=== PATIENT | female | born 1990 | race Caucasian/White ===

== ENCOUNTER 2016-10-10 09:21 | Inpatient (IN) | payer OTHER ==
[2016-10-10 09:22] VITALS: BMI 29.1
[2016-10-10] MEDS ORDERED: Sodium Chloride 0.9% 1,000 ML IV ONE ×2 (10:03→11:16)
[2016-10-10] MEDS ORDERED: Sodium Chloride 0.9% 1,000 ML ONE ×3 (10:19→15:01)
[2016-10-10 10:23] LABS: BASO # 0.1 K/uL (0.0-0.2); BASO % 0.9 % (0.0-2.0); EOS % 0.2 % (0.0-4.0); HEMATOCRIT 39.5 % (34.0-47.0); LYMPH # 1.4 K/uL (1.0-4.3); LYMPH % 11.1 % (20.0-40.0); MEAN CELL VOLUME 90.6 fL (81.0-99.0); MEAN CORPUSCULAR HEMOGLOBIN 29.1 pg (27.0-31.0); MEAN CORPUSCULAR HGB CONC 32.1 g/dL (33.0-37.0); MEAN PLATELET VOLUME 9.5 fL (7.2-11.7); MONO # 0.2 K/uL (0.0-0.8); WHITE BLOOD COUNT 12.3 K/uL (4.8-10.8)
[2016-10-10 10:36] LABS: CHLORIDE 99 mmol/L (98-107); POTASSIUM 4.8 mmol/L (3.6-5.2); SODIUM 137 mmol/L (132-148)
[2016-10-10 10:37] LABS: DRAW SITE VENOUS; VENOUS BLOOD GAS BASE EXCESS -16.6 mmol/L (0.0-2.0); VENOUS BLOOD GAS PCO2 32 mmHg (40-60); VENOUS BLOOD PH 7.15 (7.32-7.43)
[2016-10-10 10:38] LABS: AST/SGOT 26 U/L (14-36); BILIRUBIN,TOTAL 0.6 mg/dL (0.2-1.3); GFR AFRICAN-AMERICAN > 60
[2016-10-10 10:39] LABS: ALB/GLOB RATIO 1.4 (1.0-2.1); ALKALINE PHOSPHATASE 115 U/L (38-126); ALT/SGPT 39 U/L (9-52); BLOOD UREA NITROGEN 17 mg/dL (7-17); CALCIUM 9.3 mg/dl (8.6-10.4); TOTAL PROTEIN 8.1 g/dL (6.3-8.3)
[2016-10-10 10:57] LABS: GLUCOSE,RANDOM 534 mg/dL (65-105)
[2016-10-10 10:58] LABS: CARBON DIOXIDE 11 mmol/L (22-30)
[2016-10-10 11:01] LABS: RBC URINE 9 /hpf (0-3); URINE BILIRUBIN NEGATIVE (NEGATIVE); URINE BLOOD 2+ (NEGATIVE); URINE COLOR Straw (YELLOW); URINE GLUCOSE (UA) 3+ mg/dL (Normal); URINE KETONE 2+ mg/dL (NEGATIVE); URINE LEUKOCYTE ESTERASE NEG Leu/uL (Negative); URINE PROTEIN 2+ mg/dL (NEGATIVE); URINE UROBILINOGEN NORMAL mg/dL (0.2-1.0); WBC URINE 1 /hpf (0-5)
[2016-10-10] MEDS ORDERED: Iodixanol 320 MG/ML 100 ML BOTTLE IV ONE (11:17)
--- NOTE | 2016-10-10 11:17 | C.PDOC ---
History Of Present Illness 26 year old female with a history of DM, HTN, and anemia, presents to the ED with complaints of sharp and burning epigastric abdominal pain with multiple episodes of vomiting since 04:00. Patient states she has had similar episodes in the past and thinks it might be related to what she ate last night. Denies fever, diarrhea, or any other complaints at this time. Time Seen by Provider: 10/10/16 09:58 Chief Complaint (Nursing): Abdominal Pain History Per: Patient History/Exam Limitations: no limitations Onset/Duration Of Symptoms: Hrs Current Symptoms Are (Timing): Still Present Severity: Mild Location Of Pain/Discomfort: Epigastric Radiation Of Pain To:: None Quality Of Discomfort: Sharp, Burning Associated Symptoms: Vomiting. denies: Fever, Diarrhea Exacerbating Factors: None Abnormal Vaginal Bleeding: No Past Medical History Reviewed: Historical Data, Nursing Documentation, Vital Signs Vital Signs: Last Vital Signs Temp 98.3 F 10/10/16 11:35 Pulse 105 H 10/10/16 11:35 Resp 22 10/10/16 11:35 BP 135/68 10/10/16 11:35 Pulse Ox 100 10/10/16 12:51 - Medical History PMH: Anemia (low iron level), Anxiety, Depression, Diabetes, Gall Bladder Disease, HTN, Hypercholesterolemia Surgical History: Cholecystectomy - [facility] Procedures CLOSURE SKIN & SUBCUTANEOUS NEC (09/26/13) Family History: States: Unknown Family Hx - Social History Hx Tobacco Use: No Hx Alcohol Use: Yes Hx Substance Use: No - Immunization History Hx Tetanus Toxoid Vaccination: No Hx Influenza Vaccination: No Hx Pneumococcal Vaccination: No Review Of Systems Constitutional: Negative for: Fever, Chills Cardiovascular: Negative for: Chest Pain Respiratory: Negative for: Shortness of Breath Gastrointestinal: Positive for: Vomiting, Abdominal Pain. Negative for: Diarrhea Genitourinary: Negative for: Dysuria, Frequency Musculoskeletal: Negative for: Back Pain Neurological: Negative for: Weakness, Numbness Physical Exam - Physical Exam Appears: Non-toxic, Other (+Uncomfortable +Actively vomiting) Skin: Normal Color, Warm, Diaphoretic Head: Atraumatic, Normacephalic Eye(s): bilateral: Normal Inspection Oral Mucosa: Moist Neck: Supple Chest: Symmetrical, No Deformity Cardiovascular: Rhythm Regular (+Tachycardic) Respiratory: Normal Breath Sounds, No Accessory Muscle Use, No Rales, No Rhonchi , No Wheezing Gastrointestinal/Abdominal: Soft, Tenderness (+Tenderness to the upper abdomen) , No Distention, No Guarding, No Rebound Extremity: Normal ROM Neurological/Psych: Oriented x3, Normal Speech, Normal Cognition ED Course And Treatment - Laboratory Results Result Diagrams: 10/10/16 10:15 10/10/16 10:15 ECG: Interpreted By Me, Viewed By Me ECG Rhythm: Sinus Tachycardia ECG Interpretation: Normal Rate From EC O2 Sat by Pulse Oximetry: 100 (Room air) Pulse Ox Interpretation: Normal Medical Decision Making Medical Decision Making: Plan: * CT ABD & Pelvis w/ contrast * EKG * Blood work * Urinalysis * Novolin * Pepcid * Zofran * IV fluids * Reassess Prior records reviewed showing patient was seen in ED 06/28/15 and admitted for DKA Progress: Rn informs me patient does not want CT scan. I spoke with patient at bedside and she reports her abdominal pain is from vomiting and does not want CT scan. I discussed case and management with Dr Hough he recommends adding labs and continue with plan for admission and ICU consult [address] Jamil for admission [address] Campuzano for ICU consult, he recommends additional IV bolus and will come to evaluate patient [address] Jamil again for admission [address] Jamil and discussed case and accepts admission. Disposition - Disposition Disposition: HOSPITALIZED Disposition Time: 12:49 Condition: FAIR - POA Present On Arrival: Poor Glycemic Control - Clinical Impression Clinical Impression: DKA (diabetic ketoacidoses), Vomiting - PA / GAS TORCH BRAZIER / Resident Statement MD/DO has reviewed & agrees with the documentation as recorded. - Scribe Statement The provider has reviewed the documentation as recorded by the Scribe Wing Randhawa. All medical record entries made by the Scribe were at my direction and personally dictated by me. I have reviewed the chart and agree that the record accurately reflects my personal performance of the history, physical exam, medical decision making, and the department course for this patient. I have also personally directed, reviewed, and agree with the discharge instructions and disposition. Decision To Admit - Pt Status Changed To: Hospital Disposition Of: Inpatient - Admit Certification Admit to Inpatient:: After my assessment, the patient will require hospitalization for at least two midnights. This is because of the severity of symptoms shown, intensity of services needed, and/or the medical risk in this patient being treated as an outpatient. - InPatient: Physician Admission Certification:: Patient with acute DKA needs IV insulin drip , fluids and monitoring - . Bed Request Type: ICU Admitting Physician: Kolby Jamil Patient Diagnosis: DKA (diabetic ketoacidoses), Vomiting
[2016-10-10] MEDS ORDERED: (Novolin R) Insulin Human Regular 100 units/ml vial IV ONE (11:27)
[2016-10-10] MEDS ORDERED: Insulin Human Regular 100 UNIT in Sodium Chloride 0.9% 99 ML IV SCH ×5 (11:30→19:30)
[2016-10-10] MEDS ORDERED: (Novolin R) Insulin Human Regular 100 units/ml vial ONE (11:34)
--- NOTE | 2016-10-10 14:34 | CP.PCM.CON ---
<Julissa Sevilla - Last Filed: 10/10/16 14:38> History of Present Illness - History of Present Illness History of Present Illness: Critical Care Consult Note HPI: 26F with PMHx of DM presents to the ED complaining of nausea, vomiting, and abdominal pain x 1 day. Patient reports her diabetic medications have been adjusted a few months ago by Dr. Fowler her Motor Vehicle Compliance Analyst. She is currently on Lantus 25 units SC HS and Apidra Sliding Scale ACHS. She is currently filling out paperwork to have the patient approved for an insulin pump. Patient reports her sugars have been uncontrolled, ranging from 50-350. She admits to adjusting her diet and exercising but her sugars are still not well controlled. She started to have abdominal pain last night accompanied with nausea and vomiting and frequent loose stools. She has been unable to tolerate anything by mouth. She reports vomiting a total of 10 times. Denied fever, chills, headache , chest pain, diarrhea, constipation, or urinary symptoms. PMHx: DM , HLD (as per previous medical records) PSHx: Cholecystectomy 2011 Meds: Lantus 25 units SC HS, Apidra Sliding Scale ACHS All: NKDA SHx: Denied tobacco, alcohol, or illicit drug use FHx: Mother with lupus Motor Vehicle Compliance Analyst: Dr. Fowler Past Patient History - Infectious Disease Hx of Infectious Diseases: None - Past Medical History & Family History Past Medical History?: Yes - Past Social History Smoking Status: Former Smoker - CARDIAC Hx Hypercholesterolemia: Yes Hx Hypertension: Yes - PULMONARY Hx Asthma: No Hx Bronchitis: No Hx Chronic Obstructive Pulmonary Disease (COPD): No Hx Emphysema: No Hx Pneumonia: No Hx Pulmonary Embolism: No Hx Sleep Apnea: No - NEUROLOGICAL Hx Alzheimer's Disease: No Hx Dementia: No Hx Migraine: No Hx Multiple Sclerosis: No Hx Parkinson's Disease: No Hx Seizures: No Hx Transient Ischemic Attacks (TIA): No - HEENT Hx HEENT Problems: No Hx Blind: No Hx Cataracts: No Hx Deafness: No Hx Difficulty Chewing: No Hx Epistaxis: No Hx Glaucoma: No Hx Macular Degeneration: No - RENAL Hx Chronic Kidney Disease: No Hx Kidney Stones: No - ENDOCRINE/METABOLIC Hx Hyperthyroidism: No Hx Hypothyroidism: No - HEMATOLOGICAL/ONCOLOGICAL Hx Anemia: Yes (low iron level) - INTEGUMENTARY Hx Dermatological Problems: No Hx Basil Cell: No Hx Bronson: No Hx Cellulitis: No Hx Eczema: No Hx Melanoma: No Hx Psoriasis: No Hx Squamous Cell: No - MUSCULOSKELETAL/RHEUMATOLOGICAL Hx Arthritis: No Hx Fractures: No Hx Osteoporosis: No Hx Rheumatoid Arthritis: No - GASTROINTESTINAL Hx Gall Bladder Disease: Yes - GENITOURINARY/GYNECOLOGICAL Hx Sexually Transmitted Disorders: No - PSYCHIATRIC Hx Anxiety: Yes Hx Depression: Yes Hx Substance Use: No - SURGICAL HISTORY Hx Cholecystectomy: Yes - ANESTHESIA Hx Anesthesia: Yes Hx Anesthesia Reactions: No Hx Malignant Hyperthermia: No Meds Allergies/Adverse Reactions: Allergies Allergy/AdvReac Type Severity Reaction Status Date / Time No Known Allergies Allergy Verified 10/10/16 09:28 - Medications Medications: Current Medications Heparin Sodium (Porcine) (Heparin) 5,000 units SC Q12 [facility] Insulin Human Regular 100 unit (/ Sodium Chloride) 100 mls @ 7 mls/hr IV .[id number] R[place] Sodium Chloride (Sodium Chloride 0.9%) 1,000 mls @ 150 mls/hr IV .Q6H40M [facility] Ondansetron HCl (Zofran Inj) 4 mg IVP Q6H PRN PRN Reason: Nausea/Vomiting Pantoprazole Sodium (Protonix Ec Tab) 40 mg PO DAILY ROMEO Physical Exam - Constitutional Appears: Toxic - Head Exam Head Exam: NORMAL INSPECTION, NORMOCEPHALIC - Eye Exam Eye Exam: Normal appearance - ENT Exam ENT Exam: Mucous Membranes Dry - Neck Exam Neck exam: Positive for: Normal Inspection - Respiratory Exam Respiratory Exam: Clear to Auscultation Bilateral, NORMAL BREATHING PATTERN. absent: Decreased Breath Sounds, Wheezes - Cardiovascular Exam Cardiovascular Exam: REGULAR RHYTHM, RRR, +S1, +S2 - GI/Abdominal Exam GI & Abdominal Exam: Normal Bowel Sounds, Soft, Tenderness. absent: Distended - Extremities Exam Extremities exam: Positive for: normal inspection, pedal pulses present. Negative for: pedal edema, tenderness - Neurological Exam Neurological exam: Alert, Oriented x3 - Skin Skin Exam: Dry, Intact, Normal Color, Warm Results - Vital Signs Recent Vital Signs: Last Vital Signs Temp 98.3 F 10/10/16 11:35 Pulse 105 H 10/10/16 11:35 Resp 22 10/10/16 11:35 BP 135/68 10/10/16 11:35 Pulse Ox 100 10/10/16 14:07 - Labs Result Diagrams: 10/10/16 10:15 10/10/16 10:15 Labs: Laboratory Results - last 24 hr 10/10/16 10/10/16 10/10/16 10:15 10:31 10:34 WBC 12.3 H D RBC 4.36 Hgb 12.7 Hct 39.5 MCV 90.6 D MCH 29.1 MCHC 32.1 L RDW 13.0 Plt Count 348 D MPV 9.5 Neut % (Auto) 85.8 H Lymph % (Auto) 11.1 L [place] % (Auto) 2.0 Eos % (Auto) 0.2 Baso % (Auto) 0.9 Neut # 10.6 H Lymph # 1.4 Ferry # 0.2 Eos # 0.0 Baso # 0.1 Puncture Site Venous pO2 23 L [place] Test N/a VBG pH 7.15 L* VBG pCO2 32 L VBG HCO3 10.0 VBG O2 Sat (Calc) 38.8 L VBG Base Excess -16.6 L Crit Value Called To Kassi brown Crit Value Called By Geovani mccall lead former Crit Value Read Back Y Blood Gas Notified Time 1036 Sodium 137 Potassium 4.8 Chloride 99 Carbon Dioxide 11 L* D Anion Gap 32 H BUN 17 Creatinine 0.8 Est GFR ( Amer) > 60 Est GFR (Non-Af Amer) > 60 POC Glucose (mg/dL) 392 H Random Glucose 534 H* D Calcium 9.3 Total Bilirubin 0.6 AST 26 ALT 39 Alkaline Phosphatase 115 Troponin I < 0.0120 Total Protein 8.1 Albumin 4.8 Globulin 3.3 Albumin/Globulin Ratio 1.4 Lipase 65 Urine Color Urine Clarity Urine pH Ur Specific [place] Urine Protein Urine Glucose (UA) Urine Ketones Urine Blood Urine Nitrate Urine Bilirubin Urine Urobilinogen Ur Leukocyte Esterase Urine WBC (Auto) Urine RBC (Auto) Ur Squamous Epith Cells Urine HCG, Qual Serum Ketones Small 10/10/16 10/10/16 10:46 12:53 WBC RBC Hgb Hct MCV MCH MCHC RDW Plt Count MPV Neut % (Auto) Lymph % (Auto) [place] % (Auto) Eos % (Auto) Baso % (Auto) Neut # Lymph # [place] # Eos # Baso # Puncture Site pO2 [place] Test VBG pH VBG pCO2 VBG HCO3 VBG O2 Sat (Calc) VBG Base Excess Crit Value Called To Crit Value Called By Crit Value Read Back Blood Gas Notified Time Sodium Potassium Chloride Carbon Dioxide Anion Gap BUN Creatinine Est GFR ( Amer) Est GFR (Non-Af Amer) POC Glucose (mg/dL) 329 H Random Glucose Calcium Total Bilirubin AST ALT Alkaline Phosphatase Troponin I Total Protein Albumin Globulin Albumin/Globulin Ratio Lipase Urine Color Straw Urine Clarity Clear Urine pH 5.0 Ur Specific [place] 1.022 Urine Protein 2+ H Urine Glucose (UA) 3+ H Urine Ketones 2+ H Urine Blood 2+ H Urine Nitrate Negative Urine Bilirubin Negative Urine Urobilinogen Normal Ur Leukocyte Esterase Neg Urine WBC (Auto) 1 Urine RBC (Auto) 9 H Ur Squamous Epith Cells 3 Urine HCG, Qual Negative Serum Ketones Assessment & Plan - Assessment and Plan (Free Text) Assessment: 26 F with PMHx of DM presents to the ED with abdominal pain, nausea, and vomiting x 1 day, with sugars of 534 found to have DKA. Plan: Abdominal pain 2/2 DKA * Glucose of 534 on admission * ABG: Metabolic acidosis with anion gap of 26 * NPO * NS @ 150cc/hr * Insulin drip @ 7 units/ hr * Accuchecks Q1H, BMP Q4H * F/U HGA1C last HGA1C was 12.5 on 06/29/15 * Zofran PRN Hx of HLD * F/U lipid panel Prophylaxis * GI PPX: Protonix 40mg PO daily * DVT PPX: Heparin 5000U SC Q12H DW Roel Ramires DO, PGY-1 <Tavon Campuzano - Last Filed: 10/11/16 14:31> Meds - Medications Medications: Current Medications Acetaminophen (Tylenol 325mg Tab) 650 mg PO Q6 PRN PRN Reason: Pain, Mild (1-3) Heparin Sodium (Porcine) (Heparin) 5,000 units SC Q12 [facility] Last Admin: 10/11/16 11:02 Dose: 5,000 units Dextrose/Sodium Chloride (Dextrose 5%/0.45% Ns 1000 Ml) 1,000 mls @ 175 mls/hr IV .Q5H43M [facility] Insulin Human Regular 100 unit (/ Sodium Chloride) 100 mls @ 6 mls/hr IV .[id number] PRN; 6 UNIT/HR PRN Reason: DKA Metoclopramide HCl (Reglan) 10 mg IVP Q6H PRN PRN Reason: Nausea/Vomiting Morphine Sulfate (Morphine) 2 mg IVP Q4H PRN PRN Reason: Pain, moderate (4-7) Last Admin: 10/11/16 12:18 Dose: 2 mg Morphine Sulfate (Morphine) 3 mg IVP Q4 PRN PRN Reason: Pain, severe (8-10) Ondansetron HCl (Zofran Inj) 4 mg IVP Q6H PRN PRN Reason: Nausea/Vomiting Last Admin: 10/11/16 08:42 Dose: 4 mg Pantoprazole Sodium (Protonix Ec Tab) 40 mg PO DAILY ROMEO Results - Vital Signs Recent Vital Signs: Last Vital Signs Temp 98.7 F 10/11/16 04:00 Pulse 112 H 10/11/16 12:54 Resp 14 10/11/16 12:54 BP 151/85 H 10/11/16 12:54 Pulse Ox 99 10/11/16 12:54 - Labs Result Diagrams: 10/11/16 06:12 10/11/16 11:09 Labs: Laboratory Results - last 24 hr 10/10/16 10/10/16 10/10/16 14:34 15:19 15:42 WBC RBC Hgb Hct MCV MCH MCHC RDW Plt Count MPV Neut % (Auto) Lymph % (Auto) [place] % (Auto) Eos % (Auto) Baso % (Auto) Neut # Lymph # [place] # Eos # Baso # Puncture Site pO2 [place] Test VBG pH VBG pCO2 VBG HCO3 VBG O2 Sat (Calc) VBG Base Excess Sodium Potassium Chloride Carbon Dioxide Anion Gap BUN Creatinine Est GFR ( Amer) Est GFR (Non-Af Amer) POC Glucose (mg/dL) 269 H 184 H Random Glucose Hemoglobin A1c 10.9 H Calcium Phosphorus Magnesium Total Bilirubin AST ALT Alkaline Phosphatase Total Protein Albumin Globulin Albumin/Globulin Ratio Triglycerides Cholesterol LDL Cholesterol Direct HDL Cholesterol Free T4 TSH 3rd Generation 10/10/16 10/10/16 10/10/16 15:55 16:50 17:54 WBC RBC Hgb Hct MCV MCH MCHC RDW Plt Count MPV Neut % (Auto) Lymph % (Auto) [place] % (Auto) Eos % (Auto) Baso % (Auto) Neut # Lymph # [place] # Eos # Baso # Puncture Site pO2 [place] Test VBG pH VBG pCO2 VBG HCO3 VBG O2 Sat (Calc) VBG Base Excess Sodium 143 Potassium 4.5 Chloride 110 H Carbon Dioxide 10 L* Anion Gap 28 H BUN 15 Creatinine 0.7 Est GFR ( Amer) > 60 Est GFR (Non-Af Amer) > 60 POC Glucose (mg/dL) 125 H 100 Random Glucose 207 H Hemoglobin A1c Calcium 8.7 Phosphorus Magnesium Total Bilirubin AST ALT Alkaline Phosphatase Total Protein Albumin Globulin Albumin/Globulin Ratio Triglycerides 116 D Cholesterol 181 LDL Cholesterol Direct 74 HDL Cholesterol 75 H Free T4 TSH 3rd Generation 10/10/16 10/10/16 10/10/16 19:09 20:24 21:08 WBC RBC Hgb Hct MCV MCH MCHC RDW Plt Count MPV Neut % (Auto) Lymph % (Auto) [place] % (Auto) Eos % (Auto) Baso % (Auto) Neut # Lymph # [place] # Eos # Baso # Puncture Site pO2 [place] Test VBG pH VBG pCO2 VBG HCO3 VBG O2 Sat (Calc) VBG Base Excess Sodium Potassium Chloride Carbon Dioxide Anion Gap BUN Creatinine Est GFR ( Amer) Est GFR (Non-Af Amer) POC Glucose (mg/dL) 160 H 193 H 168 H Random Glucose Hemoglobin A1c Calcium Phosphorus Magnesium Total Bilirubin AST ALT Alkaline Phosphatase Total Protein Albumin Globulin Albumin/Globulin Ratio Triglycerides Cholesterol LDL Cholesterol Direct HDL Cholesterol Free T4 TSH 3rd Generation 10/10/16 10/10/16 10/10/16 22:50 23:30 23:56 WBC RBC Hgb Hct MCV MCH MCHC RDW Plt Count MPV Neut % (Auto) Lymph % (Auto) [place] % (Auto) Eos % (Auto) Baso % (Auto) Neut # Lymph # [place] # Eos # Baso # Puncture Site pO2 [place] Test VBG pH VBG pCO2 VBG HCO3 VBG O2 Sat (Calc) VBG Base Excess Sodium 141 Potassium 4.1 Chloride 112 H Carbon Dioxide 12 L Anion Gap 21 H BUN 13 Creatinine 0.6 L Est GFR ( Amer) > 60 Est GFR (Non-Af Amer) > 60 POC Glucose (mg/dL) 157 H 152 H Random Glucose 134 H Hemoglobin A1c Calcium 8.0 L Phosphorus Magnesium Total Bilirubin AST ALT Alkaline Phosphatase Total Protein Albumin Globulin Albumin/Globulin Ratio Triglycerides Cholesterol LDL Cholesterol Direct HDL Cholesterol Free T4 TSH 3rd Generation 10/11/16 10/11/1617 00:51 02:00 03:17 WBC RBC Hgb Hct MCV MCH MCHC RDW Plt Count MPV Neut % (Auto) Lymph % (Auto) [place] % (Auto) Eos % (Auto) Baso % (Auto) Neut # Lymph # [place] # Eos # Baso # Puncture Site pO2 [place] Test VBG pH VBG pCO2 VBG HCO3 VBG O2 Sat (Calc) VBG Base Excess Sodium Potassium Chloride Carbon Dioxide Anion Gap BUN Creatinine Est GFR ( Amer) Est GFR (Non-Af Amer) POC Glucose (mg/dL) 112 H 147 H 272 H Random Glucose Hemoglobin A1c Calcium Phosphorus Magnesium Total Bilirubin AST ALT Alkaline Phosphatase Total Protein Albumin Globulin Albumin/Globulin Ratio Triglycerides Cholesterol LDL Cholesterol Direct HDL Cholesterol Free T4 TSH 3rd Generation 10/11/16 10/11/16 10/11/16 04:02 05:04 06:09 WBC RBC Hgb Hct MCV MCH MCHC RDW Plt Count MPV Neut % (Auto) Lymph % (Auto) [place] % (Auto) Eos % (Auto) Baso % (Auto) Neut # Lymph # [place] # Eos # Baso # Puncture Site pO2 [place] Test VBG pH VBG pCO2 VBG HCO3 VBG O2 Sat (Calc) VBG Base Excess Sodium Potassium Chloride Carbon Dioxide Anion Gap BUN Creatinine Est GFR ( Amer) Est GFR (Non-Af Amer) POC Glucose (mg/dL) 261 H 214 H 134 H Random Glucose Hemoglobin A1c Calcium Phosphorus Magnesium Total Bilirubin AST ALT Alkaline Phosphatase Total Protein Albumin Globulin Albumin/Globulin Ratio Triglycerides Cholesterol LDL Cholesterol Direct HDL Cholesterol Free T4 TSH 3rd Generation 10/11/16 10/11/16 10/11/16 06:12 06:54 08:10 WBC 17.7 H RBC 3.42 L Hgb 9.9 L D Hct 30.7 L MCV 89.6 MCH 29.0 MCHC 32.4 L RDW 13.1 Plt Count 250 MPV 8.1 Neut % (Auto) 83.4 H Lymph % (Auto) 11.0 L [place] % (Auto) 5.3 Eos % (Auto) 0.0 Baso % (Auto) 0.3 Neut # 14.8 H Lymph # 2.0 Ferry # 0.9 H Eos # 0.0 Baso # 0.0 Puncture Site pO2 [place] Test VBG pH VBG pCO2 VBG HCO3 VBG O2 Sat (Calc) VBG Base Excess Sodium 143 Potassium 3.4 L Chloride 115 H Carbon Dioxide 10 L* Anion Gap 21 H BUN 10 Creatinine 0.6 L Est GFR ( Amer) > 60 Est GFR (Non-Af Amer) > 60 POC Glucose (mg/dL) 114 H 221 H Random Glucose 115 H Hemoglobin A1c Calcium 7.4 L Phosphorus 2.3 L Magnesium 2.1 Total Bilirubin 0.2 AST 16 ALT 28 Alkaline Phosphatase 48 Total Protein 6.1 L Albumin 3.4 L D Globulin 2.7 Albumin/Globulin Ratio 1.3 Triglycerides Cholesterol LDL Cholesterol Direct HDL Cholesterol Free T4 TSH 3rd Generation 0.29 L 10/11/16 10/11/16 10/11/16 09:37 10:25 11:07 WBC RBC Hgb Hct MCV MCH MCHC RDW Plt Count MPV Neut % (Auto) Lymph % (Auto) [place] % (Auto) Eos % (Auto) Baso % (Auto) Neut # Lymph # [place] # Eos # Baso # Puncture Site Vbg pO2 50 [place] Test Na VBG pH 7.25 L VBG pCO2 21 L VBG HCO3 12.0 VBG O2 Sat (Calc) 88.7 H VBG Base Excess -15.9 L Sodium Potassium Chloride Carbon Dioxide Anion Gap BUN Creatinine Est GFR ( Amer) Est GFR (Non-Af Amer) POC Glucose (mg/dL) 301 H 274 H Random Glucose Hemoglobin A1c Calcium Phosphorus Magnesium Total Bilirubin AST ALT Alkaline Phosphatase Total Protein Albumin Globulin Albumin/Globulin Ratio Triglycerides Cholesterol LDL Cholesterol Direct HDL Cholesterol Free T4 TSH 3rd Generation 10/11/16 10/11/16 10/11/16 11:09 11:22 12:20 WBC RBC Hgb Hct MCV MCH MCHC RDW Plt Count MPV Neut % (Auto) Lymph % (Auto) [place] % (Auto) Eos % (Auto) Baso % (Auto) Neut # Lymph # [place] # Eos # Baso # Puncture Site pO2 [place] Test VBG pH VBG pCO2 VBG HCO3 VBG O2 Sat (Calc) VBG Base Excess Sodium 141 Potassium 5.3 H Chloride 112 H Carbon Dioxide 5 L* D Anion Gap 29 H BUN 10 Creatinine 0.6 L Est GFR ( Amer) > 60 Est GFR (Non-Af Amer) > 60 POC Glucose (mg/dL) 243 H 247 H Random Glucose 236 H Hemoglobin A1c Calcium 8.4 L Phosphorus Magnesium Total Bilirubin AST ALT Alkaline Phosphatase Total Protein Albumin Globulin Albumin/Globulin Ratio Triglycerides Cholesterol LDL Cholesterol Direct HDL Cholesterol Free T4 1.02 TSH 3rd Generation 10/11/16 10/11/16 12:48 14:12 WBC RBC Hgb Hct MCV MCH MCHC RDW Plt Count MPV Neut % (Auto) Lymph % (Auto) [place] % (Auto) Eos % (Auto) Baso % (Auto) Neut # Lymph # [place] # Eos # Baso # Puncture Site pO2 [place] Test VBG pH VBG pCO2 VBG HCO3 VBG O2 Sat (Calc) VBG Base Excess Sodium Potassium Chloride Carbon Dioxide Anion Gap BUN Creatinine Est GFR ( Amer) Est GFR (Non-Af Amer) POC Glucose (mg/dL) 243 H 192 H Random Glucose Hemoglobin A1c Calcium Phosphorus Magnesium Total Bilirubin AST ALT Alkaline Phosphatase Total Protein Albumin Globulin Albumin/Globulin Ratio Triglycerides Cholesterol LDL Cholesterol Direct HDL Cholesterol Free T4 TSH 3rd Generation Attending/Attestation - Attestation I have personally seen and examined this patient.: Yes I have fully participated in the care of the patient.: Yes I have reviewed all pertinent clinical information: Yes Notes (Text): Today: , October 10, 2016 The Patient was seen and examined at the bedside, Medical records reviewed, all clinical/lab/hemodynamic/radiographic data were reviewed and management issues were discussed and formulated, Events reviewed Pain issues, skin care, head of the bed elevation, glycemic control were addressed. Agree with above treatment plans as transcribed in Dr. Sevilla note
[2016-10-10] MEDS: Sodium Chloride 0.9% 1,000 ML IV SCH ×2 (15:15→22:00)
[2016-10-10 16:01] LABS: CHLORIDE 110 mmol/L (98-107); POTASSIUM 4.5 mmol/L (3.6-5.2); SODIUM 143 mmol/L (132-148)
[2016-10-10 16:03] LABS: CHOLESTEROL 181 mg/dL (0-199)
[2016-10-10 16:04] LABS: BLOOD UREA NITROGEN 15 mg/dL (7-17); GFR AFRICAN-AMERICAN > 60; GLUCOSE,RANDOM 207 mg/dL (65-105)
[2016-10-10 16:05] LABS: CALCIUM 8.7 mg/dl (8.6-10.4)
[2016-10-10 16:11] LABS: CARBON DIOXIDE 10 mmol/L (22-30)
[2016-10-10] MEDS: Insulin Human Regular 100 UNIT in Sodium Chloride 0.9% 99 ML IV SCH ×2 (16:30→17:00)
--- NOTE | 2016-10-10 20:20 | CP.PCM.HP ---
History of Present Illness - History of Present Illness History of Present Illness: 26 with DM admitted with DKA to icu on hydration, presented with N/V after adjusting insulin, AG 30 co2 11 Present on Admission - Present on Admission Any Indicators Present on Admission: No Review of Systems - Review of Systems Systems not reviewed;Unavailable: Unstable Vital Signs - Constitutional Constitutional: Anorexia, Weakness - EENT Eyes: absent: Discharge Ears: Dizziness. absent: Ear Discharge Nose/Mouth/Throat: absent: Epistaxis - Cardiovascular Cardiovascular: absent: Acrocyanosis, Chest Pain, Diaphoresis, Leg Edema, Palpitations, Syncope - Respiratory Respiratory: absent: Cough, Dyspnea, Hemoptysis, Stridor - Gastrointestinal Gastrointestinal: Abdominal Pain, Cramping, Diarrhea, Nausea, Vomiting - Genitourinary Genitourinary: absent: Change in Urinary Stream Past Patient History - Infectious Disease Hx of Infectious Diseases: None - Past Medical History & Family History Past Medical History?: Yes - Past Social History Smoking Status: Never Smoked - CARDIAC Hx Hypercholesterolemia: Yes Hx Hypertension: Yes - PULMONARY Hx Asthma: No Hx Bronchitis: No Hx Chronic Obstructive Pulmonary Disease (COPD): No Hx Emphysema: No Hx Pneumonia: No Hx Pulmonary Embolism: No Hx Sleep Apnea: No - NEUROLOGICAL Hx Alzheimer's Disease: No Hx Dementia: No Hx Migraine: No Hx Multiple Sclerosis: No Hx Parkinson's Disease: No Hx Seizures: No Hx Transient Ischemic Attacks (TIA): No - HEENT Hx HEENT Problems: No Hx Blind: No Hx Cataracts: No Hx Deafness: No Hx Difficulty Chewing: No Hx Epistaxis: No Hx Glaucoma: No Hx Macular Degeneration: No - RENAL Hx Chronic Kidney Disease: No Hx Kidney Stones: No - ENDOCRINE/METABOLIC Hx Hyperthyroidism: No Hx Hypothyroidism: No - HEMATOLOGICAL/ONCOLOGICAL Hx Anemia: Yes (low iron level) - INTEGUMENTARY Hx Dermatological Problems: No Hx Basil Cell: No Hx Bronson: No Hx Cellulitis: No Hx Eczema: No Hx Melanoma: No Hx Psoriasis: No Hx Squamous Cell: No - MUSCULOSKELETAL/RHEUMATOLOGICAL Hx Falls: No - GASTROINTESTINAL Hx Gall Bladder Disease: Yes - GENITOURINARY/GYNECOLOGICAL Hx Sexually Transmitted Disorders: No - PSYCHIATRIC Hx Anxiety: Yes Hx Depression: Yes Hx Substance Use: No - SURGICAL HISTORY Hx Cholecystectomy: Yes - ANESTHESIA Hx Anesthesia: Yes Hx Anesthesia Reactions: No Hx Malignant Hyperthermia: No Meds Allergies/Adverse Reactions: Allergies Allergy/AdvReac Type Severity Reaction Status Date / Time No Known Allergies Allergy Verified 10/10/16 09:28 Physical Exam - Constitutional Appears: Toxic - Head Exam Head Exam: ATRAUMATIC - Eye Exam Eye Exam: EOMI - ENT Exam ENT Exam: Mucous Membranes Moist - Neck Exam Neck exam: Negative for: Lymphadenopathy, Thyromegaly - Respiratory Exam Respiratory Exam: Clear to Auscultation Bilateral. absent: Rales - Cardiovascular Exam Cardiovascular Exam: REGULAR RHYTHM. absent: Systolic Murmur - GI/Abdominal Exam GI & Abdominal Exam: Normal Bowel Sounds. absent: Organomegaly - Rectal Exam Rectal Exam: Deferred - Extremities Exam Extremities exam: Positive for: normal capillary refill. Negative for: calf tenderness - Neurological Exam Neurological exam: Alert, Oriented x3 - Psychiatric Exam Psychiatric exam: Normal Mood - Skin Skin Exam: Dry Results - Vital Signs Recent Vital Signs: Last Vital Signs Temp 98 F 10/10/16 15:51 Pulse 110 H 10/10/16 19:00 Resp 23 10/10/16 19:00 BP 140/80 10/10/16 18:54 Pulse Ox 100 10/10/16 19:00 - Labs Result Diagrams: 10/10/16 10:15 10/10/16 15:55 Labs: Laboratory Results - last 24 hr 10/10/16 10/10/16 10/10/16 12:53 14:34 15:19 Sodium Potassium Chloride Carbon Dioxide Anion Gap BUN Creatinine Est GFR ( Amer) Est GFR (Non-Af Amer) POC Glucose (mg/dL) 329 H 269 H Random Glucose Hemoglobin A1c 10.9 H Calcium Triglycerides Cholesterol LDL Cholesterol Direct HDL Cholesterol 10/10/16 10/10/16 10/10/16 15:42 15:55 16:50 Sodium 143 Potassium 4.5 Chloride 110 H Carbon Dioxide 10 L* Anion Gap 28 H BUN 15 Creatinine 0.7 Est GFR ( Amer) > 60 Est GFR (Non-Af Amer) > 60 POC Glucose (mg/dL) 184 H 125 H Random Glucose 207 H Hemoglobin A1c Calcium 8.7 Triglycerides 116 D Cholesterol 181 LDL Cholesterol Direct 74 HDL Cholesterol 75 H 10/10/16 10/10/16 17:54 19:09 Sodium Potassium Chloride Carbon Dioxide Anion Gap BUN Creatinine Est GFR ( Amer) Est GFR (Non-Af Amer) POC Glucose (mg/dL) 100 160 H Random Glucose Hemoglobin A1c Calcium Triglycerides Cholesterol LDL Cholesterol Direct HDL Cholesterol Assessment & Plan (1) DKA (diabetic ketoacidoses) Status: Acute Priority: Low Comment: icu treatment (2) Hypokalemia Status: Acute Priority: Medium (3) Diabetes 1.5, managed as type 1 Status: Chronic Decision To Admit - Pt Status Changed To: Hospital Disposition Of: Inpatient - Admit Certification Admit to Inpatient:: After my assessment, the patient will require hospitalization for at least two midnights. This is because of the severity of symptoms shown, intensity of services needed, and/or the medical risk in this patient being treated as an outpatient. - InPatient: Physician Admission Certification:: yes - . Bed Request Type: ICU
[2016-10-10] MEDS ORDERED: Insulin Human Regular 100 UNIT in Sodium Chloride 0.9% 99 ML IV PRN (20:37)
[2016-10-10] MEDS: Insulin Human Regular 100 UNIT in Sodium Chloride 0.9% 99 ML IV PRN (21:11)
[2016-10-10 23:46] LABS: BLOOD UREA NITROGEN 13 mg/dL (7-17); CARBON DIOXIDE 12 mmol/L (22-30); CHLORIDE 112 mmol/L (98-107); GFR AFRICAN-AMERICAN > 60; GLUCOSE,RANDOM 134 mg/dL (65-105); POTASSIUM 4.1 mmol/L (3.6-5.2); SODIUM 141 mmol/L (132-148)
[2016-10-11] MEDS: Insulin Human Regular 100 UNIT in Sodium Chloride 0.9% 99 ML IV PRN (03:21)
[2016-10-11] MEDS: Sodium Chloride 0.9% 1,000 ML IV SCH (04:45)
[2016-10-11 06:16] LABS: BASO % 0.3 % (0.0-2.0); HEMATOCRIT 30.7 % (34.0-47.0); MEAN CELL VOLUME 89.6 fL (81.0-99.0); MEAN CORPUSCULAR HGB CONC 32.4 g/dL (33.0-37.0); MEAN PLATELET VOLUME 8.1 fL (7.2-11.7); MONO # 0.9 K/uL (0.0-0.8); MONO % 5.3 % (0.0-10.0); RED CELL DISTRIBUTION WIDTH 13.1 % (11.5-14.5); WHITE BLOOD COUNT 17.7 K/uL (4.8-10.8)
[2016-10-11 06:25] LABS: CHLORIDE 115 mmol/L (98-107); POTASSIUM 3.4 mmol/L (3.6-5.2); SODIUM 143 mmol/L (132-148)
[2016-10-11 06:27] LABS: ALB/GLOB RATIO 1.3 (1.0-2.1); ALKALINE PHOSPHATASE 48 U/L (38-126); AST/SGOT 16 U/L (14-36); BILIRUBIN,TOTAL 0.2 mg/dL (0.2-1.3); BLOOD UREA NITROGEN 10 mg/dL (7-17); GFR AFRICAN-AMERICAN > 60; TOTAL PROTEIN 6.1 g/dL (6.3-8.3)
[2016-10-11 06:28] LABS: ALT/SGPT 28 U/L (9-52); CALCIUM 7.4 mg/dl (8.6-10.4); GLUCOSE,RANDOM 115 mg/dL (65-105); MAGNESIUM 2.1 mg/dL (1.6-2.3); PHOSPHOROUS 2.3 mg/dL (2.5-4.5)
[2016-10-11 06:30] LABS: CARBON DIOXIDE 10 mmol/L (22-30)
[2016-10-11] MEDS ORDERED: Insulin Human Regular 100 UNIT in Sodium Chloride 0.9% 99 ML IV PRN ×4 (08:21→15:48)
[2016-10-11] MEDS ORDERED: Dextrose 5%/0.45% NS 1,000 ML IV SCH ×2 (08:30→13:15)
[2016-10-11] MEDS: Insulin Human Regular 100 UNIT in Sodium Chloride 0.9% 99 ML IV SCH (08:44)
[2016-10-11] MEDS ORDERED: (Lantus) Insulin Glargine, Recombinant SC ONE (09:00)
[2016-10-11 09:48] LABS: THYROID STIMULATING HORMONE 0.29 mIU/L (0.46-4.68)
[2016-10-11] MEDS ORDERED: Pantoprazole 40 mg EC Tab PO SCH (10:00)
[2016-10-11] MEDS: Potassium Chloride 20 mEq ER Tab PO ONE ×2 (11:03→18:07)
[2016-10-11 11:11] LABS: DRAW SITE VBG; VENOUS BLOOD GAS BASE EXCESS -15.9 mmol/L (0.0-2.0); VENOUS BLOOD GAS PCO2 21 mmHg (40-60); VENOUS BLOOD PH 7.25 (7.32-7.43)
[2016-10-11 11:23] LABS: CHLORIDE 112 mmol/L (98-107); POTASSIUM 5.3 mmol/L (3.6-5.2); SODIUM 141 mmol/L (132-148)
[2016-10-11 11:26] LABS: GFR AFRICAN-AMERICAN > 60
[2016-10-11 11:27] LABS: BLOOD UREA NITROGEN 10 mg/dL (7-17); CALCIUM 8.4 mg/dl (8.6-10.4); GLUCOSE,RANDOM 236 mg/dL (65-105)
--- NOTE | 2016-10-11 11:39 | CP.PCM.PN ---
Subjective - Date & Time of Evaluation Date of Evaluation: 10/11/16 Time of Evaluation: 12:00 - Subjective Subjective: Still with low CO2 on hydration and insulin still in the intensive care unit Objective - Vital Signs/Intake and Output Vital Signs (last 24 hours): Temp Pulse Resp BP Pulse Ox 98.7 F 104 H 14 153/75 H 99 10/11/16 04:00 10/11/16 06:00 10/11/16 06:00 10/11/16 02:54 10/11/16 06:00 Intake and Output: 10/11/16 10/11/16 06:59 18:59 Intake Total 1667 Output Total 2350 Balance -683 - Medications Medications: Current Medications Heparin Sodium (Porcine) (Heparin) 5,000 units SC Q12 ON LICENSE OF [facility] Last Admin: 10/11/16 11:02 Dose: 5,000 units Insulin Human Regular 100 unit (/ Sodium Chloride) 100 mls @ 2 mls/hr IV .Q24H PRN; 2 UNIT/HR PRN Reason: DKA Last Admin: 10/11/16 08:46 Dose: 2 mls/hr Dextrose/Sodium Chloride (Dextrose 5%/0.45% Ns 1000 Ml) 1,000 mls @ 150 mls/hr IV .Q6H40M ON LICENSE OF [facility] Last Admin: 10/11/16 08:53 Dose: 150 mls/hr Metoclopramide HCl (Reglan) 10 mg IVP Q6H PRN PRN Reason: Nausea/Vomiting Morphine Sulfate (Morphine) 2 mg IVP Q4H PRN PRN Reason: Pain, moderate (4-7) Last Admin: 10/11/16 03:46 Dose: 2 mg Ondansetron HCl (Zofran Inj) 4 mg IVP Q6H PRN PRN Reason: Nausea/Vomiting Last Admin: 10/11/16 08:42 Dose: 4 mg Pantoprazole Sodium (Protonix Ec Tab) 40 mg PO DAILY ROMEO - Labs Labs: 10/11/16 06:12 10/11/16 06:12 - Constitutional Appears: Non-toxic - Head Exam Head Exam: ATRAUMATIC - Eye Exam Eye Exam: EOMI - ENT Exam ENT Exam: Mucous Membranes Moist - Neck Exam Neck Exam: absent: Lymphadenopathy, Thyromegaly - Respiratory Exam Respiratory Exam: Clear to Ausculation Bilateral. absent: Rales - Cardiovascular Exam Cardiovascular Exam: REGULAR RHYTHM, Murmur - GI/Abdominal Exam GI & Abdominal Exam: Normal Bowel Sounds. absent: Organomegaly - Rectal Exam Rectal Exam: Deferred - Extremities Exam Extremities Exam: Normal Capillary Refill. absent: Calf Tenderness - Neurological Exam Neurological Exam: Alert, Oriented x3 - Psychiatric Exam Psychiatric exam: Anxious - Skin Skin Exam: Dry Assessment and Plan (1) DKA (diabetic ketoacidoses) Status: Acute (2) Hypokalemia Status: Acute (3) Diabetes 1.5, managed as type 1 Status: Chronic
--- NOTE | 2016-10-11 12:04 | CARD ---
APPROVED REPORT EKG Measurement Heart [id number] <Conclusion> Sinus tachycardia Otherwise normal ECG
[2016-10-11 12:05] LABS: CARBON DIOXIDE 5 mmol/L (22-30)
--- NOTE | 2016-10-11 14:34 | CP.CCUPN ---
<Julissa Sevilla - Last Filed: 10/11/16 14:27> CCU Objective - Vital Signs / Intake & Output Vital Signs (Last 4 hours): Vital Signs Pulse Resp BP Pulse Ox 10/11/16 12:54 112 H 14 151/85 H 99 10/11/16 12:17 108 H 22 145/79 100 10/11/16 12:00 104 H 21 100 10/11/16 11:00 118 H 14 100 Intake and Output (Last 8hrs): Intake & Output 10/10/16 10/11/16 10/11/16 22:59 06:59 14:59 Intake Total 913 1211 150 Output Total 400 2350 Balance 513 -1139 150 Weight 152 lb 2 oz Intake: Intake, IV Amount 913 1211 150 Right Antecubital 7 Left Antecubital 450 Left Hand 6 11 Left Hand Y Port 450 1200 150 Output: Urine 400 1350 Urine, Voided 400 1350 Emesis 1000 Other: # Voids Urine, Voided 3 - Medications Active Medications: Active Medications Generic Name Dose Route Start Last Admin Trade Name Freq PRN Reason Stop Dose Admin Acetaminophen 650 mg 10/11/16 13:02 Tylenol 325mg Tab PO Q6 PRN Pain, Mild (1-3) Heparin Sodium (Porcine) 5,000 units 10/10/16 22:00 10/11/16 11:02 Heparin SC 5,000 units Q12 [facility] Administration Dextrose/Sodium Chloride 1,000 mls @ 175 mls/hr 10/11/16 13:15 Dextrose 5%/0.45% Ns 1000 Ml IV .[id number] [facility] Insulin Human Regular 100 unit 100 mls @ 6 mls/hr 10/11/16 13:04 / Sodium Chloride IV .[id number] PRN DKA 6 UNIT/HR Metoclopramide HCl 10 mg 10/11/16 08:45 Reglan IVP Q6H PRN Nausea/Vomiting Morphine Sulfate 2 mg 10/11/16 03:36 10/11/16 12:18 Morphine IVP 2 mg Q4H PRN Administration Pain, moderate (4-7) Morphine Sulfate 3 mg 10/11/16 13:03 Morphine IVP Q4 PRN Pain, severe (8-10) Ondansetron HCl 4 mg 10/10/16 14:19 10/11/16 08:42 Zofran Inj IVP 4 mg Q6H PRN Administration Nausea/Vomiting Pantoprazole Sodium 40 mg 10/11/16 10:00 Protonix Ec Tab PO DAILY ROMEO - Patient Studies Lab Studies: Lab Studies 10/11/16 10/11/16 10/11/16 Range/Units 14:12 12:48 12:20 WBC (4.8-10.8) K/uL RBC (3.80-5.20) Mil/uL Hgb (11.0-16.0) g/dL Hct (34.0-47.0) % MCV (81.0-99.0) fL MCH (27.0-31.0) pg MCHC (33.0-37.0) g/dL RDW (11.5-14.5) % Plt Count (130-400) K/uL MPV (7.2-11.7) fL Neut % (Auto) (50.0-75.0) % Lymph % (Auto) (20.0-40.0) % Kent % (Auto) (0.0-10.0) % Eos % (Auto) (0.0-4.0) % Baso % (Auto) (0.0-2.0) % Neut # (1.8-7.0) K/uL Lymph # (1.0-4.3) K/uL Kent # (0.0-0.8) K/uL Eos # (0.0-0.7) K/uL Baso # (0.0-0.2) K/uL Puncture Site pO2 (30-55) mm/Hg [facility] Test VBG pH (7.32-7.43) VBG pCO2 (40-60) mmHg VBG HCO3 mmol/L VBG O2 Sat (Calc) (40-65) % VBG Base Excess (0.0-2.0) mmol/L Sodium (132-148) mmol/L Potassium (3.6-5.2) mmol/L Chloride (98-107) mmol/L Carbon Dioxide (22-30) mmol/L Anion Gap (10-20) BUN (7-17) mg/dL Creatinine (0.7-1.2) MG/DL Est GFR ( Amer) Est GFR (Non-Af Amer) POC Glucose (mg/dL) 192 H 243 H 247 H (65-110) mg/dL Random Glucose (65-105) mg/dL Hemoglobin A1c (4.2-6.5) % Calcium (8.6-10.4) mg/dl Phosphorus (2.5-4.5) mg/dL Magnesium (1.6-2.3) mg/dL Total Bilirubin (0.2-1.3) mg/dL AST (14-36) U/L ALT (9-52) U/L Alkaline Phosphatase (38-126) U/L Total Protein (6.3-8.3) g/dL Albumin (3.5-5.0) g/dL Globulin (2.2-3.9) gm/dL Albumin/Globulin Ratio (1.0-2.1) Triglycerides (0-149) mg/dL Cholesterol (0-199) mg/dL LDL Cholesterol Direct (0-129) mg/dL HDL Cholesterol (30-70) mg/dL Free T4 (0.78-2.19) ng/dL TSH 3rd Generation (0.46-4.68) mIU/L 10/11/16 10/11/16 10/11/16 Range/Units 11:22 11:09 11:07 WBC (4.8-10.8) K/uL RBC (3.80-5.20) Mil/uL Hgb (11.0-16.0) g/dL Hct (34.0-47.0) % MCV (81.0-99.0) fL MCH (27.0-31.0) pg MCHC (33.0-37.0) g/dL RDW (11.5-14.5) % Plt Count (130-400) K/uL MPV (7.2-11.7) fL Neut % (Auto) (50.0-75.0) % Lymph % (Auto) (20.0-40.0) % Kent % (Auto) (0.0-10.0) % Eos % (Auto) (0.0-4.0) % Baso % (Auto) (0.0-2.0) % Neut # (1.8-7.0) K/uL Lymph # (1.0-4.3) K/uL Kent # (0.0-0.8) K/uL Eos # (0.0-0.7) K/uL Baso # (0.0-0.2) K/uL Puncture Site Vbg pO2 50 (30-55) mm/Hg [facility]olome Test Na VBG pH 7.25 L (7.32-7.43) VBG pCO2 21 L (40-60) mmHg VBG HCO3 12.0 mmol/L VBG O2 Sat (Calc) 88.7 H (40-65) % VBG Base Excess -15.9 L (0.0-2.0) mmol/L Sodium 141 (132-148) mmol/L Potassium 5.3 H (3.6-5.2) mmol/L Chloride 112 H (98-107) mmol/L Carbon Dioxide 5 L* D (22-30) mmol/L Anion Gap 29 H (10-20) BUN 10 (7-17) mg/dL Creatinine 0.6 L (0.7-1.2) MG/DL Est GFR ( Amer) > 60 Est GFR (Non-Af Amer) > 60 POC Glucose (mg/dL) 243 H (65-110) mg/dL Random Glucose 236 H (65-105) mg/dL Hemoglobin A1c (4.2-6.5) % Calcium 8.4 L (8.6-10.4) mg/dl Phosphorus (2.5-4.5) mg/dL Magnesium (1.6-2.3) mg/dL Total Bilirubin (0.2-1.3) mg/dL AST (14-36) U/L ALT (9-52) U/L Alkaline Phosphatase (38-126) U/L Total Protein (6.3-8.3) g/dL Albumin (3.5-5.0) g/dL Globulin (2.2-3.9) gm/dL Albumin/Globulin Ratio (1.0-2.1) Triglycerides (0-149) mg/dL Cholesterol (0-199) mg/dL LDL Cholesterol Direct (0-129) mg/dL HDL Cholesterol (30-70) mg/dL Free T4 1.02 (0.78-2.19) ng/dL TSH 3rd Generation (0.46-4.68) mIU/L 10/11/16 10/11/16 10/11/16 Range/Units 10:25 09:37 08:10 WBC (4.8-10.8) K/uL RBC (3.80-5.20) Mil/uL Hgb (11.0-16.0) g/dL Hct (34.0-47.0) % MCV (81.0-99.0) fL MCH (27.0-31.0) pg MCHC (33.0-37.0) g/dL RDW (11.5-14.5) % Plt Count (130-400) K/uL MPV (7.2-11.7) fL Neut % (Auto) (50.0-75.0) % Lymph % (Auto) (20.0-40.0) % Kent % (Auto) (0.0-10.0) % Eos % (Auto) (0.0-4.0) % Baso % (Auto) (0.0-2.0) % Neut # (1.8-7.0) K/uL Lymph # (1.0-4.3) K/uL Kent # (0.0-0.8) K/uL Eos # (0.0-0.7) K/uL Baso # (0.0-0.2) K/uL Puncture Site pO2 (30-55) mm/Hg [facility] Test VBG pH (7.32-7.43) VBG pCO2 (40-60) mmHg VBG HCO3 mmol/L VBG O2 Sat (Calc) (40-65) % VBG Base Excess (0.0-2.0) mmol/L Sodium (132-148) mmol/L Potassium (3.6-5.2) mmol/L Chloride (98-107) mmol/L Carbon Dioxide (22-30) mmol/L Anion Gap (10-20) BUN (7-17) mg/dL Creatinine (0.7-1.2) MG/DL Est GFR ( Amer) Est GFR (Non-Af Amer) POC Glucose (mg/dL) 274 H 301 H 221 H (65-110) mg/dL Random Glucose (65-105) mg/dL Hemoglobin A1c (4.2-6.5) % Calcium (8.6-10.4) mg/dl Phosphorus (2.5-4.5) mg/dL Magnesium (1.6-2.3) mg/dL Total Bilirubin (0.2-1.3) mg/dL AST (14-36) U/L ALT (9-52) U/L Alkaline Phosphatase (38-126) U/L Total Protein (6.3-8.3) g/dL Albumin (3.5-5.0) g/dL Globulin (2.2-3.9) gm/dL Albumin/Globulin Ratio (1.0-2.1) Triglycerides (0-149) mg/dL Cholesterol (0-199) mg/dL LDL Cholesterol Direct (0-129) mg/dL HDL Cholesterol (30-70) mg/dL Free T4 (0.78-2.19) ng/dL TSH 3rd Generation (0.46-4.68) mIU/L 10/11/16 10/11/16 10/11/16 Range/Units 06:54 06:12 06:09 WBC 17.7 H (4.8-10.8) K/uL RBC 3.42 L (3.80-5.20) Mil/uL Hgb 9.9 L D (11.0-16.0) g/dL Hct 30.7 L (34.0-47.0) % MCV 89.6 (81.0-99.0) fL MCH 29.0 (27.0-31.0) pg MCHC 32.4 L (33.0-37.0) g/dL RDW 13.1 (11.5-14.5) % Plt Count 250 (130-400) K/uL MPV 8.1 (7.2-11.7) fL Neut % (Auto) 83.4 H (50.0-75.0) % Lymph % (Auto) 11.0 L (20.0-40.0) % Kent % (Auto) 5.3 (0.0-10.0) % Eos % (Auto) 0.0 (0.0-4.0) % Baso % (Auto) 0.3 (0.0-2.0) % Neut # 14.8 H (1.8-7.0) K/uL Lymph # 2.0 (1.0-4.3) K/uL Kent # 0.9 H (0.0-0.8) K/uL Eos # 0.0 (0.0-0.7) K/uL Baso # 0.0 (0.0-0.2) K/uL Puncture Site pO2 (30-55) mm/Hg [facility] Test VBG pH (7.32-7.43) VBG pCO2 (40-60) mmHg VBG HCO3 mmol/L VBG O2 Sat (Calc) (40-65) % VBG Base Excess (0.0-2.0) mmol/L Sodium 143 (132-148) mmol/L Potassium 3.4 L (3.6-5.2) mmol/L Chloride 115 H (98-107) mmol/L Carbon Dioxide 10 L* (22-30) mmol/L Anion Gap 21 H (10-20) BUN 10 (7-17) mg/dL Creatinine 0.6 L (0.7-1.2) MG/DL Est GFR ( Amer) > 60 Est GFR (Non-Af Amer) > 60 POC Glucose (mg/dL) 114 H 134 H (65-110) mg/dL Random Glucose 115 H (65-105) mg/dL Hemoglobin A1c (4.2-6.5) % Calcium 7.4 L (8.6-10.4) mg/dl Phosphorus 2.3 L (2.5-4.5) mg/dL Magnesium 2.1 (1.6-2.3) mg/dL Total Bilirubin 0.2 (0.2-1.3) mg/dL AST 16 (14-36) U/L ALT 28 (9-52) U/L Alkaline Phosphatase 48 (38-126) U/L Total Protein 6.1 L (6.3-8.3) g/dL Albumin 3.4 L D (3.5-5.0) g/dL Globulin 2.7 (2.2-3.9) gm/dL Albumin/Globulin Ratio 1.3 (1.0-2.1) Triglycerides (0-149) mg/dL Cholesterol (0-199) mg/dL LDL Cholesterol Direct (0-129) mg/dL HDL Cholesterol (30-70) mg/dL Free T4 (0.78-2.19) ng/dL TSH 3rd Generation 0.29 L (0.46-4.68) mIU/L 04/21/17 04/21/17 04/21/17 Range/Units 05:04 04:02 03:17 WBC (4.8-10.8) K/uL RBC (3.80-5.20) Mil/uL Hgb (11.0-16.0) g/dL Hct (34.0-47.0) % MCV (81.0-99.0) fL MCH (27.0-31.0) pg MCHC (33.0-37.0) g/dL RDW (11.5-14.5) % Plt Count (130-400) K/uL MPV (7.2-11.7) fL Neut % (Auto) (50.0-75.0) % Lymph % (Auto) (20.0-40.0) % Kent % (Auto) (0.0-10.0) % Eos % (Auto) (0.0-4.0) % Baso % (Auto) (0.0-2.0) % Neut # (1.8-7.0) K/uL Lymph # (1.0-4.3) K/uL Kent # (0.0-0.8) K/uL Eos # (0.0-0.7) K/uL Baso # (0.0-0.2) K/uL Puncture Site pO2 (30-55) mm/Hg [facility] Test VBG pH (7.32-7.43) VBG pCO2 (40-60) mmHg VBG HCO3 mmol/L VBG O2 Sat (Calc) (40-65) % VBG Base Excess (0.0-2.0) mmol/L Sodium (132-148) mmol/L Potassium (3.6-5.2) mmol/L Chloride (98-107) mmol/L Carbon Dioxide (22-30) mmol/L Anion Gap (10-20) BUN (7-17) mg/dL Creatinine (0.7-1.2) MG/DL Est GFR ( Amer) Est GFR (Non-Af Amer) POC Glucose (mg/dL) 214 H 261 H 272 H (65-110) mg/dL Random Glucose (65-105) mg/dL Hemoglobin A1c (4.2-6.5) % Calcium (8.6-10.4) mg/dl Phosphorus (2.5-4.5) mg/dL Magnesium (1.6-2.3) mg/dL Total Bilirubin (0.2-1.3) mg/dL AST (14-36) U/L ALT (9-52) U/L Alkaline Phosphatase (38-126) U/L Total Protein (6.3-8.3) g/dL Albumin (3.5-5.0) g/dL Globulin (2.2-3.9) gm/dL Albumin/Globulin Ratio (1.0-2.1) Triglycerides (0-149) mg/dL Cholesterol (0-199) mg/dL LDL Cholesterol Direct (0-129) mg/dL HDL Cholesterol (30-70) mg/dL Free T4 (0.78-2.19) ng/dL TSH 3rd Generation (0.46-4.68) mIU/L 10/11/16 10/11/16 10/10/16 Range/Units 02:00 00:51 23:56 WBC (4.8-10.8) K/uL RBC (3.80-5.20) Mil/uL Hgb (11.0-16.0) g/dL Hct (34.0-47.0) % MCV (81.0-99.0) fL MCH (27.0-31.0) pg MCHC (33.0-37.0) g/dL RDW (11.5-14.5) % Plt Count (130-400) K/uL MPV (7.2-11.7) fL Neut % (Auto) (50.0-75.0) % Lymph % (Auto) (20.0-40.0) % Kent % (Auto) (0.0-10.0) % Eos % (Auto) (0.0-4.0) % Baso % (Auto) (0.0-2.0) % Neut # (1.8-7.0) K/uL Lymph # (1.0-4.3) K/uL Kent # (0.0-0.8) K/uL Eos # (0.0-0.7) K/uL Baso # (0.0-0.2) K/uL Puncture Site pO2 (30-55) mm/Hg [facility] Test VBG pH (7.32-7.43) VBG pCO2 (40-60) mmHg VBG HCO3 mmol/L VBG O2 Sat (Calc) (40-65) % VBG Base Excess (0.0-2.0) mmol/L Sodium (132-148) mmol/L Potassium (3.6-5.2) mmol/L Chloride (98-107) mmol/L Carbon Dioxide (22-30) mmol/L Anion Gap (10-20) BUN (7-17) mg/dL Creatinine (0.7-1.2) MG/DL Est GFR ( Amer) Est GFR (Non-Af Amer) POC Glucose (mg/dL) 147 H 112 H 152 H (65-110) mg/dL Random Glucose (65-105) mg/dL Hemoglobin A1c (4.2-6.5) % Calcium (8.6-10.4) mg/dl Phosphorus (2.5-4.5) mg/dL Magnesium (1.6-2.3) mg/dL Total Bilirubin (0.2-1.3) mg/dL AST (14-36) U/L ALT (9-52) U/L Alkaline Phosphatase (38-126) U/L Total Protein (6.3-8.3) g/dL Albumin (3.5-5.0) g/dL Globulin (2.2-3.9) gm/dL Albumin/Globulin Ratio (1.0-2.1) Triglycerides (0-149) mg/dL Cholesterol (0-199) mg/dL LDL Cholesterol Direct (0-129) mg/dL HDL Cholesterol (30-70) mg/dL Free T4 (0.78-2.19) ng/dL TSH 3rd Generation (0.46-4.68) mIU/L 10/10/16 10/10/16 10/10/16 Range/Units 23:30 22:50 21:08 WBC (4.8-10.8) K/uL RBC (3.80-5.20) Mil/uL Hgb (11.0-16.0) g/dL Hct (34.0-47.0) % MCV (81.0-99.0) fL MCH (27.0-31.0) pg MCHC (33.0-37.0) g/dL RDW (11.5-14.5) % Plt Count (130-400) K/uL MPV (7.2-11.7) fL Neut % (Auto) (50.0-75.0) % Lymph % (Auto) (20.0-40.0) % Kent % (Auto) (0.0-10.0) % Eos % (Auto) (0.0-4.0) % Baso % (Auto) (0.0-2.0) % Neut # (1.8-7.0) K/uL Lymph # (1.0-4.3) K/uL Kent # (0.0-0.8) K/uL Eos # (0.0-0.7) K/uL Baso # (0.0-0.2) K/uL Puncture Site pO2 (30-55) mm/Hg [facility] Test VBG pH (7.32-7.43) VBG pCO2 (40-60) mmHg VBG HCO3 mmol/L VBG O2 Sat (Calc) (40-65) % VBG Base Excess (0.0-2.0) mmol/L Sodium 141 (132-148) mmol/L Potassium 4.1 (3.6-5.2) mmol/L Chloride 112 H (98-107) mmol/L Carbon Dioxide 12 L (22-30) mmol/L Anion Gap 21 H (10-20) BUN 13 (7-17) mg/dL Creatinine 0.6 L (0.7-1.2) MG/DL Est GFR ( Amer) > 60 Est GFR (Non-Af Amer) > 60 POC Glucose (mg/dL) 157 H 168 H (65-110) mg/dL Random Glucose 134 H (65-105) mg/dL Hemoglobin A1c (4.2-6.5) % Calcium 8.0 L (8.6-10.4) mg/dl Phosphorus (2.5-4.5) mg/dL Magnesium (1.6-2.3) mg/dL Total Bilirubin (0.2-1.3) mg/dL AST (14-36) U/L ALT (9-52) U/L Alkaline Phosphatase (38-126) U/L Total Protein (6.3-8.3) g/dL Albumin (3.5-5.0) g/dL Globulin (2.2-3.9) gm/dL Albumin/Globulin Ratio (1.0-2.1) Triglycerides (0-149) mg/dL Cholesterol (0-199) mg/dL LDL Cholesterol Direct (0-129) mg/dL HDL Cholesterol (30-70) mg/dL Free T4 (0.78-2.19) ng/dL TSH 3rd Generation (0.46-4.68) mIU/L 10/10/16 10/10/16 10/10/16 Range/Units 20:24 19:09 17:54 WBC (4.8-10.8) K/uL RBC (3.80-5.20) Mil/uL Hgb (11.0-16.0) g/dL Hct (34.0-47.0) % MCV (81.0-99.0) fL MCH (27.0-31.0) pg MCHC (33.0-37.0) g/dL RDW (11.5-14.5) % Plt Count (130-400) K/uL MPV (7.2-11.7) fL Neut % (Auto) (50.0-75.0) % Lymph % (Auto) (20.0-40.0) % Kent % (Auto) (0.0-10.0) % Eos % (Auto) (0.0-4.0) % Baso % (Auto) (0.0-2.0) % Neut # (1.8-7.0) K/uL Lymph # (1.0-4.3) K/uL Kent # (0.0-0.8) K/uL Eos # (0.0-0.7) K/uL Baso # (0.0-0.2) K/uL Puncture Site pO2 (30-55) mm/Hg [facility] Test VBG pH (7.32-7.43) VBG pCO2 (40-60) mmHg VBG HCO3 mmol/L VBG O2 Sat (Calc) (40-65) % VBG Base Excess (0.0-2.0) mmol/L Sodium (132-148) mmol/L Potassium (3.6-5.2) mmol/L Chloride (98-107) mmol/L Carbon Dioxide (22-30) mmol/L Anion Gap (10-20) BUN (7-17) mg/dL Creatinine (0.7-1.2) MG/DL Est GFR ( Amer) Est GFR (Non-Af Amer) POC Glucose (mg/dL) 193 H 160 H 100 (65-110) mg/dL Random Glucose (65-105) mg/dL Hemoglobin A1c (4.2-6.5) % Calcium (8.6-10.4) mg/dl Phosphorus (2.5-4.5) mg/dL Magnesium (1.6-2.3) mg/dL Total Bilirubin (0.2-1.3) mg/dL AST (14-36) U/L ALT (9-52) U/L Alkaline Phosphatase (38-126) U/L Total Protein (6.3-8.3) g/dL Albumin (3.5-5.0) g/dL Globulin (2.2-3.9) gm/dL Albumin/Globulin Ratio (1.0-2.1) Triglycerides (0-149) mg/dL Cholesterol (0-199) mg/dL LDL Cholesterol Direct (0-129) mg/dL HDL Cholesterol (30-70) mg/dL Free T4 (0.78-2.19) ng/dL TSH 3rd Generation (0.46-4.68) mIU/L 10/10/16 10/10/16 10/10/16 Range/Units 16:50 15:55 15:42 WBC (4.8-10.8) K/uL RBC (3.80-5.20) Mil/uL Hgb (11.0-16.0) g/dL Hct (34.0-47.0) % MCV (81.0-99.0) fL MCH (27.0-31.0) pg MCHC (33.0-37.0) g/dL RDW (11.5-14.5) % Plt Count (130-400) K/uL MPV (7.2-11.7) fL Neut % (Auto) (50.0-75.0) % Lymph % (Auto) (20.0-40.0) % Kent % (Auto) (0.0-10.0) % Eos % (Auto) (0.0-4.0) % Baso % (Auto) (0.0-2.0) % Neut # (1.8-7.0) K/uL Lymph # (1.0-4.3) K/uL Kent # (0.0-0.8) K/uL Eos # (0.0-0.7) K/uL Baso # (0.0-0.2) K/uL Puncture Site pO2 (30-55) mm/Hg [facility] Test VBG pH (7.32-7.43) VBG pCO2 (40-60) mmHg VBG HCO3 mmol/L VBG O2 Sat (Calc) (40-65) % VBG Base Excess (0.0-2.0) mmol/L Sodium 143 (132-148) mmol/L Potassium 4.5 (3.6-5.2) mmol/L Chloride 110 H (98-107) mmol/L Carbon Dioxide 10 L* (22-30) mmol/L Anion Gap 28 H (10-20) BUN 15 (7-17) mg/dL Creatinine 0.7 (0.7-1.2) MG/DL Est GFR ( Amer) > 60 Est GFR (Non-Af Amer) > 60 POC Glucose (mg/dL) 125 H 184 H (65-110) mg/dL Random Glucose 207 H (65-105) mg/dL Hemoglobin A1c (4.2-6.5) % Calcium 8.7 (8.6-10.4) mg/dl Phosphorus (2.5-4.5) mg/dL Magnesium (1.6-2.3) mg/dL Total Bilirubin (0.2-1.3) mg/dL AST (14-36) U/L ALT (9-52) U/L Alkaline Phosphatase (38-126) U/L Total Protein (6.3-8.3) g/dL Albumin (3.5-5.0) g/dL Globulin (2.2-3.9) gm/dL Albumin/Globulin Ratio (1.0-2.1) Triglycerides 116 D (0-149) mg/dL Cholesterol 181 (0-199) mg/dL LDL Cholesterol Direct 74 (0-129) mg/dL HDL Cholesterol 75 H (30-70) mg/dL Free T4 (0.78-2.19) ng/dL TSH 3rd Generation (0.46-4.68) mIU/L 10/10/16 10/10/16 Range/Units 15:19 14:34 WBC (4.8-10.8) K/uL RBC (3.80-5.20) Mil/uL Hgb (11.0-16.0) g/dL Hct (34.0-47.0) % MCV (81.0-99.0) fL MCH (27.0-31.0) pg MCHC (33.0-37.0) g/dL RDW (11.5-14.5) % Plt Count (130-400) K/uL MPV (7.2-11.7) fL Neut % (Auto) (50.0-75.0) % Lymph % (Auto) (20.0-40.0) % Kent % (Auto) (0.0-10.0) % Eos % (Auto) (0.0-4.0) % Baso % (Auto) (0.0-2.0) % Neut # (1.8-7.0) K/uL Lymph # (1.0-4.3) K/uL [place] # (0.0-0.8) K/uL Eos # (0.0-0.7) K/uL Baso # (0.0-0.2) K/uL Puncture Site pO2 (30-55) mm/Hg [place] Test VBG pH (7.32-7.43) VBG pCO2 (40-60) mmHg VBG HCO3 mmol/L VBG O2 Sat (Calc) (40-65) % VBG Base Excess (0.0-2.0) mmol/L Sodium (132-148) mmol/L Potassium (3.6-5.2) mmol/L Chloride (98-107) mmol/L Carbon Dioxide (22-30) mmol/L Anion Gap (10-20) BUN (7-17) mg/dL Creatinine (0.7-1.2) MG/DL Est GFR ( Amer) Est GFR (Non-Af Amer) POC Glucose (mg/dL) 269 H (65-110) mg/dL Random Glucose (65-105) mg/dL Hemoglobin A1c 10.9 H (4.2-6.5) % Calcium (8.6-10.4) mg/dl Phosphorus (2.5-4.5) mg/dL Magnesium (1.6-2.3) mg/dL Total Bilirubin (0.2-1.3) mg/dL AST (14-36) U/L ALT (9-52) U/L Alkaline Phosphatase (38-126) U/L Total Protein (6.3-8.3) g/dL Albumin (3.5-5.0) g/dL Globulin (2.2-3.9) gm/dL Albumin/Globulin Ratio (1.0-2.1) Triglycerides (0-149) mg/dL Cholesterol (0-199) mg/dL LDL Cholesterol Direct (0-129) mg/dL HDL Cholesterol (30-70) mg/dL Free T4 (0.78-2.19) ng/dL TSH 3rd Generation (0.46-4.68) mIU/L Laboratory Results - last 24 hr 10/10/16 10/10/16 10/10/16 14:34 15:19 15:42 WBC RBC Hgb Hct MCV MCH MCHC RDW Plt Count MPV Neut % (Auto) Lymph % (Auto) [place] % (Auto) Eos % (Auto) Baso % (Auto) Neut # Lymph # [place] # Eos # Baso # Puncture Site pO2 [place] Test VBG pH VBG pCO2 VBG HCO3 VBG O2 Sat (Calc) VBG Base Excess Sodium Potassium Chloride Carbon Dioxide Anion Gap BUN Creatinine Est GFR ( Amer) Est GFR (Non-Af Amer) POC Glucose (mg/dL) 269 H 184 H Random Glucose Hemoglobin A1c 10.9 H Calcium Phosphorus Magnesium Total Bilirubin AST ALT Alkaline Phosphatase Total Protein Albumin Globulin Albumin/Globulin Ratio Triglycerides Cholesterol LDL Cholesterol Direct HDL Cholesterol Free T4 TSH 3rd Generation 10/10/16 10/10/16 10/10/16 15:55 16:50 17:54 WBC RBC Hgb Hct MCV MCH MCHC RDW Plt Count MPV Neut % (Auto) Lymph % (Auto) [place] % (Auto) Eos % (Auto) Baso % (Auto) Neut # Lymph # [place] # Eos # Baso # Puncture Site pO2 [place] Test VBG pH VBG pCO2 VBG HCO3 VBG O2 Sat (Calc) VBG Base Excess Sodium 143 Potassium 4.5 Chloride 110 H Carbon Dioxide 10 L* Anion Gap 28 H BUN 15 Creatinine 0.7 Est GFR ( Amer) > 60 Est GFR (Non-Af Amer) > 60 POC Glucose (mg/dL) 125 H 100 Random Glucose 207 H Hemoglobin A1c Calcium 8.7 Phosphorus Magnesium Total Bilirubin AST ALT Alkaline Phosphatase Total Protein Albumin Globulin Albumin/Globulin Ratio Triglycerides 116 D Cholesterol 181 LDL Cholesterol Direct 74 HDL Cholesterol 75 H Free T4 TSH 3rd Generation 10/10/16 10/10/16 10/10/16 19:09 20:24 21:08 WBC RBC Hgb Hct MCV MCH MCHC RDW Plt Count MPV Neut % (Auto) Lymph % (Auto) [place] % (Auto) Eos % (Auto) Baso % (Auto) Neut # Lymph # [place] # Eos # Baso # Puncture Site pO2 [place] Test VBG pH VBG pCO2 VBG HCO3 VBG O2 Sat (Calc) VBG Base Excess Sodium Potassium Chloride Carbon Dioxide Anion Gap BUN Creatinine Est GFR ( Amer) Est GFR (Non-Af Amer) POC Glucose (mg/dL) 160 H 193 H 168 H Random Glucose Hemoglobin A1c Calcium Phosphorus Magnesium Total Bilirubin AST ALT Alkaline Phosphatase Total Protein Albumin Globulin Albumin/Globulin Ratio Triglycerides Cholesterol LDL Cholesterol Direct HDL Cholesterol Free T4 TSH 3rd Generation 10/10/16 10/10/16 10/10/16 22:50 23:30 23:56 WBC RBC Hgb Hct MCV MCH MCHC RDW Plt Count MPV Neut % (Auto) Lymph % (Auto) [place] % (Auto) Eos % (Auto) Baso % (Auto) Neut # Lymph # [place] # Eos # Baso # Puncture Site pO2 [place] Test VBG pH VBG pCO2 VBG HCO3 VBG O2 Sat (Calc) VBG Base Excess Sodium 141 Potassium 4.1 Chloride 112 H Carbon Dioxide 12 L Anion Gap 21 H BUN 13 Creatinine 0.6 L Est GFR ( Amer) > 60 Est GFR (Non-Af Amer) > 60 POC Glucose (mg/dL) 157 H 152 H Random Glucose 134 H Hemoglobin A1c Calcium 8.0 L Phosphorus Magnesium Total Bilirubin AST ALT Alkaline Phosphatase Total Protein Albumin Globulin Albumin/Globulin Ratio Triglycerides Cholesterol LDL Cholesterol Direct HDL Cholesterol Free T4 TSH 3rd Generation 10/11/16 10/11/16 10/11/16 00:51 02:00 03:17 WBC RBC Hgb Hct MCV MCH MCHC RDW Plt Count MPV Neut % (Auto) Lymph % (Auto) [place] % (Auto) Eos % (Auto) Baso % (Auto) Neut # Lymph # [place] # Eos # Baso # Puncture Site pO2 [place] Test VBG pH VBG pCO2 VBG HCO3 VBG O2 Sat (Calc) VBG Base Excess Sodium Potassium Chloride Carbon Dioxide Anion Gap BUN Creatinine Est GFR ( Amer) Est GFR (Non-Af Amer) POC Glucose (mg/dL) 112 H 147 H 272 H Random Glucose Hemoglobin A1c Calcium Phosphorus Magnesium Total Bilirubin AST ALT Alkaline Phosphatase Total Protein Albumin Globulin Albumin/Globulin Ratio Triglycerides Cholesterol LDL Cholesterol Direct HDL Cholesterol Free T4 TSH 3rd Generation 10/11/16 10/11/16 10/11/16 04:02 05:04 06:09 WBC RBC Hgb Hct MCV MCH MCHC RDW Plt Count MPV Neut % (Auto) Lymph % (Auto) [place] % (Auto) Eos % (Auto) Baso % (Auto) Neut # Lymph # [place] # Eos # Baso # Puncture Site pO2 [place] Test VBG pH VBG pCO2 VBG HCO3 VBG O2 Sat (Calc) VBG Base Excess Sodium Potassium Chloride Carbon Dioxide Anion Gap BUN Creatinine Est GFR ( Amer) Est GFR (Non-Af Amer) POC Glucose (mg/dL) 261 H 214 H 134 H Random Glucose Hemoglobin A1c Calcium Phosphorus Magnesium Total Bilirubin AST ALT Alkaline Phosphatase Total Protein Albumin Globulin Albumin/Globulin Ratio Triglycerides Cholesterol LDL Cholesterol Direct HDL Cholesterol Free T4 TSH 3rd Generation 10/11/16 10/11/16 10/11/16 06:12 06:54 08:10 WBC 17.7 H RBC 3.42 L Hgb 9.9 L D Hct 30.7 L MCV 89.6 MCH 29.0 MCHC 32.4 L RDW 13.1 Plt Count 250 MPV 8.1 Neut % (Auto) 83.4 H Lymph % (Auto) 11.0 L [place] % (Auto) 5.3 Eos % (Auto) 0.0 Baso % (Auto) 0.3 Neut # 14.8 H Lymph # 2.0 [place] # 0.9 H Eos # 0.0 Baso # 0.0 Puncture Site pO2 [place] Test VBG pH VBG pCO2 VBG HCO3 VBG O2 Sat (Calc) VBG Base Excess Sodium 143 Potassium 3.4 L Chloride 115 H Carbon Dioxide 10 L* Anion Gap 21 H BUN 10 Creatinine 0.6 L Est GFR ( Amer) > 60 Est GFR (Non-Af Amer) > 60 POC Glucose (mg/dL) 114 H 221 H Random Glucose 115 H Hemoglobin A1c Calcium 7.4 L Phosphorus 2.3 L Magnesium 2.1 Total Bilirubin 0.2 AST 16 ALT 28 Alkaline Phosphatase 48 Total Protein 6.1 L Albumin 3.4 L D Globulin 2.7 Albumin/Globulin Ratio 1.3 Triglycerides Cholesterol LDL Cholesterol Direct HDL Cholesterol Free T4 TSH 3rd Generation 0.29 L 10/11/16 10/11/16 10/11/16 09:37 10:25 11:07 WBC RBC Hgb Hct MCV MCH MCHC RDW Plt Count MPV Neut % (Auto) Lymph % (Auto) [place] % (Auto) Eos % (Auto) Baso % (Auto) Neut # Lymph # [place] # Eos # Baso # Puncture Site Vbg pO2 50 [place] Test Na VBG pH 7.25 L VBG pCO2 21 L VBG HCO3 12.0 VBG O2 Sat (Calc) 88.7 H VBG Base Excess -15.9 L Sodium Potassium Chloride Carbon Dioxide Anion Gap BUN Creatinine Est GFR ( Amer) Est GFR (Non-Af Amer) POC Glucose (mg/dL) 301 H 274 H Random Glucose Hemoglobin A1c Calcium Phosphorus Magnesium Total Bilirubin AST ALT Alkaline Phosphatase Total Protein Albumin Globulin Albumin/Globulin Ratio Triglycerides Cholesterol LDL Cholesterol Direct HDL Cholesterol Free T4 TSH 3rd Generation 10/11/16 10/11/16 10/11/16 11:09 11:22 12:20 WBC RBC Hgb Hct MCV MCH MCHC RDW Plt Count MPV Neut % (Auto) Lymph % (Auto) [place] % (Auto) Eos % (Auto) Baso % (Auto) Neut # Lymph # [place] # Eos # Baso # Puncture Site pO2 [place] Test VBG pH VBG pCO2 VBG HCO3 VBG O2 Sat (Calc) VBG Base Excess Sodium 141 Potassium 5.3 H Chloride 112 H Carbon Dioxide 5 L* D Anion Gap 29 H BUN 10 Creatinine 0.6 L Est GFR ( Amer) > 60 Est GFR (Non-Af Amer) > 60 POC Glucose (mg/dL) 243 H 247 H Random Glucose 236 H Hemoglobin A1c Calcium 8.4 L Phosphorus Magnesium Total Bilirubin AST ALT Alkaline Phosphatase Total Protein Albumin Globulin Albumin/Globulin Ratio Triglycerides Cholesterol LDL Cholesterol Direct HDL Cholesterol Free T4 1.02 TSH 3rd Generation 10/11/16 10/11/16 12:48 14:12 WBC RBC Hgb Hct MCV MCH MCHC RDW Plt Count MPV Neut % (Auto) Lymph % (Auto) [place] % (Auto) Eos % (Auto) Baso % (Auto) Neut # Lymph # [place] # Eos # Baso # Puncture Site pO2 [place] Test VBG pH VBG pCO2 VBG HCO3 VBG O2 Sat (Calc) VBG Base Excess Sodium Potassium Chloride Carbon Dioxide Anion Gap BUN Creatinine Est GFR ( Amer) Est GFR (Non-Af Amer) POC Glucose (mg/dL) 243 H 192 H Random Glucose Hemoglobin A1c Calcium Phosphorus Magnesium Total Bilirubin AST ALT Alkaline Phosphatase Total Protein Albumin Globulin Albumin/Globulin Ratio Triglycerides Cholesterol LDL Cholesterol Direct HDL Cholesterol Free T4 TSH [employer] Blood Sugar Results: 272 Critical Care Progress Note - Nutrition Nutrition: Nutrition Category Date Time Status Diabetic [Consistent Carbohydrate] [DIET] Diets 10/11/16 Breakfast Active Assessment/Plan - Assessment and Plan (Free Text) Assessment: 26 F with PMHx of DM presents to the ED with abdominal pain, nausea, and vomiting x 1 day, with sugars of 534 found to have DKA. Plan: Abdominal pain 2/2 DKA * Glucose of 534 on admission, sugars currently 200s * ABG: Metabolic acidosis with anion gap of 24 * Currently on full liquid diet * D5 1/2 NS @ 175cc/hr * Insulin drip @ 6 units/ hr * Accuchecks Q1H, BMP Q4H * HGA1C: 10.9 * Zofran PRN, Reglan PRN * Tylenol for mild pain, Morphine 2mg Q4 PRN for moderate pain, morphine 3mg Q4 PRN for severe pain * Endocrinology consulted- Dr. Mitchell - help appreciated * F/U amylase, lipase Prophylaxis * GI PPX: Protonix 40mg PO daily * DVT PPX: Heparin 5000U SC Q12H DW Roel aRmires DO, PGY-1 <Tavon Campuzano - Last Filed: 10/12/16 23:23> CCU Objective - Vital Signs / Intake & Output Intake and Output (Last 8hrs): Intake & Output 10/12/16 10/12/16 10/13/16 14:59 22:59 06:59 Intake Total 1806 780 Output Total 540 310 Balance 1266 470 Intake: Intake, IV Amount 1636 750 Left Hand 1311 750 Left Hand Y Port 162 Right Antecubital 10 Left Forearm 153 Oral 170 30 Output: Urine 500 300 Urine, Voided 500 300 Stool 0 Emesis 40 10 Other: # Voids Urine, Voided 2 1 # Bowel Movements 0 - Medications Active Medications: Active Medications Generic Name Dose Route Start Last Admin Trade Name Freq PRN Reason Stop Dose Admin Acetaminophen 650 mg 10/11/16 13:02 10/12/16 14:22 Tylenol 325mg Tab PO 650 mg Q6 PRN Administration Pain, Mild (1-3) Al Hydrox/Mg Hydrox/Simethicone 30 ml 10/12/16 16:30 10/12/16 22:43 Maalox 30 Ml PO 30 ml ACHS ROMEO Administration Heparin Sodium (Porcine) 5,000 units 10/10/16 22:00 10/12/16 22:41 Heparin SC 5,000 units Q12 ROMEO Administration Potassium Chloride/Dextrose/Sod Cl 1,000 mls @ 150 mls/hr 10/11/16 18:00 22:23 Potassium Chl 40 Meq In D5-1/2ns IV 150 mls/hr .Q6H40M ROMEO Administration Insulin Glargine 10 unit 10/12/16 22:00 10/12/16 22:42 Lantus SC 10 units Q12 ROMEO Administration Insulin Human Regular 0 unit 10/12/16 22:00 10/12/16 22:45 Novolin R SC Not Given ACHS [facility] Protocol Metoclopramide HCl 10 mg 10/11/16 08:45 10/12/16 22:21 Reglan IVP 10 mg Q6H PRN Administration Nausea/Vomiting Morphine Sulfate 2 mg 10/11/16 03:36 10/12/16 18:10 Morphine IVP 2 mg Q4H PRN Administration Pain, moderate (4-7) Morphine Sulfate 3 mg 10/11/16 13:03 10/11/16 18:15 Morphine IVP 3 mg Q4 PRN Administration Pain, severe (8-10) Ondansetron HCl 4 mg 10/10/16 14:19 10/12/16 14:22 Zofran Inj IVP 4 mg Q6H PRN Administration Nausea/Vomiting Pantoprazole Sodium 40 mg 10/11/16 10:00 Protonix Ec Tab PO DAILY ROMEO - Patient Studies Lab Studies: Lab Studies 10/12/16 10/12/16 10/12/16 Range/Units 21:15 15:52 11:04 WBC (4.8-10.8) K/uL RBC (3.80-5.20) Mil/uL Hgb (11.0-16.0) g/dL Hct (34.0-47.0) % MCV (81.0-99.0) fL MCH (27.0-31.0) pg MCHC (33.0-37.0) g/dL RDW (11.5-14.5) % Plt Count (130-400) K/uL MPV (7.2-11.7) fL Neut % (Auto) (50.0-75.0) % Lymph % (Auto) (20.0-40.0) % [place] % (Auto) (0.0-10.0) % Eos % (Auto) (0.0-4.0) % Baso % (Auto) (0.0-2.0) % Neut # (1.8-7.0) K/uL Lymph # (1.0-4.3) K/uL Kent # (0.0-0.8) K/uL Eos # (0.0-0.7) K/uL Baso # (0.0-0.2) K/uL Puncture Site pCO2 (35-45) mm/Hg pO2 (80-100) mm/Hg HCO3 (21-28) mmol/L ABG pH (7.35-7.45) ABG Total CO2 (22-28) mmol/L ABG O2 Saturation (95-98) % ABG Base Excess (-2.0-3.0) mmol/L ABG Hemoglobin (11.7-17.4) g/dL ABG Carboxyhemoglobin (0.5-1.5) % POC ABG HHb (Measured) (0.0-5.0) % ABG Methemoglobin (0.0-3.0) % Bartolome Test A-a O2 Difference mm/Hg Respiratory Index Hgb O2 Saturation (95.0-98.0) % FiO2 % Sodium (132-148) mmol/L Potassium (3.6-5.2) mmol/L Chloride (98-107) mmol/L Carbon Dioxide (22-30) mmol/L Anion Gap (10-20) BUN (7-17) mg/dL Creatinine (0.7-1.2) MG/DL Est GFR ( Amer) Est GFR (Non-Af Amer) POC Glucose (mg/dL) 216 H 312 H 182 H (65-110) mg/dL Random Glucose (65-105) mg/dL Calcium (8.6-10.4) mg/dl Phosphorus (2.5-4.5) mg/dL Magnesium (1.6-2.3) mg/dL Total Bilirubin (0.2-1.3) mg/dL AST (14-36) U/L ALT (9-52) U/L Alkaline Phosphatase (38-126) U/L Total Protein (6.3-8.3) g/dL Albumin (3.5-5.0) g/dL Globulin (2.2-3.9) gm/dL Albumin/Globulin Ratio (1.0-2.1) 10/12/16 10/12/16 10/12/16 Range/Units 10:10 08:59 08:20 WBC (4.8-10.8) K/uL RBC (3.80-5.20) Mil/uL Hgb (11.0-16.0) g/dL Hct (34.0-47.0) % MCV (81.0-99.0) fL MCH (27.0-31.0) pg MCHC (33.0-37.0) g/dL RDW (11.5-14.5) % Plt Count (130-400) K/uL MPV (7.2-11.7) fL Neut % (Auto) (50.0-75.0) % Lymph % (Auto) (20.0-40.0) % Kent % (Auto) (0.0-10.0) % Eos % (Auto) (0.0-4.0) % Baso % (Auto) (0.0-2.0) % Neut # (1.8-7.0) K/uL Lymph # (1.0-4.3) K/uL Kent # (0.0-0.8) K/uL Eos # (0.0-0.7) K/uL Baso # (0.0-0.2) K/uL Puncture Site pCO2 (35-45) mm/Hg pO2 (80-100) mm/Hg HCO3 (21-28) mmol/L ABG pH (7.35-7.45) ABG Total CO2 (22-28) mmol/L ABG O2 Saturation (95-98) % ABG Base Excess (-2.0-3.0) mmol/L ABG Hemoglobin (11.7-17.4) g/dL ABG Carboxyhemoglobin (0.5-1.5) % POC ABG HHb (Measured) (0.0-5.0) % ABG Methemoglobin (0.0-3.0) % Bartolome Test A-a O2 Difference mm/Hg Respiratory Index Hgb O2 Saturation (95.0-98.0) % FiO2 % Sodium 136 (132-148) mmol/L Potassium 3.9 (3.6-5.2) mmol/L Chloride 108 H (98-107) mmol/L Carbon Dioxide 17 L (22-30) mmol/L Anion Gap 15 (10-20) BUN 5 L (7-17) mg/dL Creatinine 0.4 L (0.7-1.2) MG/DL Est GFR ( Amer) > 60 Est GFR (Non-Af Amer) > 60 POC Glucose (mg/dL) 205 H 219 H (65-110) mg/dL Random Glucose 196 H (65-105) mg/dL Calcium 7.8 L (8.6-10.4) mg/dl Phosphorus (2.5-4.5) mg/dL Magnesium (1.6-2.3) mg/dL Total Bilirubin (0.2-1.3) mg/dL AST (14-36) U/L ALT (9-52) U/L Alkaline Phosphatase (38-126) U/L Total Protein (6.3-8.3) g/dL Albumin (3.5-5.0) g/dL Globulin (2.2-3.9) gm/dL Albumin/Globulin Ratio (1.0-2.1) 10/12/16 10/12/16 10/12/16 Range/Units 08:19 07:06 06:37 WBC (4.8-10.8) K/uL RBC (3.80-5.20) Mil/uL Hgb (11.0-16.0) g/dL Hct (34.0-47.0) % MCV (81.0-99.0) fL MCH (27.0-31.0) pg MCHC (33.0-37.0) g/dL RDW (11.5-14.5) % Plt Count (130-400) K/uL MPV (7.2-11.7) fL Neut % (Auto) (50.0-75.0) % Lymph % (Auto) (20.0-40.0) % [place] % (Auto) (0.0-10.0) % Eos % (Auto) (0.0-4.0) % Baso % (Auto) (0.0-2.0) % Neut # (1.8-7.0) K/uL Lymph # (1.0-4.3) K/uL Kent # (0.0-0.8) K/uL Eos # (0.0-0.7) K/uL Baso # (0.0-0.2) K/uL Puncture Site pCO2 (35-45) mm/Hg pO2 (80-100) mm/Hg HCO3 (21-28) mmol/L ABG pH (7.35-7.45) ABG Total CO2 (22-28) mmol/L ABG O2 Saturation (95-98) % ABG Base Excess (-2.0-3.0) mmol/L ABG Hemoglobin (11.7-17.4) g/dL ABG Carboxyhemoglobin (0.5-1.5) % POC ABG HHb (Measured) (0.0-5.0) % ABG Methemoglobin (0.0-3.0) % Bartolome Test A-a O2 Difference mm/Hg Respiratory Index Hgb O2 Saturation (95.0-98.0) % FiO2 % Sodium (132-148) mmol/L Potassium (3.6-5.2) mmol/L Chloride (98-107) mmol/L Carbon Dioxide (22-30) mmol/L Anion Gap (10-20) BUN (7-17) mg/dL Creatinine (0.7-1.2) MG/DL Est GFR ( Amer) Est GFR (Non-Af Amer) POC Glucose (mg/dL) 209 H 209 H 203 H (65-110) mg/dL Random Glucose (65-105) mg/dL Calcium (8.6-10.4) mg/dl Phosphorus (2.5-4.5) mg/dL Magnesium (1.6-2.3) mg/dL Total Bilirubin (0.2-1.3) mg/dL AST (14-36) U/L ALT (9-52) U/L Alkaline Phosphatase (38-126) U/L Total Protein (6.3-8.3) g/dL Albumin (3.5-5.0) g/dL Globulin (2.2-3.9) gm/dL Albumin/Globulin Ratio (1.0-2.1) 10/12/16 10/12/16 10/12/16 Range/Units 05:49 05:27 05:12 WBC 11.8 H (4.8-10.8) K/uL RBC 3.83 (3.80-5.20) Mil/uL Hgb 10.8 L (11.0-16.0) g/dL Hct 34.3 (34.0-47.0) % MCV 89.5 (81.0-99.0) fL MCH 28.3 (27.0-31.0) pg MCHC 31.6 L (33.0-37.0) g/dL RDW 13.2 (11.5-14.5) % Plt Count 214 (130-400) K/uL MPV 8.6 (7.2-11.7) fL Neut % (Auto) 85.4 H (50.0-75.0) % Lymph % (Auto) 10.6 L (20.0-40.0) % Kent % (Auto) 3.6 (0.0-10.0) % Eos % (Auto) 0.1 (0.0-4.0) % Baso % (Auto) 0.3 (0.0-2.0) % Neut # 10.1 H (1.8-7.0) K/uL Lymph # 1.2 (1.0-4.3) K/uL Kent # 0.4 (0.0-0.8) K/uL Eos # 0.0 (0.0-0.7) K/uL Baso # 0.0 (0.0-0.2) K/uL Puncture Site Rr pCO2 31 L (35-45) mm/Hg pO2 102 H (80-100) mm/Hg HCO3 17.8 L (21-28) mmol/L ABG pH 7.32 L (7.35-7.45) ABG Total CO2 17.0 L (22-28) mmol/L ABG O2 Saturation 98.9 H (95-98) % ABG Base Excess -9.1 L (-2.0-3.0) mmol/L ABG Hemoglobin 10.6 L (11.7-17.4) g/dL ABG Carboxyhemoglobin 1.6 H (0.5-1.5) % POC ABG HHb (Measured) 1.1 (0.0-5.0) % ABG Methemoglobin 0.7 (0.0-3.0) % Bartolome Test Pos A-a O2 Difference 9.0 mm/Hg Respiratory Index 0.1 Hgb O2 Saturation 96.6 (95.0-98.0) % FiO2 21.0 % Sodium 136 (132-148) mmol/L Potassium 4.0 (3.6-5.2) mmol/L Chloride 109 H (98-107) mmol/L Carbon Dioxide 14 L (22-30) mmol/L Anion Gap 17 (10-20) BUN 7 (7-17) mg/dL Creatinine 0.5 L (0.7-1.2) MG/DL Est GFR ( Amer) > 60 Est GFR (Non-Af Amer) > 60 POC Glucose (mg/dL) 190 H (65-110) mg/dL Random Glucose 173 H (65-105) mg/dL Calcium 7.9 L (8.6-10.4) mg/dl Phosphorus 1.4 L (2.5-4.5) mg/dL Magnesium 1.9 (1.6-2.3) mg/dL Total Bilirubin 0.2 (0.2-1.3) mg/dL AST 17 (14-36) U/L ALT 19 (9-52) U/L Alkaline Phosphatase 59 (38-126) U/L Total Protein 6.1 L (6.3-8.3) g/dL Albumin 3.4 L (3.5-5.0) g/dL Globulin 2.8 (2.2-3.9) gm/dL Albumin/Globulin Ratio 1.2 (1.0-2.1) 10/12/16 10/12/16 10/12/16 Range/Units 04:54 02:53 02:08 WBC (4.8-10.8) K/uL RBC (3.80-5.20) Mil/uL Hgb (11.0-16.0) g/dL Hct (34.0-47.0) % MCV (81.0-99.0) fL MCH (27.0-31.0) pg MCHC (33.0-37.0) g/dL RDW (11.5-14.5) % Plt Count (130-400) K/uL MPV (7.2-11.7) fL Neut % (Auto) (50.0-75.0) % Lymph % (Auto) (20.0-40.0) % Kent % (Auto) (0.0-10.0) % Eos % (Auto) (0.0-4.0) % Baso % (Auto) (0.0-2.0) % Neut # (1.8-7.0) K/uL Lymph # (1.0-4.3) K/uL Kent # (0.0-0.8) K/uL Eos # (0.0-0.7) K/uL Baso # (0.0-0.2) K/uL Puncture Site pCO2 (35-45) mm/Hg pO2 (80-100) mm/Hg HCO3 (21-28) mmol/L ABG pH (7.35-7.45) ABG Total CO2 (22-28) mmol/L ABG O2 Saturation (95-98) % ABG Base Excess (-2.0-3.0) mmol/L ABG Hemoglobin (11.7-17.4) g/dL ABG Carboxyhemoglobin (0.5-1.5) % POC ABG HHb (Measured) (0.0-5.0) % ABG Methemoglobin (0.0-3.0) % Bartolome Test A-a O2 Difference mm/Hg Respiratory Index Hgb O2 Saturation (95.0-98.0) % FiO2 % Sodium (132-148) mmol/L Potassium (3.6-5.2) mmol/L Chloride (98-107) mmol/L Carbon Dioxide (22-30) mmol/L Anion Gap (10-20) BUN (7-17) mg/dL Creatinine (0.7-1.2) MG/DL Est GFR ( Amer) Est GFR (Non-Af Amer) POC Glucose (mg/dL) 183 H 154 H 137 H (65-110) mg/dL Random Glucose (65-105) mg/dL Calcium (8.6-10.4) mg/dl Phosphorus (2.5-4.5) mg/dL Magnesium (1.6-2.3) mg/dL Total Bilirubin (0.2-1.3) mg/dL AST (14-36) U/L ALT (9-52) U/L Alkaline Phosphatase (38-126) U/L Total Protein (6.3-8.3) g/dL Albumin (3.5-5.0) g/dL Globulin (2.2-3.9) gm/dL Albumin/Globulin Ratio (1.0-2.1) 10/12/16 10/12/16 10/12/16 Range/Units 01:25 00:56 00:40 WBC (4.8-10.8) K/uL RBC (3.80-5.20) Mil/uL Hgb (11.0-16.0) g/dL Hct (34.0-47.0) % MCV (81.0-99.0) fL MCH (27.0-31.0) pg MCHC (33.0-37.0) g/dL RDW (11.5-14.5) % Plt Count (130-400) K/uL MPV (7.2-11.7) fL Neut % (Auto) (50.0-75.0) % Lymph % (Auto) (20.0-40.0) % Kent % (Auto) (0.0-10.0) % Eos % (Auto) (0.0-4.0) % Baso % (Auto) (0.0-2.0) % Neut # (1.8-7.0) K/uL Lymph # (1.0-4.3) K/uL Kent # (0.0-0.8) K/uL Eos # (0.0-0.7) K/uL Baso # (0.0-0.2) K/uL Puncture Site pCO2 (35-45) mm/Hg pO2 (80-100) mm/Hg HCO3 (21-28) mmol/L ABG pH (7.35-7.45) ABG Total CO2 (22-28) mmol/L ABG O2 Saturation (95-98) % ABG Base Excess (-2.0-3.0) mmol/L ABG Hemoglobin (11.7-17.4) g/dL ABG Carboxyhemoglobin (0.5-1.5) % POC ABG HHb (Measured) (0.0-5.0) % ABG Methemoglobin (0.0-3.0) % Bartolome Test A-a O2 Difference mm/Hg Respiratory Index Hgb O2 Saturation (95.0-98.0) % FiO2 % Sodium 136 (132-148) mmol/L Potassium 3.7 (3.6-5.2) mmol/L Chloride 111 H (98-107) mmol/L Carbon Dioxide 14 L (22-30) mmol/L Anion Gap 15 (10-20) BUN 8 (7-17) mg/dL Creatinine 0.5 L (0.7-1.2) MG/DL Est GFR ( Amer) > 60 Est GFR (Non-Af Amer) > 60 POC Glucose (mg/dL) 120 H 132 H (65-110) mg/dL Random Glucose 109 H (65-105) mg/dL Calcium 7.8 L (8.6-10.4) mg/dl Phosphorus (2.5-4.5) mg/dL Magnesium (1.6-2.3) mg/dL Total Bilirubin (0.2-1.3) mg/dL AST (14-36) U/L ALT (9-52) U/L Alkaline Phosphatase (38-126) U/L Total Protein (6.3-8.3) g/dL Albumin (3.5-5.0) g/dL Globulin (2.2-3.9) gm/dL Albumin/Globulin Ratio (1.0-2.1) Laboratory Results - last 24 hr 10/12/16 10/12/16 10/12/16 00:40 00:56 01:25 WBC RBC Hgb Hct MCV MCH MCHC RDW Plt Count MPV Neut % (Auto) Lymph % (Auto) Kent % (Auto) Eos % (Auto) Baso % (Auto) Neut # Lymph # Kent # Eos # Baso # Puncture Site pCO2 pO2 HCO3 ABG pH ABG Total CO2 ABG O2 Saturation ABG Base Excess ABG Hemoglobin ABG Carboxyhemoglobin POC ABG HHb (Measured) ABG Methemoglobin Bartolome Test A-a O2 Difference Respiratory Index Hgb O2 Saturation FiO2 Sodium 136 Potassium 3.7 Chloride 111 H Carbon Dioxide 14 L Anion Gap 15 BUN 8 Creatinine 0.5 L Est GFR ( Amer) > 60 Est GFR (Non-Af Amer) > 60 POC Glucose (mg/dL) 132 H 120 H Random Glucose 109 H Calcium 7.8 L Phosphorus Magnesium Total Bilirubin AST ALT Alkaline Phosphatase Total Protein Albumin Globulin Albumin/Globulin Ratio 10/12/16 10/12/16 10/12/16 02:08 02:53 04:54 WBC RBC Hgb Hct MCV MCH MCHC RDW Plt Count MPV Neut % (Auto) Lymph % (Auto) Kent % (Auto) Eos % (Auto) Baso % (Auto) Neut # Lymph # Kent # Eos # Baso # Puncture Site pCO2 pO2 HCO3 ABG pH ABG Total CO2 ABG O2 Saturation ABG Base Excess ABG Hemoglobin ABG Carboxyhemoglobin POC ABG HHb (Measured) ABG Methemoglobin Bartolome Test A-a O2 Difference Respiratory Index Hgb O2 Saturation FiO2 Sodium Potassium Chloride Carbon Dioxide Anion Gap BUN Creatinine Est GFR ( Amer) Est GFR (Non-Af Amer) POC Glucose (mg/dL) 137 H 154 H 183 H Random Glucose Calcium Phosphorus Magnesium Total Bilirubin AST ALT Alkaline Phosphatase Total Protein Albumin Globulin Albumin/Globulin Ratio 10/12/16 10/12/16 10/12/16 05:12 05:27 05:49 WBC 11.8 H RBC 3.83 Hgb 10.8 L Hct 34.3 MCV 89.5 MCH 28.3 MCHC 31.6 L RDW 13.2 Plt Count 214 MPV 8.6 Neut % (Auto) 85.4 H Lymph % (Auto) 10.6 L Kent % (Auto) 3.6 Eos % (Auto) 0.1 Baso % (Auto) 0.3 Neut # 10.1 H Lymph # 1.2 Kent # 0.4 Eos # 0.0 Baso # 0.0 Puncture Site Rr pCO2 31 L pO2 102 H HCO3 17.8 L ABG pH 7.32 L ABG Total CO2 17.0 L ABG O2 Saturation 98.9 H ABG Base Excess -9.1 L ABG Hemoglobin 10.6 L ABG Carboxyhemoglobin 1.6 H POC ABG HHb (Measured) 1.1 ABG Methemoglobin 0.7 Bartolome Test Pos A-a O2 Difference 9.0 Respiratory Index 0.1 Hgb O2 Saturation 96.6 FiO2 21.0 Sodium 136 Potassium 4.0 Chloride 109 H Carbon Dioxide 14 L Anion Gap 17 BUN 7 Creatinine 0.5 L Est GFR ( Amer) > 60 Est GFR (Non-Af Amer) > 60 POC Glucose (mg/dL) 190 H Random Glucose 173 H Calcium 7.9 L Phosphorus 1.4 L Magnesium 1.9 Total Bilirubin 0.2 AST 17 ALT 19 Alkaline Phosphatase 59 Total Protein 6.1 L Albumin 3.4 L Globulin 2.8 Albumin/Globulin Ratio 1.2 10/12/16 10/12/16 10/12/16 06:37 07:06 08:19 WBC RBC Hgb Hct MCV MCH MCHC RDW Plt Count MPV Neut % (Auto) Lymph % (Auto) Kent % (Auto) Eos % (Auto) Baso % (Auto) Neut # Lymph # Kent # Eos # Baso # Puncture Site pCO2 pO2 HCO3 ABG pH ABG Total CO2 ABG O2 Saturation ABG Base Excess ABG Hemoglobin ABG Carboxyhemoglobin POC ABG HHb (Measured) ABG Methemoglobin Bartolome Test A-a O2 Difference Respiratory Index Hgb O2 Saturation FiO2 Sodium Potassium Chloride Carbon Dioxide Anion Gap BUN Creatinine Est GFR ( Amer) Est GFR (Non-Af Amer) POC Glucose (mg/dL) 203 H 209 H 209 H Random Glucose Calcium Phosphorus Magnesium Total Bilirubin AST ALT Alkaline Phosphatase Total Protein Albumin Globulin Albumin/Globulin Ratio 10/12/16 10/12/16 10/12/16 08:20 08:59 10:10 WBC RBC Hgb Hct MCV MCH MCHC RDW Plt Count MPV Neut % (Auto) Lymph % (Auto) Kent % (Auto) Eos % (Auto) Baso % (Auto) Neut # Lymph # Kent # Eos # Baso # Puncture Site pCO2 pO2 HCO3 ABG pH ABG Total CO2 ABG O2 Saturation ABG Base Excess ABG Hemoglobin ABG Carboxyhemoglobin POC ABG HHb (Measured) ABG Methemoglobin Bartolome Test A-a O2 Difference Respiratory Index Hgb O2 Saturation FiO2 Sodium 136 Potassium 3.9 Chloride 108 H Carbon Dioxide 17 L Anion Gap 15 BUN 5 L Creatinine 0.4 L Est GFR ( Amer) > 60 Est GFR (Non-Af Amer) > 60 POC Glucose (mg/dL) 219 H 205 H Random Glucose 196 H Calcium 7.8 L Phosphorus Magnesium Total Bilirubin AST ALT Alkaline Phosphatase Total Protein Albumin Globulin Albumin/Globulin Ratio 10/12/16 10/12/16 10/12/16 11:04 15:52 21:15 WBC RBC Hgb Hct MCV MCH MCHC RDW Plt Count MPV Neut % (Auto) Lymph % (Auto) [place] % (Auto) Eos % (Auto) Baso % (Auto) Neut # Lymph # Kent # Eos # Baso # Puncture Site pCO2 pO2 HCO3 ABG pH ABG Total CO2 ABG O2 Saturation ABG Base Excess ABG Hemoglobin ABG Carboxyhemoglobin POC ABG HHb (Measured) ABG Methemoglobin Bartolome Test A-a O2 Difference Respiratory Index Hgb O2 Saturation FiO2 Sodium Potassium Chloride Carbon Dioxide Anion Gap BUN Creatinine Est GFR ( Amer) Est GFR (Non-Af Amer) POC Glucose (mg/dL) 182 H 312 H 216 H Random Glucose Calcium Phosphorus Magnesium Total Bilirubin AST ALT Alkaline Phosphatase Total Protein Albumin Globulin Albumin/Globulin Ratio Critical Care Progress Note - Nutrition Nutrition: Nutrition Category Date Time Status Liquid Diet [DIET] Diets 10/11/16 Dinner Active Attending/Attestation - Attestation I have fully participated in the care of the patient.: Yes I have reviewed all pertinent clinical information: Yes Notes (Text): 10/12/16 23:16 Today: Tuesday, October 11, 2016 The Patient was seen and examined at the bedside, Medical records reviewed, all clinical/lab/hemodynamic/radiographic data were reviewed and management issues were discussed and formulated, Events reviewed Pain issues, skin care, head of the bed elevation, glycemic control were addressed. Agree with above treatment plans as transcribed in Dr. Sevilla note Patient still complaining of abdominal pain, still requiring insulin drip for high anion gap metabolic acidosis, DKA, aggressive hydrations, RISS Q 1H
[2016-10-11] MEDS ORDERED: Potassium Chloride 20 mEq 100 ML IVPB ONE (16:00)
[2016-10-11 16:08] LABS: CHLORIDE 111 mmol/L (98-107); SODIUM 142 mmol/L (132-148)
[2016-10-11 16:09] LABS: POTASSIUM 3.7 mmol/L (3.6-5.2)
[2016-10-11 16:11] LABS: GFR AFRICAN-AMERICAN > 60
[2016-10-11 16:12] LABS: AMYLASE 67 U/L (30-110); BLOOD UREA NITROGEN 10 mg/dL (7-17); CALCIUM 8.2 mg/dl (8.6-10.4); CARBON DIOXIDE 17 mmol/L (22-30); GLUCOSE,RANDOM 128 mg/dL (65-105)
[2016-10-11] MEDS: Potassium Chl 40 mEq in D5-1/2 1,000 ML IV SCH (17:55)
[2016-10-11] MEDS: Morphine 4 MG/ML VIAL IVP PRN (18:15)
[2016-10-11 20:54] LABS: CHLORIDE 111 mmol/L (98-107); SODIUM 139 mmol/L (132-148)
[2016-10-11 20:57] LABS: BLOOD UREA NITROGEN 9 mg/dL (7-17); CARBON DIOXIDE 14 mmol/L (22-30); GFR AFRICAN-AMERICAN > 60; GLUCOSE,RANDOM 105 mg/dL (65-105)
[2016-10-11 20:58] LABS: CALCIUM 8.2 mg/dl (8.6-10.4)
[2016-10-12 01:18] LABS: CHLORIDE 111 mmol/L (98-107); SODIUM 136 mmol/L (132-148)
[2016-10-12 01:19] LABS: POTASSIUM 3.7 mmol/L (3.6-5.2)
[2016-10-12 01:21] LABS: GFR AFRICAN-AMERICAN > 60
[2016-10-12 01:22] LABS: BLOOD UREA NITROGEN 8 mg/dL (7-17); CALCIUM 7.8 mg/dl (8.6-10.4); CARBON DIOXIDE 14 mmol/L (22-30); GLUCOSE,RANDOM 109 mg/dL (65-105)
[2016-10-12] MEDS: Potassium Chl 40 mEq in D5-1/2 1,000 ML IV SCH ×4 (01:50→22:23)
[2016-10-12 05:22] LABS: BASO % 0.3 % (0.0-2.0); EOS % 0.1 % (0.0-4.0); HEMATOCRIT 34.3 % (34.0-47.0); LYMPH # 1.2 K/uL (1.0-4.3); LYMPH % 10.6 % (20.0-40.0); MEAN CELL VOLUME 89.5 fL (81.0-99.0); MEAN CORPUSCULAR HEMOGLOBIN 28.3 pg (27.0-31.0); MEAN CORPUSCULAR HGB CONC 31.6 g/dL (33.0-37.0); MEAN PLATELET VOLUME 8.6 fL (7.2-11.7); MONO # 0.4 K/uL (0.0-0.8); MONO % 3.6 % (0.0-10.0); RED CELL DISTRIBUTION WIDTH 13.2 % (11.5-14.5); WHITE BLOOD COUNT 11.8 K/uL (4.8-10.8)
[2016-10-12 05:27] LABS: CHLORIDE 109 mmol/L (98-107); SODIUM 136 mmol/L (132-148)
[2016-10-12 05:29] LABS: GFR AFRICAN-AMERICAN > 60
[2016-10-12 05:30] LABS: ALB/GLOB RATIO 1.2 (1.0-2.1); ALKALINE PHOSPHATASE 59 U/L (38-126); ALT/SGPT 19 U/L (9-52); AST/SGOT 17 U/L (14-36); BILIRUBIN,TOTAL 0.2 mg/dL (0.2-1.3); BLOOD UREA NITROGEN 7 mg/dL (7-17); CARBON DIOXIDE 14 mmol/L (22-30); GLUCOSE,RANDOM 173 mg/dL (65-105); PHOSPHOROUS 1.4 mg/dL (2.5-4.5); TOTAL PROTEIN 6.1 g/dL (6.3-8.3)
[2016-10-12 05:31] LABS: CALCIUM 7.9 mg/dl (8.6-10.4); MAGNESIUM 1.9 mg/dL (1.6-2.3)
[2016-10-12 05:42] LABS: ABG ALLEN TEST POS; ARTERIAL BLOOD HGB O2 SAT 96.6 % (95.0-98.0); CARBOXYHEMOGLOBIN 1.6 % (0.5-1.5); DRAW SITE RR; HHB 1.1 % (0.0-5.0); METHEMOGLOBIN 0.7 % (0.0-3.0)
[2016-10-12] MEDS ORDERED: Insulin Human Regular 100 UNIT in Sodium Chloride 0.9% 99 ML IV PRN (05:43)
[2016-10-12] MEDS ORDERED: Potassium Phosphate 15 MMOLE in Dextrose 5% In Water 250 ML IVPB ONE (08:21)
[2016-10-12 08:33] LABS: CHLORIDE 108 mmol/L (98-107); POTASSIUM 3.9 mmol/L (3.6-5.2); SODIUM 136 mmol/L (132-148)
[2016-10-12 08:35] LABS: GFR AFRICAN-AMERICAN > 60
[2016-10-12 08:36] LABS: BLOOD UREA NITROGEN 5 mg/dL (7-17); CALCIUM 7.8 mg/dl (8.6-10.4); CARBON DIOXIDE 17 mmol/L (22-30); GLUCOSE,RANDOM 196 mg/dL (65-105)
[2016-10-12] MEDS ORDERED: (Lantus) Insulin Glargine, Recombinant SC ONE (11:15)
[2016-10-12] MEDS ORDERED: Aluminum Hydroxide/Magnesium Hydroxide Susp (30 mL) PO ONE (14:32)
--- NOTE | 2016-10-12 14:37 | CP.PCM.PN ---
Subjective - Date & Time of Evaluation Date of Evaluation: 10/12/16 Time of Evaluation: 15:00 - Subjective Subjective: improved anion gap and CO2, yet still vomiting with epigastric pain on hydration Objective - Vital Signs/Intake and Output Vital Signs (last 24 hours): Temp Pulse Resp BP Pulse Ox 97.9 F 109 H 16 117/70 99 10/12/16 12:00 10/12/16 14:00 10/12/16 14:00 10/12/16 12:39 10/12/16 14:00 Intake and Output: 10/12/16 10/12/16 06:59 18:59 Intake Total 1814 1413 Output Total 950 20 Balance 864 1393 - Medications Medications: Current Medications Acetaminophen (Tylenol 325mg Tab) 650 mg PO Q6 PRN PRN Reason: Pain, Mild (1-3) Last Admin: 10/12/16 14:22 Dose: 650 mg Al Hydrox/Mg Hydrox/Simethicone (Maalox 30 Ml) 30 ml PO ACHS [facility] Heparin Sodium (Porcine) (Heparin) 5,000 units SC Q12 [facility] Last Admin: 10/12/16 10:08 Dose: 5,000 units Potassium Chloride/Dextrose/Sod Cl (Potassium Chl 40 Meq In D5-1/2ns) 1,000 mls @ 150 mls/hr IV .Q6H40M [facility] Last Admin: 10/12/16 08:35 Dose: 150 mls/hr Insulin Glargine (Lantus) 10 unit SC Q12 [facility] Insulin Human Regular (Novolin R) 0 unit SC ACHS [facility] PRN Reason: Protocol Metoclopramide HCl (Reglan) 10 mg IVP Q6H PRN PRN Reason: Nausea/Vomiting Last Admin: 10/12/16 11:08 Dose: 10 mg Morphine Sulfate (Morphine) 2 mg IVP Q4H PRN PRN Reason: Pain, moderate (4-7) Last Admin: 10/12/16 07:30 Dose: 2 mg Morphine Sulfate (Morphine) 3 mg IVP Q4 PRN PRN Reason: Pain, severe (8-10) Last Admin: 10/11/16 18:15 Dose: 3 mg Ondansetron HCl (Zofran Inj) 4 mg IVP Q6H PRN PRN Reason: Nausea/Vomiting Last Admin: 10/12/16 14:22 Dose: 4 mg Pantoprazole Sodium (Protonix Ec Tab) 40 mg PO DAILY [facility] - Labs Labs: 10/12/16 05:12 10/12/16 08:20 - Constitutional Appears: Non-toxic - Head Exam Head Exam: ATRAUMATIC - Eye Exam Eye Exam: EOMI - ENT Exam ENT Exam: Mucous Membranes Moist - Neck Exam Neck Exam: absent: Lymphadenopathy, Thyromegaly - Respiratory Exam Respiratory Exam: Clear to Ausculation Bilateral. absent: Rales - Cardiovascular Exam Cardiovascular Exam: REGULAR RHYTHM - GI/Abdominal Exam GI & Abdominal Exam: Normal Bowel Sounds. absent: Organomegaly - Rectal Exam Rectal Exam: Deferred - Extremities Exam Extremities Exam: Normal Capillary Refill. absent: Calf Tenderness - Neurological Exam Neurological Exam: Alert, Oriented x3 - Psychiatric Exam Psychiatric exam: Depressed - Skin Skin Exam: Dry Assessment and Plan (1) DKA (diabetic ketoacidoses) Status: Acute (2) Hypokalemia Status: Acute (3) Diabetes 1.5, managed as type 1 Status: Chronic
[2016-10-12] MEDS: Aluminum Hydroxide/Magnesium Hydroxide Susp (30 mL) PO SCH ×2 (16:09→22:43)
[2016-10-12] MEDS ORDERED: (Novolin R) Insulin Human Regular 100 units/ml vial SC SCH (16:30)
--- NOTE | 2016-10-12 16:43 | US ---
HISTORY: abdominal pain, vomiting COMPARISON: Comparison made with CT scan abdomen pelvis 06/28/2015 TECHNIQUE: Sonographic evaluation of the abdomen. FINDINGS: LIVER: Liver is enlarged measuring 29 cm in CC dimension. Hepatic parenchyma is somewhat echogenic suggesting mild fatty infiltration. . No obvious hepatic mass or collection. Liver GALLBLADDER: Removed. COMMON BILE DUCT: Measures 3 mm. No stones. No dilatation. PANCREAS: Unremarkable as visualized. The pancreatic tail is not seen on this study No mass. No ductal dilatation. RIGHT KIDNEY: Measures 12.1 x 5.0 x 5.4 cm. Normal echogenicity. No calculus, mass, or hydronephrosis. LEFT KIDNEY: Measures 11.3 x 5.8 x 5.3 cm. Normal echogenicity. No calculus, mass, or hydronephrosis. SPLEEN: Borderline enlarged measuring approximately 13 cm. No mass. AORTA: No aneurysmal dilatation. IVC: Unremarkable. OTHER FINDINGS: None. IMPRESSION: Hepatomegaly with suspected mild fatty infiltration. Status post cholecystectomy
--- NOTE | 2016-10-12 18:22 | CP.CCUPN ---
CCU Subjective - Physician Review Events Since Last Encounter (Free Text): 10/12/16 18:20 Patient is a 26-year-old female with a history of diabetes, diabetes ketoacidosis admitted with the ketoacidosis. Currently on insulin drip, improving Patient is currently off insulin. Currently doing well. Complaining of epigastric pain. CCU Objective - Vital Signs / Intake & Output Vital Signs (Last 4 hours): Vital Signs Temp Pulse Resp BP Pulse Ox 10/12/16 18:00 96 H 10 L 98 10/12/16 17:00 117 H 19 97 10/12/16 16:39 86 17 148/80 100 10/12/16 16:27 84 15 100 10/12/16 16:20 80 19 100 10/12/16 16:16 86 14 162/84 H 100 10/12/16 16:00 98.8 F 89 10 L 100 10/12/16 15:00 88 18 100 chest good air entry bilaterally regular heart shea Intake and Output (Last 8hrs): Intake & Output 10/12/16 10/12/16 10/12/16 06:59 14:59 22:59 Intake Total 1208 1806 630 Output Total 500 540 10 Balance 708 1266 620 Weight 154 lb Intake: Intake, IV Amount 1208 1636 600 Left Hand 8 1311 600 Left Hand Y Port 1200 162 Right Antecubital 10 Left Forearm 153 Oral 170 30 Output: Urine 500 500 Urine, Voided 500 500 Stool 0 Emesis 40 10 Other: # Voids Urine, Voided 2 0 # Bowel Movements 0 - Medications Active Medications: Active Medications Generic Name Dose Route Start Last Admin Trade Name Freq PRN Reason Stop Dose Admin Acetaminophen 650 mg 10/11/16 13:02 10/12/16 14:22 Tylenol 325mg Tab PO 650 mg Q6 PRN Administration Pain, Mild (1-3) Al Hydrox/Mg Hydrox/Simethicone 30 ml 10/12/16 16:30 10/12/16 16:09 Maalox 30 Ml PO 30 ml ACHS ROMEO Administration Heparin Sodium (Porcine) 5,000 units 10/10/16 22:00 10/12/16 10:08 Heparin SC 5,000 units Q12 ROMEO Administration Potassium Chloride/Dextrose/Sod Cl 1,000 mls @ 150 mls/hr 10/11/16 18:00 14:43 Potassium Chl 40 Meq In D5-1/2ns IV 150 mls/hr .[id number] ROMEO Administration Insulin Glargine 10 unit 10/12/16 22:00 Lantus SC Q12 [facility] Insulin Human Regular 0 unit 10/12/16 16:30 10/12/16 16:09 Novolin R SC 6 unit ACHS ROMEO Administration Protocol Metoclopramide HCl 10 mg 10/11/16 08:45 10/12/16 11:08 Reglan IVP 10 mg Q6H PRN Administration Nausea/Vomiting Morphine Sulfate 2 mg 10/11/16 03:36 10/12/16 18:10 Morphine IVP 2 mg Q4H PRN Administration Pain, moderate (4-7) Morphine Sulfate 3 mg 10/11/16 13:03 10/11/16 18:15 Morphine IVP 3 mg Q4 PRN Administration Pain, severe (8-10) Ondansetron HCl 4 mg 10/10/16 14:19 10/12/16 14:22 Zofran Inj IVP 4 mg Q6H PRN Administration Nausea/Vomiting Pantoprazole Sodium 40 mg 10/11/16 10:00 Protonix Ec Tab PO DAILY [facility] - Patient Studies Lab Studies: Microbiology Studies 10/10/16 17:02 MRSA Culture (Admit) - Final Nose MRSA NOT DETECTED Lab Studies 10/12/16 10/12/16 10/12/16 Range/Units 15:52 11:04 10:10 WBC (4.8-10.8) K/uL RBC (3.80-5.20) Mil/uL Hgb (11.0-16.0) g/dL Hct (34.0-47.0) % MCV (81.0-99.0) fL MCH (27.0-31.0) pg MCHC (33.0-37.0) g/dL RDW (11.5-14.5) % Plt Count (130-400) K/uL MPV (7.2-11.7) fL Neut % (Auto) (50.0-75.0) % Lymph % (Auto) (20.0-40.0) % [place] % (Auto) (0.0-10.0) % Eos % (Auto) (0.0-4.0) % Baso % (Auto) (0.0-2.0) % Neut # (1.8-7.0) K/uL Lymph # (1.0-4.3) K/uL [place] # (0.0-0.8) K/uL Eos # (0.0-0.7) K/uL Baso # (0.0-0.2) K/uL Puncture Site pCO2 (35-45) mm/Hg pO2 (80-100) mm/Hg HCO3 (21-28) mmol/L ABG pH (7.35-7.45) ABG Total CO2 (22-28) mmol/L ABG O2 Saturation (95-98) % ABG Base Excess (-2.0-3.0) mmol/L ABG Hemoglobin (11.7-17.4) g/dL ABG Carboxyhemoglobin (0.5-1.5) % POC ABG HHb (Measured) (0.0-5.0) % ABG Methemoglobin (0.0-3.0) % [place] Test A-a O2 Difference mm/Hg Respiratory Index Hgb O2 Saturation (95.0-98.0) % FiO2 % Sodium (132-148) mmol/L Potassium (3.6-5.2) mmol/L Chloride (98-107) mmol/L Carbon Dioxide (22-30) mmol/L Anion Gap (10-20) BUN (7-17) mg/dL Creatinine (0.7-1.2) MG/DL Est GFR ( Amer) Est GFR (Non-Af Amer) POC Glucose (mg/dL) 312 H 182 H 205 H (65-110) mg/dL Random Glucose (65-105) mg/dL Calcium (8.6-10.4) mg/dl Phosphorus (2.5-4.5) mg/dL Magnesium (1.6-2.3) mg/dL Total Bilirubin (0.2-1.3) mg/dL AST (14-36) U/L ALT (9-52) U/L Alkaline Phosphatase (38-126) U/L Total Protein (6.3-8.3) g/dL Albumin (3.5-5.0) g/dL Globulin (2.2-3.9) gm/dL Albumin/Globulin Ratio (1.0-2.1) 04/22/17 04/22/17 04/22/17 Range/Units 08:59 08:20 08:19 WBC (4.8-10.8) K/uL RBC (3.80-5.20) Mil/uL Hgb (11.0-16.0) g/dL Hct (34.0-47.0) % MCV (81.0-99.0) fL MCH (27.0-31.0) pg MCHC (33.0-37.0) g/dL RDW (11.5-14.5) % Plt Count (130-400) K/uL MPV (7.2-11.7) fL Neut % (Auto) (50.0-75.0) % Lymph % (Auto) (20.0-40.0) % [place] % (Auto) (0.0-10.0) % Eos % (Auto) (0.0-4.0) % Baso % (Auto) (0.0-2.0) % Neut # (1.8-7.0) K/uL Lymph # (1.0-4.3) K/uL [place] # (0.0-0.8) K/uL Eos # (0.0-0.7) K/uL Baso # (0.0-0.2) K/uL Puncture Site pCO2 (35-45) mm/Hg pO2 (80-100) mm/Hg HCO3 (21-28) mmol/L ABG pH (7.35-7.45) ABG Total CO2 (22-28) mmol/L ABG O2 Saturation (95-98) % ABG Base Excess (-2.0-3.0) mmol/L ABG Hemoglobin (11.7-17.4) g/dL ABG Carboxyhemoglobin (0.5-1.5) % POC ABG HHb (Measured) (0.0-5.0) % ABG Methemoglobin (0.0-3.0) % [place] Test A-a O2 Difference mm/Hg Respiratory Index Hgb O2 Saturation (95.0-98.0) % FiO2 % Sodium 136 (132-148) mmol/L Potassium 3.9 (3.6-5.2) mmol/L Chloride 108 H (98-107) mmol/L Carbon Dioxide 17 L (22-30) mmol/L Anion Gap 15 (10-20) BUN 5 L (7-17) mg/dL Creatinine 0.4 L (0.7-1.2) MG/DL Est GFR ( Amer) > 60 Est GFR (Non-Af Amer) > 60 POC Glucose (mg/dL) 219 H 209 H (65-110) mg/dL Random Glucose 196 H (65-105) mg/dL Calcium 7.8 L (8.6-10.4) mg/dl Phosphorus (2.5-4.5) mg/dL Magnesium (1.6-2.3) mg/dL Total Bilirubin (0.2-1.3) mg/dL AST (14-36) U/L ALT (9-52) U/L Alkaline Phosphatase (38-126) U/L Total Protein (6.3-8.3) g/dL Albumin (3.5-5.0) g/dL Globulin (2.2-3.9) gm/dL Albumin/Globulin Ratio (1.0-2.1) 10/12/16 10/12/16 10/12/16 Range/Units 07:06 06:37 05:49 WBC (4.8-10.8) K/uL RBC (3.80-5.20) Mil/uL Hgb (11.0-16.0) g/dL Hct (34.0-47.0) % MCV (81.0-99.0) fL MCH (27.0-31.0) pg MCHC (33.0-37.0) g/dL RDW (11.5-14.5) % Plt Count (130-400) K/uL MPV (7.2-11.7) fL Neut % (Auto) (50.0-75.0) % Lymph % (Auto) (20.0-40.0) % [place] % (Auto) (0.0-10.0) % Eos % (Auto) (0.0-4.0) % Baso % (Auto) (0.0-2.0) % Neut # (1.8-7.0) K/uL Lymph # (1.0-4.3) K/uL [place] # (0.0-0.8) K/uL Eos # (0.0-0.7) K/uL Baso # (0.0-0.2) K/uL Puncture Site pCO2 (35-45) mm/Hg pO2 (80-100) mm/Hg HCO3 (21-28) mmol/L ABG pH (7.35-7.45) ABG Total CO2 (22-28) mmol/L ABG O2 Saturation (95-98) % ABG Base Excess (-2.0-3.0) mmol/L ABG Hemoglobin (11.7-17.4) g/dL ABG Carboxyhemoglobin (0.5-1.5) % POC ABG HHb (Measured) (0.0-5.0) % ABG Methemoglobin (0.0-3.0) % [place] Test A-a O2 Difference mm/Hg Respiratory Index Hgb O2 Saturation (95.0-98.0) % FiO2 % Sodium (132-148) mmol/L Potassium (3.6-5.2) mmol/L Chloride (98-107) mmol/L Carbon Dioxide (22-30) mmol/L Anion Gap (10-20) BUN (7-17) mg/dL Creatinine (0.7-1.2) MG/DL Est GFR ( Amer) Est GFR (Non-Af Amer) POC Glucose (mg/dL) 209 H 203 H 190 H (65-110) mg/dL Random Glucose (65-105) mg/dL Calcium (8.6-10.4) mg/dl Phosphorus (2.5-4.5) mg/dL Magnesium (1.6-2.3) mg/dL Total Bilirubin (0.2-1.3) mg/dL AST (14-36) U/L ALT (9-52) U/L Alkaline Phosphatase (38-126) U/L Total Protein (6.3-8.3) g/dL Albumin (3.5-5.0) g/dL Globulin (2.2-3.9) gm/dL Albumin/Globulin Ratio (1.0-2.1) 10/12/16 10/12/16 10/12/16 Range/Units 05:27 05:12 04:54 WBC 11.8 H (4.8-10.8) K/uL RBC 3.83 (3.80-5.20) Mil/uL Hgb 10.8 L (11.0-16.0) g/dL Hct 34.3 (34.0-47.0) % MCV 89.5 (81.0-99.0) fL MCH 28.3 (27.0-31.0) pg MCHC 31.6 L (33.0-37.0) g/dL RDW 13.2 (11.5-14.5) % Plt Count 214 (130-400) K/uL MPV 8.6 (7.2-11.7) fL Neut % (Auto) 85.4 H (50.0-75.0) % Lymph % (Auto) 10.6 L (20.0-40.0) % [place] % (Auto) 3.6 (0.0-10.0) % Eos % (Auto) 0.1 (0.0-4.0) % Baso % (Auto) 0.3 (0.0-2.0) % Neut # 10.1 H (1.8-7.0) K/uL Lymph # 1.2 (1.0-4.3) K/uL [place] # 0.4 (0.0-0.8) K/uL Eos # 0.0 (0.0-0.7) K/uL Baso # 0.0 (0.0-0.2) K/uL Puncture Site Rr pCO2 31 L (35-45) mm/Hg pO2 102 H (80-100) mm/Hg HCO3 17.8 L (21-28) mmol/L ABG pH 7.32 L (7.35-7.45) ABG Total CO2 17.0 L (22-28) mmol/L ABG O2 Saturation 98.9 H (95-98) % ABG Base Excess -9.1 L (-2.0-3.0) mmol/L ABG Hemoglobin 10.6 L (11.7-17.4) g/dL ABG Carboxyhemoglobin 1.6 H (0.5-1.5) % POC ABG HHb (Measured) 1.1 (0.0-5.0) % ABG Methemoglobin 0.7 (0.0-3.0) % [place] Test Pos A-a O2 Difference 9.0 mm/Hg Respiratory Index 0.1 Hgb O2 Saturation 96.6 (95.0-98.0) % FiO2 21.0 % Sodium 136 (132-148) mmol/L Potassium 4.0 (3.6-5.2) mmol/L Chloride 109 H (98-107) mmol/L Carbon Dioxide 14 L (22-30) mmol/L Anion Gap 17 (10-20) BUN 7 (7-17) mg/dL Creatinine 0.5 L (0.7-1.2) MG/DL Est GFR ( Amer) > 60 Est GFR (Non-Af Amer) > 60 POC Glucose (mg/dL) 183 H (65-110) mg/dL Random Glucose 173 H (65-105) mg/dL Calcium 7.9 L (8.6-10.4) mg/dl Phosphorus 1.4 L (2.5-4.5) mg/dL Magnesium 1.9 (1.6-2.3) mg/dL Total Bilirubin 0.2 (0.2-1.3) mg/dL AST 17 (14-36) U/L ALT 19 (9-52) U/L Alkaline Phosphatase 59 (38-126) U/L Total Protein 6.1 L (6.3-8.3) g/dL Albumin 3.4 L (3.5-5.0) g/dL Globulin 2.8 (2.2-3.9) gm/dL Albumin/Globulin Ratio 1.2 (1.0-2.1) 10/12/16 10/12/16 10/12/16 Range/Units 02:53 02:08 01:25 WBC (4.8-10.8) K/uL RBC (3.80-5.20) Mil/uL Hgb (11.0-16.0) g/dL Hct (34.0-47.0) % MCV (81.0-99.0) fL MCH (27.0-31.0) pg MCHC (33.0-37.0) g/dL RDW (11.5-14.5) % Plt Count (130-400) K/uL MPV (7.2-11.7) fL Neut % (Auto) (50.0-75.0) % Lymph % (Auto) (20.0-40.0) % [place] % (Auto) (0.0-10.0) % Eos % (Auto) (0.0-4.0) % Baso % (Auto) (0.0-2.0) % Neut # (1.8-7.0) K/uL Lymph # (1.0-4.3) K/uL [place] # (0.0-0.8) K/uL Eos # (0.0-0.7) K/uL Baso # (0.0-0.2) K/uL Puncture Site pCO2 (35-45) mm/Hg pO2 (80-100) mm/Hg HCO3 (21-28) mmol/L ABG pH (7.35-7.45) ABG Total CO2 (22-28) mmol/L ABG O2 Saturation (95-98) % ABG Base Excess (-2.0-3.0) mmol/L ABG Hemoglobin (11.7-17.4) g/dL ABG Carboxyhemoglobin (0.5-1.5) % POC ABG HHb (Measured) (0.0-5.0) % ABG Methemoglobin (0.0-3.0) % [place] Test A-a O2 Difference mm/Hg Respiratory Index Hgb O2 Saturation (95.0-98.0) % FiO2 % Sodium (132-148) mmol/L Potassium (3.6-5.2) mmol/L Chloride (98-107) mmol/L Carbon Dioxide (22-30) mmol/L Anion Gap (10-20) BUN (7-17) mg/dL Creatinine (0.7-1.2) MG/DL Est GFR ( Amer) Est GFR (Non-Af Amer) POC Glucose (mg/dL) 154 H 137 H 120 H (65-110) mg/dL Random Glucose (65-105) mg/dL Calcium (8.6-10.4) mg/dl Phosphorus (2.5-4.5) mg/dL Magnesium (1.6-2.3) mg/dL Total Bilirubin (0.2-1.3) mg/dL AST (14-36) U/L ALT (9-52) U/L Alkaline Phosphatase (38-126) U/L Total Protein (6.3-8.3) g/dL Albumin (3.5-5.0) g/dL Globulin (2.2-3.9) gm/dL Albumin/Globulin Ratio (1.0-2.1) 10/12/16 10/12/16 10/11/16 Range/Units 00:56 00:40 23:07 WBC (4.8-10.8) K/uL RBC (3.80-5.20) Mil/uL Hgb (11.0-16.0) g/dL Hct (34.0-47.0) % MCV (81.0-99.0) fL MCH (27.0-31.0) pg MCHC (33.0-37.0) g/dL RDW (11.5-14.5) % Plt Count (130-400) K/uL MPV (7.2-11.7) fL Neut % (Auto) (50.0-75.0) % Lymph % (Auto) (20.0-40.0) % [place] % (Auto) (0.0-10.0) % Eos % (Auto) (0.0-4.0) % Baso % (Auto) (0.0-2.0) % Neut # (1.8-7.0) K/uL Lymph # (1.0-4.3) K/uL [place] # (0.0-0.8) K/uL Eos # (0.0-0.7) K/uL Baso # (0.0-0.2) K/uL Puncture Site pCO2 (35-45) mm/Hg pO2 (80-100) mm/Hg HCO3 (21-28) mmol/L ABG pH (7.35-7.45) ABG Total CO2 (22-28) mmol/L ABG O2 Saturation (95-98) % ABG Base Excess (-2.0-3.0) mmol/L ABG Hemoglobin (11.7-17.4) g/dL ABG Carboxyhemoglobin (0.5-1.5) % POC ABG HHb (Measured) (0.0-5.0) % ABG Methemoglobin (0.0-3.0) % [place] Test A-a O2 Difference mm/Hg Respiratory Index Hgb O2 Saturation (95.0-98.0) % FiO2 % Sodium 136 (132-148) mmol/L Potassium 3.7 (3.6-5.2) mmol/L Chloride 111 H (98-107) mmol/L Carbon Dioxide 14 L (22-30) mmol/L Anion Gap 15 (10-20) BUN 8 (7-17) mg/dL Creatinine 0.5 L (0.7-1.2) MG/DL Est GFR ( Amer) > 60 Est GFR (Non-Af Amer) > 60 POC Glucose (mg/dL) 132 H 136 H (65-110) mg/dL Random Glucose 109 H (65-105) mg/dL Calcium 7.8 L (8.6-10.4) mg/dl Phosphorus (2.5-4.5) mg/dL Magnesium (1.6-2.3) mg/dL Total Bilirubin (0.2-1.3) mg/dL AST (14-36) U/L ALT (9-52) U/L Alkaline Phosphatase (38-126) U/L Total Protein (6.3-8.3) g/dL Albumin (3.5-5.0) g/dL Globulin (2.2-3.9) gm/dL Albumin/Globulin Ratio (1.0-2.1) 10/11/16 10/11/16 10/11/16 Range/Units 22:20 21:35 20:35 WBC (4.8-10.8) K/uL RBC (3.80-5.20) Mil/uL Hgb (11.0-16.0) g/dL Hct (34.0-47.0) % MCV (81.0-99.0) fL MCH (27.0-31.0) pg MCHC (33.0-37.0) g/dL RDW (11.5-14.5) % Plt Count (130-400) K/uL MPV (7.2-11.7) fL Neut % (Auto) (50.0-75.0) % Lymph % (Auto) (20.0-40.0) % [place] % (Auto) (0.0-10.0) % Eos % (Auto) (0.0-4.0) % Baso % (Auto) (0.0-2.0) % Neut # (1.8-7.0) K/uL Lymph # (1.0-4.3) K/uL [place] # (0.0-0.8) K/uL Eos # (0.0-0.7) K/uL Baso # (0.0-0.2) K/uL Puncture Site pCO2 (35-45) mm/Hg pO2 (80-100) mm/Hg HCO3 (21-28) mmol/L ABG pH (7.35-7.45) ABG Total CO2 (22-28) mmol/L ABG O2 Saturation (95-98) % ABG Base Excess (-2.0-3.0) mmol/L ABG Hemoglobin (11.7-17.4) g/dL ABG Carboxyhemoglobin (0.5-1.5) % POC ABG HHb (Measured) (0.0-5.0) % ABG Methemoglobin (0.0-3.0) % [place] Test A-a O2 Difference mm/Hg Respiratory Index Hgb O2 Saturation (95.0-98.0) % FiO2 % Sodium 139 (132-148) mmol/L Potassium 4.0 (3.6-5.2) mmol/L Chloride 111 H (98-107) mmol/L Carbon Dioxide 14 L (22-30) mmol/L Anion Gap 18 (10-20) BUN 9 (7-17) mg/dL Creatinine 0.6 L (0.7-1.2) MG/DL Est GFR ( Amer) > 60 Est GFR (Non-Af Amer) > 60 POC Glucose (mg/dL) 145 H 127 H (65-110) mg/dL Random Glucose 105 (65-105) mg/dL Calcium 8.2 L (8.6-10.4) mg/dl Phosphorus (2.5-4.5) mg/dL Magnesium (1.6-2.3) mg/dL Total Bilirubin (0.2-1.3) mg/dL AST (14-36) U/L ALT (9-52) U/L Alkaline Phosphatase (38-126) U/L Total Protein (6.3-8.3) g/dL Albumin (3.5-5.0) g/dL Globulin (2.2-3.9) gm/dL Albumin/Globulin Ratio (1.0-2.1) 10/11/16 10/11/16 10/11/16 Range/Units 20:26 19:16 18:27 WBC (4.8-10.8) K/uL RBC (3.80-5.20) Mil/uL Hgb (11.0-16.0) g/dL Hct (34.0-47.0) % MCV (81.0-99.0) fL MCH (27.0-31.0) pg MCHC (33.0-37.0) g/dL RDW (11.5-14.5) % Plt Count (130-400) K/uL MPV (7.2-11.7) fL Neut % (Auto) (50.0-75.0) % Lymph % (Auto) (20.0-40.0) % [place] % (Auto) (0.0-10.0) % Eos % (Auto) (0.0-4.0) % Baso % (Auto) (0.0-2.0) % Neut # (1.8-7.0) K/uL Lymph # (1.0-4.3) K/uL [place] # (0.0-0.8) K/uL Eos # (0.0-0.7) K/uL Baso # (0.0-0.2) K/uL Puncture Site pCO2 (35-45) mm/Hg pO2 (80-100) mm/Hg HCO3 (21-28) mmol/L ABG pH (7.35-7.45) ABG Total CO2 (22-28) mmol/L ABG O2 Saturation (95-98) % ABG Base Excess (-2.0-3.0) mmol/L ABG Hemoglobin (11.7-17.4) g/dL ABG Carboxyhemoglobin (0.5-1.5) % POC ABG HHb (Measured) (0.0-5.0) % ABG Methemoglobin (0.0-3.0) % [place] Test A-a O2 Difference mm/Hg Respiratory Index Hgb O2 Saturation (95.0-98.0) % FiO2 % Sodium (132-148) mmol/L Potassium (3.6-5.2) mmol/L Chloride (98-107) mmol/L Carbon Dioxide (22-30) mmol/L Anion Gap (10-20) BUN (7-17) mg/dL Creatinine (0.7-1.2) MG/DL Est GFR ( Amer) Est GFR (Non-Af Amer) POC Glucose (mg/dL) 113 H 80 115 H (65-110) mg/dL Random Glucose (65-105) mg/dL Calcium (8.6-10.4) mg/dl Phosphorus (2.5-4.5) mg/dL Magnesium (1.6-2.3) mg/dL Total Bilirubin (0.2-1.3) mg/dL AST (14-36) U/L ALT (9-52) U/L Alkaline Phosphatase (38-126) U/L Total Protein (6.3-8.3) g/dL Albumin (3.5-5.0) g/dL Globulin (2.2-3.9) gm/dL Albumin/Globulin Ratio (1.0-2.1) Laboratory Results - last 24 hr 10/11/16 10/11/16 10/11/16 18:27 19:16 20:26 WBC RBC Hgb Hct MCV MCH MCHC RDW Plt Count MPV Neut % (Auto) Lymph % (Auto) [place] % (Auto) Eos % (Auto) Baso % (Auto) Neut # Lymph # [place] # Eos # Baso # Puncture Site pCO2 pO2 HCO3 ABG pH ABG Total CO2 ABG O2 Saturation ABG Base Excess ABG Hemoglobin ABG Carboxyhemoglobin POC ABG HHb (Measured) ABG Methemoglobin [place] Test A-a O2 Difference Respiratory Index Hgb O2 Saturation FiO2 Sodium Potassium Chloride Carbon Dioxide Anion Gap BUN Creatinine Est GFR ( Amer) Est GFR (Non-Af Amer) POC Glucose (mg/dL) 115 H 80 113 H Random Glucose Calcium Phosphorus Magnesium Total Bilirubin AST ALT Alkaline Phosphatase Total Protein Albumin Globulin Albumin/Globulin Ratio 10/11/16 10/11/16 10/11/16 20:35 21:35 22:20 WBC RBC Hgb Hct MCV MCH MCHC RDW Plt Count MPV Neut % (Auto) Lymph % (Auto) [place] % (Auto) Eos % (Auto) Baso % (Auto) Neut # Lymph # [place] # Eos # Baso # Puncture Site pCO2 pO2 HCO3 ABG pH ABG Total CO2 ABG O2 Saturation ABG Base Excess ABG Hemoglobin ABG Carboxyhemoglobin POC ABG HHb (Measured) ABG Methemoglobin [place] Test A-a O2 Difference Respiratory Index Hgb O2 Saturation FiO2 Sodium 139 Potassium 4.0 Chloride 111 H Carbon Dioxide 14 L Anion Gap 18 BUN 9 Creatinine 0.6 L Est GFR ( Amer) > 60 Est GFR (Non-Af Amer) > 60 POC Glucose (mg/dL) 127 H 145 H Random Glucose 105 Calcium 8.2 L Phosphorus Magnesium Total Bilirubin AST ALT Alkaline Phosphatase Total Protein Albumin Globulin Albumin/Globulin Ratio 10/11/16 10/12/16 10/12/16 23:07 00:40 00:56 WBC RBC Hgb Hct MCV MCH MCHC RDW Plt Count MPV Neut % (Auto) Lymph % (Auto) [place] % (Auto) Eos % (Auto) Baso % (Auto) Neut # Lymph # [place] # Eos # Baso # Puncture Site pCO2 pO2 HCO3 ABG pH ABG Total CO2 ABG O2 Saturation ABG Base Excess ABG Hemoglobin ABG Carboxyhemoglobin POC ABG HHb (Measured) ABG Methemoglobin [place] Test A-a O2 Difference Respiratory Index Hgb O2 Saturation FiO2 Sodium 136 Potassium 3.7 Chloride 111 H Carbon Dioxide 14 L Anion Gap 15 BUN 8 Creatinine 0.5 L Est GFR ( Amer) > 60 Est GFR (Non-Af Amer) > 60 POC Glucose (mg/dL) 136 H 132 H Random Glucose 109 H Calcium 7.8 L Phosphorus Magnesium Total Bilirubin AST ALT Alkaline Phosphatase Total Protein Albumin Globulin Albumin/Globulin Ratio 10/12/16 10/12/16 10/12/16 01:25 02:08 02:53 WBC RBC Hgb Hct MCV MCH MCHC RDW Plt Count MPV Neut % (Auto) Lymph % (Auto) [place] % (Auto) Eos % (Auto) Baso % (Auto) Neut # Lymph # [place] # Eos # Baso # Puncture Site pCO2 pO2 HCO3 ABG pH ABG Total CO2 ABG O2 Saturation ABG Base Excess ABG Hemoglobin ABG Carboxyhemoglobin POC ABG HHb (Measured) ABG Methemoglobin [place] Test A-a O2 Difference Respiratory Index Hgb O2 Saturation FiO2 Sodium Potassium Chloride Carbon Dioxide Anion Gap BUN Creatinine Est GFR ( Amer) Est GFR (Non-Af Amer) POC Glucose (mg/dL) 120 H 137 H 154 H Random Glucose Calcium Phosphorus Magnesium Total Bilirubin AST ALT Alkaline Phosphatase Total Protein Albumin Globulin Albumin/Globulin Ratio 10/12/16 10/12/16 10/12/16 04:54 05:12 05:27 WBC 11.8 H RBC 3.83 Hgb 10.8 L Hct 34.3 MCV 89.5 MCH 28.3 MCHC 31.6 L RDW 13.2 Plt Count 214 MPV 8.6 Neut % (Auto) 85.4 H Lymph % (Auto) 10.6 L [place] % (Auto) 3.6 Eos % (Auto) 0.1 Baso % (Auto) 0.3 Neut # 10.1 H Lymph # 1.2 [place] # 0.4 Eos # 0.0 Baso # 0.0 Puncture Site Rr pCO2 31 L pO2 102 H HCO3 17.8 L ABG pH 7.32 L ABG Total CO2 17.0 L ABG O2 Saturation 98.9 H ABG Base Excess -9.1 L ABG Hemoglobin 10.6 L ABG Carboxyhemoglobin 1.6 H POC ABG HHb (Measured) 1.1 ABG Methemoglobin 0.7 [place] Test Pos A-a O2 Difference 9.0 Respiratory Index 0.1 Hgb O2 Saturation 96.6 FiO2 21.0 Sodium 136 Potassium 4.0 Chloride 109 H Carbon Dioxide 14 L Anion Gap 17 BUN 7 Creatinine 0.5 L Est GFR ( Amer) > 60 Est GFR (Non-Af Amer) > 60 POC Glucose (mg/dL) 183 H Random Glucose 173 H Calcium 7.9 L Phosphorus 1.4 L Magnesium 1.9 Total Bilirubin 0.2 AST 17 ALT 19 Alkaline Phosphatase 59 Total Protein 6.1 L Albumin 3.4 L Globulin 2.8 Albumin/Globulin Ratio 1.2 10/12/16 10/12/16 10/12/16 05:49 06:37 07:06 WBC RBC Hgb Hct MCV MCH MCHC RDW Plt Count MPV Neut % (Auto) Lymph % (Auto) [place] % (Auto) Eos % (Auto) Baso % (Auto) Neut # Lymph # [place] # Eos # Baso # Puncture Site pCO2 pO2 HCO3 ABG pH ABG Total CO2 ABG O2 Saturation ABG Base Excess ABG Hemoglobin ABG Carboxyhemoglobin POC ABG HHb (Measured) ABG Methemoglobin [place] Test A-a O2 Difference Respiratory Index Hgb O2 Saturation FiO2 Sodium Potassium Chloride Carbon Dioxide Anion Gap BUN Creatinine Est GFR ( Amer) Est GFR (Non-Af Amer) POC Glucose (mg/dL) 190 H 203 H 209 H Random Glucose Calcium Phosphorus Magnesium Total Bilirubin AST ALT Alkaline Phosphatase Total Protein Albumin Globulin Albumin/Globulin Ratio 10/12/16 10/12/16 10/12/16 08:19 08:20 08:59 WBC RBC Hgb Hct MCV MCH MCHC RDW Plt Count MPV Neut % (Auto) Lymph % (Auto) [place] % (Auto) Eos % (Auto) Baso % (Auto) Neut # Lymph # [place] # Eos # Baso # Puncture Site pCO2 pO2 HCO3 ABG pH ABG Total CO2 ABG O2 Saturation ABG Base Excess ABG Hemoglobin ABG Carboxyhemoglobin POC ABG HHb (Measured) ABG Methemoglobin [place] Test A-a O2 Difference Respiratory Index Hgb O2 Saturation FiO2 Sodium 136 Potassium 3.9 Chloride 108 H Carbon Dioxide 17 L Anion Gap 15 BUN 5 L Creatinine 0.4 L Est GFR ( Amer) > 60 Est GFR (Non-Af Amer) > 60 POC Glucose (mg/dL) 209 H 219 H Random Glucose 196 H Calcium 7.8 L Phosphorus Magnesium Total Bilirubin AST ALT Alkaline Phosphatase Total Protein Albumin Globulin Albumin/Globulin Ratio 10/12/16 10/12/16 10/12/16 10:10 11:04 15:52 WBC RBC Hgb Hct MCV MCH MCHC RDW Plt Count MPV Neut % (Auto) Lymph % (Auto) [place] % (Auto) Eos % (Auto) Baso % (Auto) Neut # Lymph # [place] # Eos # Baso # Puncture Site pCO2 pO2 HCO3 ABG pH ABG Total CO2 ABG O2 Saturation ABG Base Excess ABG Hemoglobin ABG Carboxyhemoglobin POC ABG HHb (Measured) ABG Methemoglobin [place] Test A-a O2 Difference Respiratory Index Hgb O2 Saturation FiO2 Sodium Potassium Chloride Carbon Dioxide Anion Gap BUN Creatinine Est GFR ( Amer) Est GFR (Non-Af Amer) POC Glucose (mg/dL) 205 H 182 H 312 H Random Glucose Calcium Phosphorus Magnesium Total Bilirubin AST ALT Alkaline Phosphatase Total Protein Albumin Globulin Albumin/Globulin Ratio Fingerstick Blood Sugar Results: 312 Review of Systems - Review of Systems All systems: reviewed and no additional remarkable complaints except Critical Care Progress Note - Nutrition Nutrition: Nutrition Category Date Time Status Liquid Diet [DIET] Diets 10/11/16 Dinner Active Assessment/Plan - Assessment and Plan (Free Text) Assessment: DKA improving. Epigastric pain, gastritis most likely. Patient is currently stable, transferred to the floor.
--- NOTE | 2016-10-12 21:41 | CP.PCM.CON ---
History of Present Illness - History of Present Illness History of Present Illness: DKA Past Patient History - Infectious Disease Hx of Infectious Diseases: None - Past Medical History & Family History Past Medical History?: Yes - Past Social History Smoking Status: Never Smoked - CARDIAC Hx Hypercholesterolemia: Yes Hx Hypertension: Yes - PULMONARY Hx Asthma: No Hx Bronchitis: No Hx Chronic Obstructive Pulmonary Disease (COPD): No Hx Emphysema: No Hx Pneumonia: No Hx Pulmonary Embolism: No Hx Sleep Apnea: No - NEUROLOGICAL Hx Alzheimer's Disease: No Hx Dementia: No Hx Migraine: No Hx Multiple Sclerosis: No Hx Parkinson's Disease: No Hx Seizures: No Hx Transient Ischemic Attacks (TIA): No - HEENT Hx HEENT Problems: No Hx Blind: No Hx Cataracts: No Hx Deafness: No Hx Difficulty Chewing: No Hx Epistaxis: No Hx Glaucoma: No Hx Macular Degeneration: No - RENAL Hx Chronic Kidney Disease: No Hx Kidney Stones: No - ENDOCRINE/METABOLIC Hx Hyperthyroidism: No Hx Hypothyroidism: No - HEMATOLOGICAL/ONCOLOGICAL Hx Anemia: Yes (low iron level) - INTEGUMENTARY Hx Dermatological Problems: No Hx Basil Cell: No Hx Bronson: No Hx Cellulitis: No Hx Eczema: No Hx Melanoma: No Hx Psoriasis: No Hx Squamous Cell: No - MUSCULOSKELETAL/RHEUMATOLOGICAL Hx Falls: No - GASTROINTESTINAL Hx Gall Bladder Disease: Yes - GENITOURINARY/GYNECOLOGICAL Hx Sexually Transmitted Disorders: No - PSYCHIATRIC Hx Anxiety: Yes Hx Depression: Yes Hx Substance Use: No - SURGICAL HISTORY Hx Cholecystectomy: Yes - ANESTHESIA Hx Anesthesia: Yes Hx Anesthesia Reactions: No Hx Malignant Hyperthermia: No Meds Allergies/Adverse Reactions: Allergies Allergy/AdvReac Type Severity Reaction Status Date / Time No Known Allergies Allergy Verified 10/10/16 09:28 - Medications Medications: Current Medications Acetaminophen (Tylenol 325mg Tab) 650 mg PO Q6 PRN PRN Reason: Pain, Mild (1-3) Last Admin: 10/12/16 14:22 Dose: 650 mg Al Hydrox/Mg Hydrox/Simethicone (Maalox 30 Ml) 30 ml PO ACHS [facility] Last Admin: 10/12/16 16:09 Dose: 30 ml Heparin Sodium (Porcine) (Heparin) 5,000 units SC Q12 [facility] Last Admin: 10/12/16 10:08 Dose: 5,000 units Potassium Chloride/Dextrose/Sod Cl (Potassium Chl 40 Meq In D5-1/2ns) 1,000 mls @ 150 mls/hr IV .Q6H40M [facility] Last Admin: 10/12/16 14:43 Dose: 150 mls/hr Insulin Glargine (Lantus) 10 unit SC Q12 [facility] Insulin Human Regular (Novolin R) 0 unit SC ACHS [facility] PRN Reason: Protocol Metoclopramide HCl (Reglan) 10 mg IVP Q6H PRN PRN Reason: Nausea/Vomiting Last Admin: 10/12/16 11:08 Dose: 10 mg Morphine Sulfate (Morphine) 2 mg IVP Q4H PRN PRN Reason: Pain, moderate (4-7) Last Admin: 10/12/16 18:10 Dose: 2 mg Morphine Sulfate (Morphine) 3 mg IVP Q4 PRN PRN Reason: Pain, severe (8-10) Last Admin: 10/11/16 18:15 Dose: 3 mg Ondansetron HCl (Zofran Inj) 4 mg IVP Q6H PRN PRN Reason: Nausea/Vomiting Last Admin: 10/12/16 14:22 Dose: 4 mg Pantoprazole Sodium (Protonix Ec Tab) 40 mg PO DAILY [facility] Results - Vital Signs Recent Vital Signs: Last Vital Signs Temp 98.8 F 10/12/16 16:00 Pulse 83 10/12/16 19:00 Resp 16 10/12/16 19:00 BP 148/80 10/12/16 16:39 Pulse Ox 100 10/12/16 19:00 - Labs Result Diagrams: 10/12/16 05:12 10/12/16 08:20 Labs: Laboratory Results - last 24 hr 10/11/16 10/11/16 10/11/16 21:35 22:20 23:07 WBC RBC Hgb Hct MCV MCH MCHC RDW Plt Count MPV Neut % (Auto) Lymph % (Auto) [place] % (Auto) Eos % (Auto) Baso % (Auto) Neut # Lymph # [place] # Eos # Baso # Puncture Site pCO2 pO2 HCO3 ABG pH ABG Total CO2 ABG O2 Saturation ABG Base Excess ABG Hemoglobin ABG Carboxyhemoglobin POC ABG HHb (Measured) ABG Methemoglobin [place] Test A-a O2 Difference Respiratory Index Hgb O2 Saturation FiO2 Sodium Potassium Chloride Carbon Dioxide Anion Gap BUN Creatinine Est GFR ( Amer) Est GFR (Non-Af Amer) POC Glucose (mg/dL) 127 H 145 H 136 H Random Glucose Calcium Phosphorus Magnesium Total Bilirubin AST ALT Alkaline Phosphatase Total Protein Albumin Globulin Albumin/Globulin Ratio 10/12/16 10/12/16 10/12/16 00:40 00:56 01:25 WBC RBC Hgb Hct MCV MCH MCHC RDW Plt Count MPV Neut % (Auto) Lymph % (Auto) [place] % (Auto) Eos % (Auto) Baso % (Auto) Neut # Lymph # [place] # Eos # Baso # Puncture Site pCO2 pO2 HCO3 ABG pH ABG Total CO2 ABG O2 Saturation ABG Base Excess ABG Hemoglobin ABG Carboxyhemoglobin POC ABG HHb (Measured) ABG Methemoglobin [place] Test A-a O2 Difference Respiratory Index Hgb O2 Saturation FiO2 Sodium 136 Potassium 3.7 Chloride 111 H Carbon Dioxide 14 L Anion Gap 15 BUN 8 Creatinine 0.5 L Est GFR ( Amer) > 60 Est GFR (Non-Af Amer) > 60 POC Glucose (mg/dL) 132 H 120 H Random Glucose 109 H Calcium 7.8 L Phosphorus Magnesium Total Bilirubin AST ALT Alkaline Phosphatase Total Protein Albumin Globulin Albumin/Globulin Ratio 10/12/16 10/12/16 10/12/16 02:08 02:53 04:54 WBC RBC Hgb Hct MCV MCH MCHC RDW Plt Count MPV Neut % (Auto) Lymph % (Auto) [place] % (Auto) Eos % (Auto) Baso % (Auto) Neut # Lymph # [place] # Eos # Baso # Puncture Site pCO2 pO2 HCO3 ABG pH ABG Total CO2 ABG O2 Saturation ABG Base Excess ABG Hemoglobin ABG Carboxyhemoglobin POC ABG HHb (Measured) ABG Methemoglobin [place] Test A-a O2 Difference Respiratory Index Hgb O2 Saturation FiO2 Sodium Potassium Chloride Carbon Dioxide Anion Gap BUN Creatinine Est GFR ( Amer) Est GFR (Non-Af Amer) POC Glucose (mg/dL) 137 H 154 H 183 H Random Glucose Calcium Phosphorus Magnesium Total Bilirubin AST ALT Alkaline Phosphatase Total Protein Albumin Globulin Albumin/Globulin Ratio 10/12/16 10/12/16 10/12/16 05:12 05:27 05:49 WBC 11.8 H RBC 3.83 Hgb 10.8 L Hct 34.3 MCV 89.5 MCH 28.3 MCHC 31.6 L RDW 13.2 Plt Count 214 MPV 8.6 Neut % (Auto) 85.4 H Lymph % (Auto) 10.6 L [place] % (Auto) 3.6 Eos % (Auto) 0.1 Baso % (Auto) 0.3 Neut # 10.1 H Lymph # 1.2 [place] # 0.4 Eos # 0.0 Baso # 0.0 Puncture Site Rr pCO2 31 L pO2 102 H HCO3 17.8 L ABG pH 7.32 L ABG Total CO2 17.0 L ABG O2 Saturation 98.9 H ABG Base Excess -9.1 L ABG Hemoglobin 10.6 L ABG Carboxyhemoglobin 1.6 H POC ABG HHb (Measured) 1.1 ABG Methemoglobin 0.7 [place] Test Pos A-a O2 Difference 9.0 Respiratory Index 0.1 Hgb O2 Saturation 96.6 FiO2 21.0 Sodium 136 Potassium 4.0 Chloride 109 H Carbon Dioxide 14 L Anion Gap 17 BUN 7 Creatinine 0.5 L Est GFR ( Amer) > 60 Est GFR (Non-Af Amer) > 60 POC Glucose (mg/dL) 190 H Random Glucose 173 H Calcium 7.9 L Phosphorus 1.4 L Magnesium 1.9 Total Bilirubin 0.2 AST 17 ALT 19 Alkaline Phosphatase 59 Total Protein 6.1 L Albumin 3.4 L Globulin 2.8 Albumin/Globulin Ratio 1.2 10/12/16 10/12/16 10/12/16 06:37 07:06 08:19 WBC RBC Hgb Hct MCV MCH MCHC RDW Plt Count MPV Neut % (Auto) Lymph % (Auto) [place] % (Auto) Eos % (Auto) Baso % (Auto) Neut # Lymph # [place] # Eos # Baso # Puncture Site pCO2 pO2 HCO3 ABG pH ABG Total CO2 ABG O2 Saturation ABG Base Excess ABG Hemoglobin ABG Carboxyhemoglobin POC ABG HHb (Measured) ABG Methemoglobin [place] Test A-a O2 Difference Respiratory Index Hgb O2 Saturation FiO2 Sodium Potassium Chloride Carbon Dioxide Anion Gap BUN Creatinine Est GFR ( Amer) Est GFR (Non-Af Amer) POC Glucose (mg/dL) 203 H 209 H 209 H Random Glucose Calcium Phosphorus Magnesium Total Bilirubin AST ALT Alkaline Phosphatase Total Protein Albumin Globulin Albumin/Globulin Ratio 10/12/16 10/12/16 10/12/16 08:20 08:59 10:10 WBC RBC Hgb Hct MCV MCH MCHC RDW Plt Count MPV Neut % (Auto) Lymph % (Auto) [place] % (Auto) Eos % (Auto) Baso % (Auto) Neut # Lymph # [place] # Eos # Baso # Puncture Site pCO2 pO2 HCO3 ABG pH ABG Total CO2 ABG O2 Saturation ABG Base Excess ABG Hemoglobin ABG Carboxyhemoglobin POC ABG HHb (Measured) ABG Methemoglobin [place] Test A-a O2 Difference Respiratory Index Hgb O2 Saturation FiO2 Sodium 136 Potassium 3.9 Chloride 108 H Carbon Dioxide 17 L Anion Gap 15 BUN 5 L Creatinine 0.4 L Est GFR ( Amer) > 60 Est GFR (Non-Af Amer) > 60 POC Glucose (mg/dL) 219 H 205 H Random Glucose 196 H Calcium 7.8 L Phosphorus Magnesium Total Bilirubin AST ALT Alkaline Phosphatase Total Protein Albumin Globulin Albumin/Globulin Ratio 10/12/16 10/12/16 10/12/16 11:04 15:52 21:15 WBC RBC Hgb Hct MCV MCH MCHC RDW Plt Count MPV Neut % (Auto) Lymph % (Auto) [place] % (Auto) Eos % (Auto) Baso % (Auto) Neut # Lymph # [place] # Eos # Baso # Puncture Site pCO2 pO2 HCO3 ABG pH ABG Total CO2 ABG O2 Saturation ABG Base Excess ABG Hemoglobin ABG Carboxyhemoglobin POC ABG HHb (Measured) ABG Methemoglobin [place] Test A-a O2 Difference Respiratory Index Hgb O2 Saturation FiO2 Sodium Potassium Chloride Carbon Dioxide Anion Gap BUN Creatinine Est GFR ( Amer) Est GFR (Non-Af Amer) POC Glucose (mg/dL) 182 H 312 H 216 H Random Glucose Calcium Phosphorus Magnesium Total Bilirubin AST ALT Alkaline Phosphatase Total Protein Albumin Globulin Albumin/Globulin Ratio Assessment & Plan (1) DKA (diabetic ketoacidoses) Assessment and Plan: Endocrine consult reason for consult: DKA Ms. Martin is 26 y/o admitted for DKA , glucose > 500 as per pt. has seen in ICU , has DM type 1 since age of 14 (-) neuropathy , (-) retinopathy , (-) nephropathy , on lantus 25 units qhs & Apidra sacle with meals not sure about !, admitted for DKA , as per has compliant with insulin , just felt sick after dinner the night before admission , wake up with nausea & vomiting , denies chest pain , weakness , numbness , sob , LMP 10/02/2016 started on insulin drip until around 11am , was given 10 units of lantus perior stop the drip , needed almost 70 units /24 hours pt seen still with nausea & vomiting , felt hungery earlier today was start to eat however did tolerate food & start to vomit . after physical exam , epigastric tenderness , start to vomit again . on d5 1/2 NS blood glucose log :180-300 NO hypoglycemia Allergy NKDA Past medical history : as above Past surgical history : cholecystectomy Psychiatry history : denies Social history : denies smoking , ETOH use , illicit drug use Family history : irrelevant ROS: Constitutional: denies fever ,tiredness/weakness .HEENT: denies earache, change in voice .Respiratory: denies cough, sob . CVS :no chest pain, no palpitations . Abdomen : (+) abdominal pain, (+) nausea /vomiting , no change bowel movement . 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 Extremities : no edema , no tremors . Skin: no itching, no rash Physical exam Well developed AAO x3 , ,NAD VSS HEENT: norm cephalic, atraumatic , no lid lag , no exophthalmos NECK: supple, no palpable lymphadenopathy THYROID: no palpable thyromegaly , not tender CHEST: fair air entry, bilateral, CVS: S1,S2 ABDOMEN: bowel sound present, benign, obese, no wide purple striae , no bruises EXTREMITIES: no edema, clubbing or cyanosis, no palpable hand tremors Skin : acanthosis nigricans lab: tsh 0.29 , a1c 10.9 Assessment DKA uncontrolled type 1 low TSH abdominal /epigastric pain with nausea & vomiting plan lantus 10 units bid q12 h change Novolin R low dose coverage obtain thyroid functions & antibodies on malaox & antiemetic & Reglan will monitor Status: Acute Priority: Low (2) Abdominal pain Status: Acute (3) Low TSH level Status: Acute
[2016-10-12] MEDS: (Lantus) Insulin Glargine, Recombinant SC SCH (22:42)
[2016-10-12] MEDS: (Novolin R) Insulin Human Regular 100 units/ml vial SC SCH (22:45)
[2016-10-13] MEDS: Potassium Chl 40 mEq in D5-1/2 1,000 ML IV SCH ×5 (04:45→22:30)
[2016-10-13 06:29] VITALS: RESP 20
[2016-10-13 07:11] LABS: T4 11.1 ug/dL (5.5-11.0)
[2016-10-13 07:24] LABS: THYROID STIMULATING HORMONE 1.35 mIU/L (0.46-4.68)
--- NOTE | 2016-10-13 07:58 | CP.PCM.PN ---
Subjective - Date & Time of Evaluation Date of Evaluation: 10/13/16 Time of Evaluation: 11:00 - Subjective Subjective: seen by endo, appreciate the help, improved mildly Objective - Vital Signs/Intake and Output Vital Signs (last 24 hours): Temp Pulse Resp BP Pulse Ox 97.4 F L 80 20 142/86 99 10/13/16 04:00 10/13/16 04:00 10/13/16 04:00 10/13/16 00:00 10/13/16 04:00 Intake and Output: 10/13/16 10/13/16 06:59 18:59 Intake Total 2750 Output Total 2150 Balance 600 - Medications Medications: Current Medications Acetaminophen (Tylenol 325mg Tab) 650 mg PO Q6 PRN PRN Reason: Pain, Mild (1-3) Last Admin: 10/12/16 14:22 Dose: 650 mg Al Hydrox/Mg Hydrox/Simethicone (Maalox 30 Ml) 30 ml PO [facility] Last Admin: 10/12/16 22:43 Dose: 30 ml Heparin Sodium (Porcine) (Heparin) 5,000 units SC Q12 [facility] Last Admin: 10/12/16 22:41 Dose: 5,000 units Potassium Chloride/Dextrose/Sod Cl (Potassium Chl 40 Meq In D5-1/2ns) 1,000 mls @ 150 mls/hr IV .Q6H40M [facility] Last Admin: 10/13/16 04:45 Dose: 150 mls/hr Insulin Glargine (Lantus) 10 unit SC Q12 [facility] Last Admin: 10/12/16 22:42 Dose: 10 units Insulin Human Regular (Novolin R) 0 unit SC [facility] PRN Reason: Protocol Last Admin: 10/12/16 22:45 Dose: Not Given Metoclopramide HCl (Reglan) 10 mg IVP Q6H PRN PRN Reason: Nausea/Vomiting Last Admin: 10/12/16 22:21 Dose: 10 mg Morphine Sulfate (Morphine) 2 mg IVP Q4H PRN PRN Reason: Pain, moderate (4-7) Last Admin: 10/12/16 18:10 Dose: 2 mg Morphine Sulfate (Morphine) 3 mg IVP Q4 PRN PRN Reason: Pain, severe (8-10) Last Admin: 10/11/16 18:15 Dose: 3 mg Ondansetron HCl (Zofran Inj) 4 mg IVP Q6H PRN PRN Reason: Nausea/Vomiting Last Admin: 10/13/16 03:08 Dose: 4 mg Pantoprazole Sodium (Protonix Ec Tab) 40 mg PO DAILY [facility] - Labs Labs: 10/12/16 05:12 10/12/16 08:20 - Constitutional Appears: Non-toxic - Head Exam Head Exam: ATRAUMATIC - Eye Exam Eye Exam: EOMI - ENT Exam ENT Exam: Mucous Membranes Moist - Neck Exam Neck Exam: absent: Lymphadenopathy, Thyromegaly - Respiratory Exam Respiratory Exam: Clear to Ausculation Bilateral. absent: Rales - Cardiovascular Exam Cardiovascular Exam: REGULAR RHYTHM - GI/Abdominal Exam GI & Abdominal Exam: Normal Bowel Sounds. absent: Organomegaly - Rectal Exam Rectal Exam: Deferred - Extremities Exam Extremities Exam: Normal Capillary Refill. absent: Calf Tenderness - Neurological Exam Neurological Exam: Alert, Oriented x3 - Psychiatric Exam Psychiatric exam: Normal Mood - Skin Skin Exam: Dry Assessment and Plan (1) DKA (diabetic ketoacidoses) Status: Acute (2) Hypokalemia Status: Acute (3) Diabetes 1.5, managed as type 1 Status: Chronic
[2016-10-13] MEDS: (Novolin R) Insulin Human Regular 100 units/ml vial SC SCH ×4 (08:04→21:37)
[2016-10-13] MEDS: Aluminum Hydroxide/Magnesium Hydroxide Susp (30 mL) PO SCH ×5 (08:05→21:43)
[2016-10-13] MEDS: (Lantus) Insulin Glargine, Recombinant SC SCH ×2 (10:00→21:44)
[2016-10-13] MEDS: Morphine 4 MG/ML VIAL IVP PRN (14:37)
--- NOTE | 2016-10-13 18:51 | CP.PCM.PN ---
Subjective - Date & Time of Evaluation Date of Evaluation: 10/13/16 Time of Evaluation: 18:48 - Subjective Subjective: uncontrolled type 1 DM /DKA Objective - Vital Signs/Intake and Output Vital Signs (last 24 hours): Temp Pulse Resp BP Pulse Ox 98.3 F 81 20 145/80 98 10/13/16 16:00 10/13/16 17:36 10/13/16 16:00 10/13/16 16:00 10/13/16 16:00 Intake and Output: 10/13/16 10/13/16 06:59 18:59 Intake Total 2750 1050 Output Total 2150 Balance 600 1050 - Medications Medications: Current Medications Acetaminophen (Tylenol 325mg Tab) 650 mg PO Q6 PRN PRN Reason: Pain, Mild (1-3) Last Admin: 10/12/16 14:22 Dose: 650 mg Al Hydrox/Mg Hydrox/Simethicone (Maalox 30 Ml) 30 ml PO [facility] Last Admin: 10/13/16 16:47 Dose: 30 ml Heparin Sodium (Porcine) (Heparin) 5,000 units SC Q12 [facility] Last Admin: 10/13/16 12:00 Dose: Not Given Potassium Chloride/Dextrose/Sod Cl (Potassium Chl 40 Meq In D5-1/2ns) 1,000 mls @ 150 mls/hr IV .Q6H40M [facility] Last Admin: 10/13/16 16:50 Dose: Not Given Insulin Glargine (Lantus) 12 unit SC Q12 [facility] Insulin Human Regular (Novolin R) 0 unit SC ACHS [facility] PRN Reason: Protocol Last Admin: 10/13/16 16:48 Dose: 3 unit Insulin Human Regular (Novolin R) 3 unit SC TIDCC [facility] Metoclopramide HCl (Reglan) 10 mg IVP Q6H PRN PRN Reason: Nausea/Vomiting Last Admin: 10/13/16 14:37 Dose: 10 mg Morphine Sulfate (Morphine) 2 mg IVP Q4H PRN PRN Reason: Pain, moderate (4-7) Last Admin: 10/12/16 18:10 Dose: 2 mg Morphine Sulfate (Morphine) 3 mg IVP Q4 PRN PRN Reason: Pain, severe (8-10) Last Admin: 10/13/16 14:37 Dose: 3 mg Ondansetron HCl (Zofran Inj) 4 mg IVP Q6H PRN PRN Reason: Nausea/Vomiting Last Admin: 10/13/16 14:37 Dose: 4 mg Pantoprazole Sodium (Protonix Ec Tab) 40 mg PO DAILY [facility] - Labs Labs: 10/12/16 05:12 10/12/16 08:20 Assessment and Plan (1) DKA (diabetic ketoacidoses) Assessment & Plan: Endocrine f/u uncontrolled DM type 1 /DKA Ms. Martin is 26 y/o admitted for DKA , glucose > 500 as per pt. has seen in ICU , has DM type 1 since age of 14 (-) neuropathy , (-) retinopathy , (-) nephropathy , on lantus 25 units qhs & Apidra sacle with meals not sure about !, admitted for DKA , as per has compliant with insulin , just felt sick after dinner the night before admission , wake up with nausea & vomiting , denies chest pain , weakness , numbness , sob , LMP 10/02/2016 s/p DKA trsfered to floor blood glucose log :200-300 , NO hypoglycemia , trying to eat Allergy NKDA Past medical history : as above Past surgical history : cholecystectomy Psychiatry history : denies Social history : denies smoking , ETOH use , illicit drug use Family history : irrelevant ROS: Constitutional: denies fever ,tiredness/weakness .HEENT: denies earache, change in voice .Respiratory: denies cough, sob . CVS :no chest pain, no palpitations . Abdomen : (+) abdominal pain, (+) nausea /vomiting , no change bowel movement . 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 Extremities : no edema , no tremors . Skin: no itching, no rash Physical exam Well developed AAO x3 , ,NAD VSS HEENT: norm cephalic, atraumatic , no lid lag , no exophthalmos NECK: supple, no palpable lymphadenopathy THYROID: no palpable thyromegaly , not tender CHEST: fair air entry, bilateral, CVS: S1,S2 ABDOMEN: bowel sound present, benign, obese, no wide purple striae , no bruises EXTREMITIES: no edema, clubbing or cyanosis, no palpable hand tremors Skin : acanthosis nigricans lab: TSH 1.35, T3 2.02 , T4 11.1 , ft4 1.54 tsh 0.29 , a1c 10.9 Assessment s/p DKA uncontrolled type 1 abnormal thyroid functions abdominal /epigastric pain with nausea & vomiting plan increase Lantus 12 units bid q12 h continue Novolin R low dose coverage start Novolin R 3 units tid with meals if eat > 60% of the meal f/u thyroid antibodies on malaox & antiemetic & Reglan will monitor Status: Acute (2) Abdominal pain Status: Acute (3) Low TSH level Status: Acute
[2016-10-14] MEDS: Potassium Chl 40 mEq in D5-1/2 1,000 ML IV SCH ×3 (04:31→12:32)
[2016-10-14] MEDS: Morphine 4 MG/ML VIAL IVP PRN (05:22)
[2016-10-14] MEDS: (Novolin R) Insulin Human Regular 100 units/ml vial SC SCH ×6 (08:40→17:36)
[2016-10-14] MEDS: Aluminum Hydroxide/Magnesium Hydroxide Susp (30 mL) PO SCH ×3 (08:40→17:38)
[2016-10-14] MEDS: (Lantus) Insulin Glargine, Recombinant SC SCH (10:04)
--- NOTE | 2016-10-14 12:57 | CP.PCM.PN ---
Subjective - Date & Time of Evaluation Date of Evaluation: 10/14/16 Time of Evaluation: 13:00 - Subjective Subjective: Minimal improvement, CO2 17, follow-up with thyroid workup with endocrinology Objective - Vital Signs/Intake and Output Vital Signs (last 24 hours): Temp Pulse Resp BP Pulse Ox 98.3 F 91 H 20 154/87 H 96 10/14/16 07:36 10/14/16 07:36 10/14/16 07:36 10/14/16 07:36 10/14/16 07:36 Intake and Output: 10/14/16 10/14/16 06:59 18:59 Intake Total 1320 1380 Balance 1320 1380 - Medications Medications: Current Medications Acetaminophen (Tylenol 325mg Tab) 650 mg PO Q6 PRN PRN Reason: Pain, Mild (1-3) Last Admin: 10/12/16 14:22 Dose: 650 mg Al Hydrox/Mg Hydrox/Simethicone (Maalox 30 Ml) 30 ml PO ACHS [facility] Last Admin: 10/14/16 11:22 Dose: 30 ml Potassium Chloride/Dextrose/Sod Cl (Potassium Chl 40 Meq In D5-1/2ns) 1,000 mls @ 150 mls/hr IV .Q6H40M [facility] Last Admin: 10/14/16 12:32 Dose: 150 mls/hr Insulin Glargine (Lantus) 12 unit SC Q12 [facility] Last Admin: 10/14/16 10:04 Dose: 12 units Insulin Human Regular (Novolin R) 0 unit SC ACHS [facility] PRN Reason: Protocol Last Admin: 10/14/16 11:22 Dose: 5 unit Insulin Human Regular (Novolin R) 3 unit SC TIDCC [facility] Last Admin: 10/14/16 11:37 Dose: Not Given Metoclopramide HCl (Reglan) 10 mg IVP Q6H PRN PRN Reason: Nausea/Vomiting Last Admin: 10/14/16 05:21 Dose: 10 mg Morphine Sulfate (Morphine) 2 mg IVP Q4H PRN PRN Reason: Pain, moderate (4-7) Last Admin: 10/12/16 18:10 Dose: 2 mg Morphine Sulfate (Morphine) 3 mg IVP Q4 PRN PRN Reason: Pain, severe (8-10) Last Admin: 10/14/16 05:22 Dose: 3 mg Ondansetron HCl (Zofran Inj) 4 mg IVP Q6H PRN PRN Reason: Nausea/Vomiting Last Admin: 10/13/16 14:37 Dose: 4 mg Pantoprazole Sodium (Protonix Ec Tab) 40 mg PO DAILY [facility] - Labs Labs: 10/12/16 05:12 10/12/16 08:20 - Constitutional Appears: Non-toxic - Head Exam Head Exam: ATRAUMATIC - Eye Exam Eye Exam: EOMI - ENT Exam ENT Exam: Mucous Membranes Moist - Neck Exam Neck Exam: absent: Lymphadenopathy, Thyromegaly - Respiratory Exam Respiratory Exam: Clear to Ausculation Bilateral. absent: Rales - Cardiovascular Exam Cardiovascular Exam: REGULAR RHYTHM - GI/Abdominal Exam GI & Abdominal Exam: Normal Bowel Sounds. absent: Organomegaly - Rectal Exam Rectal Exam: Deferred - Extremities Exam Extremities Exam: Normal Capillary Refill. absent: Calf Tenderness - Neurological Exam Neurological Exam: Alert, Oriented x3 - Psychiatric Exam Psychiatric exam: Normal Mood - Skin Skin Exam: Dry Assessment and Plan (1) DKA (diabetic ketoacidoses) Status: Acute (2) Hypokalemia Status: Acute (3) Diabetes 1.5, managed as type 1 Status: Chronic
[2016-10-14 14:21] LABS: CHLORIDE 96 mmol/L (98-107); POTASSIUM 4.4 mmol/L (3.6-5.2); SODIUM 132 mmol/L (132-148)
[2016-10-14 14:24] LABS: BLOOD UREA NITROGEN 4 mg/dL (7-17); CALCIUM 8.3 mg/dl (8.6-10.4); CARBON DIOXIDE 27 mmol/L (22-30); GFR AFRICAN-AMERICAN > 60; GLUCOSE,RANDOM 274 mg/dL (65-105)
[2016-10-14 16:56] VITALS: BP 159/92; PULSE 87; TEMP 98.4; O2SAT 99
--- NOTE | 2016-10-14 19:29 | CP.PCM.PN ---
Subjective - Date & Time of Evaluation Date of Evaluation: 10/14/16 Time of Evaluation: 19:26 - Subjective Subjective: Patient has decided to leave the hospital against medical advice. The patient is competent and understands the risks of leaving, including permanent disability and/or due to worsening of her Diabetes, with possible DKA and coma. She has had an opportunity to ask questions about this condition. Patient accepts all risk and liability. Paper work filed. Attending notified by RN. The patient has been informed that he/she may return for care at any time, and patient will follow-up with PMD and endocrinology urgently. Objective - Vital Signs/Intake and Output Vital Signs (last 24 hours): Temp Pulse Resp BP Pulse Ox 98.4 F 87 20 159/92 H 99 10/14/16 15:00 10/14/16 15:00 10/14/16 15:00 10/14/16 15:00 10/14/16 15:00 Intake and Output: 10/14/16 10/15/16 18:59 06:59 Intake Total 3180 Balance 3180 - Medications Medications: Current Medications Acetaminophen (Tylenol 325mg Tab) 650 mg PO Q6 PRN PRN Reason: Pain, Mild (1-3) Last Admin: 10/14/16 17:36 Dose: 650 mg Al Hydrox/Mg Hydrox/Simethicone (Maalox 30 Ml) 30 ml PO [facility] Last Admin: 10/14/16 17:38 Dose: 30 ml Insulin Glargine (Lantus) 15 unit SC Q12H [facility] Insulin Human Regular (Novolin R) 0 unit SC ACHS [facility] PRN Reason: Protocol Last Admin: 10/14/16 17:35 Dose: 3 unit Insulin Human Regular (Novolin R) 5 unit SC TIDCC [facility] Metoclopramide HCl (Reglan) 10 mg IVP Q6H PRN PRN Reason: Nausea/Vomiting Last Admin: 10/14/16 05:21 Dose: 10 mg Morphine Sulfate (Morphine) 2 mg IVP Q4H PRN PRN Reason: Pain, moderate (4-7) Last Admin: 10/12/16 18:10 Dose: 2 mg Morphine Sulfate (Morphine) 3 mg IVP Q4 PRN PRN Reason: Pain, severe (8-10) Last Admin: 10/14/16 05:22 Dose: 3 mg Ondansetron HCl (Zofran Inj) 4 mg IVP Q6H PRN PRN Reason: Nausea/Vomiting Last Admin: 10/13/16 14:37 Dose: 4 mg Pantoprazole Sodium (Protonix Ec Tab) 40 mg PO DAILY [facility] - Labs Labs: 10/12/16 05:12 10/14/16 14:04 - Additional Findings Additional findings: - Constitutional Appears: Non-toxic - Head Exam Head Exam: ATRAUMATIC - Eye Exam Eye Exam: EOMI - ENT Exam ENT Exam: Mucous Membranes Moist - Neck Exam Neck Exam: absent: Lymphadenopathy, Thyromegaly - Respiratory Exam Respiratory Exam: Clear to Ausculation Bilateral. absent: Rales, Rhonchi - Cardiovascular Exam Cardiovascular Exam: REGULAR RHYTHM - GI/Abdominal Exam GI & Abdominal Exam: Normal Bowel Sounds. absent: Organomegaly - Rectal Exam Rectal Exam: Deferred - Extremities Exam Extremities Exam: Normal Capillary Refill. absent: Calf Tenderness - Neurological Exam Neurological Exam: Alert, Oriented x3 - Psychiatric Exam Psychiatric exam: Normal Mood, Normal Affect - Skin Skin Exam: Dry
[2016-10-14] MEDS ORDERED: (Lantus) Insulin Glargine, Recombinant SC SCH (21:30)
--- NOTE | 2016-10-14 22:54 | CP.PCM.DIS ---
Provider - Provider Date of Admission: 10/10/16 12:50 Attending physician: Kolby Jamil MD Time Spent in preparation of Discharge (in minutes): 20 Diagnosis - Discharge Diagnosis (1) DKA (diabetic ketoacidoses) Status: Acute Priority: Low (2) Hypokalemia Status: Acute Priority: Medium (3) Diabetes 1.5, managed as type 1 Status: Chronic Hospital Course - Lab Results Lab Results: Micro Results 10/10/16 17:02 Nose MRSA Culture (Admit) - Final MRSA NOT DETECTED Most Recent Lab Values WBC 11.8 K/uL (4.8-10.8) H 10/12/16 05:12 RBC 3.83 Mil/uL (3.80-5.20) 10/12/16 05:12 Hgb 10.8 g/dL (11.0-16.0) L 10/12/16 05:12 Hct 34.3 % (34.0-47.0) 10/12/16 05:12 MCV 89.5 fL (81.0-99.0) 10/12/16 05:12 MCH 28.3 pg (27.0-31.0) 10/12/16 05:12 MCHC 31.6 g/dL (33.0-37.0) L 10/12/16 05:12 RDW 13.2 % (11.5-14.5) 10/12/16 05:12 Plt Count 214 K/uL (130-400) 10/12/16 05:12 MPV 8.6 fL (7.2-11.7) 10/12/16 05:12 Neut % (Auto) 85.4 % (50.0-75.0) H 10/12/16 05:12 Lymph % (Auto) 10.6 % (20.0-40.0) L 10/12/16 05:12 Robertson % (Auto) 3.6 % (0.0-10.0) 10/12/16 05:12 Eos % (Auto) 0.1 % (0.0-4.0) 10/12/16 05:12 Baso % (Auto) 0.3 % (0.0-2.0) 10/12/16 05:12 Neut # 10.1 K/uL (1.8-7.0) H 10/12/16 05:12 Lymph # 1.2 K/uL (1.0-4.3) 10/12/16 05:12 Robertson # 0.4 K/uL (0.0-0.8) 10/12/16 05:12 Eos # 0.0 K/uL (0.0-0.7) 10/12/16 05:12 Baso # 0.0 K/uL (0.0-0.2) 10/12/16 05:12 Puncture Site Rr 10/12/16 05:27 pCO2 31 mm/Hg (35-45) L 10/12/16 05:27 pO2 102 mm/Hg (80-100) H 10/12/16 05:27 HCO3 17.8 mmol/L (21-28) L 10/12/16 05:27 ABG pH 7.32 (7.35-7.45) L 10/12/16 05:27 ABG Total CO2 17.0 mmol/L (22-28) L 10/12/16 05:27 ABG O2 Saturation 98.9 % (95-98) H 10/12/16 05:27 ABG Base Excess -9.1 mmol/L (-2.0-3.0) L 10/12/16 05:27 ABG Hemoglobin 10.6 g/dL (11.7-17.4) L 10/12/16 05:27 ABG Carboxyhemoglobin 1.6 % (0.5-1.5) H 10/12/16 05:27 POC ABG HHb (Measured) 1.1 % (0.0-5.0) 10/12/16 05:27 ABG Methemoglobin 0.7 % (0.0-3.0) 10/12/16 05:27 Bartolome Test Pos 10/12/16 05:27 VBG pH 7.25 (7.32-7.43) L 10/11/16 11:07 VBG pCO2 21 mmHg (40-60) L 10/11/16 11:07 VBG HCO3 12.0 mmol/L 10/11/16 11:07 VBG O2 Sat (Calc) 88.7 % (40-65) H 10/11/16 11:07 VBG Base Excess -15.9 mmol/L (0.0-2.0) L 10/11/16 11:07 A-a O2 Difference 9.0 mm/Hg 10/12/16 05:27 Respiratory Index 0.1 10/12/16 05:27 Hgb O2 Saturation 96.6 % (95.0-98.0) 10/12/16 05:27 FiO2 21.0 % 10/12/16 05:27 Crit Value Called To Kassi medina pa 10/10/16 10:31 Crit Value Called By Geovani mccall nuclear reactor technician 10/10/16 10:31 Crit Value Read Back Y 10/10/16 10:31 Blood Gas Notified Time 1036 10/10/16 10:31 Sodium 132 mmol/L (132-148) 10/14/16 14:04 Potassium 4.4 mmol/L (3.6-5.2) 10/14/16 14:04 Chloride 96 mmol/L (98-107) L 10/14/16 14:04 Carbon Dioxide 27 mmol/L (22-30) 10/14/16 14:04 Anion Gap 13 (10-20) 10/14/16 14:04 BUN 4 mg/dL (7-17) L 10/14/16 14:04 Creatinine 0.5 MG/DL (0.7-1.2) L 10/14/16 14:04 Est GFR ( Amer) > 60 10/14/16 14:04 Est GFR (Non-Af Amer) > 60 10/14/16 14:04 POC Glucose (mg/dL) 261 mg/dL (65-110) H 10/14/16 16:18 Random Glucose 274 mg/dL (65-105) H 10/14/16 14:04 Hemoglobin A1c 10.9 % (4.2-6.5) H 10/10/16 15:19 Calcium 8.3 mg/dl (8.6-10.4) L 10/14/16 14:04 Phosphorus 1.4 mg/dL (2.5-4.5) L 10/12/16 05:12 Magnesium 1.9 mg/dL (1.6-2.3) 10/12/16 05:12 Total Bilirubin 0.2 mg/dL (0.2-1.3) 10/12/16 05:12 AST 17 U/L (14-36) 10/12/16 05:12 ALT 19 U/L (9-52) 10/12/16 05:12 Alkaline Phosphatase 59 U/L (38-126) 10/12/16 05:12 Troponin I < 0.0120 ng/mL (0.00-0.120) 10/10/16 10:15 Total Protein 6.1 g/dL (6.3-8.3) L 10/12/16 05:12 Albumin 3.4 g/dL (3.5-5.0) L 10/12/16 05:12 Globulin 2.8 gm/dL (2.2-3.9) 10/12/16 05:12 Albumin/Globulin Ratio 1.2 (1.0-2.1) 10/12/16 05:12 Triglycerides 116 mg/dL (0-149) D 10/10/16 15:55 Cholesterol 181 mg/dL (0-199) 10/10/16 15:55 LDL Cholesterol Direct 74 mg/dL (0-129) 10/10/16 15:55 HDL Cholesterol 75 mg/dL (30-70) H 10/10/16 15:55 Amylase 67 U/L (30-110) 10/11/16 15:51 Lipase 53 U/L (23-300) 10/11/16 15:51 Free T4 1.54 ng/dL (0.78-2.19) 10/13/16 06:29 Thyroxine (T4) 11.1 ug/dL (5.5-11.0) H 10/13/16 06:29 Total T3 2.02 nmol/L (1.49-2.60) 10/13/16 06:29 TSH 3rd Generation 1.35 mIU/L (0.46-4.68) 10/13/16 06:29 Urine Color Straw (YELLOW) 10/10/16 10:46 Urine Clarity Clear (Clear) 10/10/16 10:46 Urine pH 5.0 (5.0-8.0) 10/10/16 10:46 Ur Specific Trade 1.022 (1.003-1.030) 10/10/16 10:46 Urine Protein 2+ mg/dL (NEGATIVE) H 10/10/16 10:46 Urine Glucose (UA) 3+ mg/dL (Normal) H 10/10/16 10:46 Urine Ketones 2+ mg/dL (NEGATIVE) H 10/10/16 10:46 Urine Blood 2+ (NEGATIVE) H 10/10/16 10:46 Urine Nitrate Negative (NEGATIVE) 10/10/16 10:46 Urine Bilirubin Negative (NEGATIVE) 10/10/16 10:46 Urine Urobilinogen Normal mg/dL (0.2-1.0) 10/10/16 10:46 Ur Leukocyte Esterase Neg Shandra/uL (Negative) 10/10/16 10:46 Urine WBC (Auto) 1 /hpf (0-5) 10/10/16 10:46 Urine RBC (Auto) 9 /hpf (0-3) H 10/10/16 10:46 Ur Squamous Epith Cells 3 /hpf (0-5) 10/10/16 10:46 Urine HCG, Qual Negative (NEGATIVE) 10/10/16 10:46 Serum Ketones Small (NEGATIVE) 10/11/16 15:51 Thyroperoxidase Ab 2 IU/mL (<9) 10/13/16 06:29 Thyroglobulin Antibody <1 IU/mL (< OR = 1) 10/13/16 06:29 - Hospital Course Hospital Course: 26 with type I dm, presented with DKA to ICU, hydrated was vomiting, still with w/u of hypothyroid signed AMA Discharge Exam - Head Exam Head Exam: ATRAUMATIC - Eye Exam Eye Exam: EOMI - ENT Exam ENT Exam: Mucous Membranes Moist - Neck Exam Neck exam: Full Rom - Respiratory Exam Respiratory Exam: Clear to PA & Lateral. absent: Rales - Cardiovascular Exam Cardiovascular Exam: REGULAR RHYTHM. absent: Systolic Murmur - GI/Abdominal Exam GI & Abdominal Exam: Normal Bowel Sounds. absent: Organomegaly - Rectal Exam Rectal Exam: Deferred - Extremities Exam Extremities exam: normal capillary refill - Neurological Exam Neurological exam: Alert, Oriented x3 - Psychiatric Exam Psychiatric exam: Normal Mood - Skin Skin Exam: Dry Discharge Plan - Follow Up Plan Condition: FAIR Disposition: AGAINST MEDICAL ADVICE Instructions: Diabetic Ketoacidosis (DC), Diabetic Foot Care (DC), Meal Planning with Diabetes Exchanges (DC), Diabetic Neuropathy (DC), Acute Wound Care (DC), Diabetic Foot Ulcers (DC) Referrals: Pancho Rajput DPM [[facility]] - Kolby Jamil MD [Staff Provider] -
[2016-10-15] MEDS ORDERED: (Novolin R) Insulin Human Regular 100 units/ml vial SC SCH (08:00)
== END 2016-10-14 19:40 | disposition left against medical advice (07) | DRG 295 ==
LOC: C.ER 09:21 → C.9E 12:50 → C.9I 15:52 → C.3T 10-13 08:26
PROVIDERS: ADMIT Internal Medicine Cardiovascular Disease; ATTEND Internal Medicine Cardiovascular Disease
DX: E10.10 Type 1 diabetes mellitus with ketoacidosis without coma (principal); I10 Essential (primary) hypertension; E87.6 Hypokalemia; E78.5 Hyperlipidemia, unspecified; F41.8 Other specified anxiety disorders; Z87.891 Personal history of nicotine dependence; Z79.4 Long term (current) use of insulin

== ENCOUNTER 2017-02-20 16:28 | Emergency (ER) | payer OTHER ==
[2017-02-20 16:28] VITALS: BMI 29.1
[2017-02-20] MEDS ORDERED: Sodium Chloride 0.9% 2,000 ML IV ONE (16:42)
--- NOTE | 2017-02-20 16:55 | C.PDOC ---
History Of Present Illness Patient is a 26 y/o F with hx of DM, presenting with hyperglycemia. Patient reports that she went out last night and drank some alcohol. She reports that she has had persistent vomiting today and has been unable to control her sugar. Reports some burning abdominal pain that developed after multiple episodes of vomiting. Denies chest pain, shortness of breath, diarrhea/constipation, dysuria, vaginal bleeding or discharge. Time Seen by Provider: 02/20/17 16:38 Chief Complaint (Nursing): High Blood Sugar Past Medical History Vital Signs: Last Vital Signs Temp 98.3 F 02/20/17 18:40 Pulse 84 02/20/17 18:40 Resp 20 02/20/17 18:40 BP 136/74 02/20/17 18:40 Pulse Ox 100 02/20/17 18:42 - Medical History PMH: Anemia (low iron level), Anxiety, Depression, Diabetes, Gall Bladder Disease, HTN, Hypercholesterolemia Denies: Alzheimer's Disease, Arthritis, Asthma, Atrial Fibrillation, Bipolar Disorder, Bronchitis, Cardia Arrhythmia, CHF, COPD, Crohn's Disease, Dementia, Diverticulitis, Emphysema, Fractures, Gastritis, HIV, Hyperthyroidism, Hypothyroidism, Kidney Stones, Migraine, Mitral Valve Prolapse, Multiple Sclerosis, Osteoporosis, Pancreatitis, Paranoia, Parkinson's Disease, Peripheral Edema, Pneumonia, Post Traumatic Stress Disorder, Pulmonary Embolism , Chronic Kidney Disease, Rheumatoid Arthritis, Schizophrenia, Seizures, Sickle Cell Disease, Sexually Transmitted Disease, Sleep Apnea, TIA Surgical History: Cholecystectomy Denies: Appendectomy, CABG, Carotid Endarterectomy, Coronary Stent, Pacemaker , Tonsillectomy - [facility] Procedures CLOSURE SKIN & SUBCUTANEOUS NEC (09/26/13) Family History: States: Unknown Family Hx - Social History Hx Tobacco Use: No Hx Alcohol Use: Yes Hx Substance Use: No - Immunization History Hx Tetanus Toxoid Vaccination: No Hx Influenza Vaccination: No Hx Pneumococcal Vaccination: No Review Of Systems Constitutional: Negative for: Fever Cardiovascular: Negative for: Chest Pain, Palpitations, Edema, Light Headedness Respiratory: Negative for: Cough, Shortness of Breath, SOB with Excertion, Wheezing Gastrointestinal: Positive for: Nausea, Vomiting, Abdominal Pain. Negative for : Diarrhea, Constipation Genitourinary: Negative for: Dysuria, Incontinence, Hematuria, Vaginal Discharge , Vaginal Bleeding, Pelvic Pain Neurological: Negative for: Weakness, Numbness, Altered Mental Status, Headache , Dizziness Physical Exam - Physical Exam Appears: Well, Non-toxic, No Acute Distress, Other (actively vomiting) Skin: Normal Color, Warm, Dry Head: Atraumatic, Normacephalic Eye(s): bilateral: Normal Inspection, PERRL, EOMI Neck: Supple Chest: Symmetrical Cardiovascular: Other (tachycardic) Respiratory: Normal Breath Sounds, No Rales, No Rhonchi, No Wheezing Gastrointestinal/Abdominal: Soft, No Tenderness, No Mass, No Distention Back: Normal Inspection, No CVA Tenderness ED Course And Treatment - Laboratory Results Result Diagrams: 02/20/17 17:05 02/20/17 17:05 O2 Sat by Pulse Oximetry: 100 Medical Decision Making Medical Decision Making: Patient is tachycardic and hyperglycemic. Concerning for dka. Will give IVF, reglan, zofran, and pepcid. Will get labs, ua, vbg, cxray and reeval EKG shows sinus tachycardia at 103bpm with normal intervals and no ST changes. 5:46PM PH:7.3, gap 24, bicarbonate 17, 2+ketones in urine and small serum ketones. FS: [id number]. Paged ICU for admission for DKA and Dr. Mueller, ICU, reports that patient already has insulin pump and can get IVF on floor and does not need ICU. 2L currently IVF infusing. Patient reports that she cannot stay in the hospital tonight and does not want to be admitted. 6:49PM Cxray negative. Trop x 1 negative. UA negative for infection. Patient continues to refuse admission but is still vomiting. She reports that she will sign out AMA. She is agreeing to stay in the ED for now and therefore will give additional 1L IVF and observe in ED. FS:[id number] 7:00PM Will sign out to Dr. Borja to reevaluate patient. Disposition - Disposition Disposition: HOSPITALIZED Disposition Time: 17:47 Condition: FAIR Forms: [facility] (Slovak) - Clinical Impression Clinical Impression: DKA (diabetic ketoacidoses)
[2017-02-20 17:07] LABS: BASO # 0.1 K/uL (0.0-0.2); BASO % 0.5 % (0.0-2.0); EOS % 0.2 % (0.0-4.0); HEMATOCRIT 35.9 % (34.0-47.0); LYMPH # 0.9 K/uL (1.0-4.3); LYMPH % 7.4 % (20.0-40.0); MEAN CELL VOLUME 88.5 fL (81.0-99.0); MEAN CORPUSCULAR HEMOGLOBIN 29.1 pg (27.0-31.0); MEAN CORPUSCULAR HGB CONC 32.9 g/dL (33.0-37.0); MONO # 0.2 K/uL (0.0-0.8); MONO % 1.6 % (0.0-10.0); PLATELET COUNT 214 K/uL (130-400); RED CELL DISTRIBUTION WIDTH 13.4 % (11.5-14.5); WHITE BLOOD COUNT 12.6 K/uL (4.8-10.8)
[2017-02-20 17:15] LABS: CHLORIDE 101 mmol/L (98-107)
[2017-02-20 17:16] LABS: POTASSIUM 4.4 mmol/L (3.6-5.2); SODIUM 139 mmol/L (132-148)
[2017-02-20 17:18] LABS: GFR AFRICAN-AMERICAN > 60
[2017-02-20 17:19] LABS: ALB/GLOB RATIO 1.3 (1.0-2.1); ALKALINE PHOSPHATASE 69 U/L (38-126); ALT/SGPT 29 U/L (9-52); AST/SGOT 22 U/L (14-36); BILIRUBIN,TOTAL 0.8 mg/dL (0.2-1.3); BLOOD UREA NITROGEN 17 mg/dL (7-17); CARBON DIOXIDE 18 mmol/L (22-30); GLUCOSE,RANDOM 342 mg/dL (65-105); PHOSPHOROUS 3.9 mg/dL (2.5-4.5); TOTAL PROTEIN 7.4 g/dL (6.3-8.3)
[2017-02-20 17:20] LABS: CALCIUM 10.2 mg/dl (8.6-10.4); MAGNESIUM 1.8 mg/dL (1.6-2.3)
[2017-02-20 17:25] LABS: RBC URINE 21 /hpf (0-3); URINE BACTERIA OCC (<OCC); URINE BILIRUBIN NEGATIVE (NEGATIVE); URINE BLOOD 2+ (NEGATIVE); URINE COLOR Yellow (YELLOW); URINE GLUCOSE (UA) 3+ mg/dL (Normal); URINE KETONE 2+ mg/dL (NEGATIVE); URINE LEUKOCYTE ESTERASE NEG Leu/uL (Negative); URINE PROTEIN 3+ mg/dL (NEGATIVE); URINE UROBILINOGEN NORMAL mg/dL (0.2-1.0); WBC URINE 5 /hpf (0-5)
[2017-02-20 17:32] LABS: EOSINOPHIL 1 % (0-4); NEUTROPHIL 89 % (50-75); TOTAL CELLS COUNTED 100
[2017-02-20 17:37] LABS: DRAW SITE VENOUS; VENOUS BLOOD GAS BASE EXCESS -7.1 mmol/L (0.0-2.0); VENOUS BLOOD GAS PCO2 38 mmHg (40-60)
--- NOTE | 2017-02-20 17:57 | RAD ---
HISTORY: hyperglycemic COMPARISON: Chest x-ray performed 06/28/15 TECHNIQUE: Chest, one view. FINDINGS: LUNGS: No focal consolidation. Please note that chest x-ray has limited sensitivity for the detection of pulmonary masses. PLEURA: No significant pleural effusion identified. No definite pneumothorax . CARDIOVASCULAR: The cardiomediastinal silhouette appears within normal limits of size. OSSEOUS STRUCTURES: No acute osseous abnormality identified. VISUALIZED UPPER ABDOMEN: Unremarkable. OTHER FINDINGS: None. IMPRESSION: No focal consolidation, significant pleural effusion, or definite pneumothorax identified.
[2017-02-20] MEDS ORDERED: Sodium Chloride 0.9% 1,000 ML IV ONE (18:37)
[2017-02-20 18:40] VITALS: O2SAT 100
[2017-02-20 18:41] VITALS: RESP 20
[2017-02-20 20:53] VITALS: BP 135/73; PULSE 85; TEMP 98
--- NOTE | 2017-02-22 08:05 | CARD ---
APPROVED REPORT EKG Measurement Heart [id number] <Conclusion> Sinus tachycardia Otherwise normal ECG
== END 2017-02-20 20:52 | disposition home or self-care (01) ==
LOC: C.ER 16:28
DX: E13.10 Other specified diabetes mellitus with ketoacidosis without coma (principal)
CPT/HCPCS: 71010; 80053; 81001; 82009; 82550; 82553; 82803; 82948; 83735; 84100; 84484; 84702; 85025; 93005; 96361; 96374; 96375; 99284; J1885; J2405; J2765; J7040

== ENCOUNTER 2017-03-07 12:14 | Inpatient (IN) | payer OTHER ==
[2017-03-07 12:18] VITALS: BMI 28.3
[2017-03-07] MEDS ORDERED: Sodium Chloride 0.9% 1,000 ML IV ONE ×2 (12:44→13:29)
[2017-03-07] MEDS ORDERED: Sodium Chloride 0.9% 1,000 ML ONE (13:06)
[2017-03-07 13:09] LABS: BASO # 0.1 K/uL (0.0-0.2); BASO % 0.3 % (0.0-2.0); HEMATOCRIT 35.7 % (34.0-47.0); LYMPH # 0.6 K/uL (1.0-4.3); LYMPH % 3.9 % (20.0-40.0); MEAN CELL VOLUME 89.3 fL (81.0-99.0); MEAN CORPUSCULAR HEMOGLOBIN 29.3 pg (27.0-31.0); MEAN CORPUSCULAR HGB CONC 32.8 g/dL (33.0-37.0); MEAN PLATELET VOLUME 9.4 fL (7.2-11.7); MONO # 0.6 K/uL (0.0-0.8); MONO % 3.7 % (0.0-10.0); PLATELET COUNT 216 K/uL (130-400); RED CELL DISTRIBUTION WIDTH 13.3 % (11.5-14.5); WHITE BLOOD COUNT 15.8 K/uL (4.8-10.8)
[2017-03-07 13:09] LABS: VENOUS BLOOD GAS BASE EXCESS -10.8 mmol/L (0.0-2.0); VENOUS BLOOD GAS PCO2 34 mmHg (40-60); VENOUS BLOOD PH 7.26 (7.32-7.43)
[2017-03-07] MEDS ORDERED: (Novolin R) Insulin Human Regular 100 units/ml vial IV ONE (13:29)
[2017-03-07 13:34] LABS: RBC URINE 3 /hpf (0-3); URINE BACTERIA RARE (<OCC); URINE BILIRUBIN NEGATIVE (NEGATIVE); URINE BLOOD 1+ (NEGATIVE); URINE COLOR Straw (YELLOW); URINE GLUCOSE (UA) 3+ mg/dL (Normal); URINE KETONE 2+ mg/dL (NEGATIVE); URINE LEUKOCYTE ESTERASE NEG Leu/uL (Negative); URINE PROTEIN NEGATIVE (NEGATIVE); URINE UROBILINOGEN NORMAL mg/dL (0.2-1.0); WBC URINE 1 /hpf (0-5)
[2017-03-07 13:35] LABS: ALB/GLOB RATIO 1.7 (1.0-2.1); ALKALINE PHOSPHATASE 71 U/L (38-126); ALT/SGPT 36 U/L (9-52); AST/SGOT 19 U/L (14-36); BILIRUBIN,TOTAL 0.9 mg/dL (0.2-1.3); BLOOD UREA NITROGEN 11 mg/dL (7-17); CALCIUM 8.4 mg/dl (8.6-10.4); CARBON DIOXIDE 13 mmol/L (22-30); CHLORIDE 100 mmol/L (98-107); GFR AFRICAN-AMERICAN > 60; POTASSIUM 4.5 mmol/L (3.6-5.2); SODIUM 137 mmol/L (132-148); TOTAL PROTEIN 6.7 g/dL (6.3-8.3)
--- NOTE | 2017-03-07 13:35 | C.PDOC ---
History Of Present Illness 26 year old female who is an Insulin-Dependent Diabetic presents to the ED with complaints of irregular blood sugar levels since this morning and was slightly elevated yesterday. Patient states last night she ate left over chilli and had subsequent multiple episodes of nausea, vomiting, and diarrhea. She notes use of her insulin pump this morning, however blood sugar continued to fluctuate between 200-500. Patient states boyfriend who ate chilli also is having multiple episodes of diarrhea. She denies fever, chills, chest pain, or shortness of breath. Time Seen by Provider: 03/07/17 12:43 Chief Complaint (Nursing): High Blood Sugar History Per: Patient History/Exam Limitations: no limitations Onset/Duration Of Symptoms: Hrs Current Symptoms Are (Timing): Still Present Current Diabetic Medications: Insulin Associated Infectious Symptoms: Nausea, Vomiting, Diarrhea. denies: Cough, Sore Throat Treatment Prior To Provider Evaluation: Accucheck Response To Treatment: Other (fluctuating blood sugar levels) Recent travel outside of the [place] States: No Past Medical History Reviewed: Historical Data, Nursing Documentation, Vital Signs Vital Signs: Last Vital Signs Temp 99 F 03/07/17 15:08 Pulse 121 H 03/07/17 17:00 Resp 12 03/07/17 17:00 BP 119/68 03/07/17 15:08 Pulse Ox 99 03/07/17 17:00 - Medical History PMH: Anemia (low iron level), Anxiety, Depression, Diabetes, Gall Bladder Disease, HTN, Hypercholesterolemia Surgical History: Cholecystectomy Denies: Appendectomy, CABG, Carotid Endarterectomy, Coronary Stent, Pacemaker , Tonsillectomy - [facility] Procedures CLOSURE SKIN & SUBCUTANEOUS NEC (09/26/13) Family History: States: Unknown Family Hx - Social History Hx Tobacco Use: No Hx Alcohol Use: Yes Hx Substance Use: No - Immunization History Hx Tetanus Toxoid Vaccination: No Hx Influenza Vaccination: No Hx Pneumococcal Vaccination: No Review Of Systems Constitutional: Positive for: Other (fluctuanting blood sugar levels ). Negative for: Fever, Chills Cardiovascular: Negative for: Chest Pain, Palpitations Respiratory: Negative for: Cough, Shortness of Breath Gastrointestinal: Positive for: Nausea, Vomiting, Diarrhea. Negative for: Abdominal Pain Physical Exam - Physical Exam Additional Physical Exam Comments: Constitutional: No acute distress. Patient appears dehydrated. Head: Normocephalic. Atraumatic. Eyes: PERRL. EOMI ENT: Dry mucous membranes. Neck: Supple. Cardiovascular: Patient is tachycardic. No murmur. Chest: No tenderness. Respiratory: Clear to auscultation bilaterally. No wheezing, rhonchi, or rales. GI: Soft. Nontender. Nondistended. Normoactive bowel sounds. Back: No CVA tenderness. Musculoskeletal: No swelling of extremities. No calf tenderness. Skin: No rash. Neurologic: Alert, no gross focal deficit. ED Course And Treatment - Laboratory Results Result Diagrams: 03/07/17 13:05 03/07/17 13:05 O2 Sat by Pulse Oximetry: 100 (room air ) Progress Note: Labs, blood work, UA, and Upreg were ordered. Patient was given insulin, zofran, protonix inj, and IV fluids. Medical Decision Making Medical Decision Making: discussed with icu retail merchandiser. pt to go to icu, start on insulin drip. discussed with Dr Hatfield, admit ot his service after arrival in ED, pt disconnected her own inulin pump. Disposition Discussed With .: Bartolo Hatfield Doctor Will See Patient In The: Hospital - Disposition Disposition: HOSPITALIZED Disposition Time: 14:22 Condition: SERIOUS - Clinical Impression Clinical Impression: DKA (diabetic ketoacidoses) - PA / BOX CAR CHECKER / Resident Statement MD/DO has reviewed & agrees with the documentation as recorded. - Scribe Statement The provider has reviewed the documentation as recorded by the Scribe Shyann Lindsey All medical record entries made by the Scribe were at my direction and personally dictated by me. I have reviewed the chart and agree that the record accurately reflects my personal performance of the history, physical exam, medical decision making, and the department course for this patient. I have also personally directed, reviewed, and agree with the discharge instructions and disposition. Decision To Admit - Pt Status Changed To: Hospital Disposition Of: Inpatient - Admit Certification Admit to Inpatient:: After my assessment, the patient will require hospitalization for at least two midnights. This is because of the severity of symptoms shown, intensity of services needed, and/or the medical risk in this patient being treated as an outpatient. - InPatient: Physician Admission Certification: I certify that this patient requires 2 or more midnights of care for the following reason:: dka for sdtabilization - . Bed Request Type: ICU Admitting Physician: Bartolo Hatfield Patient Diagnosis: DKA (diabetic ketoacidoses)
[2017-03-07 13:39] LABS: GLUCOSE,RANDOM 435 mg/dL (65-105)
[2017-03-07] MEDS ORDERED: (Novolin R) Insulin Human Regular 100 units/ml vial ONE (13:46)
[2017-03-07 13:53] LABS: BASOPHIL 1 % (0-2); NEUTROPHIL 94 % (50-75); TOTAL CELLS COUNTED 100
[2017-03-07] MEDS ORDERED: Sodium Chloride 0.9% 1,000 ML IV SCH (14:15)
[2017-03-07] MEDS ORDERED: Insulin Human Regular 100 UNIT in Sodium Chloride 0.9% 99 ML IV SCH ×2 (14:15→16:00)
--- NOTE | 2017-03-07 17:50 | CP.PCM.CON ---
<Yordy Mendez - Last Filed: 03/07/17 17:51> History of Present Illness - History of Present Illness History of Present Illness: Patient is a 26 year old Female who presented to the ED with abdominal pain, nausea, vomiting and diarrhea. She is a type 1 diabetic with elevated glucose this morning in the 500s and given her symptoms and high glucose she decided to come to the ED. She states her glucose levels were fine yesterday and that she took her night itme dose of insulin but when she woke up this morning her glucose was elevated. She took insulin this morning which brought her insulin to the 200s but a few hours later the glucose was back in the 500s. She has been the ED multiple times for high glucose however she states this time it was different as she also had body aches and subjective fever. PMD: Dr. Alamo PMHx: uncontrolled DM and high cholesterol. PSHx: Cholecystectomy in 2011. Medications: Atorvastatin 40 PO daily, Lantus 30 units SC HS, Apidra 10 units ACHS, Protonix 40 mg PO daily, Ferrous Sulfate, Lisinopril. Social Hx: reviewed and denies alcohol use, drug use and tobacco use. Family Hx: mother with lupus. Allergies: NKDA Review of Systems - Constitutional Constitutional: Fever, Headache, Lethargy - Cardiovascular Cardiovascular: absent: Chest Pain, Palpitations - Respiratory Respiratory: absent: Cough, Dyspnea, Wheezing - Gastrointestinal Gastrointestinal: Abdominal Pain, Diarrhea. absent: Constipation - Genitourinary Genitourinary: absent: Change in Urinary Stream, Dysuria, Urinary Frequency - Musculoskeletal Musculoskeletal: Myalgias - Neurological Neurological: absent: Confusion, Headaches Past Patient History - Infectious Disease Hx of Infectious Diseases: None - Past Medical History & Family History Past Medical History?: Yes - Past Social History Smoking Status: Never Smoked - CARDIAC Hx Cardiac Disorders: Yes Hx Hypercholesterolemia: Yes Hx Hypertension: Yes Hx Pacemaker: No - PULMONARY Hx Respiratory Disorders: No Hx Asthma: No Hx Bronchitis: No Hx Chronic Obstructive Pulmonary Disease (COPD): No Hx Emphysema: No Hx Pneumonia: No Hx Pulmonary Embolism: No Hx Sleep Apnea: No - NEUROLOGICAL Hx Neurological Disorder: No Hx Alzheimer's Disease: No Hx Dementia: No Hx Migraine: No Hx Multiple Sclerosis: No Hx Parkinson's Disease: No Hx Seizures: No Hx Transient Ischemic Attacks (TIA): No - HEENT Hx HEENT Problems: No Hx Blind: No Hx Cataracts: No Hx Deafness: No Hx Difficulty Chewing: No Hx Epistaxis: No Hx Glaucoma: No Hx Macular Degeneration: No - RENAL Hx Chronic Kidney Disease: No Hx Kidney Stones: No - ENDOCRINE/METABOLIC Hx Endocrine Disorders: No Hx Hyperthyroidism: No Hx Hypothyroidism: No - HEMATOLOGICAL/ONCOLOGICAL Hx Blood Disorders: Yes Hx Anemia: Yes (low iron level) - INTEGUMENTARY Hx Dermatological Problems: No Hx Basil Cell: No Hx Bronson: No Hx Cellulitis: No Hx Eczema: No Hx Melanoma: No Hx Psoriasis: No Hx Squamous Cell: No - MUSCULOSKELETAL/RHEUMATOLOGICAL Hx Musculoskeletal Disorders: No Hx Arthritis: No Hx Falls: No Hx Fractures: No Hx Osteoporosis: No Hx Rheumatoid Arthritis: No - GASTROINTESTINAL Hx Gastrointestinal Disorders: Yes Hx Gall Bladder Disease: Yes - GENITOURINARY/GYNECOLOGICAL Hx Genitourinary Disorders: No Hx Sexually Transmitted Disorders: No - PSYCHIATRIC Hx Psychophysiologic Disorder: Yes Hx Anxiety: Yes Hx Depression: Yes Hx Substance Use: No - SURGICAL HISTORY Hx Surgeries: Yes Hx Appendectomy: No Hx Carotid Endarterectomy: No Hx Cholecystectomy: Yes Hx Coronary Artery Bypass Graft: No Hx Coronary Stent: No Hx Tonsillectomy: No - ANESTHESIA Hx Anesthesia: Yes Hx Anesthesia Reactions: No Hx Malignant Hyperthermia: No Meds Allergies/Adverse Reactions: Allergies Allergy/AdvReac Type Severity Reaction Status Date / Time No Known Allergies Allergy Verified 03/07/17 12:17 - Medications Medications: Current Medications Insulin Human Regular 100 unit (/ Sodium Chloride) 100 mls @ 2 mls/hr IV .Q24H [facility] PRN Reason: Protocol Potassium Chloride 20 meq/ (Sodium Chloride) 1,010 mls @ 125 mls/hr IV .Q8H5M [facility] Ketorolac Tromethamine (Toradol) 30 mg IVP Q6 PRN PRN Reason: Pain, severe (8-10) Ondansetron HCl (Zofran Inj) 4 mg IVP DAILY@ONCE PRN PRN Reason: Nausea/Vomiting Physical Exam - Head Exam Head Exam: ATRAUMATIC, NORMAL INSPECTION - Eye Exam Eye Exam: EOMI Pupil Exam: PERRL - ENT Exam ENT Exam: Mucous Membranes Moist - Neck Exam Neck exam: Positive for: Normal Inspection - Respiratory Exam Respiratory Exam: Clear to Auscultation Bilateral. absent: Rales, Rhonchi, Wheezes - Cardiovascular Exam Cardiovascular Exam: REGULAR RHYTHM, RRR. absent: Bradycardia, Tachycardia, Systolic Murmur - GI/Abdominal Exam GI & Abdominal Exam: Normal Bowel Sounds, Soft. absent: Distended, Firm - Rectal Exam Rectal Exam: absent: Deferred - Extremities Exam Extremities exam: Positive for: normal inspection - Neurological Exam Neurological exam: Alert, Oriented x3 Results - Vital Signs Recent Vital Signs: Last Vital Signs Temp 99 F 03/07/17 15:08 Pulse 121 H 03/07/17 17:00 Resp 12 03/07/17 17:00 BP 119/68 03/07/17 15:08 Pulse Ox 99 03/07/17 17:00 - Labs Result Diagrams: 03/07/17 13:05 03/07/17 13:05 Labs: Laboratory Results - last 24 hr 03/07/17 03/07/17 16:26 17:16 POC Glucose (mg/dL) 151 H 108 Assessment & Plan - Assessment and Plan (Free Text) Assessment: Assessment: 26 F with PMHx of DM presents to the ED with abdominal pain, nausea, vomiting, diarrhea, body aches, subjective fevers x 1 day, with sugars of 480 found to have DKA. Plan: Abdominal pain 2/2 DKA * Glucose of 480 on admission, sugars currently 200s * ABG: Metabolic acidosis with anion gap of 29 * Currently on full liquid diet * NS w/ potassium chloride @ 125cc/hr with 20meq * Insulin drip * Accuchecks Q1H, BMP Q4H * HGA1C: 10.9 from previous admission * Zofran PRN * toradol 30mg iv Q6 PRN for severe pain Prophylaxis * GI PPX: not indicated * DVT PPX: Heparin 5000U SC Q12H <Damian Schneider - Last Filed: 03/07/17 18:20> Meds - Medications Medications: Current Medications Heparin Sodium (Porcine) (Heparin) 5,000 units SC Q8 [facility] Insulin Human Regular 100 unit (/ Sodium Chloride) 100 mls @ 2 mls/hr IV .Q24H [facility] PRN Reason: Protocol Potassium Chloride 20 meq/ (Sodium Chloride) 1,010 mls @ 125 mls/hr IV .Q8H5M [facility] Ketorolac Tromethamine (Toradol) 30 mg IVP Q6 PRN PRN Reason: Pain, severe (8-10) Ondansetron HCl (Zofran Inj) 4 mg IVP DAILY@ONCE PRN PRN Reason: Nausea/Vomiting Results - Vital Signs Recent Vital Signs: Last Vital Signs Temp 99 F 03/07/17 15:08 Pulse 121 H 03/07/17 17:00 Resp 12 03/07/17 17:00 BP 119/68 03/07/17 15:08 Pulse Ox 99 03/07/17 17:00 - Labs Result Diagrams: 03/07/17 13:05 03/07/17 13:05 Labs: Laboratory Results - last 24 hr 03/07/17 03/07/17 16:26 17:16 POC Glucose (mg/dL) 151 H 108 Attending/Attestation - Attestation I have personally seen and examined this patient.: Yes I have fully participated in the care of the patient.: Yes I have reviewed all pertinent clinical information: Yes Notes (Text): 03/07/17 18:19 I have seen and examined the patient. Medical records, lab studies, and imaging were reviewed by me and a management plan was formulated on multidisciplinary rounds with resident Dr. Mendez. I agree with their above documented assessment and plan. Patient is in DKA again from non-compliance. Insulin gtt. Critical Care Time 35 minutes. Multi-disciplinary rounds were performed with house staff, nursing, speech therapy, respiratory therapy, pharmacy and nutrition with integrated input from the primary team/attending and other consulting services. The documented time is cumulative and includes review of patient data/exams/labs/chart review and examination of the patient on rounds and throughout the day; time is exclusive of any procedures or teaching time.
--- NOTE | 2017-03-07 18:40 | CP.PCM.PN ---
Subjective - Date & Time of Evaluation Date of Evaluation: 03/07/17 Time of Evaluation: 13:40 - Subjective Subjective: clinically same Objective - Vital Signs/Intake and Output Vital Signs (last 24 hours): Temp Pulse Resp BP Pulse Ox 99 F 121 H 12 119/68 99 03/07/17 15:08 03/07/17 17:00 03/07/17 17:00 03/07/17 15:08 03/07/17 17:00 Intake and Output: 03/07/17 03/07/17 06:59 18:59 Intake Total 127 Balance 127 - Medications Medications: Current Medications Heparin Sodium (Porcine) (Heparin) 5,000 units SC Q8 [facility] Insulin Human Regular 100 unit (/ Sodium Chloride) 100 mls @ 2 mls/hr IV .Q24H [facility] PRN Reason: Protocol Potassium Chloride 20 meq/ (Sodium Chloride) 1,010 mls @ 125 mls/hr IV .Q8H5M [facility] Last Admin: 03/07/17 16:00 Dose: 125 mls/hr Ketorolac Tromethamine (Toradol) 30 mg IVP Q6 PRN PRN Reason: Pain, severe (8-10) Ondansetron HCl (Zofran Inj) 4 mg IVP DAILY@ONCE PRN PRN Reason: Nausea/Vomiting Last Admin: 03/07/17 18:38 Dose: 4 mg - Constitutional Appears: Well - Head Exam Head Exam: ATRAUMATIC, NORMAL INSPECTION, NORMOCEPHALIC - Eye Exam Eye Exam: EOMI, Normal appearance, PERRL Pupil Exam: NORMAL ACCOMODATION, PERRL - ENT Exam ENT Exam: Mucous Membranes Moist, Normal Exam - Neck Exam Neck Exam: Full ROM, Normal Inspection. absent: Lymphadenopathy - Respiratory Exam Respiratory Exam: Decreased Breath Sounds - Cardiovascular Exam Cardiovascular Exam: REGULAR RHYTHM, +S1, +S2 - GI/Abdominal Exam GI & Abdominal Exam: Soft, Diminished Bowel Sounds - Rectal Exam Rectal Exam: Deferred
--- NOTE | 2017-03-07 18:41 | CP.PCM.HP ---
Past Patient History - Infectious Disease Hx of Infectious Diseases: None - Past Medical History & Family History Past Medical History?: Yes - Past Social History Smoking Status: Never Smoked - CARDIAC Hx Cardiac Disorders: Yes Hx Hypercholesterolemia: Yes Hx Hypertension: Yes Hx Pacemaker: No - PULMONARY Hx Respiratory Disorders: No Hx Asthma: No Hx Bronchitis: No Hx Chronic Obstructive Pulmonary Disease (COPD): No Hx Emphysema: No Hx Pneumonia: No Hx Pulmonary Embolism: No Hx Sleep Apnea: No - NEUROLOGICAL Hx Neurological Disorder: No Hx Alzheimer's Disease: No Hx Dementia: No Hx Migraine: No Hx Multiple Sclerosis: No Hx Parkinson's Disease: No Hx Seizures: No Hx Transient Ischemic Attacks (TIA): No - HEENT Hx HEENT Problems: No Hx Blind: No Hx Cataracts: No Hx Deafness: No Hx Difficulty Chewing: No Hx Epistaxis: No Hx Glaucoma: No Hx Macular Degeneration: No - RENAL Hx Chronic Kidney Disease: No Hx Kidney Stones: No - ENDOCRINE/METABOLIC Hx Endocrine Disorders: No Hx Hyperthyroidism: No Hx Hypothyroidism: No - HEMATOLOGICAL/ONCOLOGICAL Hx Blood Disorders: Yes Hx Anemia: Yes (low iron level) - INTEGUMENTARY Hx Dermatological Problems: No Hx Basil Cell: No Hx Bronson: No Hx Cellulitis: No Hx Eczema: No Hx Melanoma: No Hx Psoriasis: No Hx Squamous Cell: No - MUSCULOSKELETAL/RHEUMATOLOGICAL Hx Musculoskeletal Disorders: No Hx Arthritis: No Hx Falls: No Hx Fractures: No Hx Osteoporosis: No Hx Rheumatoid Arthritis: No - GASTROINTESTINAL Hx Gastrointestinal Disorders: Yes Hx Gall Bladder Disease: Yes - GENITOURINARY/GYNECOLOGICAL Hx Genitourinary Disorders: No Hx Sexually Transmitted Disorders: No - PSYCHIATRIC Hx Psychophysiologic Disorder: Yes Hx Anxiety: Yes Hx Depression: Yes Hx Substance Use: No - SURGICAL HISTORY Hx Surgeries: Yes Hx Appendectomy: No Hx Carotid Endarterectomy: No Hx Cholecystectomy: Yes Hx Coronary Artery Bypass Graft: No Hx Coronary Stent: No Hx Tonsillectomy: No - ANESTHESIA Hx Anesthesia: Yes Hx Anesthesia Reactions: No Hx Malignant Hyperthermia: No Meds Allergies/Adverse Reactions: Allergies Allergy/AdvReac Type Severity Reaction Status Date / Time No Known Allergies Allergy Verified 03/07/17 12:17 Physical Exam - Constitutional Appears: Well - Head Exam Head Exam: ATRAUMATIC, NORMAL INSPECTION, NORMOCEPHALIC - Eye Exam Eye Exam: EOMI, Normal appearance, PERRL Pupil Exam: NORMAL ACCOMODATION, PERRL - ENT Exam ENT Exam: Mucous Membranes Moist, Normal Exam - Neck Exam Neck exam: Positive for: Normal Inspection - Respiratory Exam Respiratory Exam: Decreased Breath Sounds - Cardiovascular Exam Cardiovascular Exam: REGULAR RHYTHM, +S1, +S2 - GI/Abdominal Exam GI & Abdominal Exam: Diminished Bowel Sounds, Soft - Rectal Exam Rectal Exam: Deferred Results - Vital Signs Recent Vital Signs: Last Vital Signs Temp 99 F 03/07/17 15:08 Pulse 121 H 03/07/17 17:00 Resp 12 03/07/17 17:00 BP 119/68 03/07/17 15:08 Pulse Ox 99 03/07/17 17:00 - Labs Result Diagrams: 03/07/17 13:05 03/07/17 13:05 Labs: Laboratory Results - last 24 hr 03/07/17 03/07/17 03/07/17 16:26 17:16 18:18 POC Glucose (mg/dL) 151 H 108 87
[2017-03-07] MEDS: Potassium Ch 20mEq in D5-1/2NS 1,000 ML IV SCH (20:00)
[2017-03-07 21:18] LABS: CHLORIDE 127 mmol/L (98-107); POTASSIUM 3.1 mmol/L (3.6-5.2); SODIUM 144 mmol/L (132-148)
[2017-03-07 21:21] LABS: GFR AFRICAN-AMERICAN > 60
[2017-03-07 21:22] LABS: BLOOD UREA NITROGEN 4 mg/dL (7-17); GLUCOSE,RANDOM 56 mg/dL (65-105)
[2017-03-07 21:23] LABS: CARBON DIOXIDE 10 mmol/L (22-30)
[2017-03-07 21:24] LABS: CALCIUM 4.1 mg/dl (8.6-10.4)
[2017-03-08 00:44] LABS: CHLORIDE 111 mmol/L (98-107); POTASSIUM 3.8 mmol/L (3.6-5.2); SODIUM 141 mmol/L (132-148)
[2017-03-08 00:47] LABS: BLOOD UREA NITROGEN 8 mg/dL (7-17); CARBON DIOXIDE 18 mmol/L (22-30); GFR AFRICAN-AMERICAN > 60
[2017-03-08 00:48] LABS: CALCIUM 8.1 mg/dl (8.6-10.4); GLUCOSE,RANDOM 100 mg/dL (65-105)
[2017-03-08] MEDS: Potassium Ch 20mEq in D5-1/2NS 1,000 ML IV SCH (05:00)
[2017-03-08 06:36] LABS: BASO # 0.1 K/uL (0.0-0.2); BASO % 0.5 % (0.0-2.0); EOS % 0.3 % (0.0-4.0); HEMATOCRIT 29.2 % (34.0-47.0); LYMPH # 2.2 K/uL (1.0-4.3); LYMPH % 17.4 % (20.0-40.0); MEAN CELL VOLUME 87.8 fL (81.0-99.0); MEAN CORPUSCULAR HEMOGLOBIN 29.2 pg (27.0-31.0); MEAN CORPUSCULAR HGB CONC 33.2 g/dL (33.0-37.0); MEAN PLATELET VOLUME 9.4 fL (7.2-11.7); MONO # 0.9 K/uL (0.0-0.8); MONO % 6.8 % (0.0-10.0); RED CELL DISTRIBUTION WIDTH 13.5 % (11.5-14.5); WHITE BLOOD COUNT 12.8 K/uL (4.8-10.8)
[2017-03-08 06:43] LABS: CHLORIDE 111 mmol/L (98-107); POTASSIUM 3.5 mmol/L (3.6-5.2); SODIUM 141 mmol/L (132-148)
[2017-03-08 06:45] LABS: ALB/GLOB RATIO 1.3 (1.0-2.1); ALKALINE PHOSPHATASE 48 U/L (38-126); AST/SGOT 15 U/L (14-36); BILIRUBIN,TOTAL 0.4 mg/dL (0.2-1.3); BLOOD UREA NITROGEN 8 mg/dL (7-17); CARBON DIOXIDE 18 mmol/L (22-30); GFR AFRICAN-AMERICAN > 60; TOTAL PROTEIN 5.9 g/dL (6.3-8.3)
[2017-03-08 06:46] LABS: ALT/SGPT 35 U/L (9-52); CALCIUM 8.1 mg/dl (8.6-10.4); GLUCOSE,RANDOM 91 mg/dL (65-105); MAGNESIUM 1.8 mg/dL (1.6-2.3); PHOSPHOROUS 3.3 mg/dL (2.5-4.5)
[2017-03-08 10:40] LABS: CHLORIDE 109 mmol/L (98-107); POTASSIUM 3.8 mmol/L (3.6-5.2); SODIUM 139 mmol/L (132-148)
[2017-03-08 10:43] LABS: BLOOD UREA NITROGEN 6 mg/dL (7-17); CARBON DIOXIDE 19 mmol/L (22-30); GFR AFRICAN-AMERICAN > 60; GLUCOSE,RANDOM 144 mg/dL (65-105)
[2017-03-08] MEDS: Insulin Detemir 100 units/ml Vial (Levemir) SC SCH ×2 (12:04→21:39)
[2017-03-08] MEDS: (Novolog) Insulin Aspart, Recombinant 100 u/ml 10 ml vial SC SCH ×3 (12:14→21:00)
[2017-03-08] MEDS ORDERED: Sodium Chloride 0.45% 1,000 ML IV SCH (14:15)
--- NOTE | 2017-03-08 15:40 | CP.PCM.PN ---
Subjective - Date & Time of Evaluation Date of Evaluation: 03/08/17 Time of Evaluation: 13:40 - Subjective Subjective: clinically same Objective - Vital Signs/Intake and Output Vital Signs (last 24 hours): Temp Pulse Resp BP Pulse Ox 97.7 F 104 H 18 138/81 99 03/08/17 12:00 03/08/17 14:17 03/08/17 14:17 03/08/17 14:17 03/08/17 14:17 Intake and Output: 03/08/17 03/08/17 06:59 18:59 Intake Total 1502 1148 Balance 1502 1148 - Medications Medications: Current Medications Heparin Sodium (Porcine) (Heparin) 5,000 units SC Q8 [facility] Last Admin: 03/08/17 14:51 Dose: Not Given Sodium Chloride (Sodium Chloride 0.45%) 1,000 mls @ 125 mls/hr IV .Q8H [facility] Last Admin: 03/08/17 15:00 Dose: 125 mls/hr Insulin Aspart (Novolog) 0 unit SC Q4 [facility] PRN Reason: Protocol Last Admin: 03/08/17 12:14 Dose: 2 unit Insulin Detemir (Levemir) 10 unit SC Q12 [facility] Last Admin: 03/08/17 12:04 Dose: 10 unit Ketorolac Tromethamine (Toradol) 30 mg IVP Q6 PRN PRN Reason: Pain, severe (8-10) Last Admin: 03/07/17 19:33 Dose: 30 mg Ondansetron HCl (Zofran Inj) 4 mg IVP DAILY@ONCE PRN PRN Reason: Nausea/Vomiting Last Admin: 03/07/17 18:38 Dose: 4 mg - Labs Labs: 03/08/17 06:31 03/08/17 10:22 - Constitutional Appears: Well - Head Exam Head Exam: ATRAUMATIC, NORMAL INSPECTION, NORMOCEPHALIC - Eye Exam Eye Exam: EOMI, Normal appearance, PERRL Pupil Exam: NORMAL ACCOMODATION, PERRL - ENT Exam ENT Exam: Mucous Membranes Moist, Normal Exam - Neck Exam Neck Exam: Full ROM, Normal Inspection. absent: Lymphadenopathy - Respiratory Exam Respiratory Exam: Decreased Breath Sounds - Cardiovascular Exam Cardiovascular Exam: REGULAR RHYTHM, +S1, +S2 - GI/Abdominal Exam GI & Abdominal Exam: Soft, Diminished Bowel Sounds - Rectal Exam Rectal Exam: Deferred
[2017-03-08] MEDS: Sodium Chloride 0.45% 1,000 ML IV SCH (16:56)
[2017-03-09] MEDS: (Novolog) Insulin Aspart, Recombinant 100 u/ml 10 ml vial SC SCH ×2 (00:57→04:38)
--- NOTE | 2017-03-09 01:36 | CON ---
DATE: ENDOCRINOLOGY CONSULTATION LOCATION: ICU, room #16 HISTORY OF PRESENT ILLNESS: This is a 26-year-old female with known history of type 1 insulin-dependent diabetes, currently on the Medtronic insulin pump, who presents here with intractable nausea, vomiting and diarrhea, most likely related to food poisoning after partaking leftover chili and presented here with diabetic ketoacidosis and dehydration. She is being referred now for endocrine evaluation and management. PAST MEDICAL HISTORY: As mentioned above, history of type 1 insulin-dependent diabetes diagnosed since age 10 and has been switched over to a Medtronic insulin pump since the early part of this year using Apidra, rapid-acting insulin for her pump. She was apparently doing fairly well as per the patient on her insulin pump with occasionally glycemic fluctuations till the present time. History of dyslipidemia, currently on Lipitor given as 40 mg once daily. She actually follows with Dr. Tiana Fowler at the [facility] for her endocrine outpatient followup. FAMILY HISTORY: Positive for diabetes and hypertension. SOCIAL HISTORY: The patient has supportive family. No known substance use. REVIEW OF SYSTEMS: As mentioned above, admits to generalized body weakness with easy fatigability and tiredness and suboptimal energy level, also admits to episodic bouts of dizziness and lightheadedness, worse on the day of admission. No chest pains, palpitations or PNDs. Her oral intake has been variable and suboptimal with sudden onset of nausea, dyspepsia and intractable vomiting episode followed by loose to watery diarrhea. Also admits to persistent polyuria and nocturia as noted. PHYSICAL EXAMINATION: GENERAL: This is an average built female, in no apparent distress. VITAL SIGNS: Blood pressure of 140/80, pulse of 70 beats per minute and regular, temperature 98 and respirations 20. Height is 5 feet 1 inch and weight is 142 pounds. HEENT: Head normocephalic. Eyes are anicteric with pink conjunctivae. Funduscopy not possible at this time. Ears, nose and throat otherwise normal. NECK: Supple. Thyroid gland is normal size. No carotid bruits or any cervical adenopathy. CARDIOPULMONARY: Exam reveal an adynamic precordium. S1 and S2 is rapid and regular. LUNGS: Clear to auscultation. ABDOMEN: Flat and soft with positive bowel sounds. EXTREMITIES: No peripheral edema. Pulses are +2 bilaterally. LABORATORY DATA: Her current chemistry showed a BUN of 8, sodium 141, potassium 3.5, chloride 111, CO2 of 18, glucose 91 and creatinine 0.5. Her glucose levels have raised from 181 to 255 and 272 mg/dL. Her initial CO2 was actually was 13, but came down to 10 when in the ICU. ASSESSMENT: This is a 26-year-old female with uncontrolled and decompensated type 1 insulin-dependent diabetes, presented here with diabetic ketoacidosis and dehydration and possible acute food poisoning as noted and mentioned. PLAN: Plan of management as discussed with the patient and the staff. The imperative need for tighter metabolic control that be over-emphasized especially that she is type 1 diabetic on the Medtronic insulin pump, which could really help her achieve near optimal metabolic control of her diabetic condition as noted. We will actually allow the patient to bring her insulin pump from home, so we can establish and will resume her usage of the insulin pump while in the hospital as discussed today at bedside. We will allow the patient to self-adjust her own basal and bolus insulin regimen as ordered. We will restart the vigorous IV hydration at this time as the patient still has mild ketosis and the most important at this point vigorous IV hydration and intensive insulin therapy as given. She has been started on a Levemir dosing of 10 units every 12 hours and Novolog given every 4 hours as ordered. However, if the patient has already started partaking of her meals, then we will need a more physiologic basal and bolus insulin regimen to achieve near optimal metabolic control. If she cannot bring her insulin pump into the hospital, then we will switch her over to a basal and bolus insulin drug combination as ordered. We will follow her and advise accordingly. Mallika Pisano MD
[2017-03-09 06:13] VITALS: TEMP 98.2; O2SAT 99
[2017-03-09] MEDS: Sodium Chloride 0.45% 1,000 ML IV SCH (06:53)
[2017-03-09 08:41] VITALS: BP 139/77; PULSE 86; RESP 20
[2017-03-09 09:22] LABS: CHLORIDE 105 mmol/L (98-107); SODIUM 138 mmol/L (132-148)
[2017-03-09 09:23] LABS: POTASSIUM 3.9 mmol/L (3.6-5.2)
[2017-03-09 09:25] LABS: ALB/GLOB RATIO 1.3 (1.0-2.1); ALKALINE PHOSPHATASE 51 U/L (38-126); AST/SGOT 18 U/L (14-36); BILIRUBIN,TOTAL 0.4 mg/dL (0.2-1.3); BLOOD UREA NITROGEN 5 mg/dL (7-17); CARBON DIOXIDE 24 mmol/L (22-30); GFR AFRICAN-AMERICAN > 60; GLUCOSE,RANDOM 103 mg/dL (65-105); TOTAL PROTEIN 6.1 g/dL (6.3-8.3)
[2017-03-09 09:26] LABS: ALT/SGPT 36 U/L (9-52); CALCIUM 8.3 mg/dl (8.6-10.4); PHOSPHOROUS 3.5 mg/dL (2.5-4.5)
[2017-03-09 09:31] LABS: CORTISOL AM 9.8 ug/dL (4.46-22.7); THYROID STIMULATING HORMONE 1.88 mIU/L (0.46-4.68)
[2017-03-09] MEDS ORDERED: (Novolog) Insulin Aspart, Recombinant 100 u/ml 10 ml vial SC SCH ×2 (11:30)
--- NOTE | 2017-03-09 12:08 | PN ---
ENDO FOLLOWUP NOTE DATE: LOCATION: Room 365. SUBJECTIVE: This is a 26-year-old female with recent uncontrolled type 1 insulin-dependent diabetes presenting here with intractable vomiting and diarrhea related to possible food poisoning and was in diabetic ketoacidosis with dehydration as noted. She received vigorous IV hydration and intensive insulin therapy with an insulin drip infusion and since then been switched over to q.4 hourly glucose testing with Novolog coverage as ordered and Levemir given as 10 units with 12 hours given. Her latest glucose levels are ranged from 121 to 152 and 219 mg/dL. Her latest chemistry showed BUN of 5, sodium 138, potassium of 3.9, chloride 105, CO2 is 24, glucose is 103, and creatinine is 0.5. So, at this time, we will modify the current insulin regimen and switch her over to more physiologic basal and bolus insulin drug combination as ordered. We will modify her coverage pill using a low dose of algorithm, using Novolog insulin to cover only for glucose levels about 300 since we will initiate a preprandial insulin regimen as ordered. So, we will add Novolog given as 4 units subcu t.i.d. before meals to start at lunch time today as ordered. We will titrate incrementally as indicated to optimize metabolic control. We modify her basal insulin and increase the Levemir to 12 units subcu h.s. to start tonight as ordered. We will titrate incrementally as indicated to optimize metabolic control. We will also continue the IV hydration to fully replace her lost fluid and electrolytes accordingly and also since she came in with diabetic ketoacidosis as noted. We will obtain serial chemistries and supplement accordingly as needed. We will also discuss with the patient regarding the need to restart her Medtronic insulin pump with this admission or upon eventual discharge to home. It would be ideal if we could start the patient's insulin pump using Apidra insulin while in the hospital. We will obtain serial chemistries and supplement accordingly as needed. We will follow. Mallika Pisano MD
[2017-03-09] MEDS ORDERED: Insulin Detemir 100 units/ml Vial (Levemir) SC SCH (22:00)
== END 2017-03-09 15:04 | disposition left against medical advice (07) | DRG 295 ==
LOC: C.ER 12:14 → C.9E 14:20 → C.9I 14:55 → C.3T 03-09 00:44
PROVIDERS: ADMIT Internal Medicine Nephrology; ATTEND Internal Medicine Nephrology
DX: E10.10 Type 1 diabetes mellitus with ketoacidosis without coma (principal); K52.1 Toxic gastroenteritis and colitis; I10 Essential (primary) hypertension; E86.0 Dehydration; Z96.41 Presence of insulin pump (external) (internal); D50.9 Iron deficiency anemia, unspecified; F41.9 Anxiety disorder, unspecified; F32.9 Major depressive disorder, single episode, unspecified; E78.00 Pure hypercholesterolemia, unspecified; Z90.49 Acquired absence of other specified parts of digestive tract; Z91.19 Patient's noncompliance with other medical treatment and regimen; T62.91XA Toxic effect of unspecified noxious substance eaten as food, accidental (unintentional), initial encounter

== ENCOUNTER 2017-05-18 12:53 | Inpatient (IN) | payer OTHER ==
[2017-05-18 12:53] VITALS: BMI 28.3
[2017-05-18] MEDS ORDERED: Sodium Chloride 0.9% 1,000 ML IV ONE ×2 (13:47→15:03)
[2017-05-18] MEDS ORDERED: Sodium Chloride 0.9% 1,000 ML ONE (13:56)
[2017-05-18 14:20] LABS: BASO # 0.1 K/uL (0.0-0.2); BASO % 0.6 % (0.0-2.0); EOS % 0.2 % (0.0-4.0); HEMATOCRIT 38.2 % (34.0-47.0); LYMPH # 1.3 K/uL (1.0-4.3); LYMPH % 12.2 % (20.0-40.0); MEAN CELL VOLUME 86.8 fL (81.0-99.0); MEAN CORPUSCULAR HEMOGLOBIN 28.5 pg (27.0-31.0); MEAN CORPUSCULAR HGB CONC 32.9 g/dL (33.0-37.0); MEAN PLATELET VOLUME 9.2 fL (7.2-11.7); MONO # 0.3 K/uL (0.0-0.8); RED CELL DISTRIBUTION WIDTH 14.1 % (11.5-14.5); WHITE BLOOD COUNT 10.3 K/uL (4.8-10.8)
[2017-05-18 14:52] LABS: ALB/GLOB RATIO 1.1 (1.0-2.1); ALKALINE PHOSPHATASE 131 U/L (38-126); ALT/SGPT 36 U/L (9-52); AST/SGOT 21 U/L (14-36); BILIRUBIN,TOTAL 0.7 mg/dL (0.2-1.3); BLOOD UREA NITROGEN 18 mg/dL (7-17); CALCIUM 9.2 mg/dl (8.6-10.4); CARBON DIOXIDE 18 mmol/L (22-30); CHLORIDE 98 mmol/L (98-107); GFR AFRICAN-AMERICAN > 60; SODIUM 134 mmol/L (132-148); TOTAL PROTEIN 8.2 g/dL (6.3-8.3)
[2017-05-18 14:57] LABS: GLUCOSE,RANDOM 416 mg/dL (65-105)
[2017-05-18] MEDS ORDERED: (Novolin R) Insulin Human Regular 100 units/ml vial IV STA (15:02)
[2017-05-18 15:03] LABS: RBC URINE 16 /hpf (0-3); URINE BACTERIA RARE (<OCC); URINE BILIRUBIN NEGATIVE (NEGATIVE); URINE BLOOD 2+ (NEGATIVE); URINE COLOR Yellow (YELLOW); URINE GLUCOSE (UA) 3+ mg/dL (Normal); URINE KETONE 2+ mg/dL (NEGATIVE); URINE LEUKOCYTE ESTERASE NEG Leu/uL (Negative); URINE PROTEIN 2+ mg/dL (NEGATIVE); URINE UROBILINOGEN NORMAL mg/dL (0.2-1.0); WBC URINE 2 /hpf (0-5)
[2017-05-18] MEDS ORDERED: (Novolin R) Insulin Human Regular 100 units/ml vial ONE (15:22)
[2017-05-18 15:34] LABS: VENOUS BLOOD GAS BASE EXCESS -8.2 mmol/L (0.0-2.0); VENOUS BLOOD GAS PCO2 38 mmHg (40-60); VENOUS BLOOD PH 7.28 (7.32-7.43)
--- NOTE | 2017-05-18 15:40 | C.PDOC ---
History Of Present Illness Patient presents to ED c/o nausea/vomiting/diarrhea since approx 2am. She has h /o DM I, thinks her insulin pump stopped working overnight. She denies chest pain, SOB, cough, fever, dysuria/hematuria. Time Seen by Provider: 05/18/17 13:46 Chief Complaint (Nursing): Abdominal Pain History Per: Patient History/Exam Limitations: no limitations Onset/Duration Of Symptoms: Hrs Current Symptoms Are (Timing): Still Present Severity: Moderate Associated Symptoms: Chills, Nausea, Vomiting, Diarrhea Past Medical History Reviewed: Historical Data, Nursing Documentation, Vital Signs Vital Signs: Last Vital Signs Temp 98.3 F 05/22/17 08:00 Pulse 91 H 05/22/17 08:00 Resp 20 05/22/17 08:00 BP 146/85 05/22/17 08:00 Pulse Ox 100 05/22/17 08:00 - Medical History PMH: Anemia (low iron level), Anxiety, Depression, Diabetes, Gall Bladder Disease, HTN, Hypercholesterolemia Surgical History: Cholecystectomy - [facility] Procedures CLOSURE SKIN & SUBCUTANEOUS NEC (09/26/13) Family History: States: No Known Family Hx - Social History Hx Tobacco Use: No Hx Alcohol Use: Yes Hx Substance Use: No - Immunization History Hx Tetanus Toxoid Vaccination: No Hx Influenza Vaccination: No Hx Pneumococcal Vaccination: No Review Of Systems Except As Marked, All Systems Reviewed And Found Negative. Constitutional: Positive for: Chills Cardiovascular: Negative for: Chest Pain, Palpitations Respiratory: Negative for: Cough, Shortness of Breath Gastrointestinal: Positive for: Nausea, Vomiting, Diarrhea. Negative for: Abdominal Pain Genitourinary: Negative for: Dysuria, Hematuria Physical Exam - Physical Exam Appears: Well, Non-toxic, In Acute Distress (in moderate disocomfort, actively vomiting ) Skin: Warm, Dry Oral Mucosa: Dry Cardiovascular: Rhythm Regular Respiratory: Normal Breath Sounds, No Rales, No Rhonchi Gastrointestinal/Abdominal: Normal Exam, Bowel Sounds, Soft, No Tenderness Neurological/Psych: Oriented x3 ED Course And Treatment - Laboratory Results Result Diagrams: 05/22/17 07:06 05/22/17 07:06 O2 Sat by Pulse Oximetry: 98 (RA) Pulse Ox Interpretation: Normal Progress Note: Prior visits reviewed - patient has multiple prior visits for diabetic ketoacidosis. Blood work, UA, Upreg ordered and reviewed. Patient given IV NS bolus, IV insulin, IV zofran, IV protonix. Repeat BMP CO2 and anion gap worse - IV insulin drip ordered. 5:00pm- Dr. Mueller dining car waiter/waitress spoken with, will come and see patient. Dr. Trey Hatfield aware of admission to his service. - Physician Consult Information Physician Contacted: Bartolo Hatfield Outcome Of Conversation: Discussed patient with Dr. Hatfield, agrees with admission to his service for DKA. Social Media Assistant accepts patient for ICU admission. Critical Care Time - Critical Care Note Total Time (in mins): 45 Documented critical care: time excludes all time spent performing seperately billable procedures. Disposition - Disposition Disposition: HOSPITALIZED Disposition Time: 16:56 Condition: GUARDED - Clinical Impression Clinical Impression: DKA (diabetic ketoacidoses), Nausea, Vomiting Decision To Admit - Pt Status Changed To: Hospital Disposition Of: Inpatient - Admit Certification Admit to Inpatient:: After my assessment, the patient will require hospitalization for at least two midnights. This is because of the severity of symptoms shown, intensity of services needed, and/or the medical risk in this patient being treated as an outpatient. - InPatient: Physician Admission Certification:: see notes - . Bed Request Type: ICU Admitting Physician: Bartolo Hatfield Patient Diagnosis: DKA (diabetic ketoacidoses)
[2017-05-18 16:44] LABS: BLOOD UREA NITROGEN 16 mg/dL (7-17); CALCIUM 8.2 mg/dl (8.6-10.4); CARBON DIOXIDE 15 mmol/L (22-30); CHLORIDE 101 mmol/L (98-107); GFR AFRICAN-AMERICAN > 60; GLUCOSE,RANDOM 351 mg/dL (65-105); POTASSIUM 3.9 mmol/L (3.6-5.2); SODIUM 135 mmol/L (132-148)
[2017-05-18] MEDS ORDERED: Morphine 4 MG/ML VIAL ONE (17:06)
[2017-05-18] MEDS: Insulin Human Regular 100 UNIT in Sodium Chloride 0.9% 99 ML IV STA ×2 (17:17→17:53)
[2017-05-18] MEDS ORDERED: Insulin Human Regular 100 UNIT in Sodium Chloride 0.9% 99 ML IV STA (17:44)
[2017-05-18] MEDS: Potassium Ch 20mEq in D5W 1,000 ML IV SCH (18:50)
--- NOTE | 2017-05-18 19:51 | CP.PCM.CON ---
History of Present Illness - History of Present Illness History of Present Illness: 26 F with h/o type1 dm on insulin pump for last 8 months mentions that her glucose at home remains in range of 125-250mg/dl, came to ER with c/o nausea vomiting and increased glucose readings as high started since last night. She feels her pump was not working and she didn't hear the beep of low battery until she woke up past midnight she replaced the battery and gave her self bolus of insulin, still felt bad with nausea and vomiting. In ER her symptoms persisted despite initial hydration and iv insulin and slight worsening in the labs noticed, blood work significant for AG, low bicarb, hemoconcentration, hence patient started on insulin drip. As per her uses less then a unit of insulin as basal, and about 5 units of insulin pre meal. PMH as above PSH cholecystectom Allergies NKDA Family history not contributory Social denies alcohol, drugs smoking Meds insulin by pump, lisinopril 10mg daily Review of Systems - Review of Systems All systems: reviewed and no additional remarkable complaints except (HPI) Past Patient History - Infectious Disease Hx of Infectious Diseases: None - Past Medical History & Family History Past Medical History?: Yes - Past Social History Smoking Status: Never Smoked Alcohol: None Drugs: Denies Home Situation {Lives}: With Family Domestic Violence: Negative - CARDIAC Hx Hypercholesterolemia: Yes Hx Hypertension: Yes - PULMONARY Hx Respiratory Disorders: No Hx Asthma: No Hx Bronchitis: No Hx Chronic Obstructive Pulmonary Disease (COPD): No Hx Emphysema: No Hx Pneumonia: No Hx Pulmonary Embolism: No Hx Sleep Apnea: No - NEUROLOGICAL Hx Neurological Disorder: No Hx Alzheimer's Disease: No Hx Dementia: No Hx Migraine: No Hx Multiple Sclerosis: No Hx Parkinson's Disease: No Hx Seizures: No Hx Transient Ischemic Attacks (TIA): No - HEENT Hx HEENT Problems: No Hx Blind: No Hx Cataracts: No Hx Deafness: No Hx Difficulty Chewing: No Hx Epistaxis: No Hx Glaucoma: No Hx Macular Degeneration: No - RENAL Hx Chronic Kidney Disease: No Hx Kidney Stones: No - ENDOCRINE/METABOLIC Hx Endocrine Disorders: No Hx Hyperthyroidism: No Hx Hypothyroidism: No - HEMATOLOGICAL/ONCOLOGICAL Hx Anemia: Yes (low iron level) - INTEGUMENTARY Hx Dermatological Problems: No Hx Basil Cell: No Hx Bronson: No Hx Cellulitis: No Hx Eczema: No Hx Melanoma: No Hx Psoriasis: No Hx Squamous Cell: No - MUSCULOSKELETAL/RHEUMATOLOGICAL Hx Musculoskeletal Disorders: No Hx Arthritis: No Hx Falls: No Hx Fractures: No Hx Osteoporosis: No Hx Rheumatoid Arthritis: No - GASTROINTESTINAL Hx Gall Bladder Disease: Yes - GENITOURINARY/GYNECOLOGICAL Hx Genitourinary Disorders: No Hx Sexually Transmitted Disorders: No - PSYCHIATRIC Hx Anxiety: Yes Hx Depression: Yes Hx Substance Use: No - SURGICAL HISTORY Hx Cholecystectomy: Yes - ANESTHESIA Hx Anesthesia: Yes Hx Anesthesia Reactions: No Hx Malignant Hyperthermia: No Meds Allergies/Adverse Reactions: Allergies Allergy/AdvReac Type Severity Reaction Status Date / Time No Known Allergies Allergy Verified 05/18/17 14:16 - Medications Medications: Current Medications Insulin Human Regular 100 unit (/ Sodium Chloride) 100 mls @ 2 mls/hr IV .Q24H STA PRN Reason: Protocol Stop: 05/19/17 16:47 Last Admin: 05/18/17 17:20 Dose: 2 units/hr, 2 mls/hr Potassium Chloride/Dextrose (Potassium Chl 20 Meq In D5w) 1,000 mls @ 150 mls/ hr IV .Q6H40M [facility] Last Admin: 05/18/17 18:50 Dose: 150 mls/hr Ondansetron HCl (Zofran Inj) 4 mg IVP Q6 PRN PRN Reason: Nausea/Vomiting Pantoprazole Sodium (Protonix Inj) 40 mg IVP DAILY [facility] Physical Exam - Additional Findings Additional findings: * HEENT KASANDRA * Neck Supple * Chest clear * CVS Regular, no gallop or rub * PA soft bs present, mild epigastric tenderness * Ext no edema * Skin normal turgor * HOLE DIGGER awake oriented x3 no fnd Results - Vital Signs Recent Vital Signs: Last Vital Signs Temp 97.7 F 05/18/17 14:13 Pulse 90 05/18/17 18:56 Resp 16 05/18/17 18:56 BP 157/77 H 05/18/17 18:56 Pulse Ox 100 05/18/17 18:56 - Labs Result Diagrams: 05/18/17 14:11 05/18/17 16:29 Labs: Laboratory Results - last 24 hr 05/18/17 05/18/17 05/18/17 13:28 14:11 14:11 WBC 10.3 RBC 4.40 Hgb 12.5 D Hct 38.2 MCV 86.8 MCH 28.5 MCHC 32.9 L RDW 14.1 Plt Count 283 MPV 9.2 Neut % (Auto) 84.0 H Lymph % (Auto) 12.2 L [place] % (Auto) 3.0 Eos % (Auto) 0.2 Baso % (Auto) 0.6 Neut # 8.7 H Lymph # 1.3 [place] # 0.3 Eos # 0.0 Baso # 0.1 pO2 VBG pH VBG pCO2 VBG HCO3 VBG Total CO2 VBG O2 Sat (Calc) VBG Base Excess VBG Potassium Glucose Lactate Crit Value Called To Crit Value Called By Crit Value Read Back Blood Gas Notified Time Sodium 134 Potassium 4.0 Chloride 98 Carbon Dioxide 18 L Anion Gap 21 H BUN 18 H Creatinine 0.6 L Est GFR ( Amer) > 60 Est GFR (Non-Af Amer) > 60 POC Glucose (mg/dL) 296 H Random Glucose 416 H* D Calcium 9.2 Total Bilirubin 0.7 AST 21 ALT 36 Alkaline Phosphatase 131 H D Total Protein 8.2 Albumin 4.3 Globulin 3.9 Albumin/Globulin Ratio 1.1 Lipase 61 Venous Blood Potassium Urine Color Urine Clarity Urine pH Ur Specific [place] Urine Protein Urine Glucose (UA) Urine Ketones Urine Blood Urine Nitrate Urine Bilirubin Urine Urobilinogen Ur Leukocyte Esterase Urine WBC (Auto) Urine RBC (Auto) Ur Squamous Epith Cells Urine Bacteria Urine HCG, Qual Serum Ketones Small 05/18/17 05/18/17 05/18/17 14:25 15:31 16:29 WBC RBC Hgb Hct MCV MCH MCHC RDW Plt Count MPV Neut % (Auto) Lymph % (Auto) [place] % (Auto) Eos % (Auto) Baso % (Auto) Neut # Lymph # [place] # Eos # Baso # pO2 53 VBG pH 7.28 L VBG pCO2 38 L VBG HCO3 18.1 VBG Total CO2 19.1 L VBG O2 Sat (Calc) 89.9 H VBG Base Excess -8.2 L VBG Potassium 4.0 Glucose 473 H* Lactate 2.8 H Crit Value Called To Maxim t Crit Value Called By Lendl Crit Value Read Back Y Blood Gas Notified Time 1534 Sodium 139.0 135 Potassium 3.9 Chloride 106.0 101 Carbon Dioxide 15 L Anion Gap 23 H BUN 16 Creatinine 0.5 L Est GFR ( Amer) > 60 Est GFR (Non-Af Amer) > 60 POC Glucose (mg/dL) Random Glucose 351 H Calcium 8.2 L Total Bilirubin AST ALT Alkaline Phosphatase Total Protein Albumin Globulin Albumin/Globulin Ratio Lipase Venous Blood Potassium 4.0 Urine Color Yellow Urine Clarity Hazy Urine pH 5.0 Ur Specific [place] 1.030 Urine Protein 2+ H Urine Glucose (UA) 3+ H Urine Ketones 2+ H Urine Blood 2+ H Urine Nitrate Negative Urine Bilirubin Negative Urine Urobilinogen Normal Ur Leukocyte Esterase Neg Urine WBC (Auto) 2 Urine RBC (Auto) 16 H Ur Squamous Epith Cells 8 H Urine Bacteria Rare Urine HCG, Qual Negative Serum Ketones 05/18/17 05/18/17 17:15 18:38 WBC RBC Hgb Hct MCV MCH MCHC RDW Plt Count MPV Neut % (Auto) Lymph % (Auto) [place] % (Auto) Eos % (Auto) Baso % (Auto) Neut # Lymph # [place] # Eos # Baso # pO2 VBG pH VBG pCO2 VBG HCO3 VBG Total CO2 VBG O2 Sat (Calc) VBG Base Excess VBG Potassium Glucose Lactate Crit Value Called To Crit Value Called By Crit Value Read Back Blood Gas Notified Time Sodium Potassium Chloride Carbon Dioxide Anion Gap BUN Creatinine Est GFR ( Amer) Est GFR (Non-Af Amer) POC Glucose (mg/dL) 326 H 288 H Random Glucose Calcium Total Bilirubin AST ALT Alkaline Phosphatase Total Protein Albumin Globulin Albumin/Globulin Ratio Lipase Venous Blood Potassium Urine Color Urine Clarity Urine pH Ur Specific [place] Urine Protein Urine Glucose (UA) Urine Ketones Urine Blood Urine Nitrate Urine Bilirubin Urine Urobilinogen Ur Leukocyte Esterase Urine WBC (Auto) Urine RBC (Auto) Ur Squamous Epith Cells Urine Bacteria Urine HCG, Qual Serum Ketones Assessment & Plan - Assessment and Plan (Free Text) Assessment: * Early DKA due to pump malfunction due to faulty battery * Clinical dehydration * Nausea vomiting likely due to above * Uncontrolled glucose despite using pump counselled about use and compliance Plan: * Insulin drip DKA protocol, hoping to correct ag by am and should be able to use her own pump * GI DVT prophylaxis * See orders for detail.
--- NOTE | 2017-05-18 23:39 | CP.PCM.HP ---
History of Present Illness - History of Present Illness History of Present Illness: A 26-year-old female with iron deficiency anemia, anxiety, depression, DM, HTN and hypercholesterolemia presents to the ER for C/Ovomiting. C/Ovomiting since 2 AM. Nonbilious, nonbloody, containing only for particles, 5-6 episodes. C/Onausea since 2 AM. C/Odiarrhea since 2 AM. Loose, watery, frequency of 6-7 since 2 AM in the morning. No C/Oabdominal pain, abdominal distention, bladder disturbance, yellowish discoloration of urine sclera, fever. Present on Admission - Present on Admission Any Indicators Present on Admission: No Past Patient History - Infectious Disease Hx of Infectious Diseases: None - Past Medical History & Family History Past Medical History?: Yes - Past Social History Smoking Status: Never Smoked - CARDIAC Hx Cardiac Disorders: Yes Hx Hypercholesterolemia: Yes Hx Hypertension: Yes - PULMONARY Hx Respiratory Disorders: No - NEUROLOGICAL Hx Neurological Disorder: No - HEENT Hx HEENT Problems: No - RENAL Hx Chronic Kidney Disease: No - ENDOCRINE/METABOLIC Hx Endocrine Disorders: Yes Hx Diabetes Mellitus Type 1: Yes - HEMATOLOGICAL/ONCOLOGICAL Hx Blood Disorders: Yes Hx Anemia: Yes (low iron level) - INTEGUMENTARY Hx Dermatological Problems: No - MUSCULOSKELETAL/RHEUMATOLOGICAL Hx Musculoskeletal Disorders: No Hx Falls: No - GASTROINTESTINAL Hx Gastrointestinal Disorders: Yes Hx Gall Bladder Disease: Yes - GENITOURINARY/GYNECOLOGICAL Hx Genitourinary Disorders: No - PSYCHIATRIC Hx Psychophysiologic Disorder: Yes Hx Anxiety: Yes Hx Depression: Yes Hx Substance Use: No - SURGICAL HISTORY Hx Surgeries: Yes Hx Cholecystectomy: Yes - ANESTHESIA Hx Anesthesia: Yes Hx Anesthesia Reactions: No Hx Malignant Hyperthermia: No Has any member of the family had a problem w/ anesthesia?: No Meds Allergies/Adverse Reactions: Allergies Allergy/AdvReac Type Severity Reaction Status Date / Time No Known Allergies Allergy Verified 05/18/17 14:16 Results - Vital Signs Recent Vital Signs: Last Vital Signs Temp 98.6 F 05/18/17 21:00 Pulse 94 H 05/18/17 22:39 Resp 18 05/18/17 22:39 BP 159/76 H 05/18/17 22:39 Pulse Ox 100 05/18/17 22:39 - Labs Result Diagrams: 05/21/17 07:58 05/21/17 07:58 Labs: Laboratory Results - last 24 hr 05/18/17 05/18/17 05/18/17 13:28 14:11 14:11 WBC 10.3 RBC 4.40 Hgb 12.5 D Hct 38.2 MCV 86.8 MCH 28.5 MCHC 32.9 L RDW 14.1 Plt Count 283 MPV 9.2 Neut % (Auto) 84.0 H Lymph % (Auto) 12.2 L [place] % (Auto) 3.0 Eos % (Auto) 0.2 Baso % (Auto) 0.6 Neut # 8.7 H Lymph # 1.3 [place] # 0.3 Eos # 0.0 Baso # 0.1 pO2 VBG pH VBG pCO2 VBG HCO3 VBG Total CO2 VBG O2 Sat (Calc) VBG Base Excess VBG Potassium Glucose Lactate Crit Value Called To Crit Value Called By Crit Value Read Back Blood Gas Notified Time Sodium 134 Potassium 4.0 Chloride 98 Carbon Dioxide 18 L Anion Gap 21 H BUN 18 H Creatinine 0.6 L Est GFR ( Amer) > 60 Est GFR (Non-Af Amer) > 60 POC Glucose (mg/dL) 296 H Random Glucose 416 H* D Calcium 9.2 Total Bilirubin 0.7 AST 21 ALT 36 Alkaline Phosphatase 131 H D Total Protein 8.2 Albumin 4.3 Globulin 3.9 Albumin/Globulin Ratio 1.1 Lipase 61 Venous Blood Potassium Urine Color Urine Clarity Urine pH Ur Specific [place] Urine Protein Urine Glucose (UA) Urine Ketones Urine Blood Urine Nitrate Urine Bilirubin Urine Urobilinogen Ur Leukocyte Esterase Urine WBC (Auto) Urine RBC (Auto) Ur Squamous Epith Cells Urine Bacteria Urine HCG, Qual Serum Ketones Small 05/18/17 05/18/17 05/18/17 14:25 15:31 16:29 WBC RBC Hgb Hct MCV MCH MCHC RDW Plt Count MPV Neut % (Auto) Lymph % (Auto) [place] % (Auto) Eos % (Auto) Baso % (Auto) Neut # Lymph # [place] # Eos # Baso # pO2 53 VBG pH 7.28 L VBG pCO2 38 L VBG HCO3 18.1 VBG Total CO2 19.1 L VBG O2 Sat (Calc) 89.9 H VBG Base Excess -8.2 L VBG Potassium 4.0 Glucose 473 H* Lactate 2.8 H Crit Value Called To jaja Pan Crit Value Called By [employer] Crit Value Read Back Y Blood Gas Notified Time 1534 Sodium 139.0 135 Potassium 3.9 Chloride 106.0 101 Carbon Dioxide 15 L Anion Gap 23 H BUN 16 Creatinine 0.5 L Est GFR ( Amer) > 60 Est GFR (Non-Af Amer) > 60 POC Glucose (mg/dL) Random Glucose 351 H Calcium 8.2 L Total Bilirubin AST ALT Alkaline Phosphatase Total Protein Albumin Globulin Albumin/Globulin Ratio Lipase Venous Blood Potassium 4.0 Urine Color Yellow Urine Clarity Hazy Urine pH 5.0 Ur Specific [place] 1.030 Urine Protein 2+ H Urine Glucose (UA) 3+ H Urine Ketones 2+ H Urine Blood 2+ H Urine Nitrate Negative Urine Bilirubin Negative Urine Urobilinogen Normal Ur Leukocyte Esterase Neg Urine WBC (Auto) 2 Urine RBC (Auto) 16 H Ur Squamous Epith Cells 8 H Urine Bacteria Rare Urine HCG, Qual Negative Serum Ketones 05/18/17 05/18/17 05/18/17 17:15 18:38 19:42 WBC RBC Hgb Hct MCV MCH MCHC RDW Plt Count MPV Neut % (Auto) Lymph % (Auto) [place] % (Auto) Eos % (Auto) Baso % (Auto) Neut # Lymph # [place] # Eos # Baso # pO2 VBG pH VBG pCO2 VBG HCO3 VBG Total CO2 VBG O2 Sat (Calc) VBG Base Excess VBG Potassium Glucose Lactate Crit Value Called To Crit Value Called By Crit Value Read Back Blood Gas Notified Time Sodium Potassium Chloride Carbon Dioxide Anion Gap BUN Creatinine Est GFR ( Amer) Est GFR (Non-Af Amer) POC Glucose (mg/dL) 326 H 288 H 295 H Random Glucose Calcium Total Bilirubin AST ALT Alkaline Phosphatase Total Protein Albumin Globulin Albumin/Globulin Ratio Lipase Venous Blood Potassium Urine Color Urine Clarity Urine pH Ur Specific [place] Urine Protein Urine Glucose (UA) Urine Ketones Urine Blood Urine Nitrate Urine Bilirubin Urine Urobilinogen Ur Leukocyte Esterase Urine WBC (Auto) Urine RBC (Auto) Ur Squamous Epith Cells Urine Bacteria Urine HCG, Qual Serum Ketones 05/18/17 05/18/17 05/18/17 20:50 21:58 23:07 WBC RBC Hgb Hct MCV MCH MCHC RDW Plt Count MPV Neut % (Auto) Lymph % (Auto) [place] % (Auto) Eos % (Auto) Baso % (Auto) Neut # Lymph # [place] # Eos # Baso # pO2 VBG pH VBG pCO2 VBG HCO3 VBG Total CO2 VBG O2 Sat (Calc) VBG Base Excess VBG Potassium Glucose Lactate Crit Value Called To Crit Value Called By Crit Value Read Back Blood Gas Notified Time Sodium Potassium Chloride Carbon Dioxide Anion Gap BUN Creatinine Est GFR ( Amer) Est GFR (Non-Af Amer) POC Glucose (mg/dL) 325 H 266 H 325 H Random Glucose Calcium Total Bilirubin AST ALT Alkaline Phosphatase Total Protein Albumin Globulin Albumin/Globulin Ratio Lipase Venous Blood Potassium Urine Color Urine Clarity Urine pH Ur Specific [place] Urine Protein Urine Glucose (UA) Urine Ketones Urine Blood Urine Nitrate Urine Bilirubin Urine Urobilinogen Ur Leukocyte Esterase Urine WBC (Auto) Urine RBC (Auto) Ur Squamous Epith Cells Urine Bacteria Urine HCG, Qual Serum Ketones
[2017-05-19 00:53] LABS: BLOOD UREA NITROGEN 14 mg/dL (7-17); CALCIUM 8.1 mg/dl (8.6-10.4); CARBON DIOXIDE 20 mmol/L (22-30); CHLORIDE 103 mmol/L (98-107); GFR AFRICAN-AMERICAN > 60; GLUCOSE,RANDOM 275 mg/dL (65-105); POTASSIUM 4.1 mmol/L (3.6-5.2); SODIUM 134 mmol/L (132-148)
[2017-05-19] MEDS: Potassium Ch 20mEq in D5W 1,000 ML IV SCH ×2 (02:04→07:32)
[2017-05-19 06:40] LABS: HEMATOCRIT 31.3 % (34.0-47.0); MEAN CELL VOLUME 86.4 fL (81.0-99.0); MEAN CORPUSCULAR HEMOGLOBIN 29.3 pg (27.0-31.0); MEAN CORPUSCULAR HGB CONC 33.9 g/dL (33.0-37.0); MEAN PLATELET VOLUME 9.5 fL (7.2-11.7); RED CELL DISTRIBUTION WIDTH 14.5 % (11.5-14.5); WHITE BLOOD COUNT 16.7 K/uL (4.8-10.8)
[2017-05-19 07:19] LABS: ALB/GLOB RATIO 1.4 (1.0-2.1); ALKALINE PHOSPHATASE 70 U/L (38-126); ALT/SGPT 30 U/L (9-52); AST/SGOT 17 U/L (14-36); BILIRUBIN,TOTAL 0.9 mg/dL (0.2-1.3); BLOOD UREA NITROGEN 13 mg/dL (7-17); CALCIUM 8.2 mg/dl (8.6-10.4); CARBON DIOXIDE 21 mmol/L (22-30); CHLORIDE 102 mmol/L (98-107); GFR AFRICAN-AMERICAN > 60; GLUCOSE,RANDOM 182 mg/dL (65-105); MAGNESIUM 1.8 mg/dL (1.6-2.3); PHOSPHOROUS 3.1 mg/dL (2.5-4.5); POTASSIUM 3.9 mmol/L (3.6-5.2); SODIUM 131 mmol/L (132-148); TOTAL PROTEIN 6.2 g/dL (6.3-8.3)
[2017-05-19] MEDS ORDERED: (Novolin R) Insulin Human Regular 100 units/ml vial SC SCH (11:30)
[2017-05-19] MEDS: Lactated Ringer's 1,000 ML IV SCH (11:39)
[2017-05-19] MEDS: (Novolin R) Insulin Human Regular 100 units/ml vial SC SCH ×5 (11:45→20:20)
--- NOTE | 2017-05-19 17:07 | CP.CCUPN ---
CCU Subjective - Physician Review Subjective (Free Text): PGY1 ICU Progress Note for Dr. Bernstein Patient seen and examined at bedside this morning. Patient states she is feeling well and is hungry. She is no longer feeling nauseous. Patient is hopeful that she will go home today, but understands when informed that she will be observed for at least one more night. Patient denies any complaints at this time. CCU Objective - Vital Signs / Intake & Output Vital Signs (Last 4 hours): Vital Signs Pulse Resp Pulse Ox 05/19/17 14:00 92 H 20 99 Intake and Output (Last 8hrs): Intake & Output 05/19/17 05/19/17 05/19/17 06:59 14:59 22:59 Intake Total 1254 1261 100 Output Total 500 0 Balance 754 1261 100 Weight 143 lb 6.4 oz Intake: IV 25 15 Intake, IV Amount 1229 1006 100 Left Antecubital 29 6 Left Hand 1200 1000 100 Oral 240 Output: Urine 500 0 Urine, Voided 500 0 Emesis 0 - Physical Exam Head: Positive for: Atraumatic, Normocephalic Pupils: Positive for: PERRL Extroacular Muscles: Positive for: EOMI Conjunctiva: Positive for: Normal Mouth: Positive for: Moist Mucous Membranes Respiratory/Chest: Positive for: Clear to Auscultation Cardiovascular: Positive for: Regular Rate and Rhythm Abdomen: Negative for: Tenderness, Distention Upper Extremity: Positive for: Normal Inspection Lower Extremity: Positive for: Normal Inspection Neurological: Positive for: GCS=15, CN II-XII Intact, Speech Normal Skin: Positive for: Warm, Dry Psychiatric: Positive for: Alert, Oriented x 3 - Medications Active Medications: Active Medications Generic Name Dose Route Start Last Admin Trade Name Freq PRN Reason Stop Dose Admin Lactated Ringer's 1,000 mls @ 100 mls/hr 05/19/17 11:00 05/19/17 11:39 Lactated Ringer's IV 100 mls/hr .Q10H [facility] Administration Insulin Human Regular 5 unit 05/19/17 11:30 05/19/17 16:48 Novolin R SC 5 unit ACTID [facility] Administration Insulin Human Regular 0 unit 05/19/17 12:45 05/19/17 16:46 Novolin R SC 3 unit Q4H [facility] Administration Protocol Ondansetron HCl 4 mg 05/18/17 17:40 05/18/17 22:28 Zofran Inj IVP 4 mg Q6 PRN Administration Nausea/Vomiting Pantoprazole Sodium 40 mg 05/19/17 10:00 05/19/17 10:05 Protonix Inj IVP 40 mg DAILY [facility] Administration - Patient Studies Lab Studies: Lab Studies 05/19/17 05/19/17 05/19/17 Range/Units 16:13 12:13 11:13 WBC (4.8-10.8) K/uL RBC (3.80-5.20) Mil/uL Hgb (11.0-16.0) g/dL Hct (34.0-47.0) % MCV (81.0-99.0) fL MCH (27.0-31.0) pg MCHC (33.0-37.0) g/dL RDW (11.5-14.5) % Plt Count (130-400) K/uL MPV (7.2-11.7) fL Sodium (132-148) mmol/L Potassium (3.6-5.2) mmol/L Chloride (98-107) mmol/L Carbon Dioxide (22-30) mmol/L Anion Gap (10-20) BUN (7-17) mg/dL Creatinine (0.7-1.2) mg/dL Est GFR ( Amer) Est GFR (Non-Af Amer) POC Glucose (mg/dL) 292 H 323 H 314 H (65-110) mg/dL Random Glucose (65-105) mg/dL Calcium (8.6-10.4) mg/dl Phosphorus (2.5-4.5) mg/dL Magnesium (1.6-2.3) mg/dL Total Bilirubin (0.2-1.3) mg/dL AST (14-36) U/L ALT (9-52) U/L Alkaline Phosphatase (38-126) U/L Total Protein (6.3-8.3) g/dL Albumin (3.5-5.0) g/dL Globulin (2.2-3.9) gm/dL Albumin/Globulin Ratio (1.0-2.1) 05/19/17 05/19/17 05/19/17 Range/Units 10:32 09:29 08:05 WBC (4.8-10.8) K/uL RBC (3.80-5.20) Mil/uL Hgb (11.0-16.0) g/dL Hct (34.0-47.0) % MCV (81.0-99.0) fL MCH (27.0-31.0) pg MCHC (33.0-37.0) g/dL RDW (11.5-14.5) % Plt Count (130-400) K/uL MPV (7.2-11.7) fL Sodium (132-148) mmol/L Potassium (3.6-5.2) mmol/L Chloride (98-107) mmol/L Carbon Dioxide (22-30) mmol/L Anion Gap (10-20) BUN (7-17) mg/dL Creatinine (0.7-1.2) mg/dL Est GFR ( Amer) Est GFR (Non-Af Amer) POC Glucose (mg/dL) 194 H 173 H 178 H (65-110) mg/dL Random Glucose (65-105) mg/dL Calcium (8.6-10.4) mg/dl Phosphorus (2.5-4.5) mg/dL Magnesium (1.6-2.3) mg/dL Total Bilirubin (0.2-1.3) mg/dL AST (14-36) U/L ALT (9-52) U/L Alkaline Phosphatase (38-126) U/L Total Protein (6.3-8.3) g/dL Albumin (3.5-5.0) g/dL Globulin (2.2-3.9) gm/dL Albumin/Globulin Ratio (1.0-2.1) 05/19/17 05/19/17 05/19/17 Range/Units 07:05 06:20 06:20 WBC 16.7 H D (4.8-10.8) K/uL RBC 3.62 L (3.80-5.20) Mil/uL Hgb 10.6 L (11.0-16.0) g/dL Hct 31.3 L (34.0-47.0) % MCV 86.4 (81.0-99.0) fL MCH 29.3 (27.0-31.0) pg MCHC 33.9 (33.0-37.0) g/dL RDW 14.5 (11.5-14.5) % Plt Count 262 (130-400) K/uL MPV 9.5 (7.2-11.7) fL Sodium 131 L (132-148) mmol/L Potassium 3.9 (3.6-5.2) mmol/L Chloride 102 (98-107) mmol/L Carbon Dioxide 21 L (22-30) mmol/L Anion Gap 13 (10-20) BUN 13 (7-17) mg/dL Creatinine 0.6 L (0.7-1.2) mg/dL Est GFR ( Amer) > 60 Est GFR (Non-Af Amer) > 60 POC Glucose (mg/dL) 179 H (65-110) mg/dL Random Glucose 182 H (65-105) mg/dL Calcium 8.2 L (8.6-10.4) mg/dl Phosphorus 3.1 (2.5-4.5) mg/dL Magnesium 1.8 (1.6-2.3) mg/dL Total Bilirubin 0.9 (0.2-1.3) mg/dL AST 17 (14-36) U/L ALT 30 (9-52) U/L Alkaline Phosphatase 70 (38-126) U/L Total Protein 6.2 L (6.3-8.3) g/dL Albumin 3.7 (3.5-5.0) g/dL Globulin 2.6 (2.2-3.9) gm/dL Albumin/Globulin Ratio 1.4 (1.0-2.1) 05/19/17 05/19/17 05/19/17 Range/Units 06:15 05:10 04:08 WBC (4.8-10.8) K/uL RBC (3.80-5.20) Mil/uL Hgb (11.0-16.0) g/dL Hct (34.0-47.0) % MCV (81.0-99.0) fL MCH (27.0-31.0) pg MCHC (33.0-37.0) g/dL RDW (11.5-14.5) % Plt Count (130-400) K/uL MPV (7.2-11.7) fL Sodium (132-148) mmol/L Potassium (3.6-5.2) mmol/L Chloride (98-107) mmol/L Carbon Dioxide (22-30) mmol/L Anion Gap (10-20) BUN (7-17) mg/dL Creatinine (0.7-1.2) mg/dL Est GFR ( Amer) Est GFR (Non-Af Amer) POC Glucose (mg/dL) 208 H 220 H 242 H (65-110) mg/dL Random Glucose (65-105) mg/dL Calcium (8.6-10.4) mg/dl Phosphorus (2.5-4.5) mg/dL Magnesium (1.6-2.3) mg/dL Total Bilirubin (0.2-1.3) mg/dL AST (14-36) U/L ALT (9-52) U/L Alkaline Phosphatase (38-126) U/L Total Protein (6.3-8.3) g/dL Albumin (3.5-5.0) g/dL Globulin (2.2-3.9) gm/dL Albumin/Globulin Ratio (1.0-2.1) 05/19/17 05/19/17 05/19/17 Range/Units 03:10 02:07 01:11 WBC (4.8-10.8) K/uL RBC (3.80-5.20) Mil/uL Hgb (11.0-16.0) g/dL Hct (34.0-47.0) % MCV (81.0-99.0) fL MCH (27.0-31.0) pg MCHC (33.0-37.0) g/dL RDW (11.5-14.5) % Plt Count (130-400) K/uL MPV (7.2-11.7) fL Sodium (132-148) mmol/L Potassium (3.6-5.2) mmol/L Chloride (98-107) mmol/L Carbon Dioxide (22-30) mmol/L Anion Gap (10-20) BUN (7-17) mg/dL Creatinine (0.7-1.2) mg/dL Est GFR ( Amer) Est GFR (Non-Af Amer) POC Glucose (mg/dL) 212 H 249 H 272 H (65-110) mg/dL Random Glucose (65-105) mg/dL Calcium (8.6-10.4) mg/dl Phosphorus (2.5-4.5) mg/dL Magnesium (1.6-2.3) mg/dL Total Bilirubin (0.2-1.3) mg/dL AST (14-36) U/L ALT (9-52) U/L Alkaline Phosphatase (38-126) U/L Total Protein (6.3-8.3) g/dL Albumin (3.5-5.0) g/dL Globulin (2.2-3.9) gm/dL Albumin/Globulin Ratio (1.0-2.1) 05/19/17 05/19/17 05/18/17 Range/Units 00:23 00:04 23:07 WBC (4.8-10.8) K/uL RBC (3.80-5.20) Mil/uL Hgb (11.0-16.0) g/dL Hct (34.0-47.0) % MCV (81.0-99.0) fL MCH (27.0-31.0) pg MCHC (33.0-37.0) g/dL RDW (11.5-14.5) % Plt Count (130-400) K/uL MPV (7.2-11.7) fL Sodium 134 (132-148) mmol/L Potassium 4.1 (3.6-5.2) mmol/L Chloride 103 (98-107) mmol/L Carbon Dioxide 20 L (22-30) mmol/L Anion Gap 15 (10-20) BUN 14 (7-17) mg/dL Creatinine 0.5 L (0.7-1.2) mg/dL Est GFR ( Amer) > 60 Est GFR (Non-Af Amer) > 60 POC Glucose (mg/dL) 316 H 325 H (65-110) mg/dL Random Glucose 275 H (65-105) mg/dL Calcium 8.1 L (8.6-10.4) mg/dl Phosphorus (2.5-4.5) mg/dL Magnesium (1.6-2.3) mg/dL Total Bilirubin (0.2-1.3) mg/dL AST (14-36) U/L ALT (9-52) U/L Alkaline Phosphatase (38-126) U/L Total Protein (6.3-8.3) g/dL Albumin (3.5-5.0) g/dL Globulin (2.2-3.9) gm/dL Albumin/Globulin Ratio (1.0-2.1) 05/18/17 05/18/17 05/18/17 Range/Units 21:58 20:50 19:42 WBC (4.8-10.8) K/uL RBC (3.80-5.20) Mil/uL Hgb (11.0-16.0) g/dL Hct (34.0-47.0) % MCV (81.0-99.0) fL MCH (27.0-31.0) pg MCHC (33.0-37.0) g/dL RDW (11.5-14.5) % Plt Count (130-400) K/uL MPV (7.2-11.7) fL Sodium (132-148) mmol/L Potassium (3.6-5.2) mmol/L Chloride (98-107) mmol/L Carbon Dioxide (22-30) mmol/L Anion Gap (10-20) BUN (7-17) mg/dL Creatinine (0.7-1.2) mg/dL Est GFR ( Amer) Est GFR (Non-Af Amer) POC Glucose (mg/dL) 266 H 325 H 295 H (65-110) mg/dL Random Glucose (65-105) mg/dL Calcium (8.6-10.4) mg/dl Phosphorus (2.5-4.5) mg/dL Magnesium (1.6-2.3) mg/dL Total Bilirubin (0.2-1.3) mg/dL AST (14-36) U/L ALT (9-52) U/L Alkaline Phosphatase (38-126) U/L Total Protein (6.3-8.3) g/dL Albumin (3.5-5.0) g/dL Globulin (2.2-3.9) gm/dL Albumin/Globulin Ratio (1.0-2.1) 05/18/17 05/18/17 Range/Units 18:38 17:15 WBC (4.8-10.8) K/uL RBC (3.80-5.20) Mil/uL Hgb (11.0-16.0) g/dL Hct (34.0-47.0) % MCV (81.0-99.0) fL MCH (27.0-31.0) pg MCHC (33.0-37.0) g/dL RDW (11.5-14.5) % Plt Count (130-400) K/uL MPV (7.2-11.7) fL Sodium (132-148) mmol/L Potassium (3.6-5.2) mmol/L Chloride (98-107) mmol/L Carbon Dioxide (22-30) mmol/L Anion Gap (10-20) BUN (7-17) mg/dL Creatinine (0.7-1.2) mg/dL Est GFR ( Amer) Est GFR (Non-Af Amer) POC Glucose (mg/dL) 288 H 326 H (65-110) mg/dL Random Glucose (65-105) mg/dL Calcium (8.6-10.4) mg/dl Phosphorus (2.5-4.5) mg/dL Magnesium (1.6-2.3) mg/dL Total Bilirubin (0.2-1.3) mg/dL AST (14-36) U/L ALT (9-52) U/L Alkaline Phosphatase (38-126) U/L Total Protein (6.3-8.3) g/dL Albumin (3.5-5.0) g/dL Globulin (2.2-3.9) gm/dL Albumin/Globulin Ratio (1.0-2.1) Laboratory Results - last 24 hr 05/18/17 05/18/17 05/18/17 17:15 18:38 19:42 WBC RBC Hgb Hct MCV MCH MCHC RDW Plt Count MPV Sodium Potassium Chloride Carbon Dioxide Anion Gap BUN Creatinine Est GFR ( Amer) Est GFR (Non-Af Amer) POC Glucose (mg/dL) 326 H 288 H 295 H Random Glucose Calcium Phosphorus Magnesium Total Bilirubin AST ALT Alkaline Phosphatase Total Protein Albumin Globulin Albumin/Globulin Ratio 05/18/17 05/18/17 05/18/17 20:50 21:58 23:07 WBC RBC Hgb Hct MCV MCH MCHC RDW Plt Count MPV Sodium Potassium Chloride Carbon Dioxide Anion Gap BUN Creatinine Est GFR ( Amer) Est GFR (Non-Af Amer) POC Glucose (mg/dL) 325 H 266 H 325 H Random Glucose Calcium Phosphorus Magnesium Total Bilirubin AST ALT Alkaline Phosphatase Total Protein Albumin Globulin Albumin/Globulin Ratio 05/19/17 05/19/17 05/19/17 00:04 00:23 01:11 WBC RBC Hgb Hct MCV MCH MCHC RDW Plt Count MPV Sodium 134 Potassium 4.1 Chloride 103 Carbon Dioxide 20 L Anion Gap 15 BUN 14 Creatinine 0.5 L Est GFR ( Amer) > 60 Est GFR (Non-Af Amer) > 60 POC Glucose (mg/dL) 316 H 272 H Random Glucose 275 H Calcium 8.1 L Phosphorus Magnesium Total Bilirubin AST ALT Alkaline Phosphatase Total Protein Albumin Globulin Albumin/Globulin Ratio 05/19/17 05/19/17 05/19/17 02:07 03:10 04:08 WBC RBC Hgb Hct MCV MCH MCHC RDW Plt Count MPV Sodium Potassium Chloride Carbon Dioxide Anion Gap BUN Creatinine Est GFR ( Amer) Est GFR (Non-Af Amer) POC Glucose (mg/dL) 249 H 212 H 242 H Random Glucose Calcium Phosphorus Magnesium Total Bilirubin AST ALT Alkaline Phosphatase Total Protein Albumin Globulin Albumin/Globulin Ratio 05/19/17 05/19/17 05/19/17 05:10 06:15 06:20 WBC 16.7 H D RBC 3.62 L Hgb 10.6 L Hct 31.3 L MCV 86.4 MCH 29.3 MCHC 33.9 RDW 14.5 Plt Count 262 MPV 9.5 Sodium Potassium Chloride Carbon Dioxide Anion Gap BUN Creatinine Est GFR ( Amer) Est GFR (Non-Af Amer) POC Glucose (mg/dL) 220 H 208 H Random Glucose Calcium Phosphorus Magnesium Total Bilirubin AST ALT Alkaline Phosphatase Total Protein Albumin Globulin Albumin/Globulin Ratio 05/19/17 05/19/17 05/19/17 06:20 07:05 08:05 WBC RBC Hgb Hct MCV MCH MCHC RDW Plt Count MPV Sodium 131 L Potassium 3.9 Chloride 102 Carbon Dioxide 21 L Anion Gap 13 BUN 13 Creatinine 0.6 L Est GFR ( Amer) > 60 Est GFR (Non-Af Amer) > 60 POC Glucose (mg/dL) 179 H 178 H Random Glucose 182 H Calcium 8.2 L Phosphorus 3.1 Magnesium 1.8 Total Bilirubin 0.9 AST 17 ALT 30 Alkaline Phosphatase 70 Total Protein 6.2 L Albumin 3.7 Globulin 2.6 Albumin/Globulin Ratio 1.4 05/19/17 05/19/17 05/19/17 09:29 10:32 11:13 WBC RBC Hgb Hct MCV MCH MCHC RDW Plt Count MPV Sodium Potassium Chloride Carbon Dioxide Anion Gap BUN Creatinine Est GFR ( Amer) Est GFR (Non-Af Amer) POC Glucose (mg/dL) 173 H 194 H 314 H Random Glucose Calcium Phosphorus Magnesium Total Bilirubin AST ALT Alkaline Phosphatase Total Protein Albumin Globulin Albumin/Globulin Ratio 05/19/17 05/19/17 12:13 16:13 WBC RBC Hgb Hct MCV MCH MCHC RDW Plt Count MPV Sodium Potassium Chloride Carbon Dioxide Anion Gap BUN Creatinine Est GFR ( Amer) Est GFR (Non-Af Amer) POC Glucose (mg/dL) 323 H 292 H Random Glucose Calcium Phosphorus Magnesium Total Bilirubin AST ALT Alkaline Phosphatase Total Protein Albumin Globulin Albumin/Globulin Ratio Fingerstick Blood Sugar Results: 292 Review of Systems - Review of Systems All systems: reviewed and no additional remarkable complaints except (as per HPI ) Critical Care Progress Note - Nutrition Nutrition: Nutrition Category Date Time Status Consistent Carbohydrate [DIET] Diets 05/19/17 Lunch Active Assessment/Plan - Assessment and Plan (Free Text) Assessment: Patient is a 26 year old female with early DKA. Plan: Endo: Early stages of DKA Insulin drip discontinued Started on Novolog 5u SC ACTID ISS SC q4 Lactated Ringers @100mL/hr Carb consistent diet Prophylactic: Patient is ambulatory GI: Protonix 40mg IVP daily Patient stable. Patient to be transferred to Med-Surg floor. Case discussed with Dr. Day Barahona Ondina PGY1
--- NOTE | 2017-05-19 20:13 | CP.PCM.PN ---
Subjective - Date & Time of Evaluation Date of Evaluation: 05/19/17 Time of Evaluation: 14:20 - Subjective Subjective: clinically same Objective - Vital Signs/Intake and Output Vital Signs (last 24 hours): Temp Pulse Resp BP Pulse Ox 98.5 F 100 H 21 134/76 100 05/19/17 16:00 05/19/17 18:00 05/19/17 18:00 05/19/17 17:54 05/19/17 18:00 Intake and Output: 05/19/17 05/20/17 18:59 06:59 Intake Total 1911 Output Total 800 Balance 1111 - Medications Medications: Current Medications Lactated Ringer's (Lactated Ringer's) 1,000 mls @ 100 mls/hr IV .Q10H [facility] Last Admin: 05/19/17 11:39 Dose: 100 mls/hr Insulin Human Regular (Novolin R) 5 unit SC ACTID [facility] Last Admin: 05/19/17 16:48 Dose: 5 unit Insulin Human Regular (Novolin R) 0 unit SC Q4H [facility] PRN Reason: Protocol Last Admin: 05/19/17 16:46 Dose: 3 unit Ondansetron HCl (Zofran Inj) 4 mg IVP Q6 PRN PRN Reason: Nausea/Vomiting Last Admin: 05/18/17 22:28 Dose: 4 mg Pantoprazole Sodium (Protonix Inj) 40 mg IVP DAILY [facility] Last Admin: 05/19/17 10:05 Dose: 40 mg - Labs Labs: 05/19/17 06:20 05/19/17 06:20 - Constitutional Appears: Well - Head Exam Head Exam: ATRAUMATIC, NORMAL INSPECTION, NORMOCEPHALIC - Eye Exam Eye Exam: EOMI, Normal appearance, PERRL Pupil Exam: NORMAL ACCOMODATION, PERRL - ENT Exam ENT Exam: Mucous Membranes Moist, Normal Exam - Neck Exam Neck Exam: Full ROM, Normal Inspection. absent: Lymphadenopathy - Respiratory Exam Respiratory Exam: Clear to Ausculation Bilateral, NORMAL BREATHING PATTERN - Cardiovascular Exam Cardiovascular Exam: REGULAR RHYTHM, +S1, +S2. absent: Murmur - GI/Abdominal Exam GI & Abdominal Exam: Soft, Normal Bowel Sounds. absent: Tenderness - Rectal Exam Rectal Exam: Deferred - Extremities Exam Extremities Exam: Full ROM, Normal Capillary Refill, Normal Inspection. absent : Joint Swelling, Pedal Edema - Back Exam Back Exam: NORMAL INSPECTION Assessment and Plan (1) Abdominal pain Status: Acute (2) Alcoholic ketoacidosis Status: Acute (3) DKA (diabetic ketoacidoses) Status: Acute (4) DKA, type 1 Status: Acute (5) Dental caries Status: Acute (6) Diabetes Status: Acute (7) Diarrhea Status: Acute (8) Esophagitis Status: Acute (9) Finger laceration Status: Acute (10) Gastritis Status: Acute (11) Hypercholesteremia Status: Acute (12) Hypokalemia Status: Acute (13) Iron deficiency Status: Acute (14) Low TSH level Status: Acute (15) Ovarian cyst Status: Acute (16) Pneumonia Status: Acute (17) Prophylactic measure Status: Acute (18) Pyelonephritis Status: Acute (19) Type 1 diabetes mellitus Status: Acute (20) Visit for wound check Status: Acute (21) Vomiting Status: Acute (22) Vomiting alone Status: Acute (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 Patient better. No complaint of nausea vomiting. Patient is able to eat for properly. Continue insulin. Continue supportive care.
[2017-05-20] MEDS: (Novolin R) Insulin Human Regular 100 units/ml vial SC SCH ×2 (01:14→04:15)
[2017-05-20] MEDS: Lactated Ringer's 1,000 ML IV SCH (07:00)
[2017-05-20] MEDS ORDERED: Dextrose 50% SYRINGE Inj (50 ml) IV PRN (07:13)
[2017-05-20] MEDS ORDERED: Glucagon Recombinant 1 mg Inj IM PRN (07:13)
[2017-05-20] MEDS ORDERED: (Novolog) Insulin Aspart, Recombinant 100 u/ml 10 ml vial SC PRN ×2 (07:13→16:30)
--- NOTE | 2017-05-20 07:29 | CP.PCM.PN ---
<Jace Harley - Last Filed: 05/20/17 10:04> Subjective - Date & Time of Evaluation Date of Evaluation: 05/20/17 Time of Evaluation: 07:29 - Subjective Subjective: PGY2 Note for Dr. Trey Hatfield; all management as per Dr. Trey Hatfield Patient is a ferry terminal agent type 1 diabetic; states that she needs a battery for her insulin pump and that it stopped working while she was sleeping which sent her into DKA; last time she was in DKA was 3 months ago when she got sick. Today she is complaining of mild nausea which is controlled with zofran. Patient is upset she did not get her long acting insulin before leaving the ICU and was not given appropriate coverage while on the floor either. She denies all other symptoms. Objective - Vital Signs/Intake and Output Vital Signs (last 24 hours): Temp Pulse Resp BP Pulse Ox 98.4 F 73 20 130/74 99 05/20/17 00:00 05/20/17 00:00 05/20/17 00:00 05/20/17 00:00 05/20/17 00:00 Intake and Output: 05/20/17 05/20/17 06:59 18:59 Intake Total 1300 Output Total 500 Balance 800 - Medications Medications: Current Medications Dextrose (Dextrose 50% Inj) 0 ml IV STAT PRN; Protocol PRN Reason: Hypoglycemia Protocol Dextrose (Glutose 15) 0 gm PO ONCE PRN; Protocol PRN Reason: Hypoglycemia Protocol Glucagon (Glucagen Diagnostic Kit) 0 mg IM STAT PRN; Protocol PRN Reason: Hypoglycemia Protocol Lactated Ringer's (Lactated Ringer's) 1,000 mls @ 100 mls/hr IV .Q10H [facility] Last Admin: 05/20/17 07:00 Dose: Not Given Dextrose (Dextrose 5% In Water 1000 Ml) 1,000 mls @ 0 mls/hr IV .Q0M PRN; Protocol; Per Protocol PRN Reason: Hypoglycemia Protocol Insulin Aspart (Novolog) 6 unit SC ACHS [facility] Insulin Aspart (Novolog) 0 unit SC ACHS PRN; Protocol PRN Reason: high blood sugar Insulin Detemir (Levemir) 20 unit SC HS [facility] Ondansetron HCl (Zofran Inj) 4 mg IVP Q6 PRN PRN Reason: Nausea/Vomiting Last Admin: 05/20/17 05:16 Dose: 4 mg Pantoprazole Sodium (Protonix Inj) 40 mg IVP DAILY [facility] Last Admin: 05/19/17 10:05 Dose: 40 mg Tramadol HCl (Ultram) 50 mg PO TID PRN PRN Reason: Pain, severe (8-10) - Labs Labs: 05/19/17 06:20 05/19/17 06:20 - Constitutional Appears: Non-toxic - Head Exam Head Exam: ATRAUMATIC - Eye Exam Eye Exam: EOMI - ENT Exam ENT Exam: Mucous Membranes Moist - Neck Exam Neck Exam: Full ROM - Respiratory Exam Respiratory Exam: Clear to Ausculation Bilateral, NORMAL BREATHING PATTERN - Cardiovascular Exam Cardiovascular Exam: REGULAR RHYTHM - GI/Abdominal Exam GI & Abdominal Exam: Soft - Extremities Exam Extremities Exam: Full ROM - Back Exam Back Exam: absent: CVA tenderness (L), CVA tenderness (R) - Neurological Exam Neurological Exam: Alert, Awake, Oriented x3 - Psychiatric Exam Psychiatric exam: Anxious - Skin Skin Exam: Warm Assessment and Plan - Assessment and Plan (Free Text) Assessment: 26yo F originally admitted for DKA DKA; patient has long standing type 1 diabetes with pump; pump lost battery power overnight -f/u HBA1C -f/u CMP -based on insulin drip the patients basal insulin need would be 20 long acting, and 6 short acting before meals -RISS Med Dose and hypoglycemia protocol -patient will need low dose RENO/ARB and Statin as per diabetic protocol management; ordered -patient needs battery for insulin pump that she uses at home Dispo -the patient will be stable for d/c when she is tolerating PO and has appropriate insulin regimen All management as per Dr. Trey Hatfield <Bartolo Hatfield S - Last Filed: 05/21/17 15:09> Objective - Vital Signs/Intake and Output Vital Signs (last 24 hours): Temp Pulse Resp BP Pulse Ox 98.2 F 103 H 20 135/76 96 05/21/17 08:13 05/21/17 08:13 05/21/17 08:13 05/21/17 08:13 05/21/17 08:13 Intake and Output: 05/21/17 05/21/17 06:59 18:59 Intake Total 1250 1300 Output Total 800 Balance 450 1300 - Medications Medications: Current Medications Dextrose (Dextrose 50% Inj) 0 ml IV STAT PRN; Protocol PRN Reason: Hypoglycemia Protocol Dextrose (Glutose 15) 0 gm PO ONCE PRN; Protocol PRN Reason: Hypoglycemia Protocol Glucagon (Glucagen Diagnostic Kit) 0 mg IM STAT PRN; Protocol PRN Reason: Hypoglycemia Protocol Dextrose (Dextrose 5% In Water 1000 Ml) 1,000 mls @ 0 mls/hr IV .Q0M PRN; Protocol; Per Protocol PRN Reason: Hypoglycemia Protocol Sodium Chloride (Sodium Chloride 0.9%) 1,000 mls @ 150 mls/hr IV .Q6H40M [facility] Last Admin: 05/21/17 12:53 Dose: Not Given Insulin Aspart (Novolog) 0 unit SC ACHS PRN; Protocol PRN Reason: high blood sugar Insulin Aspart (Novolog) 12 unit SC AC [facility] Last Admin: 05/21/17 12:24 Dose: 12 unit Insulin Detemir (Levemir) 30 unit SC HS [facility] Last Admin: 05/20/17 21:22 Dose: 30 unit Losartan Potassium (Cozaar) 12.5 mg PO DAILY [facility] Last Admin: 05/21/17 10:02 Dose: 12.5 mg Metoclopramide HCl (Reglan) 10 mg IVP Q6H PRN PRN Reason: Nausea/Vomiting Last Admin: 05/20/17 19:56 Dose: 10 mg Ondansetron HCl (Zofran Odt) 8 mg PO Q6H PRN PRN Reason: Nausea/Vomiting Last Admin: 05/20/17 10:28 Dose: 8 mg Ondansetron HCl (Zofran Inj) 4 mg IVP Q8H PRN PRN Reason: vomiting Last Admin: 05/21/17 01:20 Dose: 4 mg Pantoprazole Sodium (Protonix Inj) 40 mg IVP DAILY [facility] Last Admin: 05/21/17 10:03 Dose: 40 mg Rosuvastatin Calcium (Crestor) 2.5 mg PO HS [facility] Last Admin: 05/20/17 21:16 Dose: Not Given Tramadol HCl (Ultram) 50 mg PO TID PRN PRN Reason: Pain, severe (8-10) - Labs Labs: 05/21/17 07:58 05/21/17 07:58 Assessment and Plan (1) Abdominal pain Status: Acute (2) Alcoholic ketoacidosis Status: Acute (3) DKA (diabetic ketoacidoses) Status: Acute (4) DKA, type 1 Status: Acute (5) Dental caries Status: Acute (6) Diabetes Status: Acute (7) Diarrhea Status: Acute (8) Esophagitis Status: Acute (9) Finger laceration Status: Acute (10) Gastritis Status: Acute (11) Hypercholesteremia Status: Acute (12) Hypokalemia Status: Acute (13) Iron deficiency Status: Acute (14) Low TSH level Status: Acute (15) Ovarian cyst Status: Acute (16) Pneumonia Status: Acute (17) Prophylactic measure Status: Acute (18) Pyelonephritis Status: Acute (19) Type 1 diabetes mellitus Status: Acute (20) Visit for wound check Status: Acute (21) Vomiting Status: Acute (22) Vomiting alone Status: Acute (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 Patient better. Continue all treatment.
[2017-05-20] MEDS: (Novolog) Insulin Aspart, Recombinant 100 u/ml 10 ml vial SC SCH ×3 (08:23→17:38)
[2017-05-20] MEDS ORDERED: Insulin Detemir 100 units/ml Vial (Levemir) SC SCH ×2 (10:00→22:00)
[2017-05-20] MEDS ORDERED: Sodium Chloride 0.9% 1,000 ML IV ONE (10:19)
[2017-05-20] MEDS: Losartan 12.5 MG TAB PO SCH (11:55)
[2017-05-20 12:05] LABS: BASO % 0.1 % (0.0-2.0); HEMATOCRIT 35.7 % (34.0-47.0); LYMPH # 0.5 K/uL (1.0-4.3); LYMPH % 3.6 % (20.0-40.0); MEAN CELL VOLUME 86.9 fL (81.0-99.0); MEAN CORPUSCULAR HEMOGLOBIN 28.5 pg (27.0-31.0); MEAN CORPUSCULAR HGB CONC 32.8 g/dL (33.0-37.0); MEAN PLATELET VOLUME 9.1 fL (7.2-11.7); MONO # 0.2 K/uL (0.0-0.8); MONO % 1.6 % (0.0-10.0); PLATELET COUNT 240 K/uL (130-400); RED CELL DISTRIBUTION WIDTH 14.7 % (11.5-14.5); WHITE BLOOD COUNT 14.1 K/uL (4.8-10.8)
[2017-05-20 12:25] LABS: NEUTROPHIL 96 % (50-75); TOTAL CELLS COUNTED 100
[2017-05-20 12:33] LABS: ALB/GLOB RATIO 1.1 (1.0-2.1); ALKALINE PHOSPHATASE 81 U/L (38-126); ALT/SGPT 32 U/L (9-52); AST/SGOT 20 U/L (14-36); BILIRUBIN,TOTAL 0.7 mg/dL (0.2-1.3); BLOOD UREA NITROGEN 11 mg/dL (7-17); CALCIUM 8.6 mg/dl (8.6-10.4); CARBON DIOXIDE 16 mmol/L (22-30); CHLORIDE 99 mmol/L (98-107); GFR AFRICAN-AMERICAN > 60; GLUCOSE,RANDOM 271 mg/dL (65-105); POTASSIUM 4.1 mmol/L (3.6-5.2); SODIUM 132 mmol/L (132-148); TOTAL PROTEIN 7.6 g/dL (6.3-8.3)
[2017-05-20] MEDS: Sodium Chloride 0.9% 1,000 ML IV SCH ×2 (12:54→17:49)
--- NOTE | 2017-05-20 15:59 | CP.PCM.PN ---
Subjective - Date & Time of Evaluation Date of Evaluation: 05/20/17 Time of Evaluation: 08:00 - Subjective Subjective: clinically same Objective - Vital Signs/Intake and Output Vital Signs (last 24 hours): Temp Pulse Resp BP Pulse Ox 98.4 F 108 H 20 145/81 96 05/20/17 08:25 05/20/17 08:25 05/20/17 08:25 05/20/17 08:25 05/20/17 08:25 Intake and Output: 05/20/17 05/20/17 06:59 18:59 Intake Total 1300 50 Output Total 500 Balance 800 50 - Medications Medications: Current Medications Dextrose (Dextrose 50% Inj) 0 ml IV STAT PRN; Protocol PRN Reason: Hypoglycemia Protocol Dextrose (Glutose 15) 0 gm PO ONCE PRN; Protocol PRN Reason: Hypoglycemia Protocol Glucagon (Glucagen Diagnostic Kit) 0 mg IM STAT PRN; Protocol PRN Reason: Hypoglycemia Protocol Dextrose (Dextrose 5% In Water 1000 Ml) 1,000 mls @ 0 mls/hr IV .Q0M PRN; Protocol; Per Protocol PRN Reason: Hypoglycemia Protocol Sodium Chloride (Sodium Chloride 0.9%) 1,000 mls @ 150 mls/hr IV .Q6H40M [facility] Last Admin: 05/20/17 12:54 Dose: 150 mls/hr Insulin Aspart (Novolog) 0 unit SC ACHS PRN; Protocol PRN Reason: high blood sugar Insulin Aspart (Novolog) 12 unit SC AC [place] Insulin Detemir (Levemir) 30 unit SC HS [facility] Losartan Potassium (Cozaar) 12.5 mg PO DAILY [facility] Last Admin: 05/20/17 11:55 Dose: 12.5 mg Metoclopramide HCl (Reglan) 10 mg IVP Q6H PRN PRN Reason: Nausea/Vomiting Ondansetron HCl (Zofran Odt) 8 mg PO Q6H PRN PRN Reason: Nausea/Vomiting Last Admin: 05/20/17 10:28 Dose: 8 mg Pantoprazole Sodium (Protonix Inj) 40 mg IVP DAILY [facility] Last Admin: 05/20/17 10:23 Dose: 40 mg Rosuvastatin Calcium (Crestor) 2.5 mg PO HS [facility] Tramadol HCl (Ultram) 50 mg PO TID PRN PRN Reason: Pain, severe (8-10) - Labs Labs: 05/20/17 11:57 05/20/17 11:57 - Constitutional Appears: Well - Head Exam Head Exam: ATRAUMATIC, NORMAL INSPECTION, NORMOCEPHALIC - Eye Exam Eye Exam: EOMI, Normal appearance, PERRL Pupil Exam: NORMAL ACCOMODATION, PERRL - ENT Exam ENT Exam: Mucous Membranes Moist, Normal Exam - Neck Exam Neck Exam: Full ROM, Normal Inspection. absent: Lymphadenopathy - Respiratory Exam Respiratory Exam: Clear to Ausculation Bilateral, NORMAL BREATHING PATTERN - Cardiovascular Exam Cardiovascular Exam: REGULAR RHYTHM, +S1, +S2. absent: Murmur - GI/Abdominal Exam GI & Abdominal Exam: Soft, Normal Bowel Sounds. absent: Tenderness - Rectal Exam Rectal Exam: Deferred - Back Exam Back Exam: NORMAL INSPECTION - Neurological Exam Neurological Exam: Alert, Awake, CN II-XII Intact, Normal Gait, Oriented x3 Assessment and Plan (1) Abdominal pain Status: Acute (2) Alcoholic ketoacidosis Status: Acute (3) DKA (diabetic ketoacidoses) Status: Acute (4) DKA, type 1 Status: Acute (5) Dental caries Status: Acute (6) Diabetes Status: Acute (7) Diarrhea Status: Acute (8) Esophagitis Status: Acute (9) Finger laceration Status: Acute (10) Gastritis Status: Acute (11) Hypercholesteremia Status: Acute (12) Hypokalemia Status: Acute (13) Iron deficiency Status: Acute (14) Low TSH level Status: Acute (15) Ovarian cyst Status: Acute (16) Pneumonia Status: Acute (17) Prophylactic measure Status: Acute (18) Pyelonephritis Status: Acute (19) Type 1 diabetes mellitus Status: Acute (20) Visit for wound check Status: Acute (21) Vomiting Status: Acute (22) Vomiting alone Status: Acute (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 Patient better. Continue long and short-acting insulin. Continue supportive treatment.
[2017-05-20] MEDS: Rosuvastatin Calcium 2.5 mg Tab PO SCH (21:16)
[2017-05-20] MEDS: Insulin Detemir 100 units/ml Vial (Levemir) SC SCH (21:22)
[2017-05-21] MEDS: Sodium Chloride 0.9% 1,000 ML IV SCH ×5 (01:27→23:08)
--- NOTE | 2017-05-21 07:20 | CON ---
LOCATION: In room 369. HISTORY OF PRESENT ILLNESS: This is a 26-year-old female with known history of type 1 insulin-dependent diabetes, presenting here with intractable nausea, dyspepsia and vomiting, and evaluated to be in diabetic ketoacidosis and dehydration, and is now being referred for diabetic evaluation and management. She apparently ran out of her insulin vials over the last 3 days prior to admission with supervening progressively worsening vomiting episodes as mentioned. PAST MEDICAL HISTORY: History of type 1 insulin-dependent diabetes, on insulin pump with Apidra vials as given. history of dyslipidemia, currently on Lipitor 40 mg daily. FAMILY HISTORY: Positive for diabetes and hypertension. SOCIAL HISTORY: The patient has supportive family. No known substance use. REVIEW OF SYSTEMS: As mentioned above, admits to generalized body weakness with easy fatigability and tiredness and suboptimal energy level, also admits to dizziness and lightheadedness on day of admission. No chest pains, palpitations or PNDs. Her oral intake has been variable with nausea, dyspepsia, and vague upper abdominal pain with supervening intractable vomiting episodes. PHYSICAL EXAMINATION: GENERAL: This is an average built female, in no apparent distress. VITAL SIGNS: Her blood pressure and regular, temperature respirations 20. Height is 5 feet 1 inch, and weight is 113 pounds. HEENT: Head normocephalic. Eyes are anicteric with pink conjunctivae. Funduscopy not possible at this time. Ears, nose and throat otherwise normal. NECK: Supple. Thyroid gland is normal size. No carotid bruits or any cervical adenopathy. CARDIOPULMONARY: Exam reveal an adynamic precordium. S1 and S2 is rapid and regular. LUNGS: Clear to auscultation. ABDOMEN: Flat and soft with positive bowel sounds. EXTREMITIES: No peripheral edema. Pulses are +2 bilaterally. LABORATORY DATA: Her chemistry showed BUN of 11, sodium 132, potassium chloride 99, CO2 of 16, glucose 271 and creatinine 0.5. Her hemoglobin A1c is 10.5%, which is quite elevated, I think because of suboptimal metabolic control of her diabetic condition even on the aforementioned . ASSESSMENT: This is a 26-year-old female with uncontrolled and decompensated type 1 insulin-dependent diabetes, presenting here with diabetic ketoacidosis and dehydration related to drug combination as expected and noted. PLAN OF MANAGEMENT: We will switch over from a basal insulin to a basal and bolus insulin regimen, which is more physiologic to optimize metabolic withdrawal. We will call her insulin pump company to recheck her insulin pump and if it is cleared for resumption, then we will start her back on the insulin pump as indicated. We will add Levemir given as 30 units subcu at bedtime daily to start tonight. We will also add Humalog given as 14 units subcu at bedtime daily to start tonight. We will titrate it as indicated to optimize metabolic control. We will continue the intravenous hydration as given and obtain supplementation as indicated. We will follow. Mallika Pisano MD
[2017-05-21 08:04] LABS: BASO % 0.2 % (0.0-2.0); EOS % 0.1 % (0.0-4.0); HEMATOCRIT 32.1 % (34.0-47.0); LYMPH # 1.7 K/uL (1.0-4.3); LYMPH % 15.6 % (20.0-40.0); MEAN CELL VOLUME 86.6 fL (81.0-99.0); MEAN CORPUSCULAR HEMOGLOBIN 28.1 pg (27.0-31.0); MEAN CORPUSCULAR HGB CONC 32.5 g/dL (33.0-37.0); MEAN PLATELET VOLUME 8.9 fL (7.2-11.7); MONO # 0.8 K/uL (0.0-0.8); MONO % 7.1 % (0.0-10.0); RED CELL DISTRIBUTION WIDTH 14.5 % (11.5-14.5); WHITE BLOOD COUNT 11.2 K/uL (4.8-10.8)
[2017-05-21] MEDS: (Novolog) Insulin Aspart, Recombinant 100 u/ml 10 ml vial SC SCH ×3 (08:15→17:21)
[2017-05-21 08:29] LABS: ALB/GLOB RATIO 1.4 (1.0-2.1); ALKALINE PHOSPHATASE 57 U/L (38-126); ALT/SGPT 33 U/L (9-52); AST/SGOT 15 U/L (14-36); BILIRUBIN,TOTAL 0.7 mg/dL (0.2-1.3); BLOOD UREA NITROGEN 9 mg/dL (7-17); CALCIUM 7.7 mg/dl (8.6-10.4); CARBON DIOXIDE 13 mmol/L (22-30); CHLORIDE 103 mmol/L (98-107); GFR AFRICAN-AMERICAN > 60; GLUCOSE,RANDOM 85 mg/dL (65-105); POTASSIUM 3.6 mmol/L (3.6-5.2); SODIUM 134 mmol/L (132-148); TOTAL PROTEIN 5.9 g/dL (6.3-8.3)
[2017-05-21] MEDS: Losartan 12.5 MG TAB PO SCH (10:02)
--- NOTE | 2017-05-21 10:41 | CP.PCM.PN ---
<Bartolo Hatfield S - Last Filed: 05/21/17 15:10> Objective - Vital Signs/Intake and Output Vital Signs (last 24 hours): Temp Pulse Resp BP Pulse Ox 98.2 F 103 H 20 135/76 96 05/21/17 08:13 05/21/17 08:13 05/21/17 08:13 05/21/17 08:13 05/21/17 08:13 Intake and Output: 05/21/17 05/21/17 06:59 18:59 Intake Total 1250 1300 Output Total 800 Balance 450 1300 - Medications Medications: Current Medications Dextrose (Dextrose 50% Inj) 0 ml IV STAT PRN; Protocol PRN Reason: Hypoglycemia Protocol Dextrose (Glutose 15) 0 gm PO ONCE PRN; Protocol PRN Reason: Hypoglycemia Protocol Glucagon (Glucagen Diagnostic Kit) 0 mg IM STAT PRN; Protocol PRN Reason: Hypoglycemia Protocol Dextrose (Dextrose 5% In Water 1000 Ml) 1,000 mls @ 0 mls/hr IV .Q0M PRN; Protocol; Per Protocol PRN Reason: Hypoglycemia Protocol Sodium Chloride (Sodium Chloride 0.9%) 1,000 mls @ 150 mls/hr IV .Q6H40M [facility] Last Admin: 05/21/17 12:53 Dose: Not Given Insulin Aspart (Novolog) 0 unit SC ACHS PRN; Protocol PRN Reason: high blood sugar Insulin Aspart (Novolog) 12 unit SC AC [facility] Last Admin: 05/21/17 12:24 Dose: 12 unit Insulin Detemir (Levemir) 30 unit SC HS [facility] Last Admin: 05/20/17 21:22 Dose: 30 unit Losartan Potassium (Cozaar) 12.5 mg PO DAILY [facility] Last Admin: 05/21/17 10:02 Dose: 12.5 mg Metoclopramide HCl (Reglan) 10 mg IVP Q6H PRN PRN Reason: Nausea/Vomiting Last Admin: 05/20/17 19:56 Dose: 10 mg Ondansetron HCl (Zofran Odt) 8 mg PO Q6H PRN PRN Reason: Nausea/Vomiting Last Admin: 05/20/17 10:28 Dose: 8 mg Ondansetron HCl (Zofran Inj) 4 mg IVP Q8H PRN PRN Reason: vomiting Last Admin: 05/21/17 01:20 Dose: 4 mg Pantoprazole Sodium (Protonix Inj) 40 mg IVP DAILY [facility] Last Admin: 05/21/17 10:03 Dose: 40 mg Rosuvastatin Calcium (Crestor) 2.5 mg PO HS [facility] Last Admin: 05/20/17 21:16 Dose: Not Given Tramadol HCl (Ultram) 50 mg PO TID PRN PRN Reason: Pain, severe (8-10) - Labs Labs: 05/21/17 07:58 05/21/17 07:58 Assessment and Plan (1) Abdominal pain Status: Acute (2) Alcoholic ketoacidosis Status: Acute (3) DKA (diabetic ketoacidoses) Status: Acute (4) DKA, type 1 Status: Acute (5) Dental caries Status: Acute (6) Diabetes Status: Acute (7) Diarrhea Status: Acute (8) Esophagitis Status: Acute (9) Finger laceration Status: Acute (10) Gastritis Status: Acute (11) Hypercholesteremia Status: Acute (12) Hypokalemia Status: Acute (13) Iron deficiency Status: Acute (14) Low TSH level Status: Acute (15) Ovarian cyst Status: Acute (16) Pneumonia Status: Acute (17) Prophylactic measure Status: Acute (18) Pyelonephritis Status: Acute (19) Type 1 diabetes mellitus Status: Acute (20) Visit for wound check Status: Acute (21) Vomiting Status: Acute (22) Vomiting alone Status: Acute (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 Patient not in distress. Mild nausea present. Patient tolerating a diet well. Continue long and short-acting insulin. Metoclopramide. Continue supportive care. <Jean Carlos Alatorre - Last Filed: 05/21/17 18:21> Subjective - Date & Time of Evaluation Date of Evaluation: 05/21/17 Time of Evaluation: 07:10 - Subjective Subjective: PGY2 Resident - Medicine Progress Note Patient seen and examined at bedside. No acute distress. No overnight events. She continues to c/o mild nausea which is mildly alleviated with zofran. She had 3 episodes of vomiting yesterday. Reports she is tolerating her diet today. Denies fever, chills, headache, changes in vision, chest pain, palpitations, dyspnea, cough, abdominal pain, nausea/vomiting, diarrhea/constipation, dysuria , or any additional acute complaints. Objective - Vital Signs/Intake and Output Vital Signs (last 24 hours): Temp Pulse Resp BP Pulse Ox 98.2 F 103 H 20 135/76 96 05/21/17 08:13 05/21/17 08:13 05/21/17 08:13 05/21/17 08:13 05/21/17 08:13 Intake and Output: 05/21/17 05/21/17 06:59 18:59 Intake Total 1250 1300 Output Total 800 Balance 450 1300 - Medications Medications: Current Medications Dextrose (Dextrose 50% Inj) 0 ml IV STAT PRN; Protocol PRN Reason: Hypoglycemia Protocol Dextrose (Glutose 15) 0 gm PO ONCE PRN; Protocol PRN Reason: Hypoglycemia Protocol Glucagon (Glucagen Diagnostic Kit) 0 mg IM STAT PRN; Protocol PRN Reason: Hypoglycemia Protocol Dextrose (Dextrose 5% In Water 1000 Ml) 1,000 mls @ 0 mls/hr IV .Q0M PRN; Protocol; Per Protocol PRN Reason: Hypoglycemia Protocol Sodium Chloride (Sodium Chloride 0.9%) 1,000 mls @ 150 mls/hr IV .Q6H40M [facility] Last Admin: 05/21/17 06:30 Dose: Not Given Insulin Aspart (Novolog) 0 unit SC ACHS PRN; Protocol PRN Reason: high blood sugar Insulin Aspart (Novolog) 12 unit SC AC [facility] Last Admin: 05/21/17 08:15 Dose: Not Given Insulin Detemir (Levemir) 30 unit SC HS [facility] Last Admin: 05/20/17 21:22 Dose: 30 unit Losartan Potassium (Cozaar) 12.5 mg PO DAILY [facility] Last Admin: 05/21/17 10:02 Dose: 12.5 mg Metoclopramide HCl (Reglan) 10 mg IVP Q6H PRN PRN Reason: Nausea/Vomiting Last Admin: 05/20/17 19:56 Dose: 10 mg Ondansetron HCl (Zofran Odt) 8 mg PO Q6H PRN PRN Reason: Nausea/Vomiting Last Admin: 05/20/17 10:28 Dose: 8 mg Ondansetron HCl (Zofran Inj) 4 mg IVP Q8H PRN PRN Reason: vomiting Last Admin: 05/21/17 01:20 Dose: 4 mg Pantoprazole Sodium (Protonix Inj) 40 mg IVP DAILY [facility] Last Admin: 05/21/17 10:03 Dose: 40 mg Rosuvastatin Calcium (Crestor) 2.5 mg PO HS [facility] Last Admin: 05/20/17 21:16 Dose: Not Given Tramadol HCl (Ultram) 50 mg PO TID PRN PRN Reason: Pain, severe (8-10) - Labs Labs: 05/21/17 07:58 05/21/17 07:58 - Additional Findings Additional findings: - Constitutional Appears: Non-toxic - Head Exam Head Exam: ATRAUMATIC - Eye Exam Eye Exam: EOMI - ENT Exam ENT Exam: Mucous Membranes Moist - Neck Exam Neck Exam: Full ROM - Respiratory Exam Respiratory Exam: Clear to Ausculation Bilateral, NORMAL BREATHING PATTERN - Cardiovascular Exam Cardiovascular Exam: REGULAR RHYTHM, +S1, +S2 - GI/Abdominal Exam GI & Abdominal Exam: Soft, Normal Bowel Sounds - Extremities Exam Extremities Exam: Full ROM - Back Exam Back Exam: absent: CVA tenderness (L), CVA tenderness (R) - Neurological Exam Neurological Exam: Alert, Awake, Oriented x3 - Psychiatric Exam Psychiatric exam: Anxious - Skin Skin Exam: Warm Assessment and Plan - Assessment and Plan (Free Text) Assessment: 26yo F originally admitted for DKA DKA; patient has long standing type 1 diabetes with pump; pump lost battery power overnight 05/21: Continue Levemir 30u SC HS + Novalog 12u SC AC [facility]. f/u Dr. Pisano regarding optimized inuslin regimen prior to discharge. Endo consult, Dr. Pisano, f/u recs Will call insulin pump company Continue Levemir 30u SC HS Humalog 14u SC HS (will titrate) -HBA1C 10.5 -based on insulin drip the patients basal insulin need would be 20 long acting, and 6 short acting before meals -RISS Med Dose and hypoglycemia protocol -patient will need low dose RENO/ARB and Statin as per diabetic protocol management; ordered -patient needs battery for insulin pump that she uses at home Dispo: if patient is cleared by Dr. Pisano (Endo), may discharge home with appropriate medications. All management as per Dr. Trey Hatfield
--- NOTE | 2017-05-21 14:27 | PN ---
ENDO FOLLOWUP NOTE LOCATION: In room 369. This is a 26-year-old female with recent uncontrolled type 1 insulin-dependent diabetes, now being followed closely for metabolic management. She actually on further enquiry clarified the situation regarding her [employer] insulin pump. She actually had enough insulin but her batteries on the pump apparently and was not working overnight with supervening hyperglycemic accelerations and diabetic ketoacidosis as noted. When she checked the pump just before admission, it was apparently working already and fully charged as noted. The latest chemistry showed a BUN of 9, sodium 134, potassium 3.6, chloride 103, CO2 of 13, glucose 85, and creatinine 102. Because of the persistent metabolic acidosis, would continue the vigorous IV hydration as given running at 150 mL per hour with normal saline infusion as ordered. We will continue the basal and bolus insulin regimen as given with Novolog given as 12 units before meals t.i.d. and Levemir given as 30 units subcu at bedtime daily as given. We will titrate incrementally as indicated to optimize metabolic control. We will follow. Mallika Pisano MD
--- NOTE | 2017-05-21 18:54 | CP.PCM.PN ---
Subjective - Date & Time of Evaluation Date of Evaluation: 05/21/17 Time of Evaluation: 07:20 - Subjective Subjective: clinically same Objective - Vital Signs/Intake and Output Vital Signs (last 24 hours): Temp Pulse Resp BP Pulse Ox 98.2 F 86 20 139/82 99 05/21/17 15:52 05/21/17 15:52 05/21/17 15:52 05/21/17 15:52 05/21/17 15:52 Intake and Output: 05/21/17 05/21/17 06:59 18:59 Intake Total 1250 1300 Output Total 800 Balance 450 1300 - Medications Medications: Current Medications Dextrose (Dextrose 50% Inj) 0 ml IV STAT PRN; Protocol PRN Reason: Hypoglycemia Protocol Dextrose (Glutose 15) 0 gm PO ONCE PRN; Protocol PRN Reason: Hypoglycemia Protocol Glucagon (Glucagen Diagnostic Kit) 0 mg IM STAT PRN; Protocol PRN Reason: Hypoglycemia Protocol Dextrose (Dextrose 5% In Water 1000 Ml) 1,000 mls @ 0 mls/hr IV .Q0M PRN; Protocol; Per Protocol PRN Reason: Hypoglycemia Protocol Sodium Chloride (Sodium Chloride 0.9%) 1,000 mls @ 150 mls/hr IV .Q6H40M [facility] Last Admin: 05/21/17 12:53 Dose: Not Given Insulin Aspart (Novolog) 0 unit SC ACHS PRN; Protocol PRN Reason: high blood sugar Insulin Aspart (Novolog) 12 unit SC AC [facility] Last Admin: 05/21/17 17:21 Dose: 12 unit Insulin Detemir (Levemir) 30 unit SC HS [facility] Last Admin: 05/20/17 21:22 Dose: 30 unit Losartan Potassium (Cozaar) 12.5 mg PO DAILY [facility] Last Admin: 05/21/17 10:02 Dose: 12.5 mg Metoclopramide HCl (Reglan) 10 mg IVP Q6H PRN PRN Reason: Nausea/Vomiting Last Admin: 05/20/17 19:56 Dose: 10 mg Ondansetron HCl (Zofran Odt) 8 mg PO Q6H PRN PRN Reason: Nausea/Vomiting Last Admin: 05/20/17 10:28 Dose: 8 mg Ondansetron HCl (Zofran Inj) 4 mg IVP Q8H PRN PRN Reason: vomiting Last Admin: 05/21/17 01:20 Dose: 4 mg Pantoprazole Sodium (Protonix Inj) 40 mg IVP DAILY [facility] Last Admin: 05/21/17 10:03 Dose: 40 mg Rosuvastatin Calcium (Crestor) 2.5 mg PO HS [facility] Last Admin: 05/20/17 21:16 Dose: Not Given Tramadol HCl (Ultram) 50 mg PO TID PRN PRN Reason: Pain, severe (8-10) - Labs Labs: 05/21/17 07:58 05/21/17 07:58 - Constitutional Appears: Well - Head Exam Head Exam: ATRAUMATIC, NORMAL INSPECTION, NORMOCEPHALIC - Eye Exam Eye Exam: EOMI, Normal appearance, PERRL Pupil Exam: NORMAL ACCOMODATION, PERRL - ENT Exam ENT Exam: Mucous Membranes Moist, Normal Exam - Neck Exam Neck Exam: Full ROM, Normal Inspection. absent: Lymphadenopathy - Respiratory Exam Respiratory Exam: Decreased Breath Sounds - Cardiovascular Exam Cardiovascular Exam: REGULAR RHYTHM, +S1, +S2 - GI/Abdominal Exam GI & Abdominal Exam: Soft, Diminished Bowel Sounds - Rectal Exam Rectal Exam: Deferred Assessment and Plan (1) Abdominal pain Status: Acute (2) Alcoholic ketoacidosis Status: Acute (3) DKA (diabetic ketoacidoses) Status: Acute (4) DKA, type 1 Status: Acute (5) Dental caries Status: Acute (6) Diabetes Status: Acute (7) Diarrhea Status: Acute (8) Esophagitis Status: Acute (9) Finger laceration Status: Acute (10) Gastritis Status: Acute (11) Hypercholesteremia Status: Acute (12) Hypokalemia Status: Acute (13) Iron deficiency Status: Acute (14) Low TSH level Status: Acute (15) Ovarian cyst Status: Acute (16) Pneumonia Status: Acute (17) Prophylactic measure Status: Acute (18) Pyelonephritis Status: Acute (19) Type 1 diabetes mellitus Status: Acute (20) Visit for wound check Status: Acute (21) Vomiting Status: Acute (22) Vomiting alone Status: Acute (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 Patient better. Continue insulin, losartan and metoclopramide. Continue supportive medications.
[2017-05-21] MEDS: Rosuvastatin Calcium 2.5 mg Tab PO SCH (21:24)
[2017-05-21] MEDS: Insulin Detemir 100 units/ml Vial (Levemir) SC SCH (21:27)
[2017-05-21] MEDS ORDERED: Insulin Detemir 100 units/ml Vial (Levemir) SC SCH (22:00)
[2017-05-21 23:59] VITALS: PULSE 91
[2017-05-22] MEDS: Sodium Chloride 0.9% 1,000 ML IV SCH ×3 (04:24→10:14)
[2017-05-22 07:36] LABS: BASO % 0.5 % (0.0-2.0); EOS # 0.1 K/uL (0.0-0.7); EOS % 1.8 % (0.0-4.0); HEMATOCRIT 31.2 % (34.0-47.0); LYMPH # 2.4 K/uL (1.0-4.3); LYMPH % 35.7 % (20.0-40.0); MEAN CELL VOLUME 86.3 fL (81.0-99.0); MEAN CORPUSCULAR HEMOGLOBIN 28.8 pg (27.0-31.0); MEAN CORPUSCULAR HGB CONC 33.4 g/dL (33.0-37.0); MEAN PLATELET VOLUME 8.6 fL (7.2-11.7); MONO # 0.6 K/uL (0.0-0.8); MONO % 8.3 % (0.0-10.0); NRBC % 0.1 % (0.0-2.0); RED CELL DISTRIBUTION WIDTH 14.2 % (11.5-14.5); WHITE BLOOD COUNT 6.7 K/uL (4.8-10.8)
[2017-05-22] MEDS: (Novolog) Insulin Aspart, Recombinant 100 u/ml 10 ml vial SC SCH ×2 (08:08→12:02)
[2017-05-22 08:29] LABS: ALB/GLOB RATIO 1.4 (1.0-2.1); ALKALINE PHOSPHATASE 53 U/L (38-126); ALT/SGPT 32 U/L (9-52); AST/SGOT 16 U/L (14-36); BILIRUBIN,TOTAL 0.6 mg/dL (0.2-1.3); BLOOD UREA NITROGEN 7 mg/dL (7-17); CALCIUM 7.9 mg/dl (8.6-10.4); CARBON DIOXIDE 24 mmol/L (22-30); CHLORIDE 103 mmol/L (98-107); GFR AFRICAN-AMERICAN > 60; GLUCOSE,RANDOM 54 mg/dL (65-105); POTASSIUM 3.2 mmol/L (3.6-5.2); SODIUM 137 mmol/L (132-148); TOTAL PROTEIN 5.7 g/dL (6.3-8.3)
--- NOTE | 2017-05-22 08:59 | CP.PCM.PN ---
<Jace Harley - Last Filed: 05/22/17 10:19> Subjective - Date & Time of Evaluation Date of Evaluation: 05/22/17 Time of Evaluation: 08:58 - Subjective Subjective: PGY2 Note for Dr. Trey Hatfield; all management as per Dr. Trey Hatfield The patient desires to go home. She is tolerating PO. She states she only needs a battery for her pump and will obtain it herself. She has all of the insulin supplies alreaday. She states she was never on a statin before, although it is seen in her ambulatory orders. Refilled 10mg PO Lipitor daily. The patient is stable for d/c as per Dr. Trey Hatfield. Objective - Vital Signs/Intake and Output Vital Signs (last 24 hours): Temp Pulse Resp BP Pulse Ox 98.5 F 91 H 18 133/79 98 05/21/17 23:56 05/21/17 23:56 05/21/17 23:56 05/21/17 23:56 05/21/17 23:56 Intake and Output: 05/22/17 05/22/17 06:59 18:59 Intake Total 1320 Balance 1320 - Medications Medications: Current Medications Dextrose (Dextrose 50% Inj) 0 ml IV STAT PRN; Protocol PRN Reason: Hypoglycemia Protocol Dextrose (Glutose 15) 0 gm PO ONCE PRN; Protocol PRN Reason: Hypoglycemia Protocol Glucagon (Glucagen Diagnostic Kit) 0 mg IM STAT PRN; Protocol PRN Reason: Hypoglycemia Protocol Dextrose (Dextrose 5% In Water 1000 Ml) 1,000 mls @ 0 mls/hr IV .Q0M PRN; Protocol; Per Protocol PRN Reason: Hypoglycemia Protocol Sodium Chloride (Sodium Chloride 0.9%) 1,000 mls @ 150 mls/hr IV .Q6H40M [facility] Last Admin: 05/22/17 04:25 Dose: Not Given Insulin Aspart (Novolog) 0 unit SC ACHS PRN; Protocol PRN Reason: high blood sugar Insulin Aspart (Novolog) 12 unit SC AC [facility] Last Admin: 05/22/17 08:08 Dose: Not Given Insulin Detemir (Levemir) 30 unit SC HS [facility] Last Admin: 05/21/17 21:27 Dose: 30 unit Losartan Potassium (Cozaar) 12.5 mg PO DAILY [facility] Last Admin: 05/21/17 10:02 Dose: 12.5 mg Metoclopramide HCl (Reglan) 10 mg IVP Q6H PRN PRN Reason: Nausea/Vomiting Last Admin: 05/20/17 19:56 Dose: 10 mg Ondansetron HCl (Zofran Odt) 8 mg PO Q6H PRN PRN Reason: Nausea/Vomiting Last Admin: 05/20/17 10:28 Dose: 8 mg Ondansetron HCl (Zofran Inj) 4 mg IVP Q8H PRN PRN Reason: vomiting Last Admin: 05/21/17 01:20 Dose: 4 mg Pantoprazole Sodium (Protonix Inj) 40 mg IVP DAILY [facility] Last Admin: 05/21/17 10:03 Dose: 40 mg Rosuvastatin Calcium (Crestor) 2.5 mg PO HS [facility] Last Admin: 05/21/17 21:24 Dose: 2.5 mg Tramadol HCl (Ultram) 50 mg PO TID PRN PRN Reason: Pain, severe (8-10) - Labs Labs: 05/22/17 07:06 05/22/17 07:06 - Constitutional Appears: Well, Non-toxic - Head Exam Head Exam: ATRAUMATIC - Eye Exam Eye Exam: EOMI Pupil Exam: PERRL - ENT Exam ENT Exam: Mucous Membranes Moist - Neck Exam Neck Exam: Full ROM - Respiratory Exam Respiratory Exam: Clear to Ausculation Bilateral - Cardiovascular Exam Cardiovascular Exam: REGULAR RHYTHM - GI/Abdominal Exam GI & Abdominal Exam: Soft - Extremities Exam Extremities Exam: Full ROM. absent: Calf Tenderness - Back Exam Back Exam: vertebral tenderness. absent: CVA tenderness (L), CVA tenderness (R) - Neurological Exam Neurological Exam: Alert, Awake, CN II-XII Intact, Normal Gait, Oriented x3 - Psychiatric Exam Psychiatric exam: Normal Affect - Skin Skin Exam: Warm Assessment and Plan - Assessment and Plan (Free Text) Assessment: 26yo F originally admitted for DKA which has now resolved DKA; patient has long standing type 1 diabetes with pump; pump lost battery power overnight 05/22: patient has been stable with new insulin dosing 05/21: Continue Levemir 30u SC HS + Novalog 12u SC AC [facility]. f/u Dr. Pisano regarding optimized inuslin regimen prior to discharge. Endo consult, Dr. Pisano, f/u recs Will call insulin pump company Continue Levemir 30u SC HS Humalog 14u SC HS (will titrate) -HBA1C 10.5 -based on insulin drip the patients basal insulin need would be 20 long acting, and 6 short acting before meals -RISS Med Dose and hypoglycemia protocol -patient will need low dose RENO/ARB and Statin as per diabetic protocol management; ordered -patient needs battery for insulin pump that she uses at home Dispo: the patient is stable for d/c as per Dr. Trey Hatfield Refilled prescription for lipitor 10mg which she should take daily she is already on RENO as per patient the patient needs battery; which she will obtain does not need more insulin as per patient All management as per Dr. Trey Hatfield <Bartolo Hatfield S - Last Filed: 05/22/17 15:23> Objective - Vital Signs/Intake and Output Vital Signs (last 24 hours): Temp Pulse Resp BP Pulse Ox 98.3 F 91 H 20 146/85 100 05/22/17 08:00 05/22/17 08:00 05/22/17 08:00 05/22/17 08:00 05/22/17 08:00 Intake and Output: 05/22/17 05/22/17 06:59 18:59 Intake Total 1320 Balance 1320 - Labs Labs: 05/22/17 07:06 05/22/17 07:06 Assessment and Plan (1) Abdominal pain Status: Acute (2) Alcoholic ketoacidosis Status: Acute (3) DKA (diabetic ketoacidoses) Status: Acute (4) DKA, type 1 Status: Acute (5) Dental caries Status: Acute (6) Diabetes Status: Acute (7) Diarrhea Status: Acute (8) Esophagitis Status: Acute (9) Finger laceration Status: Acute (10) Gastritis Status: Acute (11) Hypercholesteremia Status: Acute (12) Hypokalemia Status: Acute (13) Iron deficiency Status: Acute (14) Low TSH level Status: Acute (15) Ovarian cyst Status: Acute (16) Pneumonia Status: Acute (17) Prophylactic measure Status: Acute (18) Pyelonephritis Status: Acute (19) Type 1 diabetes mellitus Status: Acute (20) Visit for wound check Status: Acute (21) Vomiting Status: Acute (22) Vomiting alone Status: Acute (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 Patient is tolerating oral fo diet. Patient wants to go home. Patient is fit for discharge. Continue insulin, losartan. Continue supportive care.
[2017-05-22 09:33] VITALS: BP 146/85; RESP 20; TEMP 98.3
[2017-05-22] MEDS: Losartan 12.5 MG TAB PO SCH (10:11)
[2017-05-22] MEDS ORDERED: Potassium Chloride 20 mEq ER Tab PO ONE (13:30)
[2017-05-22] MEDS ORDERED: (Novolog) Insulin Aspart, Recombinant 100 u/ml 10 ml vial SC SCH (16:30)
[2017-05-22] MEDS ORDERED: Insulin Detemir 100 units/ml Vial (Levemir) SC SCH (22:00)
--- NOTE | 2017-05-22 22:30 | PN ---
DATE: ENDOCRINOLOGY FOLLOWUP NOTE LOCATION: Room 369. SUBJECTIVE: This is a 26-year-old female with recent uncontrolled type 1 insulin-dependent diabetes, presenting here with diabetic ketoacidosis and dehydration because of a malfunction of her Medtronic insulin pump and is now being followed closely for metabolic management. Her oral intake remains quite variable and suboptimal as per the nursing staff with supervening residential aide hypoglycemic episodes as noted. Her glucose values today have ranged from 140 to 247 mg/dL. The residential aide glucose was 62 and a repeat level of 60 as noted. The chemistry showed the BUN 7, sodium 137, potassium of 3.2, chloride 103, CO2 is now 24 and creatinine is 0.5 with a glucose of 54 mg/dL. So at this time, the patient actually now has had resolved diabetic ketoacidosis with improving hydration as noted, although, mild hypokalemia is also noted. We will modify her prior insulin regimen and lower the Novolog to 8 units subcutaneous t.i.d. before meals and Levemir also could be lowered to 10 units subcutaneous at bedtime daily to start tonight. We will continue the low dose correction scale using Novolog insulin as given to obviate hypoglycemia. She has been instructed to resume the use of a Medtronic insulin pump upon discharge from the hospital. We will also call the [employer] company and speak to the pump specialist regarding the aforementioned and also to reconnect with the patient for outpatient management. Mallika Pisano MD
[2017-05-23 14:12] VITALS: O2SAT 98
--- NOTE | 2017-05-26 07:23 | CON ---
LOCATION: In room 369. HISTORY OF PRESENT ILLNESS: This is a 26-year-old female with known history of type 1 insulin-dependent diabetes, currently on insulin pump, who apparently run out of insulin vials and developed progressively worsening nausea, dyspepsia and vomiting, and has been evaluated for diabetic ketoacidosis with dehydration and is now being referred for diabetic evaluation and management. PAST MEDICAL HISTORY: As mentioned above, history of type 1 insulin-dependent diabetes, currently using Apidra vials for her insulin pump of note. History of dyslipidemia, currently on Lipitor given as 40 mg daily. FAMILY HISTORY: Positive for diabetes mellitus. SOCIAL HISTORY: The patient has a supportive family. No known substance use. REVIEW OF SYSTEMS: As mentioned above, admits to generalized body weakness with easy fatigability and tiredness and suboptimal energy level. Also admits to dizziness and lightheadedness, worse on the day of admission. No chest pains, palpitations or PNDs. Her oral intake has been variable and suboptimal with nausea, dyspepsia, and intractable vomiting episode, worse on the day of admission. She also admits to marked polynocturia ____ DICTATION ENDS. Mallika Pisano MD
== END 2017-05-22 13:37 | disposition home or self-care (01) | DRG 566 ==
LOC: C.ER 12:53 → C.9E 16:56 → C.9I 19:23 → C.3T 05-19 22:16
PROVIDERS: ADMIT Internal Medicine Nephrology; ATTEND Internal Medicine Nephrology
DX: E10.10 Type 1 diabetes mellitus with ketoacidosis without coma (principal); J18.9 Pneumonia, unspecified organism; N12 Tubulo-interstitial nephritis, not specified as acute or chronic; D50.9 Iron deficiency anemia, unspecified; E78.00 Pure hypercholesterolemia, unspecified; F10.20 Alcohol dependence, uncomplicated; T85.694A Other mechanical complication of insulin pump, initial encounter; E86.0 Dehydration; E87.6 Hypokalemia; Z96.41 Presence of insulin pump (external) (internal); I10 Essential (primary) hypertension; Z90.49 Acquired absence of other specified parts of digestive tract; T38.3X6A Underdosing of insulin and oral hypoglycemic [antidiabetic] drugs, initial encounter; Y90.9 Presence of alcohol in blood, level not specified; K02.9 Dental caries, unspecified; K20.9 Esophagitis, unspecified; S61.219A Laceration without foreign body of unspecified finger without damage to nail, initial encounter; X58.XXXA Exposure to other specified factors, initial encounter

== ENCOUNTER 2017-10-11 09:45 | Emergency (ER) | payer OTHER ==
[2017-10-11 09:45] VITALS: BMI 28.3
[2017-10-11 09:51] VITALS: RESP 18; TEMP 98.1
--- NOTE | 2017-10-11 10:04 | C.PDOC ---
History Of Present Illness 27 year old female, whose PMHx includes IDDM (on insulin pump) presents to the ED for evaluation of nausea and multiple episodes of vomiting (non-bloody/non- bilious) which began last night. Patient states she went out drinking last night for her birthday. she denies fever, chills, abdominal pain, diarrhea. Chief Complaint (Nursing): Abdominal Pain History Per: Patient History/Exam Limitations: no limitations Onset/Duration Of Symptoms: Hrs Current Symptoms Are (Timing): Still Present Quality Of Discomfort: denies: "Pain" Associated Symptoms: Nausea, Vomiting. denies: Fever, Chills Additional History Per: Patient Past Medical History Reviewed: Historical Data, Nursing Documentation, Vital Signs Vital Signs: Last Vital Signs Temp 98.1 F 10/11/17 09:48 Pulse 96 H 10/11/17 12:07 Resp 18 10/11/17 12:07 BP 153/90 H 10/11/17 12:07 Pulse Ox 97 10/11/17 15:34 - Medical History PMH: Anemia (low iron level), Anxiety, Depression, Diabetes, Gall Bladder Disease, HTN, Hypercholesterolemia Denies: Alzheimer's Disease, Arthritis, Asthma, Bronchitis, COPD, Dementia, Emphysema, Fractures, Hyperthyroidism, Hypothyroidism, Kidney Stones, Migraine, Multiple Sclerosis, Osteoporosis, Parkinson's Disease, Pneumonia, Pulmonary Embolism, Chronic Kidney Disease, Rheumatoid Arthritis, Seizures, Sexually Transmitted Disease, Sleep Apnea, TIA Surgical History: Cholecystectomy Denies: Appendectomy, CABG, Carotid Endarterectomy, Coronary Stent, Pacemaker , Tonsillectomy - [facility] Procedures CLOSURE SKIN & SUBCUTANEOUS NEC (09/26/13) Family History: States: Unknown Family Hx - Social History Hx Tobacco Use: No Hx Alcohol Use: Yes Hx Substance Use: No - Immunization History Hx Tetanus Toxoid Vaccination: No Hx Influenza Vaccination: No Hx Pneumococcal Vaccination: No Review Of Systems Constitutional: Negative for: Fever, Chills Gastrointestinal: Positive for: Nausea, Vomiting. Negative for: Abdominal Pain Physical Exam - Physical Exam Appears: Non-toxic, No Acute Distress Skin: Normal Color, Warm, Dry Head: Atraumatic, Normacephalic Eye(s): bilateral: Normal Inspection Oral Mucosa: Moist Neck: Supple Chest: Symmetrical, No Deformity, No Tenderness Cardiovascular: Rhythm Regular, No Murmur Respiratory: Normal Breath Sounds, No Rales, No Rhonchi, No Wheezing Gastrointestinal/Abdominal: Soft, No Tenderness, No Guarding, No Rebound Extremity: Normal ROM, Capillary Refill (less than 2 seconds ) Neurological/Psych: Oriented x3, Normal Speech, Normal Cognition ED Course And Treatment - Laboratory Results Result Diagrams: 10/11/17 10:24 10/11/17 10:24 O2 Sat by Pulse Oximetry: 97 (on RA) Pulse Ox Interpretation: Normal Medical Decision Making Medical Decision Making: Impression: 27 year old female with nausea and vomiting Plan: * bloodwork * Pepcid IVP * Reglan IVP * Zofran IVP * IV Fluids * reassess and disposition Progress: Bloodwork ordered and reviewed. Pepcid IVP, Reglan IVP, Zofran IVP and IV Fluids administered. On reassessment, patient is resting comfortably, showing no signs of distress and reports an improvement in her symptoms. Patient is advised to follow up with her PMD within 1-2 days for further evaluation and/or return to the ED if symptoms persist or worsen. Disposition - Disposition Referrals: Phylicia Nelson, [Non-Staff] - Disposition: HOME/ ROUTINE Disposition Time: 11:25 Condition: IMPROVED Additional Instructions: Thank you for letting us take care of you today. The emergency medical care you received today was directed at your acute symptoms. If you were prescribed any medication, please fill it and take as directed. It may take several days for your symptoms to resolve. Return to the Emergency Department if your symptoms worsen, do not improve, or if you have any other problems. Please contact your doctor or call one of the physicians/clinics you have been referred to that are listed on the Patient Visit Information form that is included in your discharge packet. Bring any paperwork you were given at discharge with you along with any medications you are taking to your follow up visit. Our treatment cannot replace ongoing medical care by a primary care provider (PCP) outside of the emergency department. Thank you for allowing the [facility] team to be part of your care today. Follow up with your primary doctor in 2 days for re-evaluation and further management. Prescriptions: Ondansetron ODT [Zofran ODT] 8 mg PO Q8 PRN #20 odt PRN Reason: Nausea/Vomiting Instructions: Gastritis (DC) Forms: [facility] ([employer]) - Clinical Impression Clinical Impression: Gastritis - Scribe Statement The provider has reviewed the documentation as recorded by the Scribe (Adelina Hatfield) Provider Attestation: All medical record entries made by the Scribe were at my direction and personally dictated by me. I have reviewed the chart and agree that the record accurately reflects my personal performance of the history, physical exam, medical decision making, and the department course for this patient. I have also personally directed, reviewed, and agree with the discharge instructions and disposition.
[2017-10-11] MEDS ORDERED: Sodium Chloride 0.9% 1,000 ML IV ONE ×2 (10:19→10:54)
[2017-10-11] MEDS ORDERED: Sodium Chloride 0.9% 1,000 ML ONE (10:27)
[2017-10-11 10:34] LABS: BASO # 0.1 K/uL (0.0-0.2); BASO % 0.8 % (0.0-2.0); EOS # 0.1 K/uL (0.0-0.7); EOS % 0.6 % (0.0-4.0); HEMOGLOBIN 11.3 g/dL (11.0-16.0); LYMPH # 1.2 K/uL (1.0-4.3); LYMPH % 14.4 % (20.0-40.0); MEAN CELL VOLUME 86.9 fL (81.0-99.0); MEAN CORPUSCULAR HEMOGLOBIN 29.6 pg (27.0-31.0); MEAN CORPUSCULAR HGB CONC 34.1 g/dL (33.0-37.0); MEAN PLATELET VOLUME 8.9 fL (7.2-11.7); MONO # 0.4 K/uL (0.0-0.8); MONO % 4.8 % (0.0-10.0); NEUT # 6.9 K/uL (1.8-7.0); NEUT % 79.4 % (50.0-75.0); RBC 3.82 Mil/uL (3.80-5.20); RED CELL DISTRIBUTION WIDTH 14.1 % (11.5-14.5); WHITE BLOOD COUNT 8.6 K/uL (4.8-10.8)
[2017-10-11 10:45] LABS: ALB/GLOB RATIO 1.3 (1.0-2.1); ALBUMIN 4.3 g/dL (3.5-5.0); ALT/SGPT 44 U/L (9-52); AST/SGOT 32 U/L (14-36); BLOOD UREA NITROGEN 16 mg/dL (7-17); CALCIUM 9.1 mg/dl (8.6-10.4); GFR AFRICAN-AMERICAN > 60; GFR NON-AFRICAN AMERICAN > 60; LIPASE 71 U/L (23-300)
[2017-10-11 12:07] VITALS: BP 153/90; PULSE 96
[2017-10-11 15:25] VITALS: O2SAT 97
== END 2017-10-11 12:46 | disposition home or self-care (01) ==
LOC: C.ER 09:45
DX: K29.70 Gastritis, unspecified, without bleeding (principal); E78.00 Pure hypercholesterolemia, unspecified; I10 Essential (primary) hypertension; E11.9 Type 2 diabetes mellitus without complications; Z79.4 Long term (current) use of insulin
CPT/HCPCS: 80053; 80320; 82948; 83690; 84702; 85025; 96361; 96374; 96375; 99284; J2405; J2765; J7040

== ENCOUNTER 2017-10-23 19:16 | Inpatient (IN) | payer OTHER ==
[2017-10-23 19:16] VITALS: BMI 28.3
--- NOTE | 2017-10-23 20:00 | C.PDOC ---
History Of Present Illness Patient presents to the ER with a complaint of nausea, vomiting, and abdominal pain since yesterday. Patient is an insulin dependent diabetic on an insulin pump, patient states these symptoms feel similar to when she was in DKA. Denies fever or chills. Time Seen by Provider: 10/23/17 20:00 History Per: Patient History/Exam Limitations: no limitations Onset/Duration Of Symptoms: Days Current Symptoms Are (Timing): Still Present Severity: Severe Pain Scale Rating Of: 6 Location Of Pain/Discomfort: Diffuse Radiation Of Pain To:: None Quality Of Discomfort: Unable To Describe Associated Symptoms: Nausea, Vomiting. denies: Fever, Chills Exacerbating Factors: None Alleviating Factors: None Last Bowel Movement: Today Recent travel outside of the [place]: No Additional History Per: Family Abnormal Vaginal Bleeding: No Past Medical History Reviewed: Historical Data, Nursing Documentation, Vital Signs Vital Signs: Last Vital Signs Temp 98.4 F 10/24/17 01:21 Pulse 99 H 10/24/17 01:21 Resp 18 10/24/17 01:21 BP 148/87 10/24/17 01:21 Pulse Ox 96 10/24/17 01:21 - Medical History PMH: Anemia (low iron level), Anxiety, Depression, Diabetes, Gall Bladder Disease, HTN, Hypercholesterolemia Surgical History: Cholecystectomy - [facility] Procedures CLOSURE SKIN & SUBCUTANEOUS NEC (09/26/13) Family History: States: No Known Family Hx - Social History Hx Tobacco Use: No Hx Alcohol Use: Yes Hx Substance Use: No - Immunization History Hx Tetanus Toxoid Vaccination: No Hx Influenza Vaccination: No Hx Pneumococcal Vaccination: No Review Of Systems Constitutional: Negative for: Fever, Chills Cardiovascular: Negative for: Chest Pain, Palpitations Respiratory: Negative for: Shortness of Breath Gastrointestinal: Positive for: Nausea, Vomiting, Abdominal Pain Genitourinary: Negative for: Dysuria Musculoskeletal: Negative for: Back Pain Skin: Negative for: Rash Neurological: Negative for: Weakness Psych: Positive for: Anxiety Physical Exam - Physical Exam Appears: In Acute Distress Skin: Warm, Dry Head: Normacephalic Eye(s): bilateral: Normal Inspection Oral Mucosa: Dry Neck: Supple Chest: Symmetrical, No Tenderness Cardiovascular: Rhythm Regular Respiratory: No Rales, No Rhonchi, No Wheezing Gastrointestinal/Abdominal: Soft, Tenderness (Diffuse), No Guarding, No Rebound Back: Normal Inspection Extremity: Normal ROM Extremity: Bilateral: Atraumatic Pulses: Left Dorsalis Pedis: Normal, Right Dorsalis Pedis: Normal Neurological/Psych: Oriented x3 Gait: With Assistance ED Course And Treatment - Laboratory Results Result Diagrams: 10/23/17 20:15 10/23/17 20:15 O2 Sat by Pulse Oximetry: 100 Pulse Ox Interpretation: Normal Progress Note: Blood work and urinalysis ordered. Zofran and IV fluids administered. Reevaluation Time: 01:25 Reassessment Condition: Improved Critical Care Time - Critical Care Note Total Time (in mins): 30 Documented critical care: time excludes all time spent performing seperately billable procedures. Medical Decision Making Medical Decision Making: Upon provider reevaluation patient is feeling better, is medically stable, and requires no further treatment in the ED at this time. Patient will be discharged home with Rx for zofran . Counseling was provided and all questions were answered regarding diagnosis and need for follow up with [facility]. There is agreement to discharge plan. Return if symptoms persist or worsen. Disposition Counseled Patient/Family Regarding: Studies Performed, Diagnosis, Need For Followup, Rx Given - Disposition Referrals: Joey Lemon MD [Medical Doctor] - Disposition: HOME/ ROUTINE Disposition Time: 20:00 Condition: FAIR Prescriptions: Ondansetron ODT [Zofran ODT] 1 odt PO BID PRN #20 odt PRN Reason: Nausea/Vomiting Instructions: Gastroparesis (Delayed Gastric Emptying) (DC), Nausea and Vomiting, Adult (DC) - Clinical Impression Clinical Impression: Diabetic complication, Nausea & vomiting, Gastroparesis due to DM - Scribe Statement The provider has reviewed the documentation as recorded by the Scribtu Stephens All medical record entries made by the Manoharibtu were at my direction and personally dictated by me. I have reviewed the chart and agree that the record accurately reflects my personal performance of the history, physical exam, medical decision making, and the department course for this patient. I have also personally directed, reviewed, and agree with the discharge instructions and disposition.
[2017-10-23] MEDS ORDERED: Sodium Chloride 0.9% 2,000 ML IV ONE (20:01)
[2017-10-23] MEDS ORDERED: Morphine 4 MG/ML VIAL ONE (20:17)
[2017-10-23 20:18] LABS: BASO # 0.1 K/uL (0.0-0.2); BASO % 0.6 % (0.0-2.0); HEMOGLOBIN 12.7 g/dL (11.0-16.0); LYMPH # 1.3 K/uL (1.0-4.3); LYMPH % 8.8 % (20.0-40.0); MEAN CELL VOLUME 87.1 fL (81.0-99.0); MEAN CORPUSCULAR HEMOGLOBIN 29.1 pg (27.0-31.0); MEAN CORPUSCULAR HGB CONC 33.3 g/dL (33.0-37.0); MEAN PLATELET VOLUME 8.6 fL (7.2-11.7); MONO # 0.3 K/uL (0.0-0.8); MONO % 1.7 % (0.0-10.0); NEUT # 13.6 K/uL (1.8-7.0); NEUT % 88.9 % (50.0-75.0); PLATELET COUNT 314 K/uL (130-400); RBC 4.38 Mil/uL (3.80-5.20); RED CELL DISTRIBUTION WIDTH 14.4 % (11.5-14.5)
[2017-10-23 20:21] LABS: WHITE BLOOD COUNT 15.3 K/uL (4.8-10.8)
[2017-10-23 20:24] LABS: VENOUS BLOOD GAS PCO2 37 mmHg (40-60); VENOUS BLOOD GAS PO2 35 mm/Hg (30-55); VENOUS BLOOD PH 7.31 (7.32-7.43)
[2017-10-23 20:30] LABS: ALB/GLOB RATIO 1.2 (1.0-2.1); ALBUMIN 4.6 g/dL (3.5-5.0); ALT/SGPT 29 U/L (9-52); AST/SGOT 30 U/L (14-36); BLOOD UREA NITROGEN 25 mg/dL (7-17); CALCIUM 9.9 mg/dl (8.6-10.4); GFR AFRICAN-AMERICAN > 60; GFR NON-AFRICAN AMERICAN > 60; LIPASE 47 U/L (23-300)
[2017-10-23 20:46] LABS: LYMPHOCYTE 6 % (20-40); MONOCYTE 2 % (0-10); NEUTROPHIL 92 % (50-75); PLATELET ESTIMATE NORMAL (NORMAL); TOTAL CELLS COUNTED 100
[2017-10-23] MEDS ORDERED: Sodium Chloride 0.9% 1,000 ML IV ONE (22:05)
[2017-10-23] MEDS ORDERED: Sodium Chloride 0.9% 1,000 ML ONE (22:15)
[2017-10-23 23:20] LABS: HCG,QUALITATIVE URINE NEGATIVE (NEGATIVE)
[2017-10-23 23:22] LABS: SQUAMOUS EPITHIAL 3 /hpf (0-5); URINE BACTERIA RARE (<OCC); URINE BILIRUBIN NEGATIVE (NEGATIVE); URINE BLOOD 2+ (NEGATIVE); URINE CLARITY Clear (Clear); URINE COLOR Straw (YELLOW); URINE GLUCOSE (UA) 3+ mg/dL (Normal); URINE LEUKOCYTE ESTERASE NEG Leu/uL (Negative); URINE PROTEIN 2+ mg/dL (NEGATIVE); URINE UROBILINOGEN NORMAL mg/dL (0.2-1.0)
[2017-10-24] MEDS ORDERED: Iodixanol 320 MG/ML 100 ML BOTTLE IV ONE (03:39)
[2017-10-24] MEDS ORDERED: Sodium Chloride 0.9% 1,000 ML ONE (06:21)
[2017-10-24] MEDS: Sodium Chloride 0.9% 1,000 ML IV SCH ×2 (06:34→15:45)
[2017-10-24] MEDS ORDERED: INSULIN GLULISINE SC SCH (07:00)
[2017-10-24] MEDS: (Novolin R) Insulin Human Regular 100 units/ml vial SC SCH ×3 (08:29→21:25)
[2017-10-24] MEDS ORDERED: (Novolin R) Insulin Human Regular 100 units/ml vial ONE (08:30)
[2017-10-24] MEDS ORDERED: Sodium Chloride 0.9% 1,000 ML IV ONE (09:25)
[2017-10-24] MEDS ORDERED: Propofol 10 mg/ml Inj (20 ML) ONE (09:38)
--- NOTE | 2017-10-24 09:43 | CT ---
PROCEDURE: CT Abdomen and Pelvis with intravenous contrast HISTORY: Intractable vomiting COMPARISON: CT scan dated 06/28/2015 TECHNIQUE: Multiple contiguous axial images were performed through the abdomen and pelvis with the use of intravenous contrast. Subsequently, sagittal and coronal reformatted images were obtained. Radiation dose: Total exam DLP = 599 mGy-cm. This CT exam was performed using one or more of the following dose reduction techniques: Automated exposure control, adjustment of the mA and/or kV according to patient size, and/or use of iterative reconstruction technique. FINDINGS: LOWER THORAX: Unremarkable. LIVER: Unremarkable. No gross lesion or ductal dilatation. GALLBLADDER AND BILE DUCTS: Prior cholecystectomy. PANCREAS: Unremarkable. No gross lesion or ductal dilatation. SPLEEN: Unremarkable. ADRENALS: Unremarkable. No mass. KIDNEYS AND URETERS: Unremarkable. No hydronephrosis. No solid mass. VASCULATURE: Unremarkable. No aortic aneurysm. BOWEL: Mild mucosal thickening in the colon which may be secondary to a decompressed state or due to a mild colitis. APPENDIX: Partially visualized. Visualized portions appear grossly preserved. Clinical correlation. PERITONEUM: Unremarkable. No free fluid. No free air. LYMPH NODES: Unremarkable. No enlarged lymph nodes. BLADDER: Small amount of gas in the bladder likely introduced by catheter. REPRODUCTIVE: Heterogeneous uterus and endometrium. Clinical correlation. BONES: No acute fracture. OTHER FINDINGS: Small amount of free fluid in the pelvis which is likely physiologic fluid. IMPRESSION: Mild mucosal thickening in the colon which may be secondary to a decompressed state or due to a mild colitis. Clinical correlation. These findings were preliminarily reported at 4:54 a.m. on 10/24/[address] Jayden Keene from [employer].
--- NOTE | 2017-10-24 12:36 | CP.PCM.HP ---
History of Present Illness - History of Present Illness History of Present Illness: CC: nausea, vomitting HPI: Patient is a young female with type 1 DM long standing on insulin pump, mostly her blood sugars are high, she is compalint to diet, medications and follow up, presents to the ER with a complaint of nausea, vomiting, and abdominal pain since yesterday after having some shake. Patient is an insulin dependent diabetic on an insulin pump, patient states these symptoms feel similar to when she was in DKA. Denies fever or chills Present on Admission - Present on Admission Any Indicators Present on Admission: Yes Review of Systems - Review of Systems Systems not reviewed;Unavailable: Acuity of Condition - Constitutional Constitutional: Lethargy, Malaise, Weakness - EENT Eyes: absent: As Per HPI, Blind Spots, Blurred Vision, Change in Vision, Decreased Night Vision, Diplopia, Discharge, Dry Eye, Exophthalmos, Floaters, Irritation, Itchy Eyes, Loss of Peripheral Vision, Pain, Photophobia, Requires Corrective Lenses, Sees Flashes, Spots in Vision, Tunnel Vision, Other Visual Disturbances, Loss of Vision, Other Ears: absent: As Per HPI, Decreased Hearing, Ear Discharge, Ear Pain, Tinnitus, Abnormal Hearing, Disequilibrium, Dizziness, Other Nose/Mouth/Throat: absent: As Per HPI, Epistaxis, Nasal Congestion, Nasal Discharge, Nasal Obstruction, Nasal Trauma, Nose Pain, Post Nasal Drip, Sinus Pain, Sinus Pressure, Bleeding Gums, Change in Voice, Dental Pain, Dry Mouth, Dysphagia, Halitosis, Hoarsness, Lip Swelling, Mouth Lesions, Mouth Pain, Odynophagia, Sore Throat, Throat Swelling, Tongue Swelling, Facial Pain, Neck Pain, Neck Mass, Other - Breasts Breasts: absent: As Per HPI, Change in Shape, Mass, Pain, Nipple Discharge, Nipple Inversion, Skin Changes, Swelling, Other - Cardiovascular Cardiovascular: absent: As Per HPI, Acrocyanosis, Chest Pain, Chest Pain at Rest , Chest Pain with Activity, Claudication, Diaphoresis, Dyspnea, Dyspnea on Exertion, Edema, Irregular Heart Rhythm, Pain Radiating to Arm/Neck/Jaw, Leg Edema, Leg Ulcers, Lightheadedness, Orthopnea, Palpitations, Paroxysmal Nocturnal Dyspnea, Pedal Edema, Radiating Pain, Rapid Heart Rate, Slow Heart Rate, Syncope, Other - Respiratory Respiratory: absent: As Per HPI, Cough, Dyspnea, Hemoptysis, Dyspnea on Exertion , Wheezing, Snoring, Stridor, Pain on Inspiration, Chest Congestion, Excessive Mucous Production, Change in Mucous Color, Pain with Coughing, Other - Gastrointestinal Gastrointestinal: Abdominal Pain, Nausea, Vomiting - Genitourinary Genitourinary: absent: As Per HPI, Change in Urinary Stream, Difficulty Urinating, Dysuria, Flank Pain, Hematuria, Pyuria, Nocturia, Urinary Incontinence, Urinary Frequency, Urinary Hesitance, Urinary Urgency, Voiding Freq/Small Amts, Freq UTI, Hx Renal/Bladder Calculi, Hx /Renal Surgery, Bladder Distension, Other - Reproductive: Female Reproductive:Female: absent: As Per HPI, Amenorrhea, Amenorrhea/ Control, Currently Menstual, Cycle <21 Days, Cycle >35 Days, Cycle Variable, Menses 1-7 Days, Menses >/= 8 Days, Menses Variable, Cycle > 4 Weeks Between, No Menses for 6 Months, Heavy Menses, Light Menses, Normal Menses, Spotting Between Cycles , S/P Hysterectomy, Menopausal, Post Menopausal, Premenarche, Abnormal Vaginal Bleeding, Dysmenorrhea, Dyspareunia, Genital Lesions, Genital Pruritis, Pelvic Pain, Prolapse Symptoms, Sexual Dysfunction, Vaginal Discharge, Vaginal Dryness , Vaginal Odor, Vaginal Pruritis, Other - Musculoskeletal Musculoskeletal: Back Pain, Myalgias - Integumentary Integumentary: absent: As Per HPI, Acne, Alopecia, Bleeding Lesions, Change in Hair, Change in Nails, Change in Pigmentation, Changing Lesions, Dry Skin, Erythema, Furuncle, Hirsutism, Lesions, New Lesions, Non-Healing Lesions, Photosensitivity, Pruritus, Rash, Skin Pain, Skin Ulcer, Sores, Striae, Swelling , Unusual Bruising, Wounds, Jaundice, Other Past Patient History - Infectious Disease Hx of Infectious Diseases: None - Past Medical History & Family History Past Medical History?: Yes - Past Social History Smoking Status: Never Smoked - CARDIAC Hx Hypercholesterolemia: Yes Hx Hypertension: Yes - PULMONARY Hx Asthma: No Hx Bronchitis: No Hx Chronic Obstructive Pulmonary Disease (COPD): No Hx Emphysema: No Hx Pneumonia: No Hx Pulmonary Embolism: No Hx Sleep Apnea: No - NEUROLOGICAL Hx Alzheimer's Disease: No Hx Dementia: No Hx Migraine: No Hx Multiple Sclerosis: No Hx Parkinson's Disease: No Hx Seizures: No Hx Transient Ischemic Attacks (TIA): No - HEENT Hx HEENT Problems: No - RENAL Hx Chronic Kidney Disease: No Hx Kidney Stones: No - ENDOCRINE/METABOLIC Hx Hyperthyroidism: No Hx Hypothyroidism: No - HEMATOLOGICAL/ONCOLOGICAL Hx Anemia: Yes (low iron level) - INTEGUMENTARY Hx Dermatological Problems: No - MUSCULOSKELETAL/RHEUMATOLOGICAL Hx Arthritis: No Hx Fractures: No Hx Osteoporosis: No Hx Rheumatoid Arthritis: No - GASTROINTESTINAL Hx Gall Bladder Disease: Yes - GENITOURINARY/GYNECOLOGICAL Hx Sexually Transmitted Disorders: No - PSYCHIATRIC Hx Anxiety: Yes Hx Depression: Yes Hx Substance Use: No - SURGICAL HISTORY Hx Cholecystectomy: Yes - ANESTHESIA Hx Anesthesia: Yes Hx Anesthesia Reactions: No Hx Malignant Hyperthermia: No Meds Home Medications: Home Medication List Medication Instructions Recorded Confirmed Type Ondansetron ODT [Zofran ODT] 1 odt PO BID PRN #20 odt 10/24/17 Rx Allergies/Adverse Reactions: Allergies Allergy/AdvReac Type Severity Reaction Status Date / Time No Known Allergies Allergy Verified 10/23/17 20:05 Physical Exam - Constitutional Appears: No Acute Distress - Head Exam Head Exam: ATRAUMATIC, NORMAL INSPECTION, NORMOCEPHALIC - Eye Exam Eye Exam: EOMI, Normal appearance, PERRL Pupil Exam: NORMAL ACCOMODATION, PERRL - ENT Exam ENT Exam: Mucous Membranes Moist, Normal Exam - Neck Exam Neck exam: Positive for: Normal Inspection - Respiratory Exam Respiratory Exam: Clear to Auscultation Bilateral, NORMAL BREATHING PATTERN - Cardiovascular Exam Cardiovascular Exam: REGULAR RHYTHM - GI/Abdominal Exam GI & Abdominal Exam: Normal Bowel Sounds, Soft. absent: Tenderness - Rectal Exam Rectal Exam: Deferred Results - Vital Signs Recent Vital Signs: Last Vital Signs Temp 97.5 F L 10/24/17 09:54 Pulse 113 H 10/24/17 10:14 Resp 16 10/24/17 10:14 BP 101/50 L 10/24/17 10:14 Pulse Ox 100 10/24/17 10:14 - Labs Result Diagrams: 10/25/17 06:28 10/25/17 06:25 Labs: Laboratory Results - last 24 hr 10/23/17 10/23/17 10/23/17 20:04 20:15 20:15 WBC 15.3 H D RBC 4.38 Hgb 12.7 Hct 38.2 MCV 87.1 MCH 29.1 MCHC 33.3 RDW 14.4 Plt Count 314 MPV 8.6 Neut % (Auto) 88.9 H Lymph % (Auto) 8.8 L Lee % (Auto) 1.7 Eos % (Auto) 0.0 Baso % (Auto) 0.6 Neut # (Auto) 13.6 H Lymph # (Auto) 1.3 Lee # (Auto) 0.3 Eos # (Auto) 0.0 Baso # (Auto) 0.1 Neutrophils % (Manual) 92 H Lymphocytes % (Manual) 6 L Monocytes % (Manual) 2 Platelet Estimate Normal pO2 VBG pH VBG pCO2 VBG HCO3 VBG Total CO2 VBG O2 Sat (Calc) VBG Base Excess VBG Potassium Glucose Lactate Sodium 143 Potassium 4.5 Chloride 102 Carbon Dioxide 17 L Anion Gap 29 H BUN 25 H Creatinine 0.8 Est GFR ( Amer) > 60 Est GFR (Non-Af Amer) > 60 POC Glucose (mg/dL) 225 H Random Glucose 250 H Calcium 9.9 Total Bilirubin 0.7 AST 30 ALT 29 Alkaline Phosphatase 102 Total Protein 8.4 H Albumin 4.6 Globulin 3.8 Albumin/Globulin Ratio 1.2 Lipase 47 Venous Blood Potassium Urine Color Urine Clarity Urine pH Ur Specific Addis Urine Protein Urine Glucose (UA) Urine Ketones Urine Blood Urine Nitrate Urine Bilirubin Urine Urobilinogen Ur Leukocyte Esterase Urine WBC (Auto) Urine RBC (Auto) Ur Squamous Epith Cells Ur Transition Epith Cell Urine Bacteria Hyaline Casts Urine HCG, Qual Serum Ketones Small 10/23/17 10/23/17 10/23/17 20:20 22:44 23:20 WBC RBC Hgb Hct MCV MCH MCHC RDW Plt Count MPV Neut % (Auto) Lymph % (Auto) Lee % (Auto) Eos % (Auto) Baso % (Auto) Neut # (Auto) Lymph # (Auto) Lee # (Auto) Eos # (Auto) Baso # (Auto) Neutrophils % (Manual) Lymphocytes % (Manual) Monocytes % (Manual) Platelet Estimate pO2 35 VBG pH 7.31 L VBG pCO2 37 L VBG HCO3 18.5 VBG Total CO2 19.7 L VBG O2 Sat (Calc) 70.3 H VBG Base Excess -7.0 L VBG Potassium 4.2 Glucose 244 H Lactate 2.5 H Sodium 139.0 Potassium Chloride 102.0 Carbon Dioxide Anion Gap BUN Creatinine Est GFR ( Amer) Est GFR (Non-Af Amer) POC Glucose (mg/dL) 234 H Random Glucose Calcium Total Bilirubin AST ALT Alkaline Phosphatase Total Protein Albumin Globulin Albumin/Globulin Ratio Lipase Venous Blood Potassium 4.2 Urine Color Straw Urine Clarity Clear Urine pH 5.0 Ur Specific Addis 1.014 Urine Protein 2+ H Urine Glucose (UA) 3+ H Urine Ketones 2+ H Urine Blood 2+ H Urine Nitrate Negative Urine Bilirubin Negative Urine Urobilinogen Normal Ur Leukocyte Esterase Neg Urine WBC (Auto) 1 Urine RBC (Auto) 13 H Ur Squamous Epith Cells 3 Ur Transition Epith Cell < 1 Urine Bacteria Rare Hyaline Casts 3-5 H Urine HCG, Qual Negative Serum Ketones 10/24/17 10/24/17 10/24/17 06:35 08:01 09:07 WBC RBC Hgb Hct MCV MCH MCHC RDW Plt Count MPV Neut % (Auto) Lymph % (Auto) Lee % (Auto) Eos % (Auto) Baso % (Auto) Neut # (Auto) Lymph # (Auto) Lee # (Auto) Eos # (Auto) Baso # (Auto) Neutrophils % (Manual) Lymphocytes % (Manual) Monocytes % (Manual) Platelet Estimate pO2 VBG pH VBG pCO2 VBG HCO3 VBG Total CO2 VBG O2 Sat (Calc) VBG Base Excess VBG Potassium Glucose Lactate Sodium Potassium Chloride Carbon Dioxide Anion Gap BUN Creatinine Est GFR ( Amer) Est GFR (Non-Af Amer) POC Glucose (mg/dL) 346 H 408 H* 314 H Random Glucose Calcium Total Bilirubin AST ALT Alkaline Phosphatase Total Protein Albumin Globulin Albumin/Globulin Ratio Lipase Venous Blood Potassium Urine Color Urine Clarity Urine pH Ur Specific Addis Urine Protein Urine Glucose (UA) Urine Ketones Urine Blood Urine Nitrate Urine Bilirubin Urine Urobilinogen Ur Leukocyte Esterase Urine WBC (Auto) Urine RBC (Auto) Ur Squamous Epith Cells Ur Transition Epith Cell Urine Bacteria Hyaline Casts Urine HCG, Qual Serum Ketones Assessment & Plan (1) Dehydration Status: Acute (2) Gastroparesis due to DM Status: Acute (3) Nausea & vomiting Status: Acute (4) Abdominal pain Status: Acute (5) Gastritis Status: Acute (6) Type 1 diabetes mellitus Status: Acute
[2017-10-24] MEDS: Aluminum Hydroxide/Magnesium Hydroxide Susp (30 mL) PO PRN (16:00)
[2017-10-24 16:25] VITALS: RESP 20
[2017-10-24] MEDS ORDERED: Pneumococcal 23-Valent Vaccine IM ONE (17:00)
[2017-10-24] MEDS: metroNIDAZOLE IV 500 mg/100 ml 500 MG/100 ML BAG IVPB SCH (19:30)
[2017-10-24] MEDS: Sucralfate 1 gm/10 ml Oral Susp UD PO SCH (21:23)
[2017-10-24] MEDS ORDERED: (Lantus) Insulin Glargine, Recombinant SC SCH (22:00)
[2017-10-25] MEDS ORDERED: Morphine 4 MG/ML VIAL IV ONE (02:05)
[2017-10-25] MEDS: metroNIDAZOLE IV 500 mg/100 ml 500 MG/100 ML BAG IVPB SCH ×3 (02:31→17:20)
[2017-10-25] MEDS: Sodium Chloride 0.9% 1,000 ML IV SCH ×3 (02:32→22:19)
--- NOTE | 2017-10-25 06:14 | CON ---
DATE: 10/23/2017 That is from Natalie Coyle MD to Travis Diaz MD. I was called for GI consultation by the admitting medical team as well as the admitting MD. The patient was seen and fully examined on 10/23/2017 and the case discussed with admitting team. HISTORY OF PRESENT ILLNESS: This is a 27-year-old female who was admitted to the hospital through the emergency room due to recurrent episodes of severe nausea, vomiting, abdominal pain, possible intraabdominal distention with reported recent change of bowel movement habit. No reported chest pain, palpitation, chills, or fever. No significant shortness of breath. PAST MEDICAL HISTORY: Including many, but not limited to, 1. Poorly controlled diabetes mellitus. 2. Peptic ulcer disease. 3. Diabetic gastroparesis by history. 4. Known history of hypertension, hyperlipidemia with gallbladder disorder as well as iron deficiency anemia. 5. Known history of severe anxiety syndrome with depression. 6. Status post cholecystectomy. CURRENT MEDICATIONS: Post admission medication list was reviewed. FAMILY HISTORY: Positive for diabetes mellitus. SOCIAL HISTORY: Positive for alcohol intake, but no cigarette smoking. After being admitted to the hospital, initial blood workup showed leucocytosis of 15.3 with blood glucose level 250 and CO2 content of 17 indicative of metabolic acidosis with BUN of 25, but normal creatinine. PHYSICAL EXAMINATION: GENERAL: A 27-year-old female, appear to be awake, alert, oriented with recurrent episodes of nausea and vomiting. VITAL SIGNS: Afebrile with pulse of 96, respiratory rate 18 to 20 with blood pressure of 140/84. HEENT: Showed a dry oral mucoid membrane. Nonicteric sclerae. LYMPH NODES: No lymphadenitis or lymphadenopathy. LUNGS: Few scattered crepitation with decreased air entry at bases. HEART: Positive S1 and S2, which has increased rate. ABDOMEN: Soft with generalized tenderness, mildly distended. No mass or organomegaly. No rebound tenderness or guarding, but moderate generalized tenderness. RECTAL: The patient refused. EXTREMITIES: Without significant clubbing or cyanosis, but lower extremities mild edematous changes. NEUROLOGIC: No reported new neurological deficits, sensory or motor. No new reported focal deficits. Peripheral pulses are present bilaterally. IMPRESSION: 1. Gastrointestinal bleeding, most likely upper, to rule out Rose-Issa gastric versus duodenal ulcer. 2. Multiple past medical history as mentioned above. 3. To rule out diabetes mellitus or/and diabetic gastroparesis. SUGGESTIONS: 1. Agree with your plan. 2. Peripheral hyperalimentation. 3. Recommend IV. 4. Proton pump inhibitor. 5. Serum lipase and amylase level. 6. Abdominal ultrasound. 7. The patient will need endoscopic evaluation of upper GI tract, which is more stable clinically. 8. Followup with serum lipase and amylase level. 9. Keep the patient n.p.o. for now. Thank you for letting me participate in your patient's case management. Further recommendation to follow. Natalie Coyle MD
[2017-10-25 06:35] LABS: BASO % 0.3 % (0.0-2.0); EOS % 0.1 % (0.0-4.0); HEMOGLOBIN 10.2 g/dL (11.0-16.0); LYMPH # 1.3 K/uL (1.0-4.3); LYMPH % 10.7 % (20.0-40.0); MEAN CELL VOLUME 89.2 fL (81.0-99.0); MEAN CORPUSCULAR HEMOGLOBIN 29.7 pg (27.0-31.0); MEAN CORPUSCULAR HGB CONC 33.3 g/dL (33.0-37.0); MEAN PLATELET VOLUME 8.7 fL (7.2-11.7); MONO # 0.7 K/uL (0.0-0.8); MONO % 6.1 % (0.0-10.0); NEUT # 9.9 K/uL (1.8-7.0); NEUT % 82.8 % (50.0-75.0); RBC 3.45 Mil/uL (3.80-5.20); RED CELL DISTRIBUTION WIDTH 14.2 % (11.5-14.5)
[2017-10-25] MEDS: Sucralfate 1 gm/10 ml Oral Susp UD PO SCH ×3 (06:39→22:16)
[2017-10-25 06:52] LABS: ALB/GLOB RATIO 1.2 (1.0-2.1); ALBUMIN 3.5 g/dL (3.5-5.0); ALT/SGPT 27 U/L (9-52); AMYLASE 53 U/L (30-110); AST/SGOT 21 U/L (14-36); BLOOD UREA NITROGEN 10 mg/dL (7-17); CALCIUM 8.3 mg/dl (8.6-10.4); GFR AFRICAN-AMERICAN > 60; GFR NON-AFRICAN AMERICAN > 60; LIPASE 52 U/L (23-300)
[2017-10-25] MEDS ORDERED: Morphine 4 MG/ML VIAL IVP STA (07:56)
[2017-10-25] MEDS ORDERED: (Novolin R) Insulin Human Regular 100 units/ml vial SC SCH (08:00)
--- NOTE | 2017-10-25 08:16 | CP.PCM.PN ---
Subjective - Date & Time of Evaluation Date of Evaluation: 10/24/17 Time of Evaluation: 18:35 - Subjective Subjective: Pt seen and examined at bedside, she underwent EGD, right now she is in no distress, abdominal pain is resolved, blood sugars are under control Objective - Vital Signs/Intake and Output Vital Signs (last 24 hours): Temp Pulse Resp BP Pulse Ox 98.7 F 97 H 20 128/76 97 10/25/17 00:04 10/25/17 00:04 10/25/17 00:04 10/25/17 00:04 10/25/17 00:04 Intake and Output: 10/25/17 10/25/17 06:59 18:59 Intake Total 920 Output Total 400 Balance 520 - Medications Medications: Current Medications Al Hydrox/Mg Hydrox/Simethicone (Maalox 30 Ml) 30 ml PO Q6H PRN PRN Reason: Indigestion / Heartburn Last Admin: 10/24/17 16:00 Dose: 30 ml Sodium Chloride (Sodium Chloride 0.9%) 1,000 mls @ 100 mls/hr IV .Q10H COUNT INCLUDES THE [facility] Last Admin: 10/25/17 02:32 Dose: 100 mls/hr Metronidazole (Flagyl) 500 mg in 100 mls @ 100 mls/hr IVPB Q8H [facility] PRN Reason: Protocol Last Admin: 10/25/17 02:31 Dose: 100 mls/hr Insulin Human Regular (Novolin R) 0 unit SC ACHS [facility] PRN Reason: Protocol Last Admin: 10/24/17 21:25 Dose: Not Given Metoclopramide HCl (Reglan) 10 mg PO ACHS COUNT [facility]CLUD[facility] Last Admin: 10/25/17 06:39 Dose: 10 mg Non-Formulary Medication (Non-Formulary) 0 ea SC ACHS COUNT [facility]CLUDES [facility] Pantoprazole Sodium (Protonix Inj) 40 mg IVP DAILY COUNT [facility]CLUD[facility] Last Admin: 10/24/17 23:40 Dose: 40 mg Sucralfate (Carafate Oral Susp) 1 gm PO ACBHS COUNT [facility]CLUDES [facility] Last Admin: 10/25/17 06:39 Dose: 1 gm - Labs Labs: 10/25/17 06:28 10/25/17 06:25 - Constitutional Appears: Well - Head Exam Head Exam: ATRAUMATIC, NORMAL INSPECTION, NORMOCEPHALIC - Eye Exam Eye Exam: EOMI, Normal appearance, PERRL Pupil Exam: NORMAL ACCOMODATION, PERRL - ENT Exam ENT Exam: Mucous Membranes Moist, Normal Exam - Neck Exam Neck Exam: Full ROM, Normal Inspection. absent: Lymphadenopathy - Respiratory Exam Respiratory Exam: Clear to Ausculation Bilateral, NORMAL BREATHING PATTERN - Cardiovascular Exam Cardiovascular Exam: REGULAR RHYTHM, +S1, +S2. absent: Murmur - GI/Abdominal Exam GI & Abdominal Exam: Soft, Normal Bowel Sounds. absent: Tenderness - Rectal Exam Rectal Exam: Deferred - Neurological Exam Neurological Exam: Alert, Awake, CN II-XII Intact, Normal Gait, Oriented x3 - Psychiatric Exam Psychiatric exam: Normal Affect, Normal Mood Assessment and Plan (1) Dehydration Status: Acute (2) Gastroparesis due to DM Status: Acute (3) Nausea & vomiting Status: Acute (4) Abdominal pain Status: Acute (5) Gastritis Status: Acute (6) Type 1 diabetes mellitus Status: Acute
[2017-10-25 08:20] LABS: SQUAMOUS EPITHIAL 12 /hpf (0-5); URINE BACTERIA RARE (<OCC); URINE BILIRUBIN NEGATIVE (NEGATIVE); URINE BLOOD 2+ (NEGATIVE); URINE CLARITY Hazy (Clear); URINE COLOR Straw (YELLOW); URINE GLUCOSE (UA) 3+ mg/dL (Normal); URINE LEUKOCYTE ESTERASE NEG Leu/uL (Negative); URINE PROTEIN 2+ mg/dL (NEGATIVE); URINE UROBILINOGEN NORMAL mg/dL (0.2-1.0)
[2017-10-25] MEDS: (Novolin R) Insulin Human Regular 100 units/ml vial SC SCH ×5 (08:48→21:29)
--- NOTE | 2017-10-25 08:52 | CP.PCM.PN ---
Subjective - Date & Time of Evaluation Date of Evaluation: 10/25/17 Time of Evaluation: 18:00 - Subjective Subjective: Pt seen and evaluated today s/p EGD, still nauseous, vomitting, pt is for medical management Objective - Vital Signs/Intake and Output Vital Signs (last 24 hours): Temp Pulse Resp BP Pulse Ox 98.7 F 97 H 20 128/76 97 10/25/17 00:04 10/25/17 00:04 10/25/17 00:04 10/25/17 00:04 10/25/17 00:04 Intake and Output: 10/25/17 10/25/17 06:59 18:59 Intake Total 920 Output Total 400 Balance 520 - Medications Medications: Current Medications Al Hydrox/Mg Hydrox/Simethicone (Maalox 30 Ml) 30 ml PO Q6H PRN PRN Reason: Indigestion / Heartburn Last Admin: 10/24/17 16:00 Dose: 30 ml Sodium Chloride (Sodium Chloride 0.9%) 1,000 mls @ 100 mls/hr IV .Q10H [facility] Last Admin: 10/25/17 02:32 Dose: 100 mls/hr Metronidazole (Flagyl) 500 mg in 100 mls @ 100 mls/hr IVPB Q8H [facility] PRN Reason: Protocol Last Admin: 10/25/17 02:31 Dose: 100 mls/hr Insulin Human Regular (Novolin R) 0 unit SC ACHS [facility] PRN Reason: Protocol Last Admin: 10/25/17 08:48 Dose: 3 unit Metoclopramide HCl (Reglan) 10 mg PO ACHS [facility] Last Admin: 10/25/17 06:39 Dose: 10 mg Non-Formulary Medication (Non-Formulary) 0 ea SC [facility] Pantoprazole Sodium (Protonix Inj) 40 mg IVP DAILY [facility] Last Admin: 10/24/17 23:40 Dose: 40 mg Sucralfate (Carafate Oral Susp) 1 gm PO ACBHS [facility] Last Admin: 10/25/17 06:39 Dose: 1 gm - Labs Labs: 10/25/17 06:28 10/25/17 06:25 - Constitutional Appears: No Acute Distress - Head Exam Head Exam: ATRAUMATIC, NORMAL INSPECTION, NORMOCEPHALIC - Eye Exam Eye Exam: EOMI, Normal appearance, PERRL Pupil Exam: NORMAL ACCOMODATION, PERRL - Respiratory Exam Respiratory Exam: Clear to Ausculation Bilateral, NORMAL BREATHING PATTERN - Cardiovascular Exam Cardiovascular Exam: REGULAR RHYTHM, +S1, +S2. absent: Murmur - GI/Abdominal Exam GI & Abdominal Exam: Soft, Hyperactive Bowel Sounds, Normal Bowel Sounds. absent: Tenderness - Rectal Exam Rectal Exam: Deferred Assessment and Plan (1) Dehydration Status: Acute (2) Gastroparesis due to DM Status: Acute (3) Nausea & vomiting Status: Acute (4) Abdominal pain Status: Acute (5) Gastritis Status: Acute (6) Type 1 diabetes mellitus Status: Acute
--- NOTE | 2017-10-25 09:52 | PN ---
DATE: LOCATION: [facility], bed A SUBJECTIVE: This is a 27-year-old female, post upper endoscopy, seen and examined in rounds with less episodes of abdominal pain, nausea and vomiting. No reported active bleeding, but with intermittent abdominal pain on and off. The entire chart is reviewed including but not limited to the most recent lab and radiology study results, current and the previous medication list, current and the previous medical events. Today's lab showed white blood cells of 12, hemoglobin 10.2, hematocrit 30.7 with normal platelet count, blood glucose level 297, calcium 8.3. Initial CAT scan of the abdomen and pelvis done yesterday, report seen, most possible mild colitis. PHYSICAL EXAMINATION: GENERAL: A 27-year-old female, awake, alert and oriented. VITAL SIGNS: Afebrile with pulse of 94, respiratory rate of 20 to 22, blood pressure 120/72. HEENT: Showed pale, dry, mucous membranes. Nonicteric sclerae. LUNGS: Few scattered crepitation. Decreased air entry mildly bilaterally. HEART: Positive S1 and S2. ABDOMEN: Soft, with mild generalized tenderness. No mass or organomegaly. No rebound tenderness or guarding. RECTAL EXAMINATION: The patient refused. EXTREMITIES: Without significant clubbing, cyanosis, or edema. The patient is post upper endoscopy with biopsy. Pathology report is still pending. IMPRESSION: 1. Re-exacerbation of peptic ulcer disease with erosive gastritis. 2. Poorly controlled diabetes mellitus with diabetic gastroparesis. 3. Known history but not limited to hypertension, hyperlipidemia, iron deficiency anemia. 4. Known history of depression with severe anxiety syndrome. 5. Status post cholecystectomy by history. SUGGESTIONS: 1. Continue current management. 2. Reglan IV. 3. Continue Flagyl IV. 4. Guaiac all the stool daily x3. 5. If there is no response to current treatment, then erythromycin IV to start, otherwise, close observation to follow. Natalie Coyle MD
[2017-10-25] MEDS: Aluminum Hydroxide/Magnesium Hydroxide Susp (30 mL) PO PRN ×2 (13:10→17:22)
[2017-10-25] MEDS: Morphine 4 MG/ML VIAL IVP PRN (17:22)
[2017-10-26] MEDS: Sodium Chloride 0.9% 1,000 ML IV SCH ×5 (01:47→18:24)
[2017-10-26] MEDS: metroNIDAZOLE IV 500 mg/100 ml 500 MG/100 ML BAG IVPB SCH ×3 (01:53→18:17)
[2017-10-26] MEDS: Morphine 4 MG/ML VIAL IVP PRN ×2 (01:54→12:59)
--- NOTE | 2017-10-26 02:57 | CP.PCM.PN ---
Subjective - Date & Time of Evaluation Date of Evaluation: 10/26/17 Time of Evaluation: 18:00 - Subjective Subjective: Pt is seen and examined, s/p EGD, still nauseous, vomitting, pt is for medical management Objective - Vital Signs/Intake and Output Vital Signs (last 24 hours): Temp Pulse Resp BP Pulse Ox 98.2 F 103 H 20 167/90 H 98 10/26/17 00:00 10/26/17 00:00 10/26/17 00:00 10/26/17 00:00 10/26/17 00:00 Intake and Output: 10/25/17 10/26/17 18:59 06:59 Intake Total 1100 Balance 1100 - Medications Medications: Current Medications Al Hydrox/Mg Hydrox/Simethicone (Maalox 30 Ml) 30 ml PO Q4 PRN PRN Reason: Indigestion / Heartburn Last Admin: 10/25/17 17:22 Dose: 30 ml Sodium Chloride (Sodium Chloride 0.9%) 1,000 mls @ 100 mls/hr IV .Q10H [facility] Last Admin: 10/26/17 01:47 Dose: 100 mls/hr Metronidazole (Flagyl) 500 mg in 100 mls @ 100 mls/hr IVPB Q8H [facility] PRN Reason: Protocol Last Admin: 10/26/17 01:53 Dose: 100 mls/hr Insulin Human Regular (Novolin R) 0 unit SC ACHS [facility] PRN Reason: Protocol Last Admin: 10/25/17 21:29 Dose: Not Given Metoclopramide HCl (Reglan) 10 mg PO ACHS [facility] Last Admin: 10/25/17 22:17 Dose: 10 mg Morphine Sulfate (Morphine) 2 mg IVP Q8 PRN PRN Reason: Pain, severe (8-10) Last Admin: 10/25/17 17:22 Dose: 2 mg Non-Formulary Medication (Non-Formulary) 0 ea SC ACHS [facility] Pantoprazole Sodium (Protonix Inj) 40 mg IVP DAILY [facility] Last Admin: 10/25/17 09:26 Dose: 40 mg Sucralfate (Carafate Oral Susp) 1 gm PO ACBHS [facility] Last Admin: 10/25/17 22:16 Dose: Not Given - Labs Labs: 10/25/17 06:28 10/25/17 06:25 - Constitutional Appears: No Acute Distress - Head Exam Head Exam: ATRAUMATIC, NORMAL INSPECTION, NORMOCEPHALIC - Eye Exam Eye Exam: EOMI, Normal appearance, PERRL Pupil Exam: NORMAL ACCOMODATION, PERRL - Respiratory Exam Respiratory Exam: Clear to Ausculation Bilateral, NORMAL BREATHING PATTERN - Cardiovascular Exam Cardiovascular Exam: REGULAR RHYTHM, +S1, +S2. absent: Murmur - GI/Abdominal Exam GI & Abdominal Exam: Soft, Normal Bowel Sounds. absent: Tenderness Assessment and Plan (1) Dehydration Status: Acute (2) Gastroparesis due to DM Status: Acute (3) Nausea & vomiting Status: Acute (4) Abdominal pain Status: Acute (5) Gastritis Status: Acute (6) Type 1 diabetes mellitus Status: Acute
[2017-10-26 07:58] LABS: BASO % 0.5 % (0.0-2.0); EOS % 0.1 % (0.0-4.0); HEMOGLOBIN 10.3 g/dL (11.0-16.0); LYMPH # 1.2 K/uL (1.0-4.3); LYMPH % 13.3 % (20.0-40.0); MEAN CELL VOLUME 88.8 fL (81.0-99.0); MEAN CORPUSCULAR HEMOGLOBIN 30.1 pg (27.0-31.0); MEAN CORPUSCULAR HGB CONC 33.9 g/dL (33.0-37.0); MEAN PLATELET VOLUME 8.8 fL (7.2-11.7); MONO # 0.5 K/uL (0.0-0.8); MONO % 5.8 % (0.0-10.0); NEUT % 80.3 % (50.0-75.0); RBC 3.42 Mil/uL (3.80-5.20); RED CELL DISTRIBUTION WIDTH 14.1 % (11.5-14.5); WHITE BLOOD COUNT 8.7 K/uL (4.8-10.8)
[2017-10-26] MEDS: Sucralfate 1 gm/10 ml Oral Susp UD PO SCH ×2 (08:00→22:17)
[2017-10-26] MEDS: Aluminum Hydroxide/Magnesium Hydroxide Susp (30 mL) PO PRN ×2 (08:00→12:52)
[2017-10-26] MEDS: (Novolin R) Insulin Human Regular 100 units/ml vial SC SCH ×4 (08:00→21:49)
[2017-10-26 08:22] LABS: BLOOD UREA NITROGEN 7 mg/dL (7-17); CALCIUM 8.1 mg/dl (8.6-10.4); GFR AFRICAN-AMERICAN > 60; GFR NON-AFRICAN AMERICAN > 60
[2017-10-26] MEDS: Bisacodyl 5mg EC Tab PO SCH ×2 (10:09→17:00)
--- NOTE | 2017-10-26 10:39 | PN ---
DATE: 10/26/2017 LOCATION: 371, bed A. SUBJECTIVE: This is a 27-year-old female seen and examined in rounds today with less reported abdominal pain, nausea, and vomiting, but still unable to have a full diet. Complaining of constipation with generalized weakness and malaise. The entire chart is reviewed including but not limited to the most recent lab and radiology study results, current and the previous medication list, current and the previous medical events. Today's labs showed blood glucose level of 198, and the patient reported to have yesterday leukocytosis with low hemoglobin and hematocrit. No reported active bleeding. PHYSICAL EXAMINATION GENERAL: A 27-year-old female, awake, alert, and oriented. VITAL SIGNS: Afebrile with pulse of 100, respiratory rate of 20 to 22, blood pressure of 162/86. HEENT: Showed pale, dry oral mucous membranes. Nonicteric sclerae. LUNGS: Clear breathing sounds are present bilaterally. HEART: Positive S1 and S2. ABDOMEN: Soft, with mild generalized tenderness. No mass or organomegaly. No rebound tenderness or guarding, but slight abdominal distention. EXTREMITIES: Without significant edema, clubbing or cyanosis. NEUROLOGIC: No reported new neurological deficits, sensory or motor. IMPRESSION: 1. Poorly controlled diabetes mellitus. 2. Re-exacerbation of peptic ulcer disease with erosive gastritis. 3. Diabetic gastroparesis. 4. Known history of hyperlipidemia, hypertension, with iron deficiency anemia. 5. Severe anxiety syndrome with depression. 6. Status post cholecystectomy by history. 7. Change in bowel movement with constipation. SUGGESTIONS: 1. Agree with your plan. 2. Dulcolax p.o. 3. Peripheral hyperalimentation in the meantime. 4. If there is no significant improvement, then erythromycin 500 mg IV every 6 hours . 4. Further recommendations to follow. Natalie Coyle MD
[2017-10-27] MEDS: Morphine 4 MG/ML VIAL IVP PRN (00:25)
[2017-10-27 01:54] VITALS: TEMP 98.5
[2017-10-27] MEDS: metroNIDAZOLE IV 500 mg/100 ml 500 MG/100 ML BAG IVPB SCH ×2 (02:01→11:20)
[2017-10-27] MEDS: Sodium Chloride 0.9% 1,000 ML IV SCH (04:17)
[2017-10-27] MEDS: Sucralfate 1 gm/10 ml Oral Susp UD PO SCH (07:55)
[2017-10-27] MEDS: (Novolin R) Insulin Human Regular 100 units/ml vial SC SCH ×2 (07:55→12:33)
--- NOTE | 2017-10-27 12:38 | PN ---
DATE: 10/27/2017 LOCATION: 371, bed A. SUBJECTIVE: This is a 27-year-old female seen and examined in rounds today with intermittent periods of nausea and vomiting again, but no reported active bleeding, with periods of abdominal pain. The entire chart is reviewed including but not limited to the most recent lab and radiology study results, current and the previous medication list, current and the previous medical events. Today's lab showed blood glucose level of 190. Rest of the lab results still pending, but reported to have low hemoglobin and hematocrit, with low calcium and low lactic acid. PHYSICAL EXAMINATION: GENERAL: A 27-year-old female, awake, alert, and oriented. VITAL SIGNS: Afebrile, with pulse of 80, respiratory rate 20 to 22, blood pressure 160/78. HEENT: Showed pale, dry, oral mucous membranes. Nonicteric sclerae. LUNGS: Few scattered crepitations. Decreased air entry at bases. HEART: Positive S1 and S2. ABDOMEN: Soft, with mild generalized tenderness. No mass or organomegaly. No rebound tenderness or guarding. EXTREMITIES: Without significant clubbing, cyanosis, or edema. NEUROLOGIC: No reported new neurological deficits, sensory or motor. No reported new focal deficits. IMPRESSION: 1. Re-exacerbation of peptic ulcer disease with erosive gastritis. 2. Poorly controlled diabetes mellitus with diabetic gastroparesis. 3. Known history of but not limited to hypertension, with hyperlipidemia. 4. Anemia, most likely secondary to above. 5. Reported history of depression with severe anxiety syndrome. 6. Status post cholecystectomy. SUGGESTIONS: 1. Continue current management. 2. We will consider erythromycin 500 mg IV every 6 hours, if the patient's symptoms not improving. Otherwise, current medications to continue with close observation. Natalie Coyle MD
[2017-10-27 16:02] VITALS: BP 170/92; PULSE 81; O2SAT 100
--- NOTE | 2017-10-27 17:55 | CP.PCM.PN ---
Subjective - Date & Time of Evaluation Date of Evaluation: 10/27/17 Time of Evaluation: 11:00 - Subjective Subjective: Alert, awake, no abdominal pain or vomiting. Objective - Vital Signs/Intake and Output Vital Signs (last 24 hours): Temp Pulse Resp BP Pulse Ox 98.5 F 81 20 170/92 H 100 10/27/17 15:59 10/27/17 15:59 10/27/17 15:59 10/27/17 15:59 10/27/17 15:59 Intake and Output: 10/27/17 10/27/17 06:59 18:59 Intake Total 1280 1500 Balance 1280 1500 - Labs Labs: 10/26/17 07:41 10/26/17 07:41 Assessment and Plan - Assessment and Plan (Free Text) Assessment: Patient admitted with intractable vomiting gastroparesis, seen and examined. Alert and orientedx3, able tolerate bland diet today. Denies abdominal pains or vomiting. Discussed with DR Diaz, plan to discharge home today on protonix. Advised to follow up with PMD in 1 week.
--- NOTE | 2017-10-28 00:33 | CP.PCM.DIS ---
Provider - Provider Date of Admission: 10/24/17 05:31 Attending physician: Travis Diaz MD Time Spent in preparation of Discharge (in minutes): 45 Diagnosis - Discharge Diagnosis (1) Dehydration Status: Acute (2) Gastroparesis due to DM Status: Acute (3) Nausea & vomiting Status: Acute (4) Abdominal pain Status: Acute (5) Gastritis Status: Acute (6) Type 1 diabetes mellitus Status: Acute Hospital Course - Lab Results Lab Results: Most Recent Lab Values WBC 8.7 K/uL (4.8-10.8) 10/26/17 07:41 RBC 3.42 Mil/uL (3.80-5.20) L 10/26/17 07:41 Hgb 10.3 g/dL (11.0-16.0) L 10/26/17 07:41 Hct 30.3 % (34.0-47.0) L 10/26/17 07:41 MCV 88.8 fL (81.0-99.0) 10/26/17 07:41 MCH 30.1 pg (27.0-31.0) 10/26/17 07:41 MCHC 33.9 g/dL (33.0-37.0) 10/26/17 07:41 RDW 14.1 % (11.5-14.5) 10/26/17 07:41 Plt Count 191 K/uL (130-400) 10/26/17 07:41 MPV 8.8 fL (7.2-11.7) 10/26/17 07:41 Neut % (Auto) 80.3 % (50.0-75.0) H 10/26/17 07:41 Lymph % (Auto) 13.3 % (20.0-40.0) L 10/26/17 07:41 [place] % (Auto) 5.8 % (0.0-10.0) 10/26/17 07:41 Eos % (Auto) 0.1 % (0.0-4.0) 10/26/17 07:41 Baso % (Auto) 0.5 % (0.0-2.0) 10/26/17 07:41 Neut # (Auto) 7.0 K/uL (1.8-7.0) 10/26/17 07:41 Lymph # (Auto) 1.2 K/uL (1.0-4.3) 10/26/17 07:41 [place] # (Auto) 0.5 K/uL (0.0-0.8) 10/26/17 07:41 Eos # (Auto) 0.0 K/uL (0.0-0.7) 10/26/17 07:41 Baso # (Auto) 0.0 K/uL (0.0-0.2) 10/26/17 07:41 Neutrophils % (Manual) 92 % (50-75) H 10/23/17 20:15 Lymphocytes % (Manual) 6 % (20-40) L 10/23/17 20:15 Monocytes % (Manual) 2 % (0-10) 10/23/17 20:15 Platelet Estimate Normal (NORMAL) 10/23/17 20:15 pO2 35 mm/Hg (30-55) 10/23/17 20:20 VBG pH 7.31 (7.32-7.43) L 10/23/17 20:20 VBG pCO2 37 mmHg (40-60) L 10/23/17 20:20 VBG HCO3 18.5 mmol/L 10/23/17 20:20 VBG Total CO2 19.7 mmol/L (22-28) L 10/23/17 20:20 VBG O2 Sat (Calc) 70.3 % (40-65) H 10/23/17 20:20 VBG Base Excess -7.0 mmol/L (0.0-2.0) L 10/23/17 20:20 VBG Potassium 4.2 mmol/L (3.6-5.2) 10/23/17 20:20 Sodium 139.0 mmol/l (132-148) 10/23/17 20:20 Chloride 102.0 mmol/L (98-107) 10/23/17 20:20 Glucose 244 mg/dl (65-105) H 10/23/17 20:20 Lactate 2.5 mmol/L (0.7-2.1) H 10/23/17 20:20 Sodium 138 mmol/L (132-148) 10/26/17 07:41 Potassium 4.0 mmol/L (3.6-5.2) 10/26/17 07:41 Chloride 107 mmol/L (98-107) 10/26/17 07:41 Carbon Dioxide 16 mmol/L (22-30) L 10/26/17 07:41 Anion Gap 20 (10-20) 10/26/17 07:41 BUN 7 mg/dL (7-17) 10/26/17 07:41 Creatinine 0.6 mg/dL (0.7-1.2) L 10/26/17 07:41 Est GFR ( Amer) > 60 10/26/17 07:41 Est GFR (Non-Af Amer) > 60 10/26/17 07:41 POC Glucose (mg/dL) 221 mg/dL (65-110) H 10/27/17 11:29 Random Glucose 217 mg/dL (65-105) H 10/26/17 07:41 Lactic Acid 0.6 mmol/L (0.7-2.1) L 10/26/17 07:41 Calcium 8.1 mg/dl (8.6-10.4) L 10/26/17 07:41 Total Bilirubin 0.8 mg/dL (0.2-1.3) 10/25/17 06:25 AST 21 U/L (14-36) 10/25/17 06:25 ALT 27 U/L (9-52) 10/25/17 06:25 Alkaline Phosphatase 65 U/L (38-126) 10/25/17 06:25 Total Protein 6.5 g/dL (6.3-8.3) 10/25/17 06:25 Albumin 3.5 g/dL (3.5-5.0) D 10/25/17 06:25 Globulin 3.0 gm/dL (2.2-3.9) 10/25/17 06:25 Albumin/Globulin Ratio 1.2 (1.0-2.1) 10/25/17 06:25 Amylase 53 U/L (30-110) 10/25/17 06:25 Lipase 52 U/L (23-300) 10/25/17 06:25 Venous Blood Potassium 4.2 mmol/L (3.6-5.2) 10/23/17 20:20 Urine Color Straw (YELLOW) 10/25/17 07:24 Urine Clarity Hazy (Clear) 10/25/17 07:24 Urine pH 6.0 (5.0-8.0) 10/25/17 07:24 Ur Specific [place] 1.022 (1.003-1.030) 10/25/17 07:24 Urine Protein 2+ mg/dL (NEGATIVE) H 10/25/17 07:24 Urine Glucose (UA) 3+ mg/dL (Normal) H 10/25/17 07:24 Urine Ketones 2+ mg/dL (NEGATIVE) H 10/25/17 07:24 Urine Blood 2+ (NEGATIVE) H 10/25/17 07:24 Urine Nitrate Negative (NEGATIVE) 10/25/17 07:24 Urine Bilirubin Negative (NEGATIVE) 10/25/17 07:24 Urine Urobilinogen Normal mg/dL (0.2-1.0) 10/25/17 07:24 Ur Leukocyte Esterase Neg [place]/uL (Negative) 10/25/17 07:24 Urine WBC (Auto) 1 /hpf (0-5) 10/25/17 07:24 Urine RBC (Auto) 7 /hpf (0-3) H 10/25/17 07:24 Ur Squamous Epith Cells 12 /hpf (0-5) H 10/25/17 07:24 Ur Transition Epith Cell < 1 /hpf (0-3) 10/23/17 23:20 Urine Bacteria Rare (<OCC) 10/25/17 07:24 Hyaline Casts 3-5 /lpf (0-2) H 10/23/17 23:20 Urine HCG, Qual Negative (NEGATIVE) 10/23/17 23:20 Serum Ketones Small (NEGATIVE) 10/23/17 20:15 - Hospital Course Hospital Course: Patient admitted with intractable vomiting gastroparesis, seen and examined. Alert and orientedx3, able tolerate bland diet today. Denies abdominal pains or vomiting. Pt is stable, plan to discharge home today on protonix. Advised to follow up with PMD in 1 week. Discharge Exam - Head Exam Head Exam: ATRAUMATIC, NORMAL INSPECTION, NORMOCEPHALIC - Eye Exam Eye Exam: EOMI, Normal appearance, PERRL Pupil Exam: NORMAL ACCOMODATION, PERRL - ENT Exam ENT Exam: Mucous Membranes Moist - Respiratory Exam Respiratory Exam: Decreased Breath Sounds - Cardiovascular Exam Cardiovascular Exam: REGULAR RHYTHM, +S1, +S2 - GI/Abdominal Exam GI & Abdominal Exam: Normal Bowel Sounds - Neurological Exam Neurological exam: Alert, CN II-XII Intact, Normal Gait, Oriented x3, Reflexes Normal - Psychiatric Exam Psychiatric exam: Normal Affect, Normal Mood - Skin Skin Exam: Dry, Intact, Normal Color, Warm Discharge Plan - Discharge Medications Prescriptions: Pantoprazole Sodium [Protonix] 40 mg PO DAILY #30 ect Ondansetron ODT [Zofran ODT] 1 odt PO BID PRN #20 odt PRN Reason: Nausea/Vomiting - Follow Up Plan Condition: GUARDED Disposition: HOME/ ROUTINE Instructions: Nausea and Vomiting, Adult (DC), Gastroparesis (Delayed Gastric Emptying) (DC) Additional Instructions: follow up with PMD in 1 week protonix to continue as advised advance diet slowly Referrals: Joey Lemon MD [Medical Doctor] -
== END 2017-10-27 17:31 | disposition home or self-care (01) | DRG 18 ==
LOC: C.ER 19:16 → C.9E 10-24 05:31 → C.3T 10-24 13:45
PROVIDERS: ADMIT Internal Medicine; ATTEND Internal Medicine
PROC: 0DB68ZX Excision of Stomach, Via Natural or Artificial Opening Endoscopic, Diagnostic (ICD-10-PCS; principal; 2017-10-24 09:25)
DX: E10.43 Type 1 diabetes mellitus with diabetic autonomic (poly)neuropathy (principal); E10.65 Type 1 diabetes mellitus with hyperglycemia; E86.0 Dehydration; E87.2 Acidosis; K92.2 Gastrointestinal hemorrhage, unspecified; I10 Essential (primary) hypertension; K31.84 Gastroparesis; Z79.4 Long term (current) use of insulin; D64.9 Anemia, unspecified; E78.5 Hyperlipidemia, unspecified; F32.9 Major depressive disorder, single episode, unspecified; F41.9 Anxiety disorder, unspecified; K27.9 Peptic ulcer, site unspecified, unspecified as acute or chronic, without hemorrhage or perforation; K29.60 Other gastritis without bleeding; K59.00 Constipation, unspecified